=== PATIENT | male | born 1930 | race Caucasian/White ===

== ENCOUNTER 2016-12-25 22:30 | Inpatient (IN) | payer MEDICARE, OTHER ==
[~2016-12-25] VITALS: Ht 182.9 cm; Wt 90.9 kg
[2016-12-25] MEDS ORDERED: SODIUM CHLORIDE 0.9% 1L BAG IV* STA (23:06)
--- NOTE | 2016-12-25 23:09 | ERA ---
ER Documentation Chief Complaint Date/Time DATE: 12/25/16 TIME: 23:07 Chief Complaint increased fatigue/ lethargy x3-4h per HPI Patient is an 86-year-old male who presents with gradual onset, constant, progressive cough and dyspnea for 2 days. His states that he became more lethargic today and complained of generalized weakness. She called 911, and on EMS arrival, the patient was found to be satting 65% on room air. The patient was alert and oriented. He has not had any vomiting. History is limited due to patient's inability to provide past medical or surgical history. ROS All systems reviewed and are negative except as per history of present illness. Medications Home Meds Reported Medications Quetiapine Fumarate* (Quetiapine Fumarate*) 50 Mg Tablet, 50 MG PO BID, TAB 12/26/16 Insulin Aspart* (Novolog Insulin Pen*) 100 Unit/Ml Soln, 0 SC .SLIDING SCALE AC , EA 12/26/16 Insulin Detemir (Levemir) 100 Unit/1 Ml Vial, SC, VIAL 12/26/16 Trazodone Hcl* (Desyrel*) 100 Mg Tab, 100 MG PO BID, #60 TAB 12/26/16 Omeprazole* (Omeprazole*) 40 Mg Capsule.dr, 40 MG PO DAILY, #30 CAP 12/26/16 Atorvastatin Calcium (Atorvastatin Calcium) 10 Mg Tablet, 10 MG PO QHS, #30 TAB 12/26/16 Tamsulosin Hcl* (Tamsulosin Hcl*) 0.4 Mg Cap.er.24h, 0.4 MG PO DAILY, CAP 12/26/16 Amlodipine Besylate* (Amlodipine Besylate*) 10 Mg Tablet, 10 MG PO DAILY, #30 TAB 12/26/16 Metoprolol Succinate* (Toprol XL*) 50 Mg Tab.er.24h, 50 MG PO DAILY, #30 TAB 12/26/16 Buspirone Hcl* (Buspirone Hcl*) 15 Mg Tablet, 15 MG PO BID, TAB 12/26/16 Allergies Allergies: Coded Allergies: Penicillins (Unverified Allergy, Unknown, 12/25/16) PMhx/Soc Past medical history: Patient cannot state Past surgical history: Patient cannot state. Midline abdominal scar. Right arm scar Social history: Patient cannot state. History of Surgery: No (unknown) Anesthesia Reaction: No Hx Neurological Disorder: No (unknown) Hx Respiratory Disorders: No Hx Cardiac Disorders: No Hx Psychiatric Problems: No Hx Miscellaneous Medical Probl: Yes (dm2) Hx Alcohol Use: No (utd) Hx Substance Use: No (utd) Hx Tobacco Use: No Smoking Status: Unknown if ever smoked FmHx Unobtainable Physical Exam Vitals Vital Signs Date Time Temp Pulse Resp B/P Pulse Ox O2 Delivery O2 Flow Rate FiO2 12/26/16 01:45 83 100 60 12/26/16 01:40 87 18 120/64 95 Non Rebreather 12/26/16 00:05 93 19 121/91 94 Room Air Non Rebreather 12/25/16 23:01 Non Rebreather 15 12/25/16 22:56 99.9 104 22 139/108 95 Physical Exam Const: Alert, no acute distress, lethargic Head: Atraumatic Eyes: Normal Conjunctiva, no pallor, no icterus ENT: Normal External Ears, Nose and Mouth. Tacky mucous membranes Neck: Full range of motion. No meningismus. Resp: Left basilar rales, mild tachypnea, no wheezes Cardio: Regular rate and rhythm, no murmurs Abd: Soft, non tender, non distended. Skin: No petechiae or rashes Back: No midline or flank tenderness Ext: No cyanosis, or edema Neur: Awake and alert, cranial nerves II through XII intact bilaterally, moves and feels 4 extremities appropriately Psych: Normal Mood and Affect Result Diagram: 12/25/16 2330 12/25/16 2330 Results 24 hrs Laboratory Tests Test 12/25/16 23:30 White Blood Count 12.410^3/ul Red Blood Count 3.0810^6/ul Hemoglobin 9.3g/dl Hematocrit 29.6% Mean Corpuscular Volume 96.1fl Mean Corpuscular Hemoglobin 30.2pg Mean Corpuscular Hemoglobin Concent 31.4g/dl Red Cell Distribution Width 17.8% Platelet Count 28302^3/UL Mean Platelet Volume 10.4fl Neutrophils % 88.9% Lymphocytes % 3.1% Monocytes % 4.7% Eosinophils % 0.2% Basophils % 0.2% Neutrophils # 11.010^3/ul Lymphocytes # 0.410^3/ul Monocytes # 0.610^3/ul Eosinophils # 0.010^3/ul Basophils # 0.010^3/ul Nucleated Red Blood Cells # 0.010^3/ul Prothrombin Time 14.4Sec Prothrombin Time Ratio 1.1 INR International Normalized Ratio 1.12 Activated Partial Thromboplast Time 42.1Sec Sodium Level 138mmol/L Potassium Level 4.7mmol/L Chloride Level 100mmol/L Carbon Dioxide Level 24mmol/L Anion Gap 19 Blood Urea Nitrogen 31mg/dl Creatinine 1.47mg/dl Glucose Level 224mg/dl Lactic Acid Level 1.8mmol/L Calcium Level 8.4mg/dl Total Bilirubin 0.5mg/dl Direct Bilirubin 0.00mg/dl Indirect Bilirubin 0.5mg/dl Aspartate Amino Transf (AST/SGOT) 25IU/L Alanine Aminotransferase (ALT/SGPT) 30IU/L Alkaline Phosphatase 94IU/L Troponin I 0.047ng/ml B-Type Natriuretic Peptide 14634ES/ML Total Protein 5.9g/dl Albumin 2.8g/dl Globulin 3.10g/dl Albumin/Globulin Ratio 0.90 Current Medications Medications (Trade) Dose Ordered Sig/Saadia Route PRN Reason Start Time Stop Time Status Last Admin Dose Admin Ceftriaxone Sodium (Rocephin) 50 ml @ 100 mls/hr ONCE ONCE IVPB 12/25/16 23:30 12/25/16 23:59 DC 12/25/16 23:30 Sodium Chloride (NS) 2,820 ml BOLUS OVER 3 HOURS STAT IV* 12/25/16 23:06 12/25/16 23:08 DC 12/25/16 23:59 Furosemide (Lasix) 40 mg ONCE ONCE IV 12/26/16 01:30 12/26/16 01:31 DC Haloperidol (Haldol) 5 mg STK-MED ONCE .ROUTE 12/26/16 01:21 12/26/16 01:22 DC Ondansetron HCl (Zofran Inj) 4 mg ER BRIDGE PRN IV NAUSEA AND/OR VOMITING 12/26/16 02:00 12/27/16 01:59 Acetaminophen (Tylenol Tab) 650 mg ER BRIDGE PRN PO MILD PAIN/FEVER 12/26/16 02:00 12/27/16 01:59 Azithromycin (Zithromax) 500 mg ONCE ONCE PO 12/26/16 02:00 12/26/16 02:01 DC Haloperidol (Haldol) 5 mg ONCE ONCE IM 12/26/16 02:00 12/26/16 02:01 DC Procedures/MDM EKG read by me: Time 2310, rate 97 Rhythm: Sinus rhythm with first-degree AV block Cashion: Normal Intervals: Normal ST-T waves: Nonspecific ST change in lateral leads Ectopy: No Q-waves: No Impression: First-degree AV block and nonspecific ST changes, no obvious ischemia. MDM: Patient is an 86-year-old male who presents to the ER with shortness of breath, cough, and hypoxemia. He also was more lethargic today. History is limited due to lack of presence of family members, limited history from paramedics, and patient appearing to have underlying dementia and being unable to provide significant history. Initially, a noted asymmetric rales on exam, and suspected pneumonia. A septic workup was initiated. IV fluids and antibiotics were administered, and blood and urine cultures were sent. Subsequently, a chest x-ray was suggestive of CHF with pulmonary edema more likely than pneumonia. I reviewed the chest x-ray, and felt that it was consistent with pulmonary edema. I therefore stopped administering fluids. The patient was afebrile on rectal temperature at 99.9 Fahrenheit, and had no hypotension, no tachycardia, and no elevated lactic acid. The patient's BNP was greater than 13,000, suggestive of CHF. The patient was administered Lasix and aspirin. EKG did not appear ischemic, and first troponin was not significantly elevated. The patient was started on BiPAP, and did not exhibit significant respiratory distress. Fluid administration by sepsis protocol was not pursued due to the risk of worsening the patient's pulmonary edema, and greater likelihood of CHF as opposed to pneumonia as the underlying diagnosis. Antibiotics were administered in case of concomitant pneumonia. The patient will need to have close observation of his fluid balance and respiratory status. A Fink catheter was placed to assist with this assessment. The patient will be admitted to a monitored bed for further workup and treatment. The patient was agitated in the ER, and required Haldol and restraints to avoid him pulling his lines. Departure Diagnosis: Primary Impression: CHF (congestive heart failure) Qualified Code: I50.9 - Congestive heart failure, unspecified congestive heart failure chronicity, unspecified congestive heart failure type Additional Impressions: Hypoxemia Pneumonia Qualified Code: J18.9 - Pneumonia due to infectious organism, unspecified laterality, unspecified part of lung Condition: NADIRA Bliss MD Dec 25, 2016 23:09
[2016-12-25] MEDS ORDERED: CEFTRIAXONE 2 GM/50 ML (PMX) 50 ML IVPB ONE (23:30)
--- NOTE | 2016-12-25 23:55 | RADRPT ---
PROCEDURE: XR Chest. CLINICAL INDICATION: Possible sepsis TECHNIQUE: AP Portable chest. COMPARISON: No pertinent prior examinations were submitted for comparison. FINDINGS: There is moderate cardiomegaly. Patchy airspace opacity is noted throughout the left greater than r ight chest. The osseous structures are unremarkable. A cardiac device is noted in the left chest wi th 2 leads. IMPRESSION: Patchy airspace opacities of the left and right chest likely due to pulmonary edema. Pneumonia kamlesh ot be excluded. RPTAT: HIKT .Gurmeet Rodrigez MD, MD Date Time Electronically viewed and signed by .Gurmeet Rodrigez MD, MD on 12/25/2016 23:55 .T/
[2016-12-25 23:59] LABS: ADD SCAN DIFF NO
[2016-12-26] VITALS (10 sets, daily range): BP systolic 136–164; BP diastolic 62–70; PULSE 67–109; RESP 18–21; Ht 182.9 cm; Wt 90.9 kg
[2016-12-26 00:03] LABS: ABNORMAL IP MESSAGE 1; BASOPHILS % 0.2 % (0.0-2.0); EOSINOPHILS % 0.2 % (0.0-7.0); HEMATOCRIT 29.6 % (42.0-52.0); HEMOGLOBIN 9.3 g/dl (14.0-18.0); LYMPHOCYTES # 0.4 10^3/ul (0.8-2.9); LYMPHOCYTES % 3.1 % (15.0-51.0); MEAN CORPUSCULAR HEMOGLOBIN 30.2 pg (29.0-33.0); MEAN CORPUSCULAR HGB CONC 31.4 g/dl (32.0-37.0); MEAN CORPUSCULAR VOLUME 96.1 fl (82.0-101.0); MEAN PLATELET VOLUME 10.4 fl (7.4-10.4); MONOCYTE # 0.6 10^3/ul (0.3-0.9); MONOCYTES % 4.7 % (0.0-11.0); NEUTROPHILS % 88.9 % (39.0-77.0); PLATELET COUNT 282 10^3/UL (140-415); RED BLOOD COUNT 3.08 10^6/ul (4.70-6.10); RED CELL DISTRIBUTION WIDTH 17.8 % (11.5-14.5); WHITE BLOOD COUNT 12.4 10^3/ul (4.8-10.8)
[2016-12-26 00:20] LABS: INR 1.12; PROTIME 14.4 Sec (12.2-14.2); PT RATIO 1.1
[2016-12-26 00:21] LABS: PARTIAL THROMBOPLASTIN TIME 42.1 Sec (25.0-35.0)
[2016-12-26 00:29] LABS: ALBUMIN 2.8 g/dl (3.3-4.9); ALBUMIN/GLOBULIN RATIO 0.9; BILIRUBIN,INDIRECT 0.5 mg/dl (0-1.1); BILIRUBIN,TOTAL 0.5 mg/dl (0.2-1.3); CALCIUM 8.4 mg/dl (8.4-10.2); CREATININE 1.47 mg/dl (0.61-1.24); POTASSIUM 4.7 mmol/L (3.5-5.1); TOTAL PROTEIN 5.9 g/dl (6.1-8.1)
[2016-12-26 00:42] LABS: TROPONIN-I 0.047 ng/ml (0.00-0.12)
[2016-12-26] MEDS ORDERED: HALOPERIDOL 5 MG INJ ONE (01:21)
[2016-12-26] MEDS ORDERED: FUROSEMIDE 40 MG INJ IV ONE (01:30)
[2016-12-26] MEDS ORDERED: QUET50TA22 PO (01:44)
[2016-12-26] MEDS ORDERED: OMEP40CA6 PO (01:44)
[2016-12-26] MEDS ORDERED: ATOR10TA65 PO (01:44)
[2016-12-26] MEDS ORDERED: BUSP15TA3 PO (01:44)
[2016-12-26] MEDS ORDERED: LEVEM SC (01:44)
[2016-12-26] MEDS ORDERED: NOVO3I SC (01:44)
[2016-12-26] MEDS ORDERED: TAMS0.4C2 PO (01:44)
[2016-12-26] MEDS ORDERED: METO50TA16 PO (01:44)
[2016-12-26] MEDS ORDERED: AMLO-147 PO (01:44)
[2016-12-26] MEDS ORDERED: TRAZ100T15 PO (01:44)
[2016-12-26] MEDS ORDERED: AZITHROMYCIN 250 MG TAB PO ONE (02:00)
[2016-12-26] MEDS ORDERED: HALOPERIDOL 5 MG INJ IM ONE (02:00)
[2016-12-26] MEDS ORDERED: ONDANSETRON 4 MG INJ IV PRN ×2 (02:00→06:00)
[2016-12-26] MEDS ORDERED: ACETAMINOPHEN 325 MG TAB PO PRN ×2 (02:00→06:00)
[2016-12-26] MEDS ORDERED: ASPIRIN 81 MG TAB PO ONE (02:30)
[2016-12-26 03:40] LABS: Allen Test ACCEPTAB; Arterial Base Excess -1.6 mmol/L (-3.0-3); Arterial COHb 0.3 % (0.0-3.0); Arterial Fraction of Oxyhgb 94.7 % (93.0-99.0); Arterial HCO3 23.2 mmol/L (22.0-26.0); Arterial MetHb 0.3 % (0.0-1.5); Arterial Total Hemglobin 10.1 g/dl (12.0-18.0); Blood Gas IEPAP 15/5; MODE MASK - BIPAP
[2016-12-26 04:29] LABS: ADD UMIC YES; UR ASCORBIC ACID NEGATIVE (NEGATIVE); UR BACTERIA FEW /HPF (NONE SEEN); UR BILIRUBIN (Dip) NEGATIVE (NEGATIVE); UR BLOOD (Dip) 1+ mg/dL (NEGATIVE); UR CLARITY CLOUDY (CLEAR); UR COLOR YELLOW (YELLOW); UR GLUCOSE (Dip) NEGATIVE (NEGATIVE); UR KETONES (Dip) NEGATIVE (NEGATIVE); UR LEUKOCYTE ESTERASE (Dip) 3+ Leu/ul (NEGATIVE); UR NITRITE (Dip) NEGATIVE (NEGATIVE); UR RBC 7 /HPF (0-5); UR SPECIFIC GRAVITY (Dip) 1.014 (1.003-1.030); UR TOTAL PROTEIN (Dip) 2+ mg/dl (NEGATIVE); UR UROBILINOGEN (Dip) NEGATIVE (NEGATIVE)
[2016-12-26] MEDS ORDERED: DEXTROSE 50% 50 ML SYRINGE IV PRN ×2 (06:00)
[2016-12-26] MEDS ORDERED: FUROSEMIDE 20 MG INJ IV SCH (06:00)
[2016-12-26] MEDS ORDERED: GLUCOSE GEL 15 GRAM TUBE PO PRN ×2 (06:00)
[2016-12-26] MEDS ORDERED: GLUCAGON 1 MG INJ IM PRN (06:00)
[2016-12-26] MEDS ORDERED: FUROSEMIDE 40 MG INJ IV SCH (06:00)
[2016-12-26] MEDS ORDERED: GLUCOSE GEL 15 GRAM TUBE BUCCAL PRN (06:00)
[2016-12-26] MEDS ORDERED: NACL 0.9% 3 ML SYG IV SCH (06:00)
[2016-12-26] MEDS ORDERED: PENDING SANTYL ORDER FOR WOUND CARE XX PRN (06:30)
[2016-12-26 06:46] LABS: ADD SCAN DIFF NO
[2016-12-26 07:07] LABS: ALBUMIN 3.1 g/dl (3.3-4.9); ALBUMIN/GLOBULIN RATIO 0.86; BILIRUBIN,INDIRECT 0.2 mg/dl (0-1.1); BILIRUBIN,TOTAL 0.2 mg/dl (0.2-1.3); CALCIUM 8.3 mg/dl (8.4-10.2); CHOL/HDL RATIO 3.9 RATIO; CREATININE 1.62 mg/dl (0.61-1.24); MAGNESIUM 1.9 mg/dl (1.7-2.5); POTASSIUM 4.2 mmol/L (3.5-5.1); TOTAL PROTEIN 6.7 g/dl (6.1-8.1)
--- NOTE | 2016-12-26 07:10 | HP ---
Date/Time of Note Date/Time of Note DATE: 12/26/16 TIME: 06:54 Assessment/Plan VTE Prophylaxis VTE Prophylaxis Intervention: heparin Lines/Catheters IV [facility]from [facility] Saline Lock Urinary Cath still in place: Yes Assessment/Plan Assessment/Plan 1. Shortness of breath secondary to CHF exacerbation, likely acute on chronic -He will be continued on IV Lasix. We will order a 2D echo and place a cardiology consult 2. Presumed chronic kidney disease, likely with acute component -We will order renal ultrasound and place nephrology consult. 3. Sepsis, as evidenced by leukocytosis and tachycardia, secondary to urinary tract infection and possibly pneumonia as well. -Will be placed on antibiotic and I will follow up on culture results 4. Altered mentation: - This seems to be chronic and secondary to underlying dementia. During the day will investigate this further by talking to his and other family members. 5. History of hypertension: - Adjust home medications as needed 6. Right heel pressure ulcer -Wound care for management 7. Anemia, likely secondary to chronic disease -Monitor closely for now. HPI/ROS Admit Date/Time Admit Date/Time Dec 26, 2016 at 01:49 Hx of Present Illness This is on 86-year-old male with a history of type I diabetes, pacemaker, hypertension, BPH, unknown underlying psych issue based on the home medication and the likely dementia who presented to the emergency department for shortness of breath. Patient is not able to give any history in the such information is gathered from chart review and from the ER physician. Patient only at times states a few words in Greek and that is about it. According to notes from the ER, his stated that he looked very lethargic and fatigued for about 3 hours prior to presentation to the ER. She also reported that he has been "sick " for a while. When EMS arrived, reportedly oxygen saturation was as low as 68% . He was placed on nonrebreather mask which increased his oxygen saturation to about 95%. In the ER, chest x-ray shows patchy airspace opacities of the left and right chest likely due to pulmonary edema. Pneumonia cannot be excluded. Labs show a creatinine of 1.47, glucose 224, WBC 12.4 and hemoglobin of about 9.3. Initially his heart rate was 104 and temperature was 99.9. Patient was given Lasix, ceftriaxone while he was in the ER. PMH/Family/Social Past Medical History Medical History: hypertension Social History Alcohol Use: other Smoking Status: Unknown if ever smoked Drug Use: other Exam/Review of Systems Vital Signs Vitals Vital Signs Date Time Temp Pulse Resp B/P Pulse Ox O2 Delivery O2 Flow Rate FiO2 12/26/16 05:01 10.0 12/26/16 05:00 Simple Mask 12/26/16 04:50 79 12/26/16 04:18 17 146/68 100 12/26/16 03:40 60 12/25/16 22:56 99.9 Exam Constitutional: other (Sleepy but arousable, not oriented, no acute distress) Head: atraumatic, normocephalic Respiratory: clear to auscultation, normal air movement Cardiovascular: other (tachycardic) Gastrointestinal: soft Extremities: other (right hill pressure ulcer) Skin: ecchymosis Labs Result Diagram: 12/25/16 23312/25/16 2330 Medications Medications Current Medications Lorazepam (Ativan) 0.5 mg Q6H PRN IV ANXIETY; Start 12/26/16 at 06:00 Ondansetron HCl (Zofran Inj) 4 mg Q6H PRN IV NAUSEA AND/OR VOMITING; Start at 06:00 Aspirin (Aspirin) 81 mg DAILY PO ; Start 12/26/16 at 09:00 Acetaminophen (Tylenol Tab) 650 mg Q6H PRN PO PAIN LEVEL 1-3 OR FEVER; Start at 06:00 Morphine Sulfate (morphine) 2 mg Q4H PRN IV PAIN LEVEL 7-10; Start 12/26/16 at 06:00 Heparin Sodium (Porcine) (Heparin (5000 Units/0.5 ml)) 5,000 unit Q12 SC ; Start 12/26/16 at 09:00 Diagnostic Test (Pha) (Accu-Chek) 1 ea 02 XX ; Start 12/27/16 at 02:00 Insulin Glargine 14 unit 14 unit DAILY@08 SC ; Start 12/26/16 at 08:00 Ciprofloxacin/ Dextrose (Cipro Ivpb) 200 ml @ 200 mls/hr Q12 IVPB ; Start 12/26 at 09:00 Furosemide (Lasix) 20 mg DAILY@06 IV Last administered on 12/26/16t 06:43; Admin Dose 20 MG; Start 12/26/16 at 06:00 Miscellaneous Information 1 ea NOTE XX ; Start 12/26/16 at 06:00 Glucose (Glutose) 15 gm Q15M PRN PO DECREASED GLUCOSE; Start 12/26/16 at 06:00 Glucose (Glutose) 22.5 gm Q15M PRN PO DECREASED GLUCOSE; Start 12/26/16 at 06: 00 Dextrose (D50w Syringe) 25 ml Q15M PRN IV DECREASED GLUCOSE; Start 12/26/16 at 06:00 Dextrose (D50w Syringe) 50 ml Q15M PRN IV DECREASED GLUCOSE; Start 12/26/16 at 06:00 Glucagon (Glucagen) 1 mg Q15M PRN IM DECREASED GLUCOSE; Start 12/26/16 at 06:00 Glucose (Glutose) 15 gm Q15M PRN BUCCAL DECREASED GLUCOSE; Start 12/26/16 at 06 :00 Miscellaneous Information (Pending Santyl Order For Wound Care) This patient betancourt... PRN PRN XX WOUND CARE; Start 12/26/16 at 06:30 CHRISTIANNE CRUZ MD Dec 26, 2016 07:07
[2016-12-26 07:14] LABS: ABNORMAL IP MESSAGE 1; BASOPHILS % 0.2 % (0.0-2.0); EOSINOPHILS % 0.1 % (0.0-7.0); HEMATOCRIT 28.2 % (42.0-52.0); HEMOGLOBIN 8.9 g/dl (14.0-18.0); LYMPHOCYTES # 0.5 10^3/ul (0.8-2.9); MEAN CORPUSCULAR HEMOGLOBIN 30.4 pg (29.0-33.0); MEAN CORPUSCULAR HGB CONC 31.6 g/dl (32.0-37.0); MEAN CORPUSCULAR VOLUME 96.2 fl (82.0-101.0); MEAN PLATELET VOLUME 10.7 fl (7.4-10.4); MONOCYTE # 0.6 10^3/ul (0.3-0.9); MONOCYTES % 5.4 % (0.0-11.0); NEUTROPHIL # 9.3 10^3/ul (1.6-7.5); NEUTROPHILS % 86.1 % (39.0-77.0); PLATELET COUNT 269 10^3/UL (140-415); RED BLOOD COUNT 2.93 10^6/ul (4.70-6.10); RED CELL DISTRIBUTION WIDTH 17.4 % (11.5-14.5); WHITE BLOOD COUNT 10.8 10^3/ul (4.8-10.8)
[2016-12-26 07:59] LABS: THYROID STIMULATING HORMONE 3.22 MIU/L (0.465-4.680)
[2016-12-26] MEDS: ALBUTEROL/IPRATROPIUM (NEB) 3 ML AMP HHN PRN ×2 (09:08→20:07)
[2016-12-26] MEDS: CIPROFLOXACIN 400MG/D5W 200 ML IVPB SCH ×2 (09:30→20:36)
[2016-12-26] MEDS: ASPIRIN 81 MG TAB PO SCH (09:33)
[2016-12-26] MEDS: HEPARIN 5,000 UNIT/0.5 ML VIAL SC SCH ×2 (09:39→20:38)
[2016-12-26] MEDS: INSULIN ASPART [NOVOLOG] 3 ML PEN SC SCH ×4 (09:41→20:37)
[2016-12-26] MEDS: INSULIN GLARGINE [LANtus] 3 ML PEN SC SCH (09:43)
--- NOTE | 2016-12-26 11:06 | RADRPT ---
PROCEDURE: Renal US. CLINICAL INDICATION: Renal insufficiency TECHNIQUE: Multiple sonographic images of the kidneys were obtained. The images were reviewed on a PACS workstation. COMPARISON: No prior studies are available for comparison. FINDINGS: The right kidney measures 8.6 cm. The left kidney measures 11.0 cm. Increased cortical echogenicity is identified in both kidneys. No masses, stones or hydronephrosis are identified. The bladder is collapsed. IMPRESSION: Echogenic kidneys, possibly indicating medical renal disease. Slightly small right kidney. RPTAT: AA .Niels Florez MD, MD Date Time Electronically viewed and signed by .Niels Florez MD, on 12/26/2016 11:06 .P/
[2016-12-26] MEDS: FUROSEMIDE 20 MG INJ IV SCH (18:36)
--- NOTE | 2016-12-26 18:54 | RADRPT ---
Echocardiogram Report Patient Name: CARLEE OROZCO Gender: Male Date: 1930 Study Date: 26-Dec-2016 Hris Manager: Fadumo Disla [facility] Location: [id number] Ref. Physician: CHRISTIANNE CRUZ Quality: Good Procedures: Transthoracic echocardiogram with complete 2D, M-Mode, and doppler examination. Indications: Congestive Heart Failure. 2D/M Mode Doppler Measurement Value Normal Ranges Measurement Value Normal Ranges LVIDd 2D 4.2 3.5 - 5.6 cm AV Mean Daryl 1.7 m/sec LVIDs 2D 3.0 2.1 - 4.1 cm AV Mean PG 13.6 mmHg LVPWd 2D 1.2 0.6 - 1.1 cm AV Peak Daryl 2.5 m/sec IVSd 2D 1.5 0.6 - 1.1 cm AV Peak PG 25.3 mmHg AoR Diam 2D 3.0 2.0 - 3.7 cm AV VTI 55.1 cm EDV 2D 80.5 cm3 AI Peak PG 63.9 mmHg ESV 2D 26.3 cm3 AI Peak Daryl 4.0 m/sec LA Dimen 2D 4.9 2.3 - 4.0 cm AI PHT 451.1 msec LVOT Diam 2.2 cm LVOT Mean Daryl 0.6 m/sec LVOT Mean PG 1.5 mmHg LVOT Peak Daryl 0.8 m/sec LVOT Peak PG 2.7 mmHg LVOT VTI 21.7 cm MV E Peak Daryl 2.2 m/sec MV A Peak Daryl 2.0 m/sec MV E/A 1.1 MV PHT 86.1 msec MV Peak Daryl 3.1 m/sec MV Peak PG 37.7 mmHg MV Mean Daryl 1.8 m/sec MV Mean PG 15.7 mmHg MV Decel Time 317 msec MV Decel Scott 7 MV E/A 1.1 MV PHT 86.1 msec MV VTI 84.8 cm MVA PHT 2.6 cm2 TR Peak Daryl 3.5 m/sec TR Peak PG 49.0 mmHg RVSP 52.0 mmHg Findings Left Ventricle: Normal left ventricular systolic function. Normal left ventricular cavity size. Normal left ventricular wall thickness. Ejection fraction is visually estimated at 55 %. Right Ventricle: Normal right ventricular size. Normal right ventricular systolic function. Pacemaker right heart. Left Atrium: The left atrium is normal in size. Right Atrium: The right atrium is normal in size. Mitral Valve: Moderate mitral leaflet calcification. Severe mitral annular calcification. Trace mitral regurgitation. Severe mitral stenosis. Mitral valve Max Velocity 3.07 m/sec. MaxPG 37.70 mmHg. MeanPG 15.70 mmHg. Mitral Valve Area by Continuity0.97 cm2. Aortic Valve: Mild aortic stenosis. Aortic valve Max velocity 2.51 m/sec. Max PG 25.30 mmHg. Mean PG 13.60 mmHg. Aortic valve area 1.50 cm2. Mild aortic valve regurgitation. Tricuspid Valve: Normal appearance of the tricuspid valve. Estimated peak PA systolic pressure 52 mmHg. There is mild tricuspid regurgitation. Pulmonic Valve: Normal pulmonic valve appearance. Pericardium: Normal pericardium with no significant pericardial effusion. Aorta: Normal aortic root. IVC: Normal size and normal respiratory collapse consistent with normal right atrial pressure. Conclusions 1.Normal left ventricular systolic function. Normal left ventricular cavity size. Normal left ventricular wall thickness. Ejection fraction is visually estimated at 55 %. Normal right ventricular size. Normal right ventricular systolic function. Pacemaker right heart. 2.Trace mitral regurgitation. Severe mitral stenosis. MeanPG 15.70 mmHg. Mitral Valve Area by Continuity0.97 cm2. 3.Mild aortic stenosis. Mean PG 13.60 mmHg. Aortic valve area 1.50 cm2. Mild aortic valve regurgitation. 4.Normal appearance of the tricuspid valve. Estimated peak PA systolic pressure 52 mmHg. There is mild tricuspid regurgitation. Electronically Signed By: Nilton Dueñas 26-Dec-2016 18:53:06 -0700 Patient Name: CARLEE OROZCO Study Date: 26-Dec-2016 [id number]
[2016-12-26] MEDS: METOPROLOL 25 MG TAB PO SCH (20:35)
[2016-12-26] MEDS: QUETIAPINE 25 MG TAB PO SCH (22:20)
[2016-12-26] MEDS: traZODone 100 MG TAB PO SCH (22:20)
[2016-12-27] VITALS (8 sets, daily range): BP systolic 112–133; BP diastolic 45–60; PULSE 58–102; RESP 16–21
[2016-12-27] MEDS: ACCU-CHEK XX SCH (02:00)
[2016-12-27] MEDS ORDERED: ACCU-CHEK XX SCH (02:00)
[2016-12-27 02:56] LABS: TROPONIN-I 0.082 ng/ml (0.00-0.12)
[2016-12-27 02:59] LABS: CK-MB 1.07 ng/ml (0.0-2.4)
[2016-12-27] MEDS: LORAZEPAM 2 MG INJ IV PRN (03:55)
[2016-12-27] MEDS: FUROSEMIDE 20 MG INJ IV SCH ×2 (06:07→18:05)
[2016-12-27 08:37] LABS: ABNORMAL IP MESSAGE 1; BASOPHILS % 0.1 % (0.0-2.0); EOSINOPHILS % 0.2 % (0.0-7.0); HEMOGLOBIN 8.4 g/dl (14.0-18.0); LYMPHOCYTES # 0.5 10^3/ul (0.8-2.9); LYMPHOCYTES % 2.5 % (15.0-51.0); MEAN CORPUSCULAR HGB CONC 32.3 g/dl (32.0-37.0); MEAN CORPUSCULAR VOLUME 95.9 fl (82.0-101.0); MEAN PLATELET VOLUME 10.8 fl (7.4-10.4); MONOCYTE # 0.4 10^3/ul (0.3-0.9); MONOCYTES % 1.9 % (0.0-11.0); NEUTROPHIL # 17.7 10^3/ul (1.6-7.5); PLATELET COUNT 259 10^3/UL (140-415); POSITIVE DIFF @See below; RED BLOOD COUNT 2.71 10^6/ul (4.70-6.10); RED CELL DISTRIBUTION WIDTH 17.7 % (11.5-14.5); WHITE BLOOD COUNT 18.9 10^3/ul (4.8-10.8)
[2016-12-27 08:52] LABS: CALCIUM 8.3 mg/dl (8.4-10.2); CREATININE 1.69 mg/dl (0.61-1.24); MAGNESIUM 1.8 mg/dl (1.7-2.5); PHOSPHORUS 5.9 mg/dl (2.5-4.9); POTASSIUM 4.3 mmol/L (3.5-5.1)
[2016-12-27 08:57] LABS: CHOL/HDL RATIO 2.4 RATIO
[2016-12-27 09:16] LABS: NEUTROPHILS % 93.7 % (39.0-77.0)
[2016-12-27] MEDS: INSULIN GLARGINE [LANtus] 3 ML PEN SC SCH (09:30)
[2016-12-27] MEDS: INSULIN ASPART [NOVOLOG] 3 ML PEN SC SCH ×4 (09:32→21:04)
[2016-12-27 09:52] LABS: TROPONIN-I 0.092 ng/ml (0.00-0.12)
[2016-12-27 09:56] LABS: CK-MB 1.71 ng/ml (0.0-2.4)
[2016-12-27] MEDS: traZODone 100 MG TAB PO SCH ×2 (10:13→21:01)
[2016-12-27] MEDS: ASPIRIN 81 MG TAB PO SCH (10:14)
[2016-12-27] MEDS: METOPROLOL 25 MG TAB PO SCH ×2 (10:14→21:03)
[2016-12-27] MEDS: QUETIAPINE 25 MG TAB PO SCH ×2 (10:14→21:01)
[2016-12-27] MEDS: HEPARIN 5,000 UNIT/0.5 ML VIAL SC SCH ×2 (10:19→21:05)
[2016-12-27] MEDS: CIPROFLOXACIN 400MG/D5W 200 ML IVPB SCH ×2 (10:28→21:00)
[2016-12-27 11:22] LABS: ADD UMIC YES; UR ASCORBIC ACID NEGATIVE (NEGATIVE); UR BILIRUBIN (Dip) NEGATIVE (NEGATIVE); UR BLOOD (Dip) 1+ mg/dL (NEGATIVE); UR CLARITY SLIGHTLY CLOUDY (CLEAR); UR COLOR YELLOW (YELLOW); UR GLUCOSE (Dip) NEGATIVE (NEGATIVE); UR KETONES (Dip) NEGATIVE (NEGATIVE); UR LEUKOCYTE ESTERASE (Dip) 1+ Leu/ul (NEGATIVE); UR NITRITE (Dip) NEGATIVE (NEGATIVE); UR RBC 3 /HPF (0-5); UR SPECIFIC GRAVITY (Dip) 1.012 (1.003-1.030); UR TOTAL PROTEIN (Dip) 2+ mg/dl (NEGATIVE); UR UROBILINOGEN (Dip) NEGATIVE (NEGATIVE)
--- NOTE | 2016-12-27 11:35 | QN ---
Documentation Comment pt seen and examined. h/p dictated ZANA SHEETS DO Dec 27, 2016 11:35
--- NOTE | 2016-12-27 11:43 | PN ---
Date/Time of Note Date/Time of Note DATE: 12/27/16 TIME: 11:39 Assessment/Plan VTE Prophylaxis VTE Prophylaxis Intervention: other Lines/Catheters IV Catheter Type (from Nrs): Saline Lock Urinary Cath still in place: Yes Reason Cath still needed: other (indicate) Assessment/Plan Chief Complaint/Hosp Course 1. Nonoliguric acute kidney injury with unknown baseline creatinine likely CKD Etiology secondary to hemodynamics, possible tubular injury Renal function been fluctuating likely from recent diuretic therapy Renal ultrasound was reviewed showed evidence of increased echogenicity consistent with CKD Would continue current diuretic therapy at this time Monitor I's and O's closely Chronic kidney disease underlying etiology likely multifactorial Renal ultrasound shows increased echogenicity consistent with CKD The patient is currently an acute kidney injury stated above We will continue current treatment plan continue disease factor modification Anemia monitor H&H levels CHF. Patient is volume overloaded Continue diuretic therapy Monitor renal functions monitor electrolytes Sepsis Continue current antibiotic regimen Cultures been reviewed Acute encephalopathy and dementia Etiologies toxic metabolic Continue to monitor Problems: Subjective 24 Hr Interval Summary Free Text/Dictation Patient seen and examined No acute events overnight Exam/Review of Systems Vital Signs Vitals Vital Signs Date Time Temp Pulse Resp B/P Pulse Ox O2 Delivery O2 Flow Rate FiO2 12/27/16 08:23 61 12/27/16 06:00 97.2 16 118/56 100 Non Rebreather 15.0 12/26/16 09:09 21 Intake and Output 12/26/16 12/26/16 12/27/16 15:00 23:00 07:00 Intake Total 200 ml 800 ml 300 ml Output Total 1200 ml 500 ml Balance 200 ml -400 ml -200 ml Exam Constitutional: other (Sleepy but arousable, not oriented, no acute distress) Head: atraumatic, normocephalic Respiratory: clear to auscultation, normal air movement Cardiovascular: other (tachycardic) Gastrointestinal: soft Extremities: other (right hill pressure ulcer) Skin: ecchymosis Results Result Diagram: 12/27/16 0739 12/27/16 0739 Results 24 hrs Laboratory Tests Test 12/26/16 12:21 12/26/16 17:29 12/26/16 20:14 12/27/16 01:02 Bedside Glucose 243 H 151 215 Creatine Kinase 50 Creatine Kinase Index 2.1 Creatinine Kinase MB (Mass) 1.07 Troponin I 0.082 Test 12/27/16 07:39 12/27/16 09:21 White Blood Count 18.9 #H Red Blood Count 2.71 L Hemoglobin 8.4 L Hematocrit 26.0 L Mean Corpuscular Volume 95.9 Mean Corpuscular Hemoglobin 31.0 Mean Corpuscular Hemoglobin Concent 32.3 Red Cell Distribution Width 17.7 H Platelet Count 259 Mean Platelet Volume 10.8 H Neutrophils % 93.7 H Lymphocytes % 2.5 L Monocytes % 1.9 Eosinophils % 0.2 Basophils % 0.1 Nucleated Red Blood Cells % 0.0 Neutrophils # 17.7 H Lymphocytes # 0.5 L Monocytes # 0.4 Eosinophils # 0.0 Basophils # 0.0 Nucleated Red Blood Cells # 0.0 Sodium Level 138 Potassium Level 4.3 Chloride Level 98 Carbon Dioxide Level 26 Anion Gap 18 H Blood Urea Nitrogen 39 H Creatinine 1.69 H Glucose Level 241 H Calcium Level 8.3 L Phosphorus Level 5.9 H Magnesium Level 1.8 Creatine Kinase 84 Creatine Kinase Index 2.0 Creatinine Kinase MB (Mass) 1.71 Troponin I 0.092 Triglycerides Level 69 Cholesterol Level 96 L LDL Cholesterol, Calculated 42 HDL Cholesterol 40 # Cholesterol/HDL Ratio 2.4 Bedside Glucose 245 H Medications Medications Current Medications Lorazepam (Ativan) 0.5 mg Q6H PRN IV ANXIETY Last administered on 12/27/16 03: 55; Admin Dose 0.5 MG; Start 12/26/16 at 06:00 Ondansetron HCl (Zofran Inj) 4 mg Q6H PRN IV NAUSEA AND/OR VOMITING; Start at 06:00 Aspirin (Aspirin) 81 mg DAILY PO Last administered on 12/27/16 10:14; Admin Dose 81 MG; Start 12/26/16 at 09:00 Acetaminophen (Tylenol Tab) 650 mg Q6H PRN PO PAIN LEVEL 1-3 OR FEVER Last administered on 12/27/16 03:55; Admin Dose 650 MG; Start 12/26/16 at 06:00 Morphine Sulfate (morphine) 2 mg Q4H PRN IV PAIN LEVEL 7-10; Start 12/26/16 at 06:00 Heparin Sodium (Porcine) (Heparin (5000 Units/0.5 ml)) 5,000 unit Q12 SC Last administered on 12/27/16 10:19; Admin Dose 5,000 UNIT; Start 12/26/16 at 09:00 Diagnostic Test (Pha) (Accu-Chek) 1 ea 02 XX ; Start 12/27/16 at 02:00 Insulin Glargine 14 unit 14 unit DAILY@08 SC Last administered on 12/27/16 09: 30; Admin Dose 14 UNIT; Start 12/26/16 at 08:00 Ciprofloxacin/ Dextrose (Cipro Ivpb) 200 ml @ 200 mls/hr Q12 IVPB Last administered on 12/27/16 10:28; Admin Dose 200 MLS/HR; Start 12/26/16 at 09:00 Miscellaneous Information 1 ea NOTE XX ; Start 12/26/16 at 06:00 Glucose (Glutose) 15 gm Q15M PRN PO DECREASED GLUCOSE; Start 12/26/16 at 06:00 Glucose (Glutose) 22.5 gm Q15M PRN PO DECREASED GLUCOSE; Start 12/26/16 at 06: 00 Dextrose (D50w Syringe) 25 ml Q15M PRN IV DECREASED GLUCOSE; Start 12/26/16 at 06:00 Dextrose (D50w Syringe) 50 ml Q15M PRN IV DECREASED GLUCOSE; Start 12/26/16 at 06:00 Glucagon (Glucagen) 1 mg Q15M PRN IM DECREASED GLUCOSE; Start 12/26/16 at 06:00 Glucose (Glutose) 15 gm Q15M PRN BUCCAL DECREASED GLUCOSE; Start 12/26/16 at 06 :00 Miscellaneous Information (Pending Santyl Order For Wound Care) This patient betancourt... PRN PRN XX WOUND CARE; Start 12/26/16 at 06:30 Hydralazine HCl (Apresoline) 25 mg Q8 PO Last administered on 12/27/16 06:07; Admin Dose 25 MG; Start 12/26/16 at 22:00 Metoprolol Tartrate (Lopressor) 25 mg BID PO Last administered on 12/27/16 10: 14; Admin Dose 25 MG; Start 12/26/16 at 21:00 Guaifenesin/ Codeine Phosphate (Robitussin Ac Liquid Cup) 10 ml Q4H PRN PO COUGH; Start 12/26/16 at 20:30 Quetiapine Fumarate (Seroquel) 50 mg BID PO Last administered on 12/27/16 10: 14; Admin Dose 50 MG; Start 12/26/16 at 22:00 Trazodone HCl (Desyrel) 100 mg BID PO Last administered on 12/27/16t 10:13; Admin Dose 100 MG; Start 12/26/16 at 22:30 ZANA SHEETS DO Dec 27, 2016 11:43
[2016-12-27 13:07] LABS: TROPONIN-I 0.066 ng/ml (0.00-0.12)
[2016-12-27 13:08] LABS: CK-MB 1.77 ng/ml (0.0-2.4)
--- NOTE | 2016-12-27 15:20 | PN ---
Date/Time of Note Date/Time of Note DATE: 12/27/16 TIME: 15:18 Assessment/Plan VTE Prophylaxis VTE Prophylaxis Intervention: heparin Lines/Catheters IV Catheter Type (from Nrs): Saline Lock Urinary Cath still in place: Yes Reason Cath still needed: other (indicate) (montior I&O) Assessment/Plan Chief Complaint/Hosp Course Assessment and plan 1. Dyspnea secondary to CHF exacerbation. Continue on diuretics. Check follow -up chest radiograph. Await cardiology input. 2. CKD. Process Trainer following. Medications to be renally dosed. Continue the recommendations. 3. Sepsis secondary to UTI and possibly pneumonia. Continue antibiotics. Stable at present. Will monitor. 4. Altered mentation. Suspect patient currently at baseline. Does have underlying dementia. Monitor for now. Aspiration precautions. 5. Essential hypertension. Continue antihypertensives and adjust needed 6. Brachial pressures. Continue with wound care. 7. Anemia of chronic disease. H&H remained stable. Monitor at this time. Disposition plan: Continue diuretics per week for clinical improvement of respiratory status. Check follow-up chest radiograph. Follow-up with cardiology recommendations. Discussed plan of care with Dr. de santiago Problems: Subjective 24 Hr Interval Summary Free Text/Dictation Noted to be confused. Is alert. No signs or symptoms of respiratory distress Exam/Review of Systems Vital Signs Vitals Vital Signs Date Time Temp Pulse Resp B/P Pulse Ox O2 Delivery O2 Flow Rate FiO2 12/27/16 08:23 61 12/27/16 06:00 97.2 16 118/56 100 Non Rebreather 15.0 12/26/16 09:09 21 Intake and Output 12/26/16 12/26/16 12/27/16 15:00 23:00 07:00 Intake Total 200 ml 800 ml 300 ml Output Total 1200 ml 500 ml Balance 200 ml -400 ml -200 ml Exam Constitutional: alert, No oriented Psych: no complaints Neck: supple Respiratory: congested cough, crackles/rales Cardiovascular: other (Regular rate) Gastrointestinal: non-tender, soft (Regular rate) Extremities: edema ( bilateral lower extremities) Neurological: other (Noted with dementia) Results Result Diagram: 12/27/16 0739 12/27/16 0739 Results 24 hrs Laboratory Tests Test 12/26/16 17:29 12/26/16 20:14 12/27/16 01:02 12/27/16 07:39 Bedside Glucose 151 215 Creatine Kinase 50 84 Creatine Kinase Index 2.1 2.0 Creatinine Kinase MB (Mass) 1.07 1.71 Troponin I 0.082 0.092 White Blood Count 18.9 #H Red Blood Count 2.71 L Hemoglobin 8.4 L Hematocrit 26.0 L Mean Corpuscular Volume 95.9 Mean Corpuscular Hemoglobin 31.0 Mean Corpuscular Hemoglobin Concent 32.3 Red Cell Distribution Width 17.7 H Platelet Count 259 Mean Platelet Volume 10.8 H Neutrophils % 93.7 H Lymphocytes % 2.5 L Monocytes % 1.9 Eosinophils % 0.2 Basophils % 0.1 Nucleated Red Blood Cells % 0.0 Neutrophils # 17.7 H Lymphocytes # 0.5 L Monocytes # 0.4 Eosinophils # 0.0 Basophils # 0.0 Nucleated Red Blood Cells # 0.0 Sodium Level 138 Potassium Level 4.3 Chloride Level 98 Carbon Dioxide Level 26 Anion Gap 18 H Blood Urea Nitrogen 39 H Creatinine 1.69 H Glucose Level 241 H Calcium Level 8.3 L Phosphorus Level 5.9 H Magnesium Level 1.8 Triglycerides Level 69 Cholesterol Level 96 L LDL Cholesterol, Calculated 42 HDL Cholesterol 40 # Cholesterol/HDL Ratio 2.4 Test 12/27/16 09:21 12/27/16 12:02 12/27/16 12:19 Bedside Glucose 245 H 177 Creatine Kinase 80 Creatine Kinase Index 2.2 Creatinine Kinase MB (Mass) 1.77 Troponin I 0.066 Medications Medications Current Medications Lorazepam (Ativan) 0.5 mg Q6H PRN IV ANXIETY Last administered on 12/27/16 03: 55; Admin Dose 0.5 MG; Start 12/26/16 at 06:00 Ondansetron HCl (Zofran Inj) 4 mg Q6H PRN IV NAUSEA AND/OR VOMITING; Start at 06:00 Aspirin (Aspirin) 81 mg DAILY PO Last administered on 12/27/16 10:14; Admin Dose 81 MG; Start 12/26/16 at 09:00 Acetaminophen (Tylenol Tab) 650 mg Q6H PRN PO PAIN LEVEL 1-3 OR FEVER Last administered on 12/27/16 03:55; Admin Dose 650 MG; Start 12/26/16 at 06:00 Morphine Sulfate (morphine) 2 mg Q4H PRN IV PAIN LEVEL 7-10; Start 12/26/16 at 06:00 Heparin Sodium (Porcine) (Heparin (5000 Units/0.5 ml)) 5,000 unit Q12 SC Last administered on 12/27/16 10:19; Admin Dose 5,000 UNIT; Start 12/26/16 at 09:00 Diagnostic Test (Pha) (Accu-Chek) 1 ea 02 XX ; Start 12/27/16 at 02:00 Insulin Glargine 14 unit 14 unit DAILY@08 SC Last administered on 12/27/16 09: 30; Admin Dose 14 UNIT; Start 12/26/16 at 08:00 Ciprofloxacin/ Dextrose (Cipro Ivpb) 200 ml @ 200 mls/hr Q12 IVPB Last administered on 12/27/16 10:28; Admin Dose 200 MLS/HR; Start 12/26/16 at 09:00 Miscellaneous Information 1 ea NOTE XX ; Start 12/26/16 at 06:00 Glucose (Glutose) 15 gm Q15M PRN PO DECREASED GLUCOSE; Start 12/26/16 at 06:00 Glucose (Glutose) 22.5 gm Q15M PRN PO DECREASED GLUCOSE; Start 12/26/16 at 06: 00 Dextrose (D50w Syringe) 25 ml Q15M PRN IV DECREASED GLUCOSE; Start 12/26/16 at 06:00 Dextrose (D50w Syringe) 50 ml Q15M PRN IV DECREASED GLUCOSE; Start 12/26/16 at 06:00 Glucagon (Glucagen) 1 mg Q15M PRN IM DECREASED GLUCOSE; Start 12/26/16 at 06:00 Glucose (Glutose) 15 gm Q15M PRN BUCCAL DECREASED GLUCOSE; Start 12/26/16 at 06 :00 Miscellaneous [facility] This patient betancourt... PRN PRN XX WOUND CARE; Start 12/26/16 at 06:30 Hydralazine HCl (Apresoline) 25 mg Q8 PO Last administered on 12/27/16 13:09; Admin Dose 25 MG; Start 12/26/16 at 22:00 Metoprolol Tartrate (Lopressor) 25 mg BID PO Last administered on 12/27/16 10: 14; Admin Dose 25 MG; Start 12/26/16 at 21:00 Guaifenesin/ Codeine Phosphate (Robitussin Ac Liquid Cup) 10 ml Q4H PRN PO COUGH; Start 12/26/16 at 20:30 Quetiapine Fumarate (Seroquel) 50 mg BID PO Last administered on 12/27/16 10: 14; Admin Dose 50 MG; Start 12/26/16 at 22:00 Trazodone HCl (Desyrel) 100 mg BID PO Last administered on 12/27/16 10:13; Admin Dose 100 MG; Start 12/26/16 at 22:30 WISAM KAY Dec 27, 2016 15:20
--- NOTE | 2016-12-27 16:41 | RADRPT ---
PROCEDURE: XR Chest. CLINICAL INDICATION: Shortness of breath. TECHNIQUE: Single frontal view. COMPARISON: 12/25/2016. FINDINGS: There is extensive bilateral pulmonary air space disease consistent with pulmonary edema or bilatera l pneumonia, unchanged. The heart is enlarged. There is calcification in the aorta consistent with atherosclerosis. 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 There is no pleural effusion. There is no pneumothorax. IMPRESSION: 1. No change from 12/25/2016. RPTAT: QQ .Doyle Medeiros MD, MD Date Time Electronically viewed and signed by .Doyle Medeiros MD, MD on 12/27/2016 16:41 .R/
[2016-12-27] MEDS: GUAIFENESIN/CODEINE 5ML CUP PO PRN (21:03)
[2016-12-28] VITALS (13 sets, daily range): BP systolic 107–145; BP diastolic 53–65; PULSE 75–99; RESP 18–20
[2016-12-28] MEDS: LORAZEPAM 2 MG INJ IV PRN (00:18)
[2016-12-28] MEDS: ACCU-CHEK XX SCH (01:51)
[2016-12-28] MEDS: FUROSEMIDE 20 MG INJ IV SCH ×2 (06:12→17:41)
[2016-12-28 08:05] LABS: ABNORMAL IP MESSAGE 1; BASOPHILS % 0.2 % (0.0-2.0); EOSINOPHILS # 0.5 10^3/ul (0.0-0.5); EOSINOPHILS % 4.4 % (0.0-7.0); HEMATOCRIT 26.9 % (42.0-52.0); HEMOGLOBIN 8.4 g/dl (14.0-18.0); LYMPHOCYTES # 0.3 10^3/ul (0.8-2.9); LYMPHOCYTES % 2.7 % (15.0-51.0); MEAN CORPUSCULAR HEMOGLOBIN 30.2 pg (29.0-33.0); MEAN CORPUSCULAR HGB CONC 31.2 g/dl (32.0-37.0); MEAN CORPUSCULAR VOLUME 96.8 fl (82.0-101.0); MEAN PLATELET VOLUME 10.7 fl (7.4-10.4); MONOCYTE # 0.3 10^3/ul (0.3-0.9); MONOCYTES % 2.8 % (0.0-11.0); NEUTROPHIL # 10.8 10^3/ul (1.6-7.5); NEUTROPHILS % 88.3 % (39.0-77.0); PLATELET COUNT 275 10^3/UL (140-415); POSITIVE DIFF @See below; RED BLOOD COUNT 2.78 10^6/ul (4.70-6.10); RED CELL DISTRIBUTION WIDTH 17.6 % (11.5-14.5); WHITE BLOOD COUNT 12.2 10^3/ul (4.8-10.8)
[2016-12-28 08:38] LABS: CALCIUM 8.5 mg/dl (8.4-10.2); CREATININE 1.49 mg/dl (0.61-1.24); MAGNESIUM 1.8 mg/dl (1.7-2.5); PHOSPHORUS 4.7 mg/dl (2.5-4.9); POTASSIUM 3.7 mmol/L (3.5-5.1)
[2016-12-28] MEDS: QUETIAPINE 25 MG TAB PO SCH ×2 (08:42→21:26)
[2016-12-28] MEDS: ASPIRIN 81 MG TAB PO SCH (08:45)
[2016-12-28] MEDS: METOPROLOL 25 MG TAB PO SCH ×2 (08:52→21:27)
[2016-12-28] MEDS: traZODone 100 MG TAB PO SCH ×2 (08:52→21:26)
[2016-12-28] MEDS: INSULIN ASPART [NOVOLOG] 3 ML PEN SC SCH ×4 (08:54→21:29)
[2016-12-28] MEDS: INSULIN GLARGINE [LANtus] 3 ML PEN SC SCH (08:57)
[2016-12-28] MEDS: HEPARIN 5,000 UNIT/0.5 ML VIAL SC SCH ×2 (08:59→21:28)
[2016-12-28] MEDS: CIPROFLOXACIN 400MG/D5W 200 ML IVPB SCH ×2 (09:12→21:30)
--- NOTE | 2016-12-28 12:44 | CONS ---
Date/Time of Note Date/Time of Note DATE: 12/28/16 TIME: 12:40 Assessment/Plan Assessment/Plan Additional Assessment/Plan Acute exacerbation of CHF Mitral stenosis Pulmonary hypertension Pneumonia Hypertension Right heel ulcer Diuresing well Hemodynamically stable Continue Metoprolol Continue Hydralazine restrict fluids 1500cc/ 24 hours Continue Insulin Continue antibiotics Continue GI and DVT Prophylaxis Consultation Date/Type/Reason Admit Date/Time Dec 26, 2016 at 01:49 Initial Consult Date Exam/Review of Systems Vital Signs Vitals Vital Signs Date Time Temp Pulse Resp B/P Pulse Ox O2 Delivery O2 Flow Rate FiO2 12/28/16 12:33 79 12/28/16 08:27 94 15.0 12/28/16 06:00 98.1 18 128/65 Non Rebreather 12/26/16 09:09 21 Intake and Output 12/27/16 12/27/16 12/28/16 15:00 23:00 07:00 Intake Total 650 ml 600 ml Output Total 1150 ml 1200 ml Balance -500 ml -600 ml Exam Constitutional: alert, oriented Head: atraumatic, normocephalic Neck: non-tender, supple Respiratory: clear to auscultation Cardiovascular: diastolic murmur, regular rate and rhythm Gastrointestinal: nl liver, spleen, non-tender, soft Extremities: normal pulses Results Result Diagram: 12/28/16 0733 12/28/16 0733 Results 24 hrs Laboratory Tests Test 12/27/16 17:59 12/27/16 20:27 12/28/16 07:33 12/28/16 08:32 Bedside Glucose 198 234 H 159 White Blood Count 12.2 #H Red Blood Count 2.78 L Hemoglobin 8.4 L Hematocrit 26.9 L Mean Corpuscular Volume 96.8 Mean Corpuscular Hemoglobin 30.2 Mean Corpuscular Hemoglobin Concent 31.2 L Red Cell Distribution Width 17.6 H Platelet Count 275 Mean Platelet Volume 10.7 H Neutrophils % 88.3 H Lymphocytes % 2.7 L Monocytes % 2.8 Eosinophils % 4.4 Basophils % 0.2 Nucleated Red Blood Cells % 0.0 Neutrophils # 10.8 H Lymphocytes # 0.3 L Monocytes # 0.3 Eosinophils # 0.5 Basophils # 0.0 Nucleated Red Blood Cells # 0.0 Sodium Level 143 Potassium Level 3.7 Chloride Level 100 Carbon Dioxide Level 28 Anion Gap 19 H Blood Urea Nitrogen 37 H Creatinine 1.49 H Glucose Level 157 Calcium Level 8.5 Phosphorus Level 4.7 Magnesium Level 1.8 Test 12/28/16 12:14 Bedside Glucose 162 Medications Medications Current Medications Lorazepam (Ativan) 0.5 mg Q6H PRN IV ANXIETY Last administered on 12/28/16 00: 18; Admin Dose 0.5 MG; Start 12/26/16 at 06:00 Ondansetron HCl (Zofran Inj) 4 mg Q6H PRN IV NAUSEA AND/OR VOMITING; Start at 06:00 Aspirin (Aspirin) 81 mg DAILY PO Last administered on 12/28/16 08:45; Admin Dose 81 MG; Start 12/26/16 at 09:00 Acetaminophen (Tylenol Tab) 650 mg Q6H PRN PO PAIN LEVEL 1-3 OR FEVER Last administered on 12/27/16 03:55; Admin Dose 650 MG; Start 12/26/16 at 06:00 Morphine Sulfate (morphine) 2 mg Q4H PRN IV PAIN LEVEL 7-10; Start 12/26/16 at 06:00 Heparin Sodium (Porcine) (Heparin (5000 Units/0.5 ml)) 5,000 unit Q12 SC Last administered on 12/28/16 08:59; Admin Dose 5,000 UNIT; Start 12/26/16 at 09:00 Diagnostic Test (Pha) (Accu-Chek) 1 ea 02 XX ; Start 12/27/16 at 02:00 Insulin Glargine 14 unit 14 unit DAILY@08 SC Last administered on 12/28/16 08: 57; Admin Dose 14 UNIT; Start 12/26/16 at 08:00 Ciprofloxacin/ Dextrose (Cipro Ivpb) 200 ml @ 200 mls/hr Q12 IVPB Last administered on 12/28/16 09:12; Admin Dose 200 MLS/HR; Start 12/26/16 at 09:00 Miscellaneous Information 1 ea NOTE XX ; Start 12/26/16 at 06:00 Glucose (Glutose) 15 gm Q15M PRN PO DECREASED GLUCOSE; Start 12/26/16 at 06:00 Glucose (Glutose) 22.5 gm Q15M PRN PO DECREASED GLUCOSE; Start 12/26/16 at 06: 00 Dextrose (D50w Syringe) 25 ml Q15M PRN IV DECREASED GLUCOSE; Start 12/26/16 at 06:00 Dextrose (D50w Syringe) 50 ml Q15M PRN IV DECREASED GLUCOSE; Start 12/26/16 at 06:00 Glucagon (Glucagen) 1 mg Q15M PRN IM DECREASED GLUCOSE; Start 12/26/16 at 06:00 Glucose (Glutose) 15 gm Q15M PRN BUCCAL DECREASED GLUCOSE; Start 12/26/16 at 06 :00 Miscellaneous Information (Pending [facility] Order For Wound Care) This patient betancourt... PRN PRN XX WOUND CARE; Start 12/26/16 at 06:30 Hydralazine HCl (Apresoline) 25 mg Q8 PO Last administered on 12/28/16 06:11; Admin Dose 25 MG; Start 12/26/16 at 22:00 Metoprolol Tartrate (Lopressor) 25 mg BID PO Last administered on 12/28/16 08: 52; Admin Dose 25 MG; Start 12/26/16 at 21:00 Guaifenesin/ Codeine Phosphate (Robitussin Ac Liquid Cup) 10 ml Q4H PRN PO COUGH Last administered on 12/27/16 21:03; Admin Dose 10 ML; Start 12/26/16 at 20:30 Quetiapine Fumarate (Seroquel) 50 mg BID PO Last administered on 12/28/16 08: 42; Admin Dose 50 MG; Start 12/26/16 at 22:00 Trazodone HCl (Desyrel) 100 mg BID PO Last administered on 12/28/16 08:52; Admin Dose 100 MG; Start 12/26/16 at 22:30 KACEY KIM M.D. Dec 28, 2016 12:44
[2016-12-29] VITALS (13 sets, daily range): BP systolic 94–152; BP diastolic 54–67; PULSE 80–108; RESP 18–81
[2016-12-29] MEDS: LORAZEPAM 2 MG INJ IV PRN ×2 (00:30→08:18)
[2016-12-29] MEDS: ACCU-CHEK XX SCH (02:00)
[2016-12-29] MEDS: FUROSEMIDE 20 MG INJ IV SCH (06:06)
[2016-12-29] MEDS: METOPROLOL 25 MG TAB PO SCH ×3 (08:18→21:30)
[2016-12-29] MEDS: QUETIAPINE 25 MG TAB PO SCH ×3 (08:18→21:30)
[2016-12-29] MEDS: traZODone 100 MG TAB PO SCH ×3 (08:18→21:30)
[2016-12-29] MEDS: ASPIRIN 81 MG TAB PO SCH ×2 (08:18→09:00)
[2016-12-29] MEDS: CIPROFLOXACIN 400MG/D5W 200 ML IVPB SCH ×2 (08:19→21:30)
[2016-12-29] MEDS: INSULIN ASPART [NOVOLOG] 3 ML PEN SC SCH ×4 (08:22→21:30)
[2016-12-29] MEDS: HEPARIN 5,000 UNIT/0.5 ML VIAL SC SCH ×2 (08:23→21:30)
[2016-12-29] MEDS: INSULIN GLARGINE [LANtus] 3 ML PEN SC SCH (09:53)
--- NOTE | 2016-12-29 12:50 | CONS ---
Date/Time of Note Date/Time of Note DATE: 12/29/16 TIME: 12:46 Assessment/Plan Assessment/Plan Chief Complaint/Hosp Course IMP: 1.CHF-diastolic acute on chronic. Trop negative x 3 2.MS-severe by echo 3.abnl ecg 4.Psych d/o 5.REnal failure 6. UTI 7.AMS Recc: -tele -continue asa -Contineu hydralazine with slight increase to improve BP -Continue BB -Continue abx's and f/u cx data -Follow volume status closely Problems: Consultation Date/Type/Reason Admit Date/Time Dec 26, 2016 at 01:49 Initial Consult Date 12/26/2016 Type of Consultation: cardiology Reason for Consultation CHF Referring Provider: ANGELA AL Exam/Review of Systems Vital Signs Vitals Vital Signs Date Time Temp Pulse Resp B/P Pulse Ox O2 Delivery O2 Flow Rate FiO2 12/29/16 12:14 83 12/29/16 12:00 97.5 19 152/64 99 12/29/16 08:00 Non Rebreather 10.0 12/26/16 09:09 21 Intake and Output 12/28/16 12/28/16 12/29/16 15:00 23:00 07:00 Intake Total 360 ml 700 ml Output Total 950 ml 700 ml Balance -590 ml 0 ml Exam Review of Systems: CONSTITUTIONAL: No fevers, chills. PULMONARY: mild sob CARDIOVASCULAR: No chest pain/palpitations GASTROINTESTINAL: No nausea/vomiting. GENITOURINARY: No hematuria/dysuria. MUSCULOSKELETAL: No myagias/arthalgias. PSYCHIATRIC: The patient denies depression. NEUROLOGIC: No weakness Constitutional: alert Psych: no complaints Head: normocephalic ENMT: mucosa pink and moist Neck: jvd (8-9 cm water), supple Respiratory: diminished breath sounds (at bases/B) Cardiovascular: regular rate and rhythm Gastrointestinal: non-tender, soft Musculoskeletal: muscle tone (normal) Extremities: edema (none) Neurological: other (NO focal deficits) Results Result Diagram: 12/28/16 0733 12/28/16 0733 Results 24 hrs Laboratory Tests Test 12/28/16 17:38 12/28/16 21:25 12/29/16 07:32 12/29/16 12:04 Bedside Glucose 89 230 H 172 158 Medications Medications Current Medications Lorazepam (Ativan) 0.5 mg Q6H PRN IV ANXIETY Last administered on 12/29/16 08: 18; Admin Dose 0.5 MG; Start 12/26/16 at 06:00 Ondansetron HCl (Zofran Inj) 4 mg Q6H PRN IV NAUSEA AND/OR VOMITING; Start at 06:00 Aspirin (Aspirin) 81 mg DAILY PO Last administered on 12/28/16 08:45; Admin Dose 81 MG; Start 12/26/16 at 09:00 Acetaminophen (Tylenol Tab) 650 mg Q6H PRN PO PAIN LEVEL 1-3 OR FEVER Last administered on 12/27/16 03:55; Admin Dose 650 MG; Start 12/26/16 at 06:00 Morphine Sulfate (morphine) 2 mg Q4H PRN IV PAIN LEVEL 7-10; Start 12/26/16 at 06:00 Heparin Sodium (Porcine) (Heparin (5000 Units/0.5 ml)) 5,000 unit Q12 SC Last administered on 12/29/16 08:23; Admin Dose 5,000 UNIT; Start 12/26/16 at 09:00 Diagnostic Test (Pha) (Accu-Chek) 1 ea 02 XX ; Start 12/27/16 at 02:00 Insulin Glargine 14 unit 14 unit DAILY@08 SC Last administered on 12/29/16 09: 53; Admin Dose 14 UNIT; Start 12/26/16 at 08:00 Ciprofloxacin/ Dextrose (Cipro Ivpb) 200 ml @ 200 mls/hr Q12 IVPB Last administered on 12/29/16 08:19; Admin Dose 200 MLS/HR; Start 12/26/16 at 09:00 Miscellaneous Information 1 ea NOTE XX ; Start 12/26/16 at 06:00 Glucose (Glutose) 15 gm Q15M PRN PO DECREASED GLUCOSE; Start 12/26/16 at 06:00 Glucose (Glutose) 22.5 gm Q15M PRN PO DECREASED GLUCOSE; Start 12/26/16 at 06: 00 Dextrose (D50w Syringe) 25 ml Q15M PRN IV DECREASED GLUCOSE; Start 12/26/16 at 06:00 Dextrose (D50w Syringe) 50 ml Q15M PRN IV DECREASED GLUCOSE; Start 12/26/16 at 06:00 Glucagon (Glucagen) 1 mg Q15M PRN IM DECREASED GLUCOSE; Start 12/26/16 at 06:00 Glucose (Glutose) 15 gm Q15M PRN BUCCAL DECREASED GLUCOSE; Start 12/26/16 at 06 :00 Miscellaneous Information (Pending [facility] Order For Wound Care) This patient betancourt... PRN PRN XX WOUND CARE; Start 12/26/16 at 06:30 Hydralazine HCl (Apresoline) 25 mg Q8 PO Last administered on 12/29/16 06:06; Admin Dose 25 MG; Start 12/26/16 at 22:00 Metoprolol Tartrate (Lopressor) 25 mg BID PO Last administered on 12/28/16 21: 27; Admin Dose 25 MG; Start 12/26/16 at 21:00 Guaifenesin/ Codeine Phosphate (Robitussin Ac Liquid Cup) 10 ml Q4H PRN PO COUGH Last administered on 12/27/16 21:03; Admin Dose 10 ML; Start 12/26/16 at 20:30 Quetiapine Fumarate (Seroquel) 50 mg BID PO Last administered on 12/28/16 21: 26; Admin Dose 50 MG; Start 12/26/16 at 22:00 Trazodone HCl (Desyrel) 100 mg BID PO Last administered on 12/28/16 21:26; Admin Dose 100 MG; Start 12/26/16 at 22:30 DENG WALLIS Dec 29, 2016 12:50
--- NOTE | 2016-12-29 15:21 | PN ---
Date/Time of Note Date/Time of Note LATE ENTRY DATE: 12/28/16 Assessment/Plan VTE Prophylaxis VTE Prophylaxis Intervention: heparin Lines/Catheters IV Catheter Type (from Nrs): Saline Lock Urinary Cath still in place: Yes Reason Cath still needed: other (indicate) (montior I&O) Assessment/Plan Chief Complaint/Hosp Course Assessment and plan 1. Dyspnea secondary to CHF exacerbation. Continue on diuretics. Await for clinical improvement 2. CKD. 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 Medications to be renally dosed. Continue the recommendations. 3. Sepsis secondary to UTI and possibly pneumonia. Continue antibiotics. Stable at present. Will monitor. 4. Altered mentation. Suspect patient currently at baseline. Does have underlying dementia. Monitor for now. Aspiration precautions. 5. Essential hypertension. Continue antihypertensives and adjust needed 6. pressurepressures. Continue with wound care. 7. Anemia of chronic disease. H&H remained stable. Monitor at this time. Disposition plan: Continue diuresis. Titrate off O2 as tolerated. Continue to monitor Discussed plan of care with Dr. Moon Problems: Subjective 24 Hr Interval Summary Free Text/Dictation Seen on nonrebreather . No obvious distress seen Exam/Review of Systems Vital Signs Vitals Vital Signs Date Time Temp Pulse Resp B/P Pulse Ox O2 Delivery O2 Flow Rate FiO2 12/29/16 12:14 83 12/29/16 12:00 97.5 19 152/64 99 12/29/16 08:25 Non Rebreather 10.0 12/26/16 09:09 21 Intake and Output 12/28/16 12/28/16 12/29/16 14:59 22:59 06:59 Intake Total 360 ml 700 ml Output Total 950 ml 700 ml Balance -590 ml 0 ml Exam Constitutional: alert, No oriented Psych: no complaints Neck: supple Respiratory: congested cough, crackles/rales. On nonrebreather Cardiovascular: other (Regular rate) Gastrointestinal: non-tender, soft (Regular rate) Extremities: edema ( bilateral lower extremities) Neurological: other (Noted with dementia) Results Result Diagram: 12/28/16 0733 12/28/16 0733 Results 24 hrs Laboratory Tests Test 12/28/16 17:38 12/28/16 21:25 12/29/16 07:32 12/29/16 12:04 Bedside Glucose 89 230 H 172 158 Medications Medications Current Medications Lorazepam (Ativan) 0.5 mg Q6H PRN IV ANXIETY Last administered on 12/29/16 08: 18; Admin Dose 0.5 MG; Start 12/26/16 at 06:00 Ondansetron HCl (Zofran Inj) 4 mg Q6H PRN IV NAUSEA AND/OR VOMITING; Start at 06:00 Aspirin (Aspirin) 81 mg DAILY PO Last administered on 12/28/16 08:45; Admin Dose 81 MG; Start 12/26/16 at 09:00 Acetaminophen (Tylenol Tab) 650 mg Q6H PRN PO PAIN LEVEL 1-3 OR FEVER Last administered on 12/27/16 03:55; Admin Dose 650 MG; Start 12/26/16 at 06:00 Morphine Sulfate (morphine) 2 mg Q4H PRN IV PAIN LEVEL 7-10; Start 12/26/16 at 06:00 Heparin Sodium (Porcine) (Heparin (5000 Units/0.5 ml)) 5,000 unit Q12 SC Last administered on 12/29/16 08:23; Admin Dose 5,000 UNIT; Start 12/26/16 at 09:00 Diagnostic Test (Pha) (Accu-Chek) 1 ea 02 XX ; Start 12/27/16 at 02:00 Insulin Glargine 14 unit 14 unit DAILY@08 SC Last administered on 12/29/16 09: 53; Admin Dose 14 UNIT; Start 12/26/16 at 08:00 Ciprofloxacin/ Dextrose (Cipro Ivpb) 200 ml @ 200 mls/hr Q12 IVPB Last administered on 12/29/16 08:19; Admin Dose 200 MLS/HR; Start 12/26/16 at 09:00 Miscellaneous Information 1 ea NOTE XX ; Start 12/26/16 at 06:00 Glucose (Glutose) 15 gm Q15M PRN PO DECREASED GLUCOSE; Start 12/26/16 at 06:00 Glucose (Glutose) 22.5 gm Q15M PRN PO DECREASED GLUCOSE; Start 12/26/16 at 06: 00 Dextrose (D50w Syringe) 25 ml Q15M PRN IV DECREASED GLUCOSE; Start 12/26/16 at 06:00 Dextrose (D50w Syringe) 50 ml Q15M PRN IV DECREASED GLUCOSE; Start 12/26/16 at 06:00 Glucagon (Glucagen) 1 mg Q15M PRN IM DECREASED GLUCOSE; Start 12/26/16 at 06:00 Glucose (Glutose) 15 gm Q15M PRN BUCCAL DECREASED GLUCOSE; Start 12/26/16 at 06 :00 [facility] This patient betancourt... PRN PRN XX WOUND CARE; Start 12/26/16 at 06:30 Hydralazine HCl (Apresoline) 25 mg Q8 PO Last administered on 12/29/16 06:06; Admin Dose 25 MG; Start 12/26/16 at 22:00 Metoprolol Tartrate (Lopressor) 25 mg BID PO Last administered on 12/28/16 21: 27; Admin Dose 25 MG; Start 12/26/16 at 21:00 Guaifenesin/ Codeine Phosphate (Robitussin Ac Liquid Cup) 10 ml Q4H PRN PO COUGH Last administered on 12/27/16 21:03; Admin Dose 10 ML; Start 12/26/16 at 20:30 Quetiapine Fumarate (Seroquel) 50 mg BID PO Last administered on 12/28/16 21: 26; Admin Dose 50 MG; Start 12/26/16 at 22:00 Trazodone HCl (Desyrel) 100 mg BID PO Last administered on 12/28/16 21:26; Admin Dose 100 MG; Start 12/26/16 at 22:30 WISAM KAY Dec 29, 2016 15:21
--- NOTE | 2016-12-29 15:24 | PN ---
Date/Time of Note Date/Time of Note DATE: 12/29/16 TIME: 15:21 Assessment/Plan VTE Prophylaxis VTE Prophylaxis Intervention: heparin Lines/Catheters IV Catheter Type (from Nrs): Saline Lock Urinary Cath still in place: Yes Reason Cath still needed: other (indicate) (montior I&O) Assessment/Plan Chief Complaint/Hosp Course Assessment and plan 1. Dyspnea secondary to CHF exacerbation. Continue on diuretics. Await for clinical improvement. Will get dealmaker follow-up 2. CKD. 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 Medications to be renally dosed. Continue the recommendations. 3. Sepsis secondary to UTI and possibly pneumonia. Continue antibiotics. 4. Altered mentation. Suspect patient currently at baseline. Does have underlying dementia. Monitor for now. Aspiration precautions. 5. Essential hypertension. Continue antihypertensives and adjust needed 6. pressurepressures. Continue with wound care. 7. Anemia of chronic disease. H&H remained stable. Monitor at this time. Disposition plan: Continue diuresis. Still with worse breathing. Will get dealmaker to follow. Await for recommendations Discussed plan of care with Dr. Root Problems: Subjective 24 Hr Interval Summary Free Text/Dictation Still remains on nonrebreather mask. Exam/Review of Systems Vital Signs Vitals Vital Signs Date Time Temp Pulse Resp B/P Pulse Ox O2 Delivery O2 Flow Rate FiO2 12/29/16 12:14 83 12/29/16 12:00 97.5 19 152/64 99 12/29/16 08:25 Non Rebreather 10.0 12/26/16 09:09 21 Intake and Output 12/28/16 12/28/16 12/29/16 14:59 22:59 06:59 Intake Total 360 ml 700 ml Output Total 950 ml 700 ml Balance -590 ml 0 ml Exam Constitutional: alert, other (Confused) Respiratory: crackles/rales Cardiovascular: other Gastrointestinal: non-tender, soft (Regular) Extremities: edema (Bilateral lower extremity) Skin: other (Pressure ulcer) Results Result Diagram: 12/28/16 0733 12/28/16 0733 Results 24 hrs Laboratory Tests Test 12/28/16 17:38 12/28/16 21:25 12/29/16 07:32 12/29/16 12:04 Bedside Glucose 89 230 H 172 158 Medications Medications Current Medications Lorazepam (Ativan) 0.5 mg Q6H PRN IV ANXIETY Last administered on 12/29/16 08: 18; Admin Dose 0.5 MG; Start 12/26/16 at 06:00 Ondansetron HCl (Zofran Inj) 4 mg Q6H PRN IV NAUSEA AND/OR VOMITING; Start at 06:00 Aspirin (Aspirin) 81 mg DAILY PO Last administered on 12/28/16 08:45; Admin Dose 81 MG; Start 12/26/16 at 09:00 Acetaminophen (Tylenol Tab) 650 mg Q6H PRN PO PAIN LEVEL 1-3 OR FEVER Last administered on 12/27/16 03:55; Admin Dose 650 MG; Start 12/26/16 at 06:00 Morphine Sulfate (morphine) 2 mg Q4H PRN IV PAIN LEVEL 7-10; Start 12/26/16 at 06:00 Heparin Sodium (Porcine) (Heparin (5000 Units/0.5 ml)) 5,000 unit Q12 SC Last administered on 12/29/16 08:23; Admin Dose 5,000 UNIT; Start 12/26/16 at 09:00 Diagnostic Test (Pha) (Accu-Chek) 1 ea 02 XX ; Start 12/27/16 at 02:00 Insulin Glargine 14 unit 14 unit DAILY@08 SC Last administered on 12/29/16 09: 53; Admin Dose 14 UNIT; Start 12/26/16 at 08:00 Ciprofloxacin/ Dextrose (Cipro Ivpb) 200 ml @ 200 mls/hr Q12 IVPB Last administered on 12/29/16 08:19; Admin Dose 200 MLS/HR; Start 12/26/16 at 09:00 Miscellaneous Information 1 ea NOTE XX ; Start 12/26/16 at 06:00 Glucose (Glutose) 15 gm Q15M PRN PO DECREASED GLUCOSE; Start 12/26/16 at 06:00 Glucose (Glutose) 22.5 gm Q15M PRN PO DECREASED GLUCOSE; Start 12/26/16 at 06: 00 Dextrose (D50w Syringe) 25 ml Q15M PRN IV DECREASED GLUCOSE; Start 12/26/16 at 06:00 Dextrose (D50w Syringe) 50 ml Q15M PRN IV DECREASED GLUCOSE; Start 12/26/16 at 06:00 Glucagon (Glucagen) 1 mg Q15M PRN IM DECREASED GLUCOSE; Start 12/26/16 at 06:00 Glucose (Glutose) 15 gm Q15M PRN BUCCAL DECREASED GLUCOSE; Start 12/26/16 at 06 :00 Miscellaneous Information (Pending [facility] Order For Wound Care) This patient betancourt... PRN PRN XX WOUND CARE; Start 12/26/16 at 06:30 Hydralazine HCl (Apresoline) 25 mg Q8 PO Last administered on 12/29/16 06:06; Admin Dose 25 MG; Start 12/26/16 at 22:00 Metoprolol Tartrate (Lopressor) 25 mg BID PO Last administered on 12/28/16 21: 27; Admin Dose 25 MG; Start 12/26/16 at 21:00 Guaifenesin/ Codeine Phosphate (Robitussin Ac Liquid Cup) 10 ml Q4H PRN PO COUGH Last administered on 12/27/16 21:03; Admin Dose 10 ML; Start 12/26/16 at 20:30 Quetiapine Fumarate (Seroquel) 50 mg BID PO Last administered on 12/28/16 21: 26; Admin Dose 50 MG; Start 12/26/16 at 22:00 Trazodone HCl (Desyrel) 100 mg BID PO Last administered on 12/28/16 21:26; Admin Dose 100 MG; Start 12/26/16 at 22:30 WISAM KAY Dec 29, 2016 15:24
[2016-12-29 16:29] LABS: MICROALBUMIN 36.9 mg/dL
--- NOTE | 2016-12-29 16:38 | CONS ---
Date/Time of Note Date/Time of Note DATE: 12/29/16 TIME: 16:38 Assessment/Plan Assessment/Plan Chief Complaint/Hosp Course Referral for hypoxemic respiratory failure 86-year-old gentleman with multiple medical problems post [facility] for evaluation of increasing shortness of breath orthopnea PND. During this admission he was found to have moderate hypoxemia requiring now initiation of supplemental O2 noninvasive positive pressure ventilation. Chest x-ray demonstrates congestive cardiac failure with volume overload. Possible component of underlying pneumonia given leukocytosis. I was asked to evaluate the patient today and upon evaluation he is still somewhat lethargic on current oxygen settings. Data is incomplete. Past medical history Diabetes mellitus Essential hypertension GENERAL: Elderly-appearing gentleman somewhat lethargic but grimaces to painful stimuli. VITAL SIGNS: per chart NECK: Supple. No JVD or lymphadenopathy. CARDIAC EXAM: S1, S2. No added sounds or murmurs. CHEST: clear bilaterally, No added sounds, rales or wheezes ABDOMEN: Soft, nontender. No guarding or rebound. EXTREMITIES: No cyanosis, clubbing or edema. NEUROLOGIC: Generalized weakness. Echocardiogram Preserved ejection fraction Severe mitral stenosis Trace mitral regurgitation moderate aortic stenosis Moderate pulmonary hypertension Assessment 1. Hypoxemic respiratory failure likely secondary to volume overload 2. Significant valvular heart disease 3. Questionable underlying history of dementia 4. Severe pulmonary hypertension likely secondary to valvular heart disease Plan 1. Continue diuretics increased dosing 2. Continue current oxygen settings stat arterial blood gas 3. Transfer to intensive care unit if numbers or condition deteriorate 4. Aspiration precautions 5. Cardiac recommendations Problems: Consultation Date/Type/Reason Admit Date/Time Dec 26, 2016 at 01:49 Psychological: no complaints Past Medical History Medical History: hypertension Social History Alcohol Use: other Smoking Status: Unknown if ever smoked Drug Use: other Exam/Review of Systems Vital Signs Vitals Vital Signs Date Time Temp Pulse Resp B/P Pulse Ox O2 Delivery O2 Flow Rate FiO2 12/29/16 16:27 85 12/29/16 12:00 97.5 19 152/64 99 12/29/16 08:25 Non Rebreather 10.0 12/26/16 09:09 21 Intake and Output 12/28/16 12/28/16 12/29/16 15:00 23:00 07:00 Intake Total 360 ml 700 ml Output Total 950 ml 700 ml Balance -590 ml 0 ml Results Result Diagram: 12/28/1633 12/28/1633 Results 24 hrs Laboratory Tests Test 12/28/16 17:38 12/28/16 21:25 12/29/16 07:32 12/29/16 12:04 Bedside Glucose 89 230 H 172 158 Medications Medications Current Medications Lorazepam (Ativan) 0.5 mg Q6H PRN IV ANXIETY Last administered on 12/29/16 08: 18; Admin Dose 0.5 MG; Start 12/26/16 at 06:00 Ondansetron HCl (Zofran Inj) 4 mg Q6H PRN IV NAUSEA AND/OR VOMITING; Start at 06:00 Aspirin (Aspirin) 81 mg DAILY PO Last administered on 12/28/16 08:45; Admin Dose 81 MG; Start 12/26/16 at 09:00 Acetaminophen (Tylenol Tab) 650 mg Q6H PRN PO PAIN LEVEL 1-3 OR FEVER Last administered on 12/27/16 03:55; Admin Dose 650 MG; Start 12/26/16 at 06:00 Morphine Sulfate (morphine) 2 mg Q4H PRN IV PAIN LEVEL 7-10; Start 12/26/16 at 06:00 Heparin Sodium (Porcine) (Heparin (5000 Units/0.5 ml)) 5,000 unit Q12 SC Last administered on 12/29/16 08:23; Admin Dose 5,000 UNIT; Start 12/26/16 at 09:00 Diagnostic Test (Pha) (Accu-Chek) 1 ea 02 XX ; Start 12/27/16 at 02:00 Insulin Glargine 14 unit 14 unit DAILY@08 SC Last administered on 12/29/16 09: 53; Admin Dose 14 UNIT; Start 12/26/16 at 08:00 Ciprofloxacin/ Dextrose (Cipro Ivpb) 200 ml @ 200 mls/hr Q12 IVPB Last administered on 12/29/16 08:19; Admin Dose 200 MLS/HR; Start 12/26/16 at 09:00 Miscellaneous Information 1 ea NOTE XX ; Start 12/26/16 at 06:00 Glucose (Glutose) 15 gm Q15M PRN PO DECREASED GLUCOSE; Start 12/26/16 at 06:00 Glucose (Glutose) 22.5 gm Q15M PRN PO DECREASED GLUCOSE; Start 12/26/16 at 06: 00 Dextrose (D50w Syringe) 25 ml Q15M PRN IV DECREASED GLUCOSE; Start 12/26/16 at 06:00 Dextrose (D50w Syringe) 50 ml Q15M PRN IV DECREASED GLUCOSE; Start 12/26/16 at 06:00 Glucagon (Glucagen) 1 mg Q15M PRN IM DECREASED GLUCOSE; Start 12/26/16 at 06:00 Glucose (Glutose) 15 gm Q15M PRN BUCCAL DECREASED GLUCOSE; Start 12/26/16 at 06 :00 Miscellaneous Information (Pending [facility] Order For Wound Care) This patient betancourt... PRN PRN XX WOUND CARE; Start 12/26/16 at 06:30 Hydralazine HCl (Apresoline) 25 mg Q8 PO Last administered on 12/29/16 06:06; Admin Dose 25 MG; Start 12/26/16 at 22:00 Metoprolol Tartrate (Lopressor) 25 mg BID PO Last administered on 12/28/16 21: 27; Admin Dose 25 MG; Start 12/26/16 at 21:00 Guaifenesin/ Codeine Phosphate (Robitussin Ac Liquid Cup) 10 ml Q4H PRN PO COUGH Last administered on 12/27/16 21:03; Admin Dose 10 ML; Start 12/26/16 at 20:30 Quetiapine Fumarate (Seroquel) 50 mg BID PO Last administered on 12/28/16 21: 26; Admin Dose 50 MG; Start 12/26/16 at 22:00 Trazodone HCl (Desyrel) 100 mg BID PO Last administered on 12/28/16 21:26; Admin Dose 100 MG; Start 12/26/16 at 22:30 [facility] Dec 29, 2016 16:38
[2016-12-29] MEDS: FUROSEMIDE 40 MG INJ IV SCH (17:09)
[2016-12-29 18:04] LABS: AADO2 Arterial 497.5 mmHg (7.0-24.0); Allen Test ACCEPTAB; Arterial Base Excess 2.9 mmol/L (-3.0-3); Arterial COHb 0.3 % (0.0-3.0); Arterial Fraction of Oxyhgb 97.9 % (93.0-99.0); Arterial HCO3 28.8 mmol/L (22.0-26.0); Arterial MetHb 0.4 % (0.0-1.5); Arterial Total Hemglobin 12.1 g/dl (12.0-18.0); MODE MASK - NRB
[2016-12-30] VITALS (11 sets, daily range): BP systolic 117–157; BP diastolic 56–73; PULSE 67–90; RESP 18–20
[2016-12-30] MEDS: ACCU-CHEK XX SCH (02:00)
[2016-12-30] MEDS: FUROSEMIDE 40 MG INJ IV SCH ×2 (06:13→17:24)
[2016-12-30 07:55] LABS: ABNORMAL IP MESSAGE 1; BASOPHILS % 0.2 % (0.0-2.0); EOSINOPHILS # 0.6 10^3/ul (0.0-0.5); EOSINOPHILS % 5.9 % (0.0-7.0); HEMOGLOBIN 8.1 g/dl (14.0-18.0); LYMPHOCYTES # 0.4 10^3/ul (0.8-2.9); MEAN CORPUSCULAR HEMOGLOBIN 30.2 pg (29.0-33.0); MEAN CORPUSCULAR HGB CONC 31.2 g/dl (32.0-37.0); MEAN PLATELET VOLUME 10.4 fl (7.4-10.4); MONOCYTE # 0.4 10^3/ul (0.3-0.9); MONOCYTES % 3.4 % (0.0-11.0); NEUTROPHIL # 8.8 10^3/ul (1.6-7.5); NEUTROPHILS % 85.4 % (39.0-77.0); PLATELET COUNT 297 10^3/UL (140-415); POSITIVE DIFF @See below; RED BLOOD COUNT 2.68 10^6/ul (4.70-6.10); RED CELL DISTRIBUTION WIDTH 17.6 % (11.5-14.5); WHITE BLOOD COUNT 10.3 10^3/ul (4.8-10.8)
[2016-12-30] MEDS: INSULIN ASPART [NOVOLOG] 3 ML PEN SC SCH ×4 (07:55→21:00)
[2016-12-30 08:21] LABS: AADO2 Arterial 590.5 mmHg (7.0-24.0); Allen Test ACCEPTAB; Arterial Base Excess 3.2 mmol/L (-3.0-3); Arterial COHb 0.3 % (0.0-3.0); Arterial Fraction of Oxyhgb 94.3 % (93.0-99.0); Arterial HCO3 28.3 mmol/L (22.0-26.0); Arterial MetHb 0.2 % (0.0-1.5); Arterial Total Hemglobin 9.4 g/dl (12.0-18.0); MODE MASK - NRB
[2016-12-30 08:42] LABS: CALCIUM 8.6 mg/dl (8.4-10.2); CREATININE 1.59 mg/dl (0.61-1.24); POTASSIUM 3.7 mmol/L (3.5-5.1)
[2016-12-30] MEDS: CIPROFLOXACIN 400MG/D5W 200 ML IVPB SCH ×2 (08:46→21:15)
[2016-12-30] MEDS: traZODone 100 MG TAB PO SCH ×2 (08:46→21:15)
[2016-12-30] MEDS: ASPIRIN 81 MG TAB PO SCH (08:46)
[2016-12-30] MEDS: QUETIAPINE 25 MG TAB PO SCH ×2 (08:48→21:13)
[2016-12-30] MEDS: METOPROLOL 25 MG TAB PO SCH ×2 (08:48→21:15)
[2016-12-30] MEDS: INSULIN GLARGINE [LANtus] 3 ML PEN SC SCH (08:51)
[2016-12-30] MEDS: HEPARIN 5,000 UNIT/0.5 ML VIAL SC SCH ×2 (09:00→21:17)
--- NOTE | 2016-12-30 11:32 | CONS ---
Date/Time of Note Date/Time of Note DATE: 12/30/16 TIME: 11:30 Consult Date/Type/Reason Admit Date/Time Dec 26, 2016 at 01:49 Initial Consult Date Type of Consultation: Pulmonary Ordering Provider: ANGELA AL Subjective Patient more alert today. Off BiPAP. Still confused and agitated. Objective Vital Signs Date Time Temp Pulse Resp B/P Pulse Ox O2 Delivery O2 Flow Rate FiO2 12/30/16 10:26 Non Rebreather 10.0 12/30/16 08:32 90 12/30/16 08:00 98.3 20 157/73 96 12/30/16 05:34 100 Intake and Output 12/29/16 12/29/16 12/30/16 14:59 22:59 06:59 Intake Total 320 ml 50 ml Output Total 950 ml 900 ml Balance -630 ml -850 ml Exam GENERAL: Elderly-appearing gentleman somewhat lethargic but grimaces to painful stimuli. VITAL SIGNS: per chart NECK: Supple. No JVD or lymphadenopathy. CARDIAC EXAM: S1, S2. No added sounds or murmurs. CHEST: clear bilaterally, No added sounds, rales or wheezes ABDOMEN: Soft, nontender. No guarding or rebound. EXTREMITIES: No cyanosis, clubbing or edema. NEUROLOGIC: Generalized weakness. Echocardiogram Preserved ejection fraction Severe mitral stenosis Trace mitral regurgitation moderate aortic stenosis Moderate pulmonary hypertension Results/Medications Result Diagram: 12/30/16 0702 12/30/16 0702 Results 24 hrs Laboratory Tests Test 12/29/16 12:04 12/29/16 17:00 12/29/16 17:07 12/29/16 21:38 Bedside Glucose 158 129 117 Blood Gas Specimen Source Blood arterial Arterial Blood Date Drawn 12/29/2016 5:55:31 PM Arterial Blood pH (Temp corrected) 7.382 Arterial Blood pCO2 (Temp correct) 49.5 H Arterial Blood pO2 (Temp corrected) 166.0 H Arterial Blood HCO3 28.8 H Arterial Blood Base Excess 2.9 Arterial Blood Oxygen Saturation 98.6 Brian Test ACCEPTAB Arterial Blood Gas Puncture Site Right Radial Arterial Blood Carboxyhemoglobin 0.3 Arterial Blood Methemoglobin 0.4 Blood Gas A-a O2 Differential 497.5 H Oxyhemoglobin Percent 97.9 Total Hemoglobin 12.1 Blood Gas Temperature 37.0 Blood Gas Modality MASK - NRB FiO2 100.0 Blood Gas Notified Whom DraganANA Blood Gas Notified Time 12/29/2016 6:03:35 PM Test 12/30/16 07:00 12/30/16 07:02 12/30/16 08:13 Blood Gas Specimen Source Blood arterial Arterial Blood Date Drawn 12/30/2016 8:10:23 AM Arterial Blood pH (Temp corrected) 7.411 Arterial Blood pCO2 (Temp correct) 45.5 H Arterial Blood pO2 (Temp corrected) 77.0 L Arterial Blood HCO3 28.3 H Arterial Blood Base Excess 3.2 H Arterial Blood Oxygen Saturation 94.8 L Brian Test ACCEPTAB Arterial Blood Gas Puncture Site Right Radial Arterial Blood Carboxyhemoglobin 0.3 Arterial Blood Methemoglobin 0.2 Blood Gas A-a O2 Differential 590.5 H Oxyhemoglobin Percent 94.3 Total Hemoglobin 9.4 L Blood Gas Temperature 37.0 Blood Gas Modality MASK - NRB FiO2 100.0 Blood Gas Notified Whom JLD Blood Gas Notified Time 12/30/2016 8:21:49 AM White Blood Count 10.3 Red Blood Count 2.68 L Hemoglobin 8.1 L Hematocrit 26.0 L Mean Corpuscular Volume 97.0 Mean Corpuscular Hemoglobin 30.2 Mean Corpuscular Hemoglobin Concent 31.2 L Red Cell Distribution Width 17.6 H Platelet Count 297 Mean Platelet Volume 10.4 Neutrophils % 85.4 H Lymphocytes % 4.0 L Monocytes % 3.4 Eosinophils % 5.9 Basophils % 0.2 Nucleated Red Blood Cells % 0.0 Neutrophils # 8.8 H Lymphocytes # 0.4 L Monocytes # 0.4 Eosinophils # 0.6 H Basophils # 0.0 Nucleated Red Blood Cells # 0.0 Sodium Level 147 H Potassium Level 3.7 Chloride Level 103 Carbon Dioxide Level 32 H Anion Gap 16 Blood Urea Nitrogen 39 H Creatinine 1.59 H Glucose Level 109 # Calcium Level 8.6 Bedside Glucose 110 Medications Current Medications Lorazepam (Ativan) 0.5 mg Q6H PRN IV ANXIETY Last administered on 12/29/16t 08: 18; Admin Dose 0.5 MG; Start 12/26/16 at 06:00 Ondansetron HCl (Zofran Inj) 4 mg Q6H PRN IV NAUSEA AND/OR VOMITING; Start at 06:00 Aspirin (Aspirin) 81 mg DAILY PO Last administered on 12/30/16 08:46; Admin Dose 81 MG; Start 12/26/16 at 09:00 Acetaminophen (Tylenol Tab) 650 mg Q6H PRN PO PAIN LEVEL 1-3 OR FEVER Last administered on 12/27/16 03:55; Admin Dose 650 MG; Start 12/26/16 at 06:00 Morphine Sulfate (morphine) 2 mg Q4H PRN IV PAIN LEVEL 7-10; Start 12/26/16 at 06:00 Heparin Sodium (Porcine) (Heparin (5000 Units/0.5 ml)) 5,000 unit Q12 SC Last administered on 12/30/16 09:00; Admin Dose 5,000 UNIT; Start 12/26/16 at 09:00 Diagnostic Test (Pha) (Accu-Chek) 1 ea 02 XX ; Start 12/27/16 at 02:00 Insulin Glargine 14 unit 14 unit DAILY@08 SC Last administered on 12/30/16 08: 51; Admin Dose 14 UNIT; Start 12/26/16 at 08:00 Ciprofloxacin/ Dextrose (Cipro Ivpb) 200 ml @ 200 mls/hr Q12 IVPB Last administered on 12/30/16 08:46; Admin Dose 200 MLS/HR; Start 12/26/16 at 09:00 Miscellaneous Information 1 ea NOTE XX ; Start 12/26/16 at 06:00 Glucose (Glutose) 15 gm Q15M PRN PO DECREASED GLUCOSE; Start 12/26/16 at 06:00 Glucose (Glutose) 22.5 gm Q15M PRN PO DECREASED GLUCOSE; Start 12/26/16 at 06: 00 Dextrose (D50w Syringe) 25 ml Q15M PRN IV DECREASED GLUCOSE; Start 12/26/16 at 06:00 Dextrose (D50w Syringe) 50 ml Q15M PRN IV DECREASED GLUCOSE; Start 12/26/16 at 06:00 Glucagon (Glucagen) 1 mg Q15M PRN IM DECREASED GLUCOSE; Start 12/26/16 at 06:00 Glucose (Glutose) 15 gm Q15M PRN BUCCAL DECREASED GLUCOSE; Start 12/26/16 at 06 :00 Miscellaneous Information (Pending [facility] Order For Wound Care) This patient betancourt... PRN PRN XX WOUND CARE; Start 12/26/16 at 06:30 Hydralazine HCl (Apresoline) 25 mg Q8 PO Last administered on 12/29/16 06:06; Admin Dose 25 MG; Start 12/26/16 at 22:00 Metoprolol Tartrate (Lopressor) 25 mg BID PO Last administered on 12/30/16 08: 48; Admin Dose 25 MG; Start 12/26/16 at 21:00 Guaifenesin/ Codeine Phosphate (Robitussin Ac Liquid Cup) 10 ml Q4H PRN PO COUGH Last administered on 12/27/16 21:03; Admin Dose 10 ML; Start 12/26/16 at 20:30 Quetiapine Fumarate (Seroquel) 50 mg BID PO Last administered on 12/30/16 08: 48; Admin Dose 50 MG; Start 12/26/16 at 22:00 Trazodone HCl (Desyrel) 100 mg BID PO Last administered on 12/30/16 08:46; Admin Dose 100 MG; Start 12/26/16 at 22:30 Assessment/Plan Chief Complaint/Hosp Course Assessment 1. Hypoxemic respiratory failure likely secondary to volume overload, improved oxygenation. 2. Significant valvular heart disease 3. Questionable underlying history of dementia more alert today. 4. Severe pulmonary hypertension likely secondary to valvular heart disease Plan 1. Continue diuretics increased dosing 2. Continue current oxygen settings stat arterial blood gas 3. Transfer to intensive care unit if numbers or condition deteriorate 4. Aspiration precautions 5. Cardiac recommendations Problems: ELVIS BUTTERFIELD MD, [facility] Dec 30, 2016 11:32
--- NOTE | 2016-12-30 14:05 | PN ---
Date/Time of Note Date/Time of Note DATE: 12/30/16 TIME: 14:03 Assessment/Plan VTE Prophylaxis VTE Prophylaxis Intervention: heparin Lines/Catheters IV [facility]from [facility] Saline Lock Assessment/Plan Chief Complaint/Hosp Course 1. Dyspnea secondary to CHF exacerbation. Continue on diuretics. Await for clinical improvement, pulmonology consultation appreciated 2. CKD. 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 Medications to be renally dosed. Continue the recommendations. 3. Sepsis secondary to UTI and possibly pneumonia. Continue antibiotics. 4. Altered mentation. Suspect patient currently at baseline. Does have underlying dementia. Monitor for now. Aspiration precautions. 5. Essential hypertension. Continue antihypertensives and adjust needed 6. Decubitus ulcers-continue with wound care 7. Anemia of chronic disease. H&H remained stable. Monitor at this time. Prophylaxis: Heparin Disposition plan: Continue diuresis, anticipate DC in 1-2 days Problems: Subjective 24 Hr Interval Summary Constitutional: disoriented Exam/Review of Systems Vital Signs Vitals Vital Signs Date Time Temp Pulse Resp B/P Pulse Ox O2 Delivery O2 Flow Rate FiO2 12/30/16 12:58 89 12/30/16 12:00 97.7 20 117/56 94 12/30/16 10:26 Non Rebreather 10.0 12/30/16 05:34 100 Intake and Output 12/29/16 12/29/16 12/30/16 14:59 22:59 06:59 Intake Total 320 ml 50 ml Output Total 950 ml 900 ml Balance -630 ml -850 ml Exam Psych: confusion Respiratory: clear to auscultation Cardiovascular: regular rate and rhythm Gastrointestinal: soft, No distended Musculoskeletal: nl extremities to inspection Results Result Diagram: 12/30/16 0702 12/30/16 0702 Results 24 hrs Laboratory Tests Test 12/29/16 17:00 12/29/16 17:07 12/29/16 21:38 12/30/16 07:00 Blood Gas Specimen Source Blood arterial Blood arterial Arterial Blood Date Drawn 12/29/2016 5:55:31 PM 12/30/2016 8:10:23 AM Arterial Blood pH (Temp corrected) 7.382 7.411 Arterial Blood pCO2 (Temp correct) 49.5 H 45.5 H Arterial Blood pO2 (Temp corrected) 166.0 H 77.0 L Arterial Blood HCO3 28.8 H 28.3 H Arterial Blood Base Excess 2.9 3.2 H Arterial Blood Oxygen Saturation 98.6 94.8 L Brian Test ACCEPTAB ACCEPTAB Arterial Blood Gas Puncture Site Right Radial Right Radial Arterial Blood Carboxyhemoglobin 0.3 0.3 Arterial Blood Methemoglobin 0.4 0.2 Blood Gas A-a O2 Differential 497.5 H 590.5 H Oxyhemoglobin Percent 97.9 94.3 Total Hemoglobin 12.1 9.4 L Blood Gas Temperature 37.0 37.0 Blood Gas Modality MASK - NRB MASK - NRB FiO2 100.0 100.0 Blood Gas Notified Whom VALENCIA F[place]ON Blood Gas Notified Time 12/29/2016 6:03:35 PM 12/30/2016 8:21:49 AM Bedside Glucose 129 117 Test 12/30/16 07:02 12/30/16 08:13 12/30/16 11:32 White Blood Count 10.3 Red Blood Count 2.68 L Hemoglobin 8.1 L Hematocrit 26.0 L Mean Corpuscular Volume 97.0 Mean Corpuscular Hemoglobin 30.2 Mean Corpuscular Hemoglobin Concent 31.2 L Red Cell Distribution Width 17.6 H Platelet Count 297 Mean Platelet Volume 10.4 Neutrophils % 85.4 H Lymphocytes % 4.0 L Monocytes % 3.4 Eosinophils % 5.9 Basophils % 0.2 Nucleated Red Blood Cells % 0.0 Neutrophils # 8.8 H Lymphocytes # 0.4 L Monocytes # 0.4 Eosinophils # 0.6 H Basophils # 0.0 Nucleated Red Blood Cells # 0.0 Sodium Level 147 H Potassium Level 3.7 Chloride Level 103 Carbon Dioxide Level 32 H Anion Gap 16 Blood Urea Nitrogen 39 H Creatinine 1.59 H Glucose Level 109 # Calcium Level 8.6 Bedside Glucose 110 186 Medications Medications Current Medications Lorazepam (Ativan) 0.5 mg Q6H PRN IV ANXIETY Last administered on 12/29/16 08: 18; Admin Dose 0.5 MG; Start 12/26/16 at 06:00 Ondansetron HCl (Zofran Inj) 4 mg Q6H PRN IV NAUSEA AND/OR VOMITING; Start at 06:00 Aspirin (Aspirin) 81 mg DAILY PO Last administered on 12/30/16 08:46; Admin Dose 81 MG; Start 12/26/16 at 09:00 Acetaminophen (Tylenol Tab) 650 mg Q6H PRN PO PAIN LEVEL 1-3 OR FEVER Last administered on 12/27/16 03:55; Admin Dose 650 MG; Start 12/26/16 at 06:00 Morphine Sulfate (morphine) 2 mg Q4H PRN IV PAIN LEVEL 7-10; Start 12/26/16 at 06:00 Heparin Sodium (Porcine) (Heparin (5000 Units/0.5 ml)) 5,000 unit Q12 SC Last administered on 12/30/16 09:00; Admin Dose 5,000 UNIT; Start 12/26/16 at 09:00 Diagnostic Test (Pha) (Accu-Chek) 1 ea 02 XX ; Start 12/27/16 at 02:00 Insulin Glargine 14 unit 14 unit DAILY@08 SC Last administered on 12/30/16 08: 51; Admin Dose 14 UNIT; Start 12/26/16 at 08:00 Ciprofloxacin/ Dextrose (Cipro Ivpb) 200 ml @ 200 mls/hr Q12 IVPB Last administered on 12/30/16 08:46; Admin Dose 200 MLS/HR; Start 12/26/16 at 09:00 Miscellaneous Information 1 ea NOTE XX ; Start 12/26/16 at 06:00 Glucose (Glutose) 15 gm Q15M PRN PO DECREASED GLUCOSE; Start 12/26/16 at 06:00 Glucose (Glutose) 22.5 gm Q15M PRN PO DECREASED GLUCOSE; Start 12/26/16 at 06: 00 Dextrose (D50w Syringe) 25 ml Q15M PRN IV DECREASED GLUCOSE; Start 12/26/16 at 06:00 Dextrose (D50w Syringe) 50 ml Q15M PRN IV DECREASED GLUCOSE; Start 12/26/16 at 06:00 Glucagon (Glucagen) 1 mg Q15M PRN IM DECREASED GLUCOSE; Start 12/26/16 at 06:00 Glucose (Glutose) 15 gm Q15M PRN BUCCAL DECREASED GLUCOSE; Start 12/26/16 at 06 :00 [facility] This patient betancourt... PRN PRN XX WOUND CARE; Start 12/26/16 at 06:30 Hydralazine HCl (Apresoline) 25 mg Q8 PO Last administered on 12/29/16 06:06; Admin Dose 25 MG; Start 12/26/16 at 22:00 Metoprolol Tartrate (Lopressor) 25 mg BID PO Last administered on 12/30/16 08: 48; Admin Dose 25 MG; Start 12/26/16 at 21:00 Guaifenesin/ Codeine Phosphate (Robitussin Ac Liquid Cup) 10 ml Q4H PRN PO COUGH Last administered on 12/27/16 21:03; Admin Dose 10 ML; Start 12/26/16 at 20:30 Quetiapine Fumarate (Seroquel) 50 mg BID PO Last administered on 12/30/16 08: 48; Admin Dose 50 MG; Start 12/26/16 at 22:00 Trazodone HCl (Desyrel) 100 mg BID PO Last administered on 12/30/16 08:46; Admin Dose 100 MG; Start 12/26/16 at 22:30 PRICILLA VALLADARES Dec 30, 2016 14:05
--- NOTE | 2016-12-30 15:09 | RADRPT ---
PROCEDURE: XR Chest. CLINICAL INDICATION: Shortness of breath. TECHNIQUE: Single frontal view. COMPARISON: 12/27/2016. FINDINGS: The patient is rotated to the right. There is extensive bilateral pulmonary air space disease consi stent with pulmonary edema or bilateral pneumonia, unchanged. The heart is enlarged. There is calci fication in the aorta consistent with atherosclerosis. 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 There is no pleural effusion. There is no pneumothorax. IMPRESSION: Persistent extensive bilateral pulmonary air space opacities, not significantly changed. RPTAT: JJ .Donnie Coker MD, MD Date Time Electronically viewed and signed by .Donnie Coker MD, MD on 12/30/2016 15:08 .A/
--- NOTE | 2016-12-30 15:15 | CONS ---
Date/Time of Note Date/Time of Note DATE: 12/30/16 TIME: 15:12 Assessment/Plan Assessment/Plan Chief Complaint/Hosp Course IMP: 1.CHF-diastolic acute on chronic. Trop negative x 3 2.MS-severe by echo 3.abnl ecg 4.Psych d/o 5.REnal failure 6. UTI 7.AMS Recc: -tele -continue asa -Continue hydralazine with slight increase to improve BP -Continue BB -Continue abx's and f/u cx data -Follow volume status closely Problems: Consultation Date/Type/Reason Admit Date/Time Dec 26, 2016 at 01:49 Initial Consult Date 12/26/2016 Type of Consultation: cardiology Reason for Consultation CHF Referring Provider: ANGELA AL Exam/Review of Systems Vital Signs Vitals Vital Signs Date Time Temp Pulse Resp B/P Pulse Ox O2 Delivery O2 Flow Rate FiO2 12/30/16 12:58 89 12/30/16 12:00 97.7 20 117/56 94 12/30/16 10:26 Non Rebreather 10.0 12/30/16 05:34 100 Intake and Output 12/29/16 12/29/16 12/30/16 15:00 23:00 07:00 Intake Total 320 ml 50 ml Output Total 950 ml 900 ml Balance -630 ml -850 ml Exam Review of Systems: CONSTITUTIONAL: No fevers, chills. PULMONARY: No sob CARDIOVASCULAR: No chest pain/palpitations GASTROINTESTINAL: No nausea/vomiting. GENITOURINARY: No hematuria/dysuria. MUSCULOSKELETAL: No myagias/arthalgias. PSYCHIATRIC: The patient denies depression. NEUROLOGIC: lethargic Constitutional: other (sleeping) Psych: no complaints Head: normocephalic ENMT: mucosa pink and moist Neck: jvd (8-9 cm water), supple Respiratory: clear to auscultation Cardiovascular: regular rate and rhythm Gastrointestinal: non-tender, soft Musculoskeletal: muscle tone Extremities: normal pulses Neurological: [employer]QUIPMENT II-XII intact Results Result Diagram: 12/30/16 0702 12/30/16 0702 Results 24 hrs Laboratory Tests Test 12/29/16 17:00 12/29/16 17:07 12/29/16 21:38 12/30/16 07:00 Blood Gas Specimen Source Blood arterial Blood arterial Arterial Blood Date Drawn 12/29/2016 5:55:31 PM 12/30/2016 8:10:23 AM Arterial Blood pH (Temp corrected) 7.382 7.411 Arterial Blood pCO2 (Temp correct) 49.5 H 45.5 H Arterial Blood pO2 (Temp corrected) 166.0 H 77.0 L Arterial Blood HCO3 28.8 H 28.3 H Arterial Blood Base Excess 2.9 3.2 H Arterial Blood Oxygen Saturation 98.6 94.8 L Brian Test ACCEPTAB ACCEPTAB Arterial Blood Gas Puncture Site Right Radial Right Radial Arterial Blood Carboxyhemoglobin 0.3 0.3 Arterial Blood Methemoglobin 0.4 0.2 Blood Gas A-a O2 Differential 497.5 H 590.5 H Oxyhemoglobin Percent 97.9 94.3 Total Hemoglobin 12.1 9.4 L Blood Gas Temperature 37.0 37.0 Blood Gas Modality MASK - NRB MASK - NRB FiO2 100.0 100.0 Blood Gas Notified Whom VALENCIA FALLON Blood Gas Notified Time 12/29/2016 6:03:35 PM 12/30/2016 8:21:49 AM Bedside Glucose 129 117 Test 12/30/16 07:02 12/30/16 08:13 12/30/16 11:32 White Blood Count 10.3 Red Blood Count 2.68 L Hemoglobin 8.1 L Hematocrit 26.0 L Mean Corpuscular Volume 97.0 Mean Corpuscular Hemoglobin 30.2 Mean Corpuscular Hemoglobin Concent 31.2 L Red Cell Distribution Width 17.6 H Platelet Count 297 Mean Platelet Volume 10.4 Neutrophils % 85.4 H Lymphocytes % 4.0 L Monocytes % 3.4 Eosinophils % 5.9 Basophils % 0.2 Nucleated Red Blood Cells % 0.0 Neutrophils # 8.8 H Lymphocytes # 0.4 L Monocytes # 0.4 Eosinophils # 0.6 H Basophils # 0.0 Nucleated Red Blood Cells # 0.0 Sodium Level 147 H Potassium Level 3.7 Chloride Level 103 Carbon Dioxide Level 32 H Anion Gap 16 Blood Urea Nitrogen 39 H Creatinine 1.59 H Glucose Level 109 # Calcium Level 8.6 Bedside Glucose 110 186 Medications Medications Current Medications Lorazepam (Ativan) 0.5 mg Q6H PRN IV ANXIETY Last administered on 12/29/16t 08: 18; Admin Dose 0.5 MG; Start 12/26/16 at 06:00 Ondansetron HCl (Zofran Inj) 4 mg Q6H PRN IV NAUSEA AND/OR VOMITING; Start at 06:00 Aspirin (Aspirin) 81 mg DAILY PO Last administered on 12/30/16 08:46; Admin Dose 81 MG; Start 12/26/16 at 09:00 Acetaminophen (Tylenol Tab) 650 mg Q6H PRN PO PAIN LEVEL 1-3 OR FEVER Last administered on 12/27/16 03:55; Admin Dose 650 MG; Start 12/26/16 at 06:00 Morphine Sulfate (morphine) 2 mg Q4H PRN IV PAIN LEVEL 7-10; Start 12/26/16 at 06:00 Heparin Sodium (Porcine) (Heparin (5000 Units/0.5 ml)) 5,000 unit Q12 SC Last administered on 12/30/16 09:00; Admin Dose 5,000 UNIT; Start 12/26/16 at 09:00 Diagnostic Test (Pha) (Accu-Chek) 1 ea 02 XX ; Start 12/27/16 at 02:00 Insulin Glargine 14 unit 14 unit DAILY@08 SC Last administered on 12/30/16 08: 51; Admin Dose 14 UNIT; Start 12/26/16 at 08:00 Ciprofloxacin/ Dextrose (Cipro Ivpb) 200 ml @ 200 mls/hr Q12 IVPB Last administered on 12/30/16 08:46; Admin Dose 200 MLS/HR; Start 12/26/16 at 09:00 Miscellaneous Information 1 ea NOTE XX ; Start 12/26/16 at 06:00 Glucose (Glutose) 15 gm Q15M PRN PO DECREASED GLUCOSE; Start 12/26/16 at 06:00 Glucose (Glutose) 22.5 gm Q15M PRN PO DECREASED GLUCOSE; Start 12/26/16 at 06: 00 Dextrose (D50w Syringe) 25 ml Q15M PRN IV DECREASED GLUCOSE; Start 12/26/16 at 06:00 Dextrose (D50w Syringe) 50 ml Q15M PRN IV DECREASED GLUCOSE; Start 12/26/16 at 06:00 Glucagon (Glucagen) 1 mg Q15M PRN IM DECREASED GLUCOSE; Start 12/26/16 at 06:00 Glucose (Glutose) 15 gm Q15M PRN BUCCAL DECREASED GLUCOSE; Start 12/26/16 at 06 :00 Miscellaneous Information (Pending Santyl Order For Wound Care) This patient betancourt... PRN PRN XX WOUND CARE; Start 12/26/16 at 06:30 Hydralazine HCl (Apresoline) 25 mg Q8 PO Last administered on 12/29/16 06:06; Admin Dose 25 MG; Start 12/26/16 at 22:00 Metoprolol Tartrate (Lopressor) 25 mg BID PO Last administered on 12/30/16 08: 48; Admin Dose 25 MG; Start 12/26/16 at 21:00 Guaifenesin/ Codeine Phosphate (Robitussin Ac Liquid Cup) 10 ml Q4H PRN PO COUGH Last administered on 12/27/16 21:03; Admin Dose 10 ML; Start 12/26/16 at 20:30 Quetiapine Fumarate (Seroquel) 50 mg BID PO Last administered on 12/30/16 08: 48; Admin Dose 50 MG; Start 12/26/16 at 22:00 Trazodone HCl (Desyrel) 100 mg BID PO Last administered on 12/30/16 08:46; Admin Dose 100 MG; Start 12/26/16 at 22:30 DENG WALLIS Dec 30, 2016 15:15
[2016-12-30] MEDS: GUAIFENESIN/CODEINE 5ML CUP PO PRN (16:24)
[2016-12-31] VITALS (11 sets, daily range): BP systolic 101–149; BP diastolic 48–66; PULSE 75–101; RESP 17–19
[2016-12-31] MEDS: ALBUTEROL/IPRATROPIUM (NEB) 3 ML AMP HHN PRN ×2 (00:57→15:35)
[2016-12-31] MEDS: ACCU-CHEK XX SCH (02:00)
[2016-12-31] MEDS: FUROSEMIDE 40 MG INJ IV SCH ×2 (06:32→17:48)
[2016-12-31] MEDS: INSULIN ASPART [NOVOLOG] 3 ML PEN SC SCH ×4 (07:55→21:00)
[2016-12-31 08:12] LABS: ABNORMAL IP MESSAGE 1; BASOPHILS % 0.2 % (0.0-2.0); EOSINOPHILS # 0.4 10^3/ul (0.0-0.5); HEMATOCRIT 24.8 % (42.0-52.0); HEMOGLOBIN 7.9 g/dl (14.0-18.0); LYMPHOCYTES # 0.4 10^3/ul (0.8-2.9); LYMPHOCYTES % 3.9 % (15.0-51.0); MEAN CORPUSCULAR HEMOGLOBIN 30.5 pg (29.0-33.0); MEAN CORPUSCULAR HGB CONC 31.9 g/dl (32.0-37.0); MEAN CORPUSCULAR VOLUME 95.8 fl (82.0-101.0); MEAN PLATELET VOLUME 10.4 fl (7.4-10.4); MONOCYTE # 0.4 10^3/ul (0.3-0.9); MONOCYTES % 3.5 % (0.0-11.0); NEUTROPHILS % 87.4 % (39.0-77.0); PLATELET COUNT 285 10^3/UL (140-415); POSITIVE DIFF @See below; RED BLOOD COUNT 2.59 10^6/ul (4.70-6.10); RED CELL DISTRIBUTION WIDTH 17.4 % (11.5-14.5); WHITE BLOOD COUNT 10.3 10^3/ul (4.8-10.8)
[2016-12-31] MEDS: ASPIRIN 81 MG TAB PO SCH (08:21)
[2016-12-31] MEDS: QUETIAPINE 25 MG TAB PO SCH ×2 (08:21→21:00)
[2016-12-31] MEDS: traZODone 100 MG TAB PO SCH ×2 (08:21→21:00)
[2016-12-31] MEDS: METOPROLOL 25 MG TAB PO SCH ×2 (08:22→21:00)
[2016-12-31] MEDS: CIPROFLOXACIN 400MG/D5W 200 ML IVPB SCH (08:23)
[2016-12-31] MEDS: HEPARIN 5,000 UNIT/0.5 ML VIAL SC SCH ×2 (08:36→21:39)
[2016-12-31] MEDS: INSULIN GLARGINE [LANtus] 3 ML PEN SC SCH (08:37)
[2016-12-31 08:39] LABS: CALCIUM 8.3 mg/dl (8.4-10.2); CREATININE 1.72 mg/dl (0.61-1.24); POTASSIUM 3.7 mmol/L (3.5-5.1)
--- NOTE | 2016-12-31 12:44 | CONS ---
Date/Time of Note Date/Time of Note DATE: 12/31/16 TIME: 12:41 Assessment/Plan Assessment/Plan Chief Complaint/Hosp Course IMP: 1.CHF-diastolic acute on chronic. Trop negative x 3 2.MS-severe by echo 3.abnl ecg 4.Psych d/o 5.REnal failure 6. UTI 7.AMS Recc: -tele -continue asa -Continue hydralazine -Continue BB -Continue abx's and f/u cx data -Follow volume status closely on lasix diuresis Problems: Consultation Date/Type/Reason Admit Date/Time Dec 26, 2016 at 01:49 Initial Consult Date 12/26/2016 Type of Consultation: cardiology Reason for Consultation CHF Referring Provider: ANGELA AL Exam/Review of Systems Vital Signs Vitals Vital Signs Date Time Temp Pulse Resp B/P Pulse Ox O2 Delivery O2 Flow Rate FiO2 12/31/16 12:18 75 12/31/16 11:18 98.3 18 133/57 95 12/31/16 05:59 6.5 12/31/16 00:50 Nasal Cannula 12/30/16 05:34 100 Intake and Output 12/30/16 12/30/16 12/31/16 15:00 23:00 07:00 Intake Total 120 ml 100 ml Output Total 1125 ml 200 ml 1500 ml Balance -1005 ml -200 ml -1400 ml Exam CHF Constitutional: alert Psych: no complaints Head: normocephalic ENMT: mucosa pink and moist Neck: jvd (9 cm water), supple Respiratory: diminished breath sounds (at bases/B) Cardiovascular: regular rate and rhythm Gastrointestinal: non-tender, soft Musculoskeletal: muscle tone (normal) Extremities: edema (none) Neurological: other (No focal deficits) Results Result Diagram: 12/31/16 0710 12/31/16 0710 Results 24 hrs Laboratory Tests Test 12/30/16 17:22 12/30/16 20:44 12/31/16 03:00 12/31/16 07:10 Bedside Glucose 111 90 120 White Blood Count 10.3 Red Blood Count 2.59 L Hemoglobin 7.9 L Hematocrit 24.8 L Mean Corpuscular Volume 95.8 Mean Corpuscular Hemoglobin 30.5 Mean Corpuscular Hemoglobin Concent 31.9 L Red Cell Distribution Width 17.4 H Platelet Count 285 Mean Platelet Volume 10.4 Neutrophils % 87.4 H Lymphocytes % 3.9 L Monocytes % 3.5 Eosinophils % 4.0 Basophils % 0.2 Nucleated Red Blood Cells % 0.0 Neutrophils # 9.0 H Lymphocytes # 0.4 L Monocytes # 0.4 Eosinophils # 0.4 Basophils # 0.0 Nucleated Red Blood Cells # 0.0 Sodium Level 141 Potassium Level 3.7 Chloride Level 97 Carbon Dioxide Level 30 Anion Gap 18 H Blood Urea Nitrogen 46 H Creatinine 1.72 H Glucose Level 112 Calcium Level 8.3 L Test 12/31/16 08:15 12/31/16 12:26 Bedside Glucose 119 185 Medications Medications Current Medications Lorazepam (Ativan) 0.5 mg Q6H PRN IV ANXIETY Last administered on 12/29/16 08: 18; Admin Dose 0.5 MG; Start 12/26/16 at 06:00 Ondansetron HCl (Zofran Inj) 4 mg Q6H PRN IV NAUSEA AND/OR VOMITING; Start at 06:00 Aspirin (Aspirin) 81 mg DAILY PO Last administered on 12/31/16 08:21; Admin Dose 81 MG; Start 12/26/16 at 09:00 Acetaminophen (Tylenol Tab) 650 mg Q6H PRN PO PAIN LEVEL 1-3 OR FEVER Last administered on 12/27/16 03:55; Admin Dose 650 MG; Start 12/26/16 at 06:00 Morphine Sulfate (morphine) 2 mg Q4H PRN IV PAIN LEVEL 7-10; Start 12/26/16 at 06:00 Heparin Sodium (Porcine) (Heparin (5000 Units/0.5 ml)) 5,000 unit Q12 SC Last administered on 12/31/16 08:36; Admin Dose 5,000 UNIT; Start 12/26/16 at 09:00 Diagnostic Test (Pha) (Accu-Chek) 1 ea 02 XX ; Start 12/27/16 at 02:00 Insulin Glargine 14 unit 14 unit DAILY@08 SC Last administered on 12/31/16 08: 37; Admin Dose 14 UNIT; Start 12/26/16 at 08:00 Ciprofloxacin/ Dextrose (Cipro Ivpb) 200 ml @ 200 mls/hr Q12 IVPB Last administered on 12/31/16 08:23; Admin Dose 200 MLS/HR; Start 12/26/16 at 09:00 Miscellaneous Information 1 ea NOTE XX ; Start 12/26/16 at 06:00 Glucose (Glutose) 15 gm Q15M PRN PO DECREASED GLUCOSE; Start 12/26/16 at 06:00 Glucose (Glutose) 22.5 gm Q15M PRN PO DECREASED GLUCOSE; Start 12/26/16 at 06: 00 Dextrose (D50w Syringe) 25 ml Q15M PRN IV DECREASED GLUCOSE; Start 12/26/16 at 06:00 Dextrose (D50w Syringe) 50 ml Q15M PRN IV DECREASED GLUCOSE; Start 12/26/16 at 06:00 Glucagon (Glucagen) 1 mg Q15M PRN IM DECREASED GLUCOSE; Start 12/26/16 at 06:00 Glucose (Glutose) 15 gm Q15M PRN BUCCAL DECREASED GLUCOSE; Start 12/26/16 at 06 :00 Miscellaneous Information (Pending Santyl Order For Wound Care) This patient betancourt... PRN PRN XX WOUND CARE; Start 12/26/16 at 06:30 Hydralazine HCl (Apresoline) 25 mg Q8 PO Last administered on 12/31/16 06:32; Admin Dose 25 MG; Start 12/26/16 at 22:00 Metoprolol Tartrate (Lopressor) 25 mg BID PO Last administered on 12/31/16 08: 22; Admin Dose 25 MG; Start 12/26/16 at 21:00 Guaifenesin/ Codeine Phosphate (Robitussin Ac Liquid Cup) 10 ml Q4H PRN PO COUGH Last administered on 12/30/16 16:24; Admin Dose 10 ML; Start 12/26/16 at 20:30 Quetiapine Fumarate (Seroquel) 50 mg BID PO Last administered on 12/31/16 08: 21; Admin Dose 50 MG; Start 12/26/16 at 22:00 Trazodone HCl (Desyrel) 100 mg BID PO Last administered on 12/30/16 21:15; Admin Dose 100 MG; Start 12/26/16 at 22:30 DENG WALLIS Dec 31, 2016 12:44
--- NOTE | 2016-12-31 14:55 | PN ---
Date/Time of Note Date/Time of Note DATE: 12/31/16 TIME: 14:32 Assessment/Plan VTE Prophylaxis VTE Prophylaxis Intervention: heparin Lines/Catheters IV [facility] Saline Lock Assessment/Plan Chief Complaint/Hosp Course 1. Dyspnea secondary to CHF exacerbation. Continue on diuretics. Await for clinical improvement, pulmonology consultation appreciated Chest x-ray shows no change 2. CKD. 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 Medications to be renally dosed. Continue the recommendations. 3. Sepsis secondary to UTI-urine culture shows enterococcus DC Cipro and start Rocephin 4. Altered mentation. Suspect patient currently at baseline. Does have underlying dementia. Monitor for now. Aspiration precautions. 5. Essential hypertension. Continue antihypertensives and adjust needed 6. Decubitus ulcers-continue with wound care 7. Anemia of chronic disease. H&H remained stable. Monitor at this time. Prophylaxis: Heparin Disposition plan: Continue diuresis and antibiotics, anticipate DC in 1-2 days Problems: Subjective 24 Hr Interval Summary Subjective hx not possible: pt non-verbal Exam/Review of Systems Vital Signs Vitals Vital Signs Date Time Temp Pulse Resp B/P Pulse Ox O2 Delivery O2 Flow Rate FiO2 12/31/16 12:18 75 12/31/16 11:18 98.3 18 133/57 95 12/31/16 08:20 Nasal Cannula 6.0 12/30/16 05:34 100 Intake and Output 12/30/16 12/30/16 12/31/16 15:00 23:00 07:00 Intake Total 120 ml 100 ml Output Total 1125 ml 200 ml 1500 ml Balance -1005 ml -200 ml -1400 ml Exam Psych: confusion Respiratory: clear to auscultation Cardiovascular: regular rate and rhythm Gastrointestinal: soft, No distended Musculoskeletal: nl extremities to inspection Results Result Diagram: 12/31/16 0710 12/31/16 0710 Results 24 hrs Laboratory Tests Test 12/30/16 17:22 12/30/16 20:44 12/31/16 03:00 12/31/16 07:10 Bedside Glucose 111 90 120 White Blood Count 10.3 Red Blood Count 2.59 L Hemoglobin 7.9 L Hematocrit 24.8 L Mean Corpuscular Volume 95.8 Mean Corpuscular Hemoglobin 30.5 Mean Corpuscular Hemoglobin Concent 31.9 L Red Cell Distribution Width 17.4 H Platelet Count 285 Mean Platelet Volume 10.4 Neutrophils % 87.4 H Lymphocytes % 3.9 L Monocytes % 3.5 Eosinophils % 4.0 Basophils % 0.2 Nucleated Red Blood Cells % 0.0 Neutrophils # 9.0 H Lymphocytes # 0.4 L Monocytes # 0.4 Eosinophils # 0.4 Basophils # 0.0 Nucleated Red Blood Cells # 0.0 Sodium Level 141 Potassium Level 3.7 Chloride Level 97 Carbon Dioxide Level 30 Anion Gap 18 H Blood Urea Nitrogen 46 H Creatinine 1.72 H Glucose Level 112 Calcium Level 8.3 L Test 12/31/16 08:15 12/31/16 12:26 Bedside Glucose 119 185 Medications Medications Current Medications Lorazepam (Ativan) 0.5 mg Q6H PRN IV ANXIETY Last administered on 12/29/16 08: 18; Admin Dose 0.5 MG; Start 12/26/16 at 06:00 Ondansetron HCl (Zofran Inj) 4 mg Q6H PRN IV NAUSEA AND/OR VOMITING; Start at 06:00 Aspirin (Aspirin) 81 mg DAILY PO Last administered on 12/31/16 08:21; Admin Dose 81 MG; Start 12/26/16 at 09:00 Acetaminophen (Tylenol Tab) 650 mg Q6H PRN PO PAIN LEVEL 1-3 OR FEVER Last administered on 12/27/16 03:55; Admin Dose 650 MG; Start 12/26/16 at 06:00 Morphine Sulfate (morphine) 2 mg Q4H PRN IV PAIN LEVEL 7-10; Start 12/26/16 at 06:00 Heparin Sodium (Porcine) (Heparin (5000 Units/0.5 ml)) 5,000 unit Q12 SC Last administered on 12/31/16 08:36; Admin Dose 5,000 UNIT; Start 12/26/16 at 09:00 Diagnostic Test (Pha) (Accu-Chek) 1 ea 02 XX ; Start 12/27/16 at 02:00 Insulin Glargine 14 unit 14 unit DAILY@08 SC Last administered on 12/31/16 08: 37; Admin Dose 14 UNIT; Start 12/26/16 at 08:00 Ciprofloxacin/ Dextrose (Cipro Ivpb) 200 ml @ 200 mls/hr Q12 IVPB Last administered on 12/31/16 08:23; Admin Dose 200 MLS/HR; Start 12/26/16 at 09:00 Miscellaneous Information 1 ea NOTE XX ; Start 12/26/16 at 06:00 Glucose (Glutose) 15 gm Q15M PRN PO DECREASED GLUCOSE; Start 12/26/16 at 06:00 Glucose (Glutose) 22.5 gm Q15M PRN PO DECREASED GLUCOSE; Start 12/26/16 at 06: 00 Dextrose (D50w Syringe) 25 ml Q15M PRN IV DECREASED GLUCOSE; Start 12/26/16 at 06:00 Dextrose (D50w Syringe) 50 ml Q15M PRN IV DECREASED GLUCOSE; Start 12/26/16 at 06:00 Glucagon (Glucagen) 1 mg Q15M PRN IM DECREASED GLUCOSE; Start 12/26/16 at 06:00 Glucose (Glutose) 15 gm Q15M PRN BUCCAL DECREASED GLUCOSE; Start 12/26/16 at 06 :00 Miscellaneous Information (Pending Santyl Order For Wound Care) This patient betancourt... PRN PRN XX WOUND CARE; Start 12/26/16 at 06:30 Hydralazine HCl (Apresoline) 25 mg Q8 PO Last administered on 12/31/16 14:23; Admin Dose 25 MG; Start 12/26/16 at 22:00 Metoprolol Tartrate (Lopressor) 25 mg BID PO Last administered on 12/31/16 08: 22; Admin Dose 25 MG; Start 12/26/16 at 21:00 Guaifenesin/ Codeine Phosphate (Robitussin Ac Liquid Cup) 10 ml Q4H PRN PO COUGH Last administered on 12/30/16 16:24; Admin Dose 10 ML; Start 12/26/16 at 20:30 Quetiapine Fumarate (Seroquel) 50 mg BID PO Last administered on 12/31/16 08: 21; Admin Dose 50 MG; Start 12/26/16 at 22:00 Trazodone HCl (Desyrel) 100 mg BID PO Last administered on 12/30/16 21:15; Admin Dose 100 MG; Start 12/26/16 at 22:30 PRICILLA VALLADARES Dec 31, 2016 14:55
[2016-12-31] MEDS ORDERED: CEFTRIAXONE 1 GM/50 ML (PMX) 50 ML IVPB SCH (15:00)
--- NOTE | 2016-12-31 15:08 | CONS ---
Date/Time of Note Date/Time of Note DATE: 12/31/16 TIME: 15:07 Consult Date/Type/Reason Admit Date/Time Dec 26, 2016 at 01:49 Type of Consultation: cardiology Ordering Provider: ANGELA AL Subjective Comfortable this morning still intermittent agitation Objective Vital Signs Date Time Temp Pulse Resp B/P Pulse Ox O2 Delivery O2 Flow Rate FiO2 12/31/16 15:02 98.2 85 19 114/55 85 12/31/16 08:20 Nasal Cannula 6.0 12/30/16 05:34 100 Intake and Output 12/30/16 12/30/16 12/31/16 14:59 22:59 06:59 Intake Total 120 ml 100 ml Output Total 700 ml 625 ml 1500 ml Balance -580 ml -625 ml -1400 ml Exam GENERAL: Elderly-appearing gentleman somewhat lethargic but grimaces to painful stimuli. VITAL SIGNS: per chart NECK: Supple. No JVD or lymphadenopathy. CARDIAC EXAM: S1, S2. No added sounds or murmurs. CHEST: clear bilaterally, No added sounds, rales or wheezes ABDOMEN: Soft, nontender. No guarding or rebound. EXTREMITIES: No cyanosis, clubbing or edema. NEUROLOGIC: Generalized weakness. Results/Medications Result Diagram: 12/31/16 0710 12/31/16 0710 Results 24 hrs Laboratory Tests Test 12/30/16 17:22 12/30/16 20:44 12/31/16 03:00 12/31/16 07:10 Bedside Glucose 111 90 120 White Blood Count 10.3 Red Blood Count 2.59 L Hemoglobin 7.9 L Hematocrit 24.8 L Mean Corpuscular Volume 95.8 Mean Corpuscular Hemoglobin 30.5 Mean Corpuscular Hemoglobin Concent 31.9 L Red Cell Distribution Width 17.4 H Platelet Count 285 Mean Platelet Volume 10.4 Neutrophils % 87.4 H Lymphocytes % 3.9 L Monocytes % 3.5 Eosinophils % 4.0 Basophils % 0.2 Nucleated Red Blood Cells % 0.0 Neutrophils # 9.0 H Lymphocytes # 0.4 L Monocytes # 0.4 Eosinophils # 0.4 Basophils # 0.0 Nucleated Red Blood Cells # 0.0 Sodium Level 141 Potassium Level 3.7 Chloride Level 97 Carbon Dioxide Level 30 Anion Gap 18 H Blood Urea Nitrogen 46 H Creatinine 1.72 H Glucose Level 112 Calcium Level 8.3 L Test 12/31/16 08:15 12/31/16 12:26 Bedside Glucose 119 185 Medications Current Medications Lorazepam (Ativan) 0.5 mg Q6H PRN IV ANXIETY Last administered on 12/29/16 08: 18; Admin Dose 0.5 MG; Start 12/26/16 at 06:00 Ondansetron HCl (Zofran Inj) 4 mg Q6H PRN IV NAUSEA AND/OR VOMITING; Start at 06:00 Aspirin (Aspirin) 81 mg DAILY PO Last administered on 12/31/16 08:21; Admin Dose 81 MG; Start 12/26/16 at 09:00 Acetaminophen (Tylenol Tab) 650 mg Q6H PRN PO PAIN LEVEL 1-3 OR FEVER Last administered on 12/27/16 03:55; Admin Dose 650 MG; Start 12/26/16 at 06:00 Morphine Sulfate (morphine) 2 mg Q4H PRN IV PAIN LEVEL 7-10; Start 12/26/16 at 06:00 Heparin Sodium (Porcine) (Heparin (5000 Units/0.5 ml)) 5,000 unit Q12 SC Last administered on 12/31/16 08:36; Admin Dose 5,000 UNIT; Start 12/26/16 at 09:00 Diagnostic Test (Pha) (Accu-Chek) 1 ea 02 XX ; Start 12/27/16 at 02:00 Insulin Glargine (Lantus) 14 unit DAILY@08 SC Last administered on 12/31/16 08 :37; Admin Dose 14 UNIT; Start 12/26/16 at 08:00 Miscellaneous Information 1 ea NOTE XX ; Start 12/26/16 at 06:00 Glucose (Glutose) 15 gm Q15M PRN PO DECREASED GLUCOSE; Start 12/26/16 at 06:00 Glucose (Glutose) 22.5 gm Q15M PRN PO DECREASED GLUCOSE; Start 12/26/16 at 06: 00 Dextrose (D50w Syringe) 25 ml Q15M PRN IV DECREASED GLUCOSE; Start 12/26/16 at 06:00 Dextrose (D50w Syringe) 50 ml Q15M PRN IV DECREASED GLUCOSE; Start 12/26/16 at 06:00 Glucagon (Glucagen) 1 mg Q15M PRN IM DECREASED GLUCOSE; Start 12/26/16 at 06:00 Glucose (Glutose) 15 gm Q15M PRN BUCCAL DECREASED GLUCOSE; Start 12/26/16 at 06 :00 Miscellaneous Information (Pending [facility] Order For Wound Care) This patient betancourt... PRN PRN XX WOUND CARE; Start 12/26/16 at 06:30 Hydralazine HCl (Apresoline) 25 mg Q8 PO Last administered on 12/31/16 14:23; Admin Dose 25 MG; Start 12/26/16 at 22:00 Metoprolol Tartrate (Lopressor) 25 mg BID PO Last administered on 12/31/16 08: 22; Admin Dose 25 MG; Start 12/26/16 at 21:00 Guaifenesin/ Codeine Phosphate (Robitussin Ac Liquid Cup) 10 ml Q4H PRN PO COUGH Last administered on 12/30/16 16:24; Admin Dose 10 ML; Start 12/26/16 at 20:30 Quetiapine Fumarate (Seroquel) 50 mg BID PO Last administered on 12/31/16 08: 21; Admin Dose 50 MG; Start 12/26/16 at 22:00 Trazodone HCl 100 mg 100 mg BID PO Last administered on 12/30/16 21:15; Admin Dose 100 MG; Start 12/26/16 at 22:30 Ceftriaxone Sodium (Rocephin) 50 ml @ 100 mls/hr Q24H IVPB ; Start 12/31/16 at 15:00 Assessment/Plan Chief Complaint/Hosp Course Assessment 1. Hypoxemic respiratory failure likely secondary to volume overload, improved oxygenation. 2. Significant valvular heart disease 3. Questionable underlying history of dementia more alert today. 4. Severe pulmonary hypertension likely secondary to valvular heart disease 5. History of significant dementia. Plan 1. Continue diuretics will repeat chest x-ray. 2. Continue current oxygen settings stat arterial blood gas 3. Continue telemetry care 4. Aspiration precautions 5. Cardiac recommendations barrientos evaluation. Problems: ELVIS BUTTERFIELD MD, [facility] Dec 31, 2016 15:08
[2016-12-31] MEDS: LORAZEPAM 2 MG INJ IV PRN (16:34)
[2016-12-31] MEDS: METOPROLOL 5 MG INJ IV SCH (23:30)
[2016-12-31] MEDS ORDERED: LORAZEPAM 2 MG INJ IV PRN (23:30)
[2016-12-31] MEDS ORDERED: hydrALAzine 20 MG INJ IV PRN (23:30)
[2016-12-31] MEDS ORDERED: NA PHOSPHATE/BIPHOS 133 ML ENEMA PR ONE (23:30)
[2017-01-01] VITALS (12 sets, daily range): BP systolic 100–161; BP diastolic 55–68; PULSE 82–102; RESP 18–24
[2017-01-01] MEDS: ACCU-CHEK XX SCH (02:00)
[2017-01-01] MEDS: FUROSEMIDE 40 MG INJ IV SCH ×2 (06:32→17:54)
[2017-01-01] MEDS: INSULIN ASPART [NOVOLOG] 3 ML PEN SC SCH ×4 (07:55→21:00)
[2017-01-01 08:01] LABS: ABNORMAL IP MESSAGE 1; BASOPHILS % 0.2 % (0.0-2.0); EOSINOPHILS # 0.6 10^3/ul (0.0-0.5); EOSINOPHILS % 5.2 % (0.0-7.0); HEMOGLOBIN 8.6 g/dl (14.0-18.0); LYMPHOCYTES # 0.4 10^3/ul (0.8-2.9); LYMPHOCYTES % 3.6 % (15.0-51.0); MEAN CORPUSCULAR HEMOGLOBIN 30.2 pg (29.0-33.0); MEAN CORPUSCULAR HGB CONC 31.9 g/dl (32.0-37.0); MEAN CORPUSCULAR VOLUME 94.7 fl (82.0-101.0); MEAN PLATELET VOLUME 10.5 fl (7.4-10.4); MONOCYTE # 0.4 10^3/ul (0.3-0.9); MONOCYTES % 3.6 % (0.0-11.0); NEUTROPHIL # 9.7 10^3/ul (1.6-7.5); PLATELET COUNT 309 10^3/UL (140-415); POSITIVE DIFF @See below; RED BLOOD COUNT 2.85 10^6/ul (4.70-6.10); RED CELL DISTRIBUTION WIDTH 17.3 % (11.5-14.5); WHITE BLOOD COUNT 11.3 10^3/ul (4.8-10.8)
[2017-01-01] MEDS: INSULIN GLARGINE [LANtus] 3 ML PEN SC SCH (08:25)
[2017-01-01] MEDS: HEPARIN 5,000 UNIT/0.5 ML VIAL SC SCH ×2 (08:25→21:29)
[2017-01-01] MEDS: METOPROLOL 5 MG INJ IV SCH ×3 (08:31→21:16)
[2017-01-01] MEDS: QUETIAPINE 25 MG TAB PO SCH ×2 (08:32→21:24)
[2017-01-01] MEDS: traZODone 100 MG TAB PO SCH ×2 (08:32→21:24)
[2017-01-01] MEDS: METOPROLOL 25 MG TAB PO SCH ×2 (08:32→21:00)
[2017-01-01] MEDS: ASPIRIN 81 MG TAB PO SCH (08:32)
[2017-01-01 08:36] LABS: CALCIUM 8.4 mg/dl (8.4-10.2); CREATININE 1.7 mg/dl (0.61-1.24); POTASSIUM 3.5 mmol/L (3.5-5.1)
[2017-01-01 08:41] LABS: MAGNESIUM 1.6 mg/dl (1.7-2.5); PHOSPHORUS 4.5 mg/dl (2.5-4.9)
--- NOTE | 2017-01-01 09:17 | PN ---
Date/Time of Note Date/Time of Note DATE: 01/01/17 TIME: 09:16 Assessment/Plan VTE Prophylaxis VTE Prophylaxis Intervention: other Lines/Catheters IV [facility]from [facility] Saline Lock Assessment/Plan Chief Complaint/Hosp Course 1. Nonoliguric acute kidney injury with unknown baseline creatinine likely CKD Etiology secondary to hemodynamics, possible tubular injury Renal function been fluctuating likely from recent diuretic therapy Renal ultrasound was reviewed showed evidence of increased echogenicity consistent with CKD Would continue current diuretic therapy at this time Monitor I's and O's closely Chronic kidney disease underlying etiology likely multifactorial Renal ultrasound shows increased echogenicity consistent with CKD The patient is currently an acute kidney injury stated above We will continue current treatment plan continue disease factor modification Anemia monitor H&H levels CHF. Patient is volume overloaded Continue diuretic therapy Monitor renal functions monitor electrolytes Sepsis Continue current antibiotic regimen Cultures been reviewed Acute encephalopathy and dementia Etiologies toxic metabolic Continue to monitor Problems: Subjective 24 Hr Interval Summary Free Text/Dictation Patient seen and examined Remains on facemask No other events noted Exam/Review of Systems Vital Signs Vitals Vital Signs Date Time Temp Pulse Resp B/P Pulse Ox O2 Delivery O2 Flow Rate FiO2 01/01/17 08:12 97 01/01/17 07:23 97.6 24 110/55 100 01/01/17 01:51 15.0 100 12/31/16 15:35 Non Rebreather Mask Intake and Output 12/31/16 12/31/16 01/01/17 15:00 23:00 07:00 Intake Total 550 ml Output Total 600 ml 800 ml Balance -50 ml -800 ml Exam HEENT: Head is normocephalic. NECK: Supple. HEART: Regular rate LUNGS: Show diminished breath sounds at base. ABDOMEN: Soft, nontender to palpation without rebound or guarding. EXTREMITIES: Negative for clubbing, cyanosis. DERMATOLOGIC: No rashes. MUSCULOSKELETAL: No joint effusions, NEUROLOGIC: No change in exam. Results Result Diagram: 01/01/17 0731 01/01/17730 Results 24 hrs Laboratory Tests Test 12/31/16 12:26 12/31/16 17:50 12/31/16 21:21 01/01/17 07:31 Bedside Glucose 185 198 173 White Blood Count 11.3 H Red Blood Count 2.85 L Hemoglobin 8.6 L Hematocrit 27.0 L Mean Corpuscular Volume 94.7 Mean Corpuscular Hemoglobin 30.2 Mean Corpuscular Hemoglobin Concent 31.9 L Red Cell Distribution Width 17.3 H Platelet Count 309 Mean Platelet Volume 10.5 H Neutrophils % 86.0 H Lymphocytes % 3.6 L Monocytes % 3.6 Eosinophils % 5.2 Basophils % 0.2 Nucleated Red Blood Cells % 0.0 Neutrophils # 9.7 H Lymphocytes # 0.4 L Monocytes # 0.4 Eosinophils # 0.6 H Basophils # 0.0 Nucleated Red Blood Cells # 0.0 Sodium Level 141 Potassium Level 3.5 Chloride Level 95 L Carbon Dioxide Level 31 Anion Gap 19 H Blood Urea Nitrogen 50 H Creatinine 1.70 H Glucose Level 140 Calcium Level 8.4 Phosphorus Level 4.5 Magnesium Level 1.6 L Test 01/01/17 08:01 Bedside Glucose 136 Medications Medications Current Medications Lorazepam (Ativan) 0.5 mg Q6H PRN IV ANXIETY Last administered on 12/31/16 16: 34; Admin Dose 0.5 MG; Start 12/26/16 at 06:00 Ondansetron HCl (Zofran Inj) 4 mg Q6H PRN IV NAUSEA AND/OR VOMITING; Start at 06:00 Aspirin (Aspirin) 81 mg DAILY PO Last administered on 12/31/16 08:21; Admin Dose 81 MG; Start 12/26/16 at 09:00 Acetaminophen (Tylenol Tab) 650 mg Q6H PRN PO PAIN LEVEL 1-3 OR FEVER Last administered on 12/27/16 03:55; Admin Dose 650 MG; Start 12/26/16 at 06:00 Morphine Sulfate (morphine) 2 mg Q4H PRN IV PAIN LEVEL 7-10; Start 12/26/16 at 06:00 Heparin Sodium (Porcine) (Heparin (5000 Units/0.5 ml)) 5,000 unit Q12 SC Last administered on 01/01/17 08:25; Admin Dose 5,000 UNIT; Start 12/26/16 at 09:00 Diagnostic Test (Pha) (Accu-Chek) 1 ea 02 XX ; Start 12/27/16 at 02:00 Insulin Glargine (Lantus) 14 unit DAILY@08 SC Last administered on 01/01/17 08 :25; Admin Dose 14 UNIT; Start 12/26/16 at 08:00 Miscellaneous Information 1 ea NOTE XX ; Start 12/26/16 at 06:00 Glucose (Glutose) 15 gm Q15M PRN PO DECREASED GLUCOSE; Start 12/26/16 at 06:00 Glucose (Glutose) 22.5 gm Q15M PRN PO DECREASED GLUCOSE; Start 12/26/16 at 06: 00 Dextrose (D50w Syringe) 25 ml Q15M PRN IV DECREASED GLUCOSE; Start 12/26/16 at 06:00 Dextrose (D50w Syringe) 50 ml Q15M PRN IV DECREASED GLUCOSE; Start 12/26/16 at 06:00 Glucagon (Glucagen) 1 mg Q15M PRN IM DECREASED GLUCOSE; Start 12/26/16 at 06:00 Glucose (Glutose) 15 gm Q15M PRN BUCCAL DECREASED GLUCOSE; Start 12/26/16 at 06 :00 Miscellaneous [facility] This patient betancourt... PRN PRN XX WOUND CARE; Start 12/26/16 at 06:30 Hydralazine HCl (Apresoline) 25 mg Q8 PO Last administered on 12/31/16 14:23; Admin Dose 25 MG; Start 12/26/16 at 22:00 Metoprolol Tartrate (Lopressor) 25 mg BID PO Last administered on 12/31/16 08: 22; Admin Dose 25 MG; Start 12/26/16 at 21:00 Guaifenesin/ Codeine Phosphate (Robitussin Ac Liquid Cup) 10 ml Q4H PRN PO COUGH Last administered on 12/30/16 16:24; Admin Dose 10 ML; Start 12/26/16 at 20:30 Quetiapine Fumarate (Seroquel) 50 mg BID PO Last administered on 12/31/16 08: 21; Admin Dose 50 MG; Start 12/26/16 at 22:00 Trazodone HCl 100 mg 100 mg BID PO Last administered on 12/30/16 21:15; Admin Dose 100 MG; Start 12/26/16 at 22:30 Ceftriaxone Sodium (Rocephin) 50 ml @ 100 mls/hr Q24H IVPB Last administered on 12/31/16 16:32; Admin Dose 100 MLS/HR; Start 12/31/16 at 15:00 Hydralazine HCl (Apresoline) 10 mg Q6H PRN IV ELEVATED SYSTOLIC BP; Start 12/31 at 23:30 Metoprolol Tartrate (Lopressor) 2.5 mg BID IV Last administered on 12/31/16t 23 :30; Admin Dose 2.5 MG; Start 12/31/16 at 23:30 Lorazepam (Ativan) 0.5 mg Q6H PRN IV ANXIETY; Start 12/31/16 at 23:30 ZANA SHEETS DO Jan 01, 2017 09:17
--- NOTE | 2017-01-01 09:53 | PN ---
Date/Time of Note Date/Time of Note DATE: 01/01/17 TIME: 09:49 Assessment/Plan VTE Prophylaxis VTE Prophylaxis Intervention: heparin Lines/Catheters IV Catheter Type (from [facility]): Saline Lock Assessment/Plan Chief Complaint/Hosp Course Assessment and plan: 86-year-old male with: 1. Dyspnea secondary to CHF exacerbation-had been improving, but still on nonrebreather. Pulmonary on the case. Chest x-ray on December 30 showed no change. -For now, continue on diuretics. Await for clinical improvement, pulmonology consultation appreciated 2. CKD. Gas Operations Analyst following. Medications to be renally dosed. Continue their recommendations. 3. Sepsis secondary to UTI-urine culture shows enterococcus -Continue Rocephin 4. Altered mentation. Suspect patient currently at baseline. Does have underlying dementia, and now with occasional delirium - monitor for now. Aspiration precautions. One-to-one sitter as needed 5. Essential hypertension. Continue antihypertensives and adjust needed 6. Decubitus ulcers-continue with wound care 7. Anemia of chronic disease. H&H remained stable. Monitor at this time. 8. Dispo: We will also need to be evaluated by speech team given his inability to swallow medicine since last night. After that, if swallowing meds, consider discharged back to facility if other medical problems are stable as well Prophylaxis: Heparin Problems: Subjective 24 Hr Interval Summary Free Text/Dictation Patient made n.p.o. last night because he was coughing up medicines. Still on nonrebreather. Exam/Review of Systems Vital Signs Vitals Vital Signs Date Time Temp Pulse Resp B/P Pulse Ox O2 Delivery O2 Flow Rate FiO2 01/01/17 08:12 97 01/01/17 07:23 97.6 24 110/55 100 01/01/17 01:51 15.0 100 12/31/16 15:35 Non Rebreather Mask Intake and Output 12/31/16 12/31/16 01/01/17 15:00 23:00 07:00 Intake Total 550 ml Output Total 600 ml 800 ml Balance -50 ml -800 ml Exam Psych: confusion Respiratory: Slightly decreased breath sounds bilateral Cardiovascular: regular rate and rhythm Gastrointestinal: soft, No distended Musculoskeletal: nl extremities to inspection Results Result Diagram: 01/01/17 0731 01/01/17 0731 Results 24 hrs Laboratory Tests Test 12/31/16 12:26 12/31/16 17:50 12/31/16 21:21 01/01/17 07:31 Bedside Glucose 185 198 173 White Blood Count 11.3 H Red Blood Count 2.85 L Hemoglobin 8.6 L Hematocrit 27.0 L Mean Corpuscular Volume 94.7 Mean Corpuscular Hemoglobin 30.2 Mean Corpuscular Hemoglobin Concent 31.9 L Red Cell Distribution Width 17.3 H Platelet Count 309 Mean Platelet Volume 10.5 H Neutrophils % 86.0 H Lymphocytes % 3.6 L Monocytes % 3.6 Eosinophils % 5.2 Basophils % 0.2 Nucleated Red Blood Cells % 0.0 Neutrophils # 9.7 H Lymphocytes # 0.4 L Monocytes # 0.4 Eosinophils # 0.6 H Basophils # 0.0 Nucleated Red Blood Cells # 0.0 Sodium Level 141 Potassium Level 3.5 Chloride Level 95 L Carbon Dioxide Level 31 Anion Gap 19 H Blood Urea Nitrogen 50 H Creatinine 1.70 H Glucose Level 140 Calcium Level 8.4 Phosphorus Level 4.5 Magnesium Level 1.6 L Test 01/01/17 08:01 Bedside Glucose 136 Medications Medications Current Medications Lorazepam (Ativan) 0.5 mg Q6H PRN IV ANXIETY Last administered on 12/31/16 16: 34; Admin Dose 0.5 MG; Start 12/26/16 at 06:00 Ondansetron HCl (Zofran Inj) 4 mg Q6H PRN IV NAUSEA AND/OR VOMITING; Start at 06:00 Aspirin (Aspirin) 81 mg DAILY PO Last administered on 12/31/16 08:21; Admin Dose 81 MG; Start 12/26/16 at 09:00 Acetaminophen (Tylenol Tab) 650 mg Q6H PRN PO PAIN LEVEL 1-3 OR FEVER Last administered on 12/27/16 03:55; Admin Dose 650 MG; Start 12/26/16 at 06:00 Morphine Sulfate (morphine) 2 mg Q4H PRN IV PAIN LEVEL 7-10; Start 12/26/16 at 06:00 Heparin Sodium (Porcine) (Heparin (5000 Units/0.5 ml)) 5,000 unit Q12 SC Last administered on 01/01/17 08:25; Admin Dose 5,000 UNIT; Start 12/26/16 at 09:00 Diagnostic Test (Pha) (Accu-Chek) 1 ea 02 XX ; Start 12/27/16 at 02:00 Insulin Glargine (Lantus) 14 unit DAILY@08 SC Last administered on 01/01/17 08 :25; Admin Dose 14 UNIT; Start 12/26/16 at 08:00 Miscellaneous Information 1 ea NOTE XX ; Start 12/26/16 at 06:00 Glucose (Glutose) 15 gm Q15M PRN PO DECREASED GLUCOSE; Start 12/26/16 at 06:00 Glucose (Glutose) 22.5 gm Q15M PRN PO DECREASED GLUCOSE; Start 12/26/16 at 06: 00 Dextrose (D50w Syringe) 25 ml Q15M PRN IV DECREASED GLUCOSE; Start 12/26/16 at 06:00 Dextrose (D50w Syringe) 50 ml Q15M PRN IV DECREASED GLUCOSE; Start 12/26/16 at 06:00 Glucagon (Glucagen) 1 mg Q15M PRN IM DECREASED GLUCOSE; Start 12/26/16 at 06:00 Glucose (Glutose) 15 gm Q15M PRN BUCCAL DECREASED GLUCOSE; Start 12/26/16 at 06 :00 Miscellaneous Information (Pending [facility] Order For Wound Care) This patient betancourt... PRN PRN XX WOUND CARE; Start 12/26/16 at 06:30 Hydralazine HCl (Apresoline) 25 mg Q8 PO Last administered on 12/31/16 14:23; Admin Dose 25 MG; Start 12/26/16 at 22:00 Metoprolol Tartrate (Lopressor) 25 mg BID PO Last administered on 12/31/16 08: 22; Admin Dose 25 MG; Start 12/26/16 at 21:00 Guaifenesin/ Codeine Phosphate (Robitussin Ac Liquid Cup) 10 ml Q4H PRN PO COUGH Last administered on 12/30/16 16:24; Admin Dose 10 ML; Start 12/26/16 at 20:30 Quetiapine Fumarate (Seroquel) 50 mg BID PO Last administered on 12/31/16 08: 21; Admin Dose 50 MG; Start 12/26/16 at 22:00 Trazodone HCl 100 mg 100 mg BID PO Last administered on 12/30/16 21:15; Admin Dose 100 MG; Start 12/26/16 at 22:30 Ceftriaxone Sodium (Rocephin) 50 ml @ 100 mls/hr Q24H IVPB Last administered on 12/31/16 16:32; Admin Dose 100 MLS/HR; Start 12/31/16 at 15:00 Hydralazine HCl (Apresoline) 10 mg Q6H PRN IV ELEVATED SYSTOLIC BP; Start 12/31 at 23:30 Metoprolol Tartrate (Lopressor) 2.5 mg BID IV Last administered on 12/31/16 23 :30; Admin Dose 2.5 MG; Start 12/31/16 at 23:30 Lorazepam (Ativan) 0.5 mg Q6H PRN IV ANXIETY; Start 12/31/16 at 23:30 ANGELA AL Jan 01, 2017 09:53
[2017-01-01] MEDS ORDERED: VANCOMYCIN IV PER PHARMACY XX SCH (10:30)
[2017-01-01] MEDS: ALBUTEROL/IPRATROPIUM (NEB) 3 ML AMP HHN PRN (10:59)
--- NOTE | 2017-01-01 11:14 | CONS ---
Date/Time of Note Date/Time of Note DATE: 01/01/17 TIME: 11:10 Consult Date/Type/Reason Admit Date/Time Dec 26, 2016 at 01:49 Type of Consultation: Pulmonary Ordering Provider: ANGELA AL Subjective Patient remains comfortable nonrebreather. Still agitated. Productive cough. Objective Vital Signs Date Time Temp Pulse Resp B/P Pulse Ox O2 Delivery O2 Flow Rate FiO2 01/01/17 10:50 Non Rebreather 10.0 01/01/17 08:12 97 01/01/17 07:23 97.6 24 110/55 100 01/01/17 01:51 100 Intake and Output 12/31/16 12/31/16 01/01/17 15:00 23:00 07:00 Intake Total 550 ml Output Total 600 ml 800 ml Balance -50 ml -800 ml Exam GENERAL: Elderly gentleman comfortable at rest no acute distress VITAL SIGNS: per chart NECK: Supple. No JVD or lymphadenopathy. CARDIAC EXAM: S1, S2. No added sounds or murmurs. CHEST: Diminished air entry bilaterally with few rales. ABDOMEN: Soft, nontender. No guarding or rebound. EXTREMITIES: No cyanosis, clubbing or edema. NEUROLOGIC: Generalized weakness. No focal deficits. Results/Medications Result Diagram: 01/01/1731 01/01/17 0731 Results 24 hrs Laboratory Tests Test 12/31/16 12:26 12/31/16 17:50 12/31/16 21:21 01/01/17 07:31 Bedside Glucose 185 198 173 White Blood Count 11.3 H Red Blood Count 2.85 L Hemoglobin 8.6 L Hematocrit 27.0 L Mean Corpuscular Volume 94.7 Mean Corpuscular Hemoglobin 30.2 Mean Corpuscular Hemoglobin Concent 31.9 L Red Cell Distribution Width 17.3 H Platelet Count 309 Mean Platelet Volume 10.5 H Neutrophils % 86.0 H Lymphocytes % 3.6 L Monocytes % 3.6 Eosinophils % 5.2 Basophils % 0.2 Nucleated Red Blood Cells % 0.0 Neutrophils # 9.7 H Lymphocytes # 0.4 L Monocytes # 0.4 Eosinophils # 0.6 H Basophils # 0.0 Nucleated Red Blood Cells # 0.0 Sodium Level 141 Potassium Level 3.5 Chloride Level 95 L Carbon Dioxide Level 31 Anion Gap 19 H Blood Urea Nitrogen 50 H Creatinine 1.70 H Glucose Level 140 Calcium Level 8.4 Phosphorus Level 4.5 Magnesium Level 1.6 L Test 01/01/17 08:01 Bedside Glucose 136 Medications Current Medications Lorazepam (Ativan) 0.5 mg Q6H PRN IV ANXIETY Last administered on 12/31/16 16: 34; Admin Dose 0.5 MG; Start 12/26/16 at 06:00 Ondansetron HCl (Zofran Inj) 4 mg Q6H PRN IV NAUSEA AND/OR VOMITING; Start at 06:00 Aspirin (Aspirin) 81 mg DAILY PO Last administered on 12/31/16 08:21; Admin Dose 81 MG; Start 12/26/16 at 09:00 Acetaminophen (Tylenol Tab) 650 mg Q6H PRN PO PAIN LEVEL 1-3 OR FEVER Last administered on 12/27/16 03:55; Admin Dose 650 MG; Start 12/26/16 at 06:00 Morphine Sulfate (morphine) 2 mg Q4H PRN IV PAIN LEVEL 7-10; Start 12/26/16 at 06:00 Heparin Sodium (Porcine) (Heparin (5000 Units/0.5 ml)) 5,000 unit Q12 SC Last administered on 01/01/17 08:25; Admin Dose 5,000 UNIT; Start 12/26/16 at 09:00 Diagnostic Test (Pha) (Accu-Chek) 1 ea 02 XX ; Start 12/27/16 at 02:00 Insulin Glargine (Lantus) 14 unit DAILY@08 SC Last administered on 01/01/17 08 :25; Admin Dose 14 UNIT; Start 12/26/16 at 08:00 Miscellaneous Information 1 ea NOTE XX ; Start 12/26/16 at 06:00 Glucose (Glutose) 15 gm Q15M PRN PO DECREASED GLUCOSE; Start 12/26/16 at 06:00 Glucose (Glutose) 22.5 gm Q15M PRN PO DECREASED GLUCOSE; Start 12/26/16 at 06: 00 Dextrose (D50w Syringe) 25 ml Q15M PRN IV DECREASED GLUCOSE; Start 12/26/16 at 06:00 Dextrose (D50w Syringe) 50 ml Q15M PRN IV DECREASED GLUCOSE; Start 12/26/16 at 06:00 Glucagon (Glucagen) 1 mg Q15M PRN IM DECREASED GLUCOSE; Start 12/26/16 at 06:00 Glucose (Glutose) 15 gm Q15M PRN BUCCAL DECREASED GLUCOSE; Start 12/26/16 at 06 :00 Miscellaneous Information (Pending [facility] Order For Wound Care) This patient betancourt... PRN PRN XX WOUND CARE; Start 12/26/16 at 06:30 Hydralazine HCl (Apresoline) 25 mg Q8 PO Last administered on 12/31/16 14:23; Admin Dose 25 MG; Start 12/26/16 at 22:00 Metoprolol Tartrate (Lopressor) 25 mg BID PO Last administered on 12/31/16 08: 22; Admin Dose 25 MG; Start 12/26/16 at 21:00 Guaifenesin/ Codeine Phosphate (Robitussin Ac Liquid Cup) 10 ml Q4H PRN PO COUGH Last administered on 12/30/16 16:24; Admin Dose 10 ML; Start 12/26/16 at 20:30 Quetiapine Fumarate (Seroquel) 50 mg BID PO Last administered on 12/31/16 08: 21; Admin Dose 50 MG; Start 12/26/16 at 22:00 Trazodone HCl (Desyrel) 100 mg BID PO Last administered on 12/30/16 21:15; Admin Dose 100 MG; Start 12/26/16 at 22:30 Hydralazine HCl (Apresoline) 10 mg Q6H PRN IV ELEVATED SYSTOLIC BP; Start 12/31 at 23:30 Metoprolol Tartrate (Lopressor) 2.5 mg BID IV Last administered on 12/31/16 23 :30; Admin Dose 2.5 MG; Start 12/31/16 at 23:30 Lorazepam (Ativan) 0.5 mg Q6H PRN IV ANXIETY; Start 12/31/16 at 23:30 Vancomycin HCl PER PHARMACY DOSING NOTE XX ; Start 01/01/17 at 10:30 Vancomycin HCl 1.75 gm/Sodium Chloride 500 ml @ 125 mls/hr ONCE IVPB ; Start at 12:00; Stop 01/01/17 at 17:00 Vancomycin HCl/ Sodium Chloride (Vancocin/NS) 250 ml @ 83.333 mls/ hr Q36H IVPB ; Start 7/29/17 at 00:00 Assessment/Plan Chief Complaint/Hosp Course Assessment 1. Hypoxemic respiratory failure likely secondary to volume overload, improved oxygenation. Possible component of pneumonia also 2. Significant valvular heart disease 3. History of dementia. 4. Severe pulmonary hypertension likely secondary to valvular heart disease 5. History of significant dementia. Plan 1. Decrease diuretics. Repeat chest x-ray. 2. Continue current oxygen settings stat arterial blood gas 3. Continue telemetry care 4. Aspiration precautions add cefepime. 5. Cardiac recommendations Palliative care consult prognosis is guarded. Problems: ELVIS BUTTERFIELD MD, [facility] Jan 01, 2017 11:14
--- NOTE | 2017-01-01 11:57 | RADRPT ---
PROCEDURE: XR Chest. CLINICAL INDICATION: pna chf TECHNIQUE: Single frontal view of the chest was obtained COMPARISON: Chest x-ray 12/30/2016 FINDINGS: The patient is rotated rightward. Left chest wall pacer / AICD device appears stable, allowing for differences in projection. Read demonstrated is extensive bilateral airspace disease which may represent pulmonary edema or pne umonia, unchanged. The cardiac silhouette remains moderately enlarged. There are atherosclerotic calcifications of the thoracic aorta. No pneumothorax is identified. A trace right pleural effusion is suspected. IMPRESSION: 1. Persistent extensive bilateral airspace opacities, not significantly changed. This may represent diffuse pulmonary edema. Underlying infectious etiology cannot be excluded. 2. Moderate cardiomegaly. 3. Possible new trace right pleural effusion. RPTAT: PP Physician Yadiel Date Time Electronically viewed and signed by Val Hein Physician on 01/01/2017 11:57 MAKI/
[2017-01-01] MEDS ORDERED: VANCOMYCIN 1.75 GM in NS 500 ML IVPB SCH (12:00)
[2017-01-01] MEDS: CEFEPIME 2GM/50 ML (PMX) 50 ML IVPB SCH ×2 (12:01→21:16)
--- NOTE | 2017-01-01 14:39 | PN ---
DATE: 12/29/2016 SUBJECTIVE DATA: Today the patient remains critical but stable on a non-rebreather at 10 L. No other events noted. OBJECTIVE DATA: VITALS BLOOD: Blood pressure 144, 66, respiration 18, pulse 108, temperature 98.8. HEENT: Head is normocephalic. NECK: Supple. HEART: Regular rate. LUNGS: Diminished breath sounds at the bases. ABDOMEN: Soft, nontender to palpation. No rebound or guarding. EXTREMITIES: No clubbing, cyanosis, no edema. DERMATOLOGIC: No rashes. MUSCULOSKELETAL: No joint effusion. NEUROLOGIC: No change in exam. MEDICATION: Reviewed. LABORATORY DATA: Currently pending. ASSESSMENT AND PLAN: 1. Nonoliguric acute kidney injury with unknown baseline creatinine. Likely chronic kidney disease. Etiology secondary to hemodynamics, possible tubular injury. The patient's renal function has been fluctuating, likely from recent diuretic therapy. At this point continue current treatment. Supportive care. Renal dose all meds. 2. Chronic kidney disease. Etiology is likely multifactorial. The patient's renal ultrasound shows increased echogenicity consistent with chronic kidney disease. Patient is currently acute kidney injury as stated above. Continue current treatment plan. Continue disease factor modification. 3. Anemia. Monitor hemoglobin and hematocrit levels. 4. Congestive heart failure. Continue current diuretic regimen. 5. Hypoxemic respiratory failure secondary to congestive heart failure, questionable pneumonia. Continue current antibiotic regimen. Continue with non-rebreather. Follow Pulmonary. 6. Acute encephalopathy on top of chronic dementia. Continue to monitor. Etiology is likely toxic metabolic. Dictated By: Major Lazo DO /lalitha/harper /Document#: [id number]
[2017-01-01] MEDS: LORAZEPAM 2 MG INJ IV PRN (15:28)
--- NOTE | 2017-01-01 15:30 | CONS ---
DATE OF ADMISSION: 12/26/2016 DATE OF CONSULTATION: 12/26/2016 REASON FOR CONSULTATION: Acute kidney injury. HISTORY OF PRESENT ILLNESS: The patient is an 86-year-old male with past medical history of chronic kidney disease. History of diabetes. History of arrhythmias, history of hypertension, BPH, who presents to [facility] with shortness of breath. The patient is unable to provide much history as he is confused. Per review of medical records, patient has been noted to have been feeling well for a period of time. The patient was noted to be having worsening shortness of breath on the day of admission. Upon arrival to the emergency room patient was initially placed on non-rebreather face mask as he was desaturating. The patient in the emergency room had a chest x- ray, which showed airspace opacities and evidence of pulmonary edema. He was also noted to be febrile with a white count of 12.1. The patient was given IV diuretics and IV antibiotics and admitted to telemetry for further evaluation. Upon my evaluation the patient at this time currently confused, unable to provide any history. There has been no reports of hemoptysis, hematemesis or hematochezia. PAST MEDICAL HISTORY: As stated above. History of hypertension, BPH, arrhythmias, and diabetes. PAST SURGICAL HISTORY: Status post pacemaker placement. FAMILY HISTORY: Unknown. SOCIAL HISTORY: Unknown. MEDICATION: Reviewed. REVIEW OF SYSTEMS: Unable to do adequate obtain review of systems, this patient is altered. Pertinent positives was obtained by reviewing medical records, and speaking to hospital staff and seeing HPI, otherwise negative. PHYSICAL EXAMINATION: VITAL SIGNS: Blood pressure is 136/62, respirations 18, pulse 71, temperature 97.9. HEENT: Head is normocephalic. Pupils are reactive to light. NECK: Supple. HEART: Regular rate. LUNGS: Show diminished breath sounds at the bases. ABDOMEN: Soft, nontender to palpation. No rebound or guarding. EXTREMITIES: No clubbing, cyanosis, positive edema. SKIN: No rashes. MUSCULOSKELETAL: No joint effusion. NEUROLOGICAL: Limited exam due to lack of patient cooperation. IMAGING: Patient's renal ultrasound shows echogenic kidneys consistent with medical renal disease. LABORATORY: From this morning show sodium 140, potassium 4.2, BUN 32, creatinine 1.62. White count 10.8, hemoglobin 8.9, hematocrit 20.2, platelet count 269,000. ASSESSMENT AND PLAN: The patient is an 86-year-old male presents with: 1. Nonoliguric acute kidney injury on top of chronic kidney disease, with unknown baseline creatinine. The patient's etiology of acute kidney injury is likely secondary hemodynamics, possible tubular injury possible septic acute kidney injury. The patient's urinalysis shows pyuria, likely due to underlying urinary infection. Possibility of interstitial nephritis will also be evaluated. The patient's renal ultrasound shows evidence of increased echogenicity consistent with chronic kidney disease. Plan at this point would be to continue current treatment plan. Continue IV antibiotics. Continue diuretic therapy. Monitor renal function closely. 2. Acute congestive heart failure exacerbation. The patient is currently on diuretic therapy. We will continue to monitor electrolytes closely. 3. Anemia, monitor hemoglobin and hematocrit levels. 4. Metabolic disorder. Will monitor calcium and phosphorus levels. 5. Sepsis, secondary to presumed pneumonia. Continue current antibiotic regimen. Cultures been reviewed. 6. Acute encephalopathy, etiology is toxic metabolic. Continue to monitor. Thank you for this interesting consult. It will be a pleasure to follow the patient with you throughout the hospital course. Dictated By: Major Lazo DO /lalitha/shadia /Document#: [id number]
--- NOTE | 2017-01-01 15:42 | PN ---
DATE: 12/31/2016 SUBJECTIVE DATA: The patient is stable, clinically improving. No other acute events noted. No fever or chills, nausea or vomiting. OBJECTIVE DATA: VITAL SIGNS: Blood pressure 123/56, respirations 18, pulse 99, temperature 98.2. HEENT: Head is normocephalic. Pupils equal and reactive to light. NECK: Supple. HEART: Regular rate. LUNGS: Diminished breath sounds at the bases, no crackles. ABDOMEN: Soft, nontender to palpation. No rebound or guarding. EXTREMITIES: Negative for clubbing or cyanosis, trace edema. DERMATOLOGIC: No rashes. MUSCULOSKELETAL: No joint effusion. NEUROLOGIC: No change in exam. MEDICATIONS: reviewed. LABORATORY AND DIAGNOSTIC DATA: Sodium 141, potassium 3.7, chloride 97, BUN 46, creatinine 1.72. White count 10.3, hemoglobin 7.9, hematocrit 24.8, platelet count 285,000. The patient's chest x-ray shows persistent bilateral pulmonary opacities. ASSESSMENT AND PLAN: 1. Non-oliguric acute kidney injury with unknown baseline creatinine, likely underlying chronic kidney disease. Etiology secondary to hemodynamics, tubular injury. The patient's renal function has declined in the last 24 hours. Will decrease diuretic therapy. Otherwise continue current treatment plan, supportive care, renal dose medicines. 2. Chronic kidney disease of unclear etiology. Mostly multifactorial. Continue to treat as stated above. 3. Anemia. Monitor hemoglobin and hematocrit levels. Congestive heart failure. The patient is volume overloaded and improving. Chest x-ray was 4. reviewed. Continue diuretic regimen. Lasix was de- escalated due to worsening renal function. 5. Sepsis. Continue current antibiotic regimen. 6. Ischemic encephalopathy with dementia. Etiology toxic metabolic. Continue to monitor. Dictated By: Major Lazo DO /lalitha/harper /Document#: [id number]
[2017-01-01] MEDS: morphine 2 MG INJ IV PRN (18:01)
[2017-01-02] VITALS (17 sets, daily range): BP systolic 107–122; BP diastolic 48–60; PULSE 82–98; RESP 16–22
[2017-01-02] MEDS: ACCU-CHEK XX SCH (02:00)
[2017-01-02] MEDS: FUROSEMIDE 40 MG INJ IV SCH ×2 (06:21→17:24)
[2017-01-02 06:23] LABS: ABNORMAL IP MESSAGE 1; BASOPHILS % 0.3 % (0.0-2.0); EOSINOPHILS # 0.1 10^3/ul (0.0-0.5); EOSINOPHILS % 0.8 % (0.0-7.0); HEMATOCRIT 25.2 % (42.0-52.0); HEMOGLOBIN 7.9 g/dl (14.0-18.0); LYMPHOCYTES # 0.4 10^3/ul (0.8-2.9); LYMPHOCYTES % 3.7 % (15.0-51.0); MEAN CORPUSCULAR HEMOGLOBIN 30.3 pg (29.0-33.0); MEAN CORPUSCULAR HGB CONC 31.3 g/dl (32.0-37.0); MEAN CORPUSCULAR VOLUME 96.6 fl (82.0-101.0); MEAN PLATELET VOLUME 10.6 fl (7.4-10.4); MONOCYTE # 0.4 10^3/ul (0.3-0.9); MONOCYTES % 3.4 % (0.0-11.0); NEUTROPHIL # 10.8 10^3/ul (1.6-7.5); NEUTROPHILS % 90.2 % (39.0-77.0); PLATELET COUNT 302 10^3/UL (140-415); POSITIVE DIFF @See below; RED BLOOD COUNT 2.61 10^6/ul (4.70-6.10); RED CELL DISTRIBUTION WIDTH 17.5 % (11.5-14.5); WHITE BLOOD COUNT 11.9 10^3/ul (4.8-10.8)
--- NOTE | 2017-01-02 06:56 | PN ---
DATE: 12/26/2016 SUBJECTIVE DATA: The patient is clinically improving. No other acute events noted. OBJECTIVE DATA: VITAL SIGNS: Blood pressure 123/58, respirations 18, pulse 93, temperature 97. HEENT: Head is normocephalic. NECK: Supple. HEART: Regular rate. LUNGS: Diminished breath sounds at the base. ABDOMEN: Soft, nontender to palpation. No rebound or guarding. EXTREMITIES: Negative for clubbing or cyanosis. Trace edema. DERMATOLOGIC: No rashes. MUSCULOSKELETAL: No joint effusions. NEUROLOGIC: No change in exam. MEDICATIONS: Reviewed. LABORATORY AND DIAGNOSTIC DATA: Sodium 147, potassium 3.7, BUN 39, creatinine 1.59. White count 10.3, hemoglobin 8.1, hematocrit 26, platelet count 297,000. ASSESSMENT AND PLAN: 1. Nonoliguric acute kidney injury with unknown baseline creatinine. Etiology is likely chronic kidney disease. Etiology was secondary to hemodynamics. Renal function has been stable but fluctuating. Continue current treatment plan. Continue diuretic therapy. Monitor I and Os closely. 2. Chronic kidney disease. Underlying etiology is multifactorial. Renal ultrasound shows increased echogenicity consistent with chronic kidney disease. Continue current treatment plan. As stated above, continue to treat acute kidney injury. 3. Hypernatremia. Continue to encourage free water intake. 4. Congestive heart failure. The patient is clinically improving. Continue diuretic regimen. 5. Anemia. Monitor H and H level. 6. Sepsis. Continue antibiotic regimen. 7. Acute encephalopathy with dementia. Continue to monitor. The patient is clinically improving. Dictated By: Major Lazo DO /lalitha/ec /Document#: [id number]
[2017-01-02 07:16] LABS: MAGNESIUM 1.8 mg/dl (1.7-2.5); PHOSPHORUS 4.6 mg/dl (2.5-4.9)
--- NOTE | 2017-01-02 07:16 | CONS ---
Date/Time of Note Date/Time of Note DATE: 01/02/17 TIME: 07:15 Consultation Date/Type/Reason Admit Date/Time Dec 26, 2016 at 01:49 Date of Consultation: Jan 01, 2017 Reason for Consultation Palliative care Constitutional: disoriented Psychological: confusion Past Medical History Medical History: hypertension Social History Alcohol Use: other Smoking Status: Unknown if ever smoked Drug Use: other Exam/Review of Systems Vital Signs Vitals Vital Signs Date Time Temp Pulse Resp B/P Pulse Ox O2 Delivery O2 Flow Rate FiO2 01/02/17 07:12 98.1 97 20 122/59 100 01/02/17 04:00 Non Rebreather 01/02/17 01:23 10.0 01/01/17 10:59 100 Intake and Output 01/01/17 01/01/17 01/02/17 15:00 23:00 07:00 Intake Total 550 ml Output Total 700 ml 600 ml Balance -150 ml -600 ml Results Result Diagram: 01/02/17 0544 01/01/17 0731 Results 24 hrs Laboratory Tests Test 01/01/17 07:31 01/01/17 08:01 01/01/17 12:06 01/01/17 18:00 White Blood Count 11.3 H Red Blood Count 2.85 L Hemoglobin 8.6 L Hematocrit 27.0 L Mean Corpuscular Volume 94.7 Mean Corpuscular Hemoglobin 30.2 Mean Corpuscular Hemoglobin Concent 31.9 L Red Cell Distribution Width 17.3 H Platelet Count 309 Mean Platelet Volume 10.5 H Neutrophils % 86.0 H Lymphocytes % 3.6 L Monocytes % 3.6 Eosinophils % 5.2 Basophils % 0.2 Nucleated Red Blood Cells % 0.0 Neutrophils # 9.7 H Lymphocytes # 0.4 L Monocytes # 0.4 Eosinophils # 0.6 H Basophils # 0.0 Nucleated Red Blood Cells # 0.0 Sodium Level 141 Potassium Level 3.5 Chloride Level 95 L Carbon Dioxide Level 31 Anion Gap 19 H Blood Urea Nitrogen 50 H Creatinine 1.70 H Glucose Level 140 Calcium Level 8.4 Phosphorus Level 4.5 Magnesium Level 1.6 L Bedside Glucose 136 162 163 Test 01/01/17 18:42 01/01/17 20:46 01/02/17 05:44 Troponin I 0.025 Bedside Glucose 134 White Blood Count 11.9 H Red Blood Count 2.61 L Hemoglobin 7.9 L Hematocrit 25.2 L Mean Corpuscular Volume 96.6 Mean Corpuscular Hemoglobin 30.3 Mean Corpuscular Hemoglobin Concent 31.3 L Red Cell Distribution Width 17.5 H Platelet Count 302 Mean Platelet Volume 10.6 H Neutrophils % 90.2 H Lymphocytes % 3.7 L Monocytes % 3.4 Eosinophils % 0.8 Basophils % 0.3 Nucleated Red Blood Cells % 0.0 Neutrophils # 10.8 H Lymphocytes # 0.4 L Monocytes # 0.4 Eosinophils # 0.1 Basophils # 0.0 Nucleated Red Blood Cells # 0.0 Medications Medications Current Medications Lorazepam (Ativan) 0.5 mg Q6H PRN IV ANXIETY Last administered on 01/01/17 15: 28; Admin Dose 0.5 MG; Start 12/26/16 at 06:00 Ondansetron HCl (Zofran Inj) 4 mg Q6H PRN IV NAUSEA AND/OR VOMITING; Start at 06:00 Aspirin (Aspirin) 81 mg DAILY PO Last administered on 12/31/16 08:21; Admin Dose 81 MG; Start 12/26/16 at 09:00 Acetaminophen (Tylenol Tab) 650 mg Q6H PRN PO PAIN LEVEL 1-3 OR FEVER Last administered on 12/27/16 03:55; Admin Dose 650 MG; Start 12/26/16 at 06:00 Morphine Sulfate (morphine) 2 mg Q4H PRN IV PAIN LEVEL 7-10 Last administered on 01/01/17 18:01; Admin Dose 2 MG; Start 12/26/16 at 06:00 Heparin Sodium (Porcine) (Heparin (5000 Units/0.5 ml)) 5,000 unit Q12 SC Last administered on 01/01/17 21:29; Admin Dose 5,000 UNIT; Start 12/26/16 at 09:00 Diagnostic Test (Pha) (Accu-Chek) 1 ea 02 XX ; Start 12/27/16 at 02:00 Insulin Glargine (Lantus) 14 unit DAILY@08 SC Last administered on 01/01/17 08 :25; Admin Dose 14 UNIT; Start 12/26/16 at 08:00 Miscellaneous Information 1 ea NOTE XX ; Start 12/26/16 at 06:00 Glucose (Glutose) 15 gm Q15M PRN PO DECREASED GLUCOSE; Start 12/26/16 at 06:00 Glucose (Glutose) 22.5 gm Q15M PRN PO DECREASED GLUCOSE; Start 12/26/16 at 06: 00 Dextrose (D50w Syringe) 25 ml Q15M PRN IV DECREASED GLUCOSE; Start 12/26/16 at 06:00 Dextrose (D50w Syringe) 50 ml Q15M PRN IV DECREASED GLUCOSE; Start 12/26/16 at 06:00 Glucagon (Glucagen) 1 mg Q15M PRN IM DECREASED GLUCOSE; Start 12/26/16 at 06:00 Glucose (Glutose) 15 gm Q15M PRN BUCCAL DECREASED GLUCOSE; Start 12/26/16 at 06 :00 Miscellaneous [facility] This patient betancourt... PRN PRN XX WOUND CARE; Start 12/26/16 at 06:30 Hydralazine HCl (Apresoline) 25 mg Q8 PO Last administered on 01/01/17 22:00; Admin Dose 25 MG; Start 12/26/16 at 22:00 Metoprolol Tartrate (Lopressor) 25 mg BID PO Last administered on 12/31/16 08: 22; Admin Dose 25 MG; Start 12/26/16 at 21:00 Guaifenesin/ Codeine Phosphate (Robitussin Ac Liquid Cup) 10 ml Q4H PRN PO COUGH Last administered on 12/30/16 16:24; Admin Dose 10 ML; Start 12/26/16 at 20:30 Quetiapine Fumarate (Seroquel) 50 mg BID PO Last administered on 01/01/17 21: 24; Admin Dose 50 MG; Start 12/26/16 at 22:00 Trazodone HCl (Desyrel) 100 mg BID PO Last administered on 01/01/17 21:24; Admin Dose 100 MG; Start 12/26/16 at 22:30 Hydralazine HCl (Apresoline) 10 mg Q6H PRN IV ELEVATED SYSTOLIC BP; Start 12/31 at 23:30 Metoprolol Tartrate (Lopressor) 2.5 mg BID IV Last administered on 01/01/17 21 :16; Admin Dose 2.5 MG; Start 12/31/16 at 23:30 Lorazepam (Ativan) 0.5 mg Q6H PRN IV ANXIETY; Start 12/31/16 at 23:30 Vancomycin HCl PER PHARMACY DOSING NOTE XX ; Start 01/01/17 at 10:30 Vancomycin HCl 1.5 gm/Sodium Chloride 250 ml @ 83.333 mls/ hr Q36H IVPB ; Start 01/03/17 at 00:00 Cefepime HCl (Maxipime 2gm/50 ml (Pmx)) 50 ml @ 100 mls/hr Q12 IVPB Last administered on 01/01/17t 21:16; Admin Dose 100 MLS/HR; Start 01/01/17 at 12:00 JEAN PIERRE WEEMS Jan 02, 2017 07:16
--- NOTE | 2017-01-02 07:28 | CONS ---
Date/Time of Note Date/Time of Note DATE: 01/02/17 TIME: 07:19 Assessment/Plan Assessment/Plan Additional Assessment/Plan 86-year-old non-Tajik speaking gentleman was admitted to [facility] with exacerbation of congestive heart failure. This gentleman is a non -historian was admitted to medical surgical floor I was called to see gentleman as he appears to be very debilitated there is no one here to speak on his behalf and to speak to family members on ongoing level of care patient was admitted also with sepsis syndrome.. Other comorbid medical problems include a history of chronic kidney disease, some element of baseline dementia and delirium. Patient was admitted to [facility] December 26. From a palliative care standpoint those issues as related to ongoing level of care and goals of care will be discussed with family members when a family conference is set up by case management. I would defer recommendations until that time. Consultation Date/Type/Reason Admit Date/Time Dec 26, 2016 at 01:49 Date of Consultation: Jan 02, 2017 Unable to obtain Constitutional: disoriented Eyes: no complaints ENT: no complaints Respiratory: no complaints Cardiovascular: no complaints Gastrointestinal: no complaints Genitourinary: no complaints Musculoskeletal: no complaints Skin: no complaints Neurologic: no complaints Endocrine: no complaints Lymphatic: no complaints Psychological: confusion Immunologic: no complaints Past Medical History Medical History: congestive heart failure, diabetes, hypertension Past Surgical History Past Surgical Hx: other (Incomplete database) Family History Significant Family History: other (Incomplete database) Social History Alcohol Use: other Smoking Status: Unknown if ever smoked Drug Use: other (Incomplete database) Exam/Review of Systems Vital Signs Vitals Vital Signs Date Time Temp Pulse Resp B/P Pulse Ox O2 Delivery O2 Flow Rate FiO2 01/02/17 07:12 98.1 97 20 122/59 100 01/02/17 04:00 Non Rebreather 01/02/17 01:23 10.0 01/01/17 10:59 100 Intake and Output 01/01/17 01/01/17 01/02/17 15:00 23:00 07:00 Intake Total 550 ml Output Total 700 ml 600 ml Balance -150 ml -600 ml Exam Constitutional: other (Confused mumbling does not follow simple command) Head: atraumatic, normocephalic Eyes: EOMI, PERRL, nl conjunctiva, nl lids, nl sclera Respiratory: congested cough, crackles/rales, diminished breath sounds Cardiovascular: nl pulses, regular rate and rhythm Results Result Diagram: 01/02/17 0544 01/01/17 0731 Results 24 hrs Laboratory Tests Test 01/01/17 07:31 01/01/17 08:01 01/01/17 12:06 01/01/17 18:00 White Blood Count 11.3 H Red Blood Count 2.85 L Hemoglobin 8.6 L Hematocrit 27.0 L Mean Corpuscular Volume 94.7 Mean Corpuscular Hemoglobin 30.2 Mean Corpuscular Hemoglobin Concent 31.9 L Red Cell Distribution Width 17.3 H Platelet Count 309 Mean Platelet Volume 10.5 H Neutrophils % 86.0 H Lymphocytes % 3.6 L Monocytes % 3.6 Eosinophils % 5.2 Basophils % 0.2 Nucleated Red Blood Cells % 0.0 Neutrophils # 9.7 H Lymphocytes # 0.4 L Monocytes # 0.4 Eosinophils # 0.6 H Basophils # 0.0 Nucleated Red Blood Cells # 0.0 Sodium Level 141 Potassium Level 3.5 Chloride Level 95 L Carbon Dioxide Level 31 Anion Gap 19 H Blood Urea Nitrogen 50 H Creatinine 1.70 H Glucose Level 140 Calcium Level 8.4 Phosphorus Level 4.5 Magnesium Level 1.6 L Bedside Glucose 136 162 163 Test 01/01/17 18:42 01/01/17 20:46 01/02/17 05:44 Troponin I 0.025 0.042 Bedside Glucose 134 White Blood Count 11.9 H Red Blood Count 2.61 L Hemoglobin 7.9 L Hematocrit 25.2 L Mean Corpuscular Volume 96.6 Mean Corpuscular Hemoglobin 30.3 Mean Corpuscular Hemoglobin Concent 31.3 L Red Cell Distribution Width 17.5 H Platelet Count 302 Mean Platelet Volume 10.6 H Neutrophils % 90.2 H Lymphocytes % 3.7 L Monocytes % 3.4 Eosinophils % 0.8 Basophils % 0.3 Nucleated Red Blood Cells % 0.0 Neutrophils # 10.8 H Lymphocytes # 0.4 L Monocytes # 0.4 Eosinophils # 0.1 Basophils # 0.0 Nucleated Red Blood Cells # 0.0 Phosphorus Level 4.6 Magnesium Level 1.8 Medications Medications Current Medications Lorazepam (Ativan) 0.5 mg Q6H PRN IV ANXIETY Last administered on 01/01/17 15: 28; Admin Dose 0.5 MG; Start 12/26/16 at 06:00 Ondansetron HCl (Zofran Inj) 4 mg Q6H PRN IV NAUSEA AND/OR VOMITING; Start at 06:00 Aspirin (Aspirin) 81 mg DAILY PO Last administered on 12/31/16 08:21; Admin Dose 81 MG; Start 12/26/16 at 09:00 Acetaminophen (Tylenol Tab) 650 mg Q6H PRN PO PAIN LEVEL 1-3 OR FEVER Last administered on 12/27/16 03:55; Admin Dose 650 MG; Start 12/26/16 at 06:00 Morphine Sulfate (morphine) 2 mg Q4H PRN IV PAIN LEVEL 7-10 Last administered on 01/01/17 18:01; Admin Dose 2 MG; Start 12/26/16 at 06:00 Heparin Sodium (Porcine) (Heparin (5000 Units/0.5 ml)) 5,000 unit Q12 SC Last administered on 01/01/17 21:29; Admin Dose 5,000 UNIT; Start 12/26/16 at 09:00 Diagnostic Test (Pha) (Accu-Chek) 1 ea 02 XX ; Start 12/27/16 at 02:00 Insulin Glargine (Lantus) 14 unit DAILY@08 SC Last administered on 01/01/17 08 :25; Admin Dose 14 UNIT; Start 12/26/16 at 08:00 Miscellaneous Information 1 ea NOTE XX ; Start 12/26/16 at 06:00 Glucose (Glutose) 15 gm Q15M PRN PO DECREASED GLUCOSE; Start 12/26/16 at 06:00 Glucose (Glutose) 22.5 gm Q15M PRN PO DECREASED GLUCOSE; Start 12/26/16 at 06: 00 Dextrose (D50w Syringe) 25 ml Q15M PRN IV DECREASED GLUCOSE; Start 12/26/16 at 06:00 Dextrose (D50w Syringe) 50 ml Q15M PRN IV DECREASED GLUCOSE; Start 12/26/16 at 06:00 Glucagon (Glucagen) 1 mg Q15M PRN IM DECREASED GLUCOSE; Start 12/26/16 at 06:00 Glucose (Glutose) 15 gm Q15M PRN BUCCAL DECREASED GLUCOSE; Start 12/26/16 at 06 :00 Miscellaneous Information (Pending [facility] Order For Wound Care) This patient betancourt... PRN PRN XX WOUND CARE; Start 12/26/16 at 06:30 Hydralazine HCl (Apresoline) 25 mg Q8 PO Last administered on 01/01/17 22:00; Admin Dose 25 MG; Start 12/26/16 at 22:00 Metoprolol Tartrate (Lopressor) 25 mg BID PO Last administered on 12/31/16 08: 22; Admin Dose 25 MG; Start 12/26/16 at 21:00 Guaifenesin/ Codeine Phosphate (Robitussin Ac Liquid Cup) 10 ml Q4H PRN PO COUGH Last administered on 12/30/16 16:24; Admin Dose 10 ML; Start 12/26/16 at 20:30 Quetiapine Fumarate (Seroquel) 50 mg BID PO Last administered on 01/01/17 21: 24; Admin Dose 50 MG; Start 12/26/16 at 22:00 Trazodone HCl (Desyrel) 100 mg BID PO Last administered on 01/01/17 21:24; Admin Dose 100 MG; Start 12/26/16 at 22:30 Hydralazine HCl (Apresoline) 10 mg Q6H PRN IV ELEVATED SYSTOLIC BP; Start 12/31 at 23:30 Metoprolol Tartrate (Lopressor) 2.5 mg BID IV Last administered on 01/01/17 21 :16; Admin Dose 2.5 MG; Start 12/31/16 at 23:30 Lorazepam (Ativan) 0.5 mg Q6H PRN IV ANXIETY; Start 12/31/16 at 23:30 Vancomycin HCl PER PHARMACY DOSING NOTE XX ; Start 01/01/17 at 10:30 Vancomycin HCl 1.5 gm/Sodium Chloride 250 ml @ 83.333 mls/ hr Q36H IVPB ; Start 01/03/17 at 00:00 Cefepime HCl (Maxipime 2gm/50 ml (Pmx)) 50 ml @ 100 mls/hr Q12 IVPB Last administered on 01/01/17 21:16; Admin Dose 100 MLS/HR; Start 01/01/17 at 12:00 JEAN PIERRE WEEMS Jan 02, 2017 07:28 Admin Dose 100 MG; Start 12/26/16 at 22:30 Hydralazine HCl (Apresoline) 10 mg Q6H PRN IV ELEVATED SYSTOLIC BP; Start 12/31 at 23:30 Metoprolol Tartrate (Lopressor) 2.5 mg BID IV Last administered on 01/01/17 21 :16; Admin Dose 2.5 MG; Start 12/31/16 at 23:30 Lorazepam (Ativan) 0.5 mg Q6H PRN IV ANXIETY; Start 12/31/16 at 23:30 Vancomycin HCl PER PHARMACY DOSING NOTE XX ; Start 01/01/17 at 10:30 Vancomycin HCl 1.5 gm/Sodium Chloride 250 ml @ 83.333 mls/ hr Q36H IVPB ; Start 01/03/17 at 00:00 Cefepime HCl (Maxipime 2gm/50 ml (Pmx)) 50 ml @ 100 mls/hr Q12 IVPB Last administered on 01/01/17 21:16; Admin Dose 100 MLS/HR; Start 01/01/17 at 12:00 JEAN PIERRE WEEMS Jan 02, 2017 07:28
[2017-01-02 07:32] LABS: CALCIUM 8.2 mg/dl (8.4-10.2); CREATININE 1.7 mg/dl (0.61-1.24)
[2017-01-02] MEDS: CEFEPIME 2GM/50 ML (PMX) 50 ML IVPB SCH (08:07)
[2017-01-02] MEDS: INSULIN ASPART [NOVOLOG] 3 ML PEN SC SCH ×4 (08:09→21:00)
[2017-01-02] MEDS: INSULIN GLARGINE [LANtus] 3 ML PEN SC SCH (08:10)
[2017-01-02] MEDS: METOPROLOL 5 MG INJ IV SCH (08:12)
[2017-01-02] MEDS: HEPARIN 5,000 UNIT/0.5 ML VIAL SC SCH ×2 (08:12→22:47)
[2017-01-02 08:13] LABS: AADO2 Arterial 434.9 mmHg (7.0-24.0); Allen Test ACCEPTAB; Arterial COHb 0.3 % (0.0-3.0); Arterial HCO3 25.8 mmol/L (22.0-26.0); Arterial MetHb 0.6 % (0.0-1.5); Arterial Total Hemglobin 8.7 g/dl (12.0-18.0); MODE MASK - NRB
--- NOTE | 2017-01-02 08:59 | RADRPT ---
PROCEDURE: Chest Radiograph. CLINICAL INDICATION: Pneumonia. CHF. TECHNIQUE: Single frontal chest radiograph. COMPARISON: Chest radiograph 01/01/2017 FINDINGS: A left chest wall dual lead implantable pacer remains in place. The patient is rotated and heart si ze is poorly evaluated. The heart is likely enlarged. Atherosclerotic calcifications are present . Extensive bilateral interstitial and airspace disease is stable in distribution and extent.. No new opacities are identified. The bones are demineralized. IMPRESSION: 1. Stable radiographic appearance of the chest compared 01/01/2017. RPTAT: KK .Tej Figueroa MD, MD Date Time Electronically viewed and signed by .Tej Figueroa MD, MD on 01/02/2017 08:59 .B/
[2017-01-02] MEDS: METOPROLOL 25 MG TAB PO SCH ×2 (09:00→22:34)
[2017-01-02] MEDS: ASPIRIN 81 MG TAB PO SCH (09:24)
[2017-01-02] MEDS: traZODone 100 MG TAB PO SCH ×2 (09:24→22:33)
[2017-01-02] MEDS: QUETIAPINE 25 MG TAB PO SCH ×2 (09:24→22:33)
--- NOTE | 2017-01-02 12:03 | PN ---
Date/Time of Note Date/Time of Note DATE: 01/02/17 TIME: 12:00 Assessment/Plan VTE Prophylaxis VTE Prophylaxis Intervention: SCD's Lines/Catheters IV C[facility]ter Type (from [email or web address] Saline Lock Urinary Cath still in place: Yes Assessment/Plan Assessment/Plan 1. Dyspnea secondary to CHF exacerbation-had been improving, but still on nonrebreather. Pulmonary on the case. Chest x-ray on December 30 showed no change. -For now, continue on diuretics. Await for clinical improvement, pulmonology consultation appreciated 2. CKD. Parachute Supervisor following. Medications to be renally dosed. Continue their recommendations. 3. Sepsis secondary to UTI-urine culture shows enterococcus -Continue Rocephin 4. Altered mentation. Suspect patient currently at baseline. Does have underlying dementia, and now with occasional delirium - monitor for now. Aspiration precautions. One-to-one sitter as needed 5. Essential hypertension. Continue antihypertensives and adjust needed 6. Decubitus ulcers-continue with wound care 7. Anemia of chronic disease. H&H remained stable. Monitor at this time. Subjective 24 Hr Interval Summary Free Text/Dictation pt remained on NRM. He desaturates when removing mask for that reason he has a sitter. he has been made DNR/DNI Exam/Review of Systems Vital Signs Vitals Vital Signs Date Time Temp Pulse Resp B/P Pulse Ox O2 Delivery O2 Flow Rate FiO2 01/02/17 11:25 100 15.0 50 01/02/17 09:53 Non Rebreather 01/02/17 08:05 95 01/02/17 07:12 98.1 20 122/59 Intake and Output 01/01/17 01/01/17 01/02/17 15:00 23:00 07:00 Intake Total 550 ml Output Total 700 ml 600 ml Balance -150 ml -600 ml Exam Constitutional: other (pt is on NRM. No acute distress) Head: atraumatic, normocephalic Eyes: PERRL Respiratory: diminished breath sounds Cardiovascular: other (tachycardic with regular rhythm) Gastrointestinal: non-tender, soft Extremities: normal pulses Results Result Diagram: 01/02/17 0544 01/02/17 0544 Results 24 hrs Laboratory Tests Test 01/01/17 12:06 01/01/17 18:00 01/01/17 18:42 01/01/17 20:46 Bedside Glucose 162 163 134 Troponin I 0.025 Test 01/02/17 05:44 01/02/17 07:00 01/02/17 08:04 01/02/17 11:35 White Blood Count 11.9 H Red Blood Count 2.61 L Hemoglobin 7.9 L Hematocrit 25.2 L Mean Corpuscular Volume 96.6 Mean Corpuscular Hemoglobin 30.3 Mean Corpuscular Hemoglobin Concent 31.3 L Red Cell Distribution Width 17.5 H Platelet Count 302 Mean Platelet Volume 10.6 H Neutrophils % 90.2 H Lymphocytes % 3.7 L Monocytes % 3.4 Eosinophils % 0.8 Basophils % 0.3 Nucleated Red Blood Cells % 0.0 Neutrophils # 10.8 H Lymphocytes # 0.4 L Monocytes # 0.4 Eosinophils # 0.1 Basophils # 0.0 Nucleated Red Blood Cells # 0.0 Sodium Level 144 Potassium Level 4.0 Chloride Level 98 Carbon Dioxide Level 31 Anion Gap 19 H Blood Urea Nitrogen 68 H Creatinine 1.70 H Glucose Level 184 Calcium Level 8.2 L Phosphorus Level 4.6 Magnesium Level 1.8 Troponin I 0.042 Blood Gas Specimen Source Blood arterial Arterial Blood Date Drawn 01/02/2017 7:50:19 AM Arterial Blood pH (Temp corrected) 7.462 H Arterial Blood pCO2 (Temp correct) 36.9 Arterial Blood pO2 (Temp corrected) 241.2 H Arterial Blood HCO3 25.8 Arterial Blood Base Excess 2.0 Arterial Blood Oxygen Saturation 98.9 Brian Test ACCEPTAB Arterial Blood Gas Puncture Site Left Radial Arterial Blood Carboxyhemoglobin 0.3 Arterial Blood Methemoglobin 0.6 Blood Gas A-a O2 Differential 434.9 H Oxyhemoglobin Percent 98.0 Total Hemoglobin 8.7 L Blood Gas Temperature 37.0 Blood Gas Modality MASK - NRB FiO2 100.0 Blood Gas Notified Whom JLD Blood Gas Notified Time 01/02/2017 8:13:00 AM Bedside Glucose 183 177 Medications Medications Current Medications Lorazepam (Ativan) 0.5 mg Q6H PRN IV ANXIETY Last administered on 01/01/17t 15: 28; Admin Dose 0.5 MG; Start 12/26/16 at 06:00 Ondansetron HCl (Zofran Inj) 4 mg Q6H PRN IV NAUSEA AND/OR VOMITING; Start at 06:00 Aspirin (Aspirin) 81 mg DAILY PO Last administered on 01/02/17 09:24; Admin Dose 81 MG; Start 12/26/16 at 09:00 Acetaminophen (Tylenol Tab) 650 mg Q6H PRN PO PAIN LEVEL 1-3 OR FEVER Last administered on 12/27/16 03:55; Admin Dose 650 MG; Start 12/26/16 at 06:00 Morphine Sulfate (morphine) 2 mg Q4H PRN IV PAIN LEVEL 7-10 Last administered on 01/01/17 18:01; Admin Dose 2 MG; Start 12/26/16 at 06:00 Heparin Sodium (Porcine) (Heparin (5000 Units/0.5 ml)) 5,000 unit Q12 SC Last administered on 01/02/17 08:12; Admin Dose 5,000 UNIT; Start 12/26/16 at 09:00 Diagnostic Test (Pha) (Accu-Chek) 1 ea 02 XX ; Start 12/27/16 at 02:00 Insulin Glargine (Lantus) 14 unit DAILY@08 SC Last administered on 01/02/17 08 :10; Admin Dose 14 UNIT; Start 12/26/16 at 08:00 Miscellaneous Information 1 ea NOTE XX ; Start 12/26/16 at 06:00 Glucose (Glutose) 15 gm Q15M PRN PO DECREASED GLUCOSE; Start 12/26/16 at 06:00 Glucose (Glutose) 22.5 gm Q15M PRN PO DECREASED GLUCOSE; Start 12/26/16 at 06: 00 Dextrose (D50w Syringe) 25 ml Q15M PRN IV DECREASED GLUCOSE; Start 12/26/16 at 06:00 Dextrose (D50w Syringe) 50 ml Q15M PRN IV DECREASED GLUCOSE; Start 12/26/16 at 06:00 Glucagon (Glucagen) 1 mg Q15M PRN IM DECREASED GLUCOSE; Start 12/26/16 at 06:00 Glucose (Glutose) 15 gm Q15M PRN BUCCAL DECREASED GLUCOSE; Start 12/26/16 at 06 :00 Miscellaneous Information (Pending [facility] Order For Wound Care) This patient betancourt... PRN PRN XX WOUND CARE; Start 12/26/16 at 06:30 Hydralazine HCl (Apresoline) 25 mg Q8 PO Last administered on 01/01/17 22:00; Admin Dose 25 MG; Start 12/26/16 at 22:00 Metoprolol Tartrate (Lopressor) 25 mg BID PO Last administered on 12/31/16 08: 22; Admin Dose 25 MG; Start 12/26/16 at 21:00 Guaifenesin/ Codeine Phosphate (Robitussin Ac Liquid Cup) 10 ml Q4H PRN PO COUGH Last administered on 12/30/16 16:24; Admin Dose 10 ML; Start 12/26/16 at 20:30 Quetiapine Fumarate (Seroquel) 50 mg BID PO Last administered on 01/02/17 09: 24; Admin Dose 50 MG; Start 12/26/16 at 22:00 Trazodone HCl (Desyrel) 100 mg BID PO Last administered on 01/02/17 09:24; Admin Dose 100 MG; Start 12/26/16 at 22:30 Hydralazine HCl (Apresoline) 10 mg Q6H PRN IV ELEVATED SYSTOLIC BP; Start 12/31 at 23:30 Metoprolol Tartrate (Lopressor) 2.5 mg BID IV Last administered on 01/02/17 08 :12; Admin Dose 2.5 MG; Start 12/31/16 at 23:30 Lorazepam (Ativan) 0.5 mg Q6H PRN IV ANXIETY; Start 12/31/16 at 23:30 Vancomycin HCl PER PHARMACY DOSING NOTE XX ; Start 01/01/17 at 10:30 Vancomycin HCl 1.5 gm/Sodium Chloride 250 ml @ 83.333 mls/ hr Q36H IVPB ; Start 01/03/17 at 00:00 Cefepime HCl (Maxipime 2gm/50 ml (Pmx)) 50 ml @ 100 mls/hr Q24H IVPB ; Start at 09:00 CHRISTIANNE CRUZ MD Jan 02, 2017 12:03
--- NOTE | 2017-01-02 13:04 | CONS ---
Date/Time of Note Date/Time of Note DATE: 01/02/17 TIME: 13:00 Assessment/Plan Assessment/Plan Chief Complaint/Hosp Course IMP: 1.CHF-diastolic acute on chronic. Trop negative x 3 2.MS-severe by echo 3.abnl ecg 4.Psych d/o 5.REnal failure 6. UTI 7.AMS Recc: -tele -resume po antihypertensives -IVP PRN BB -Continue bronchodilators -Continue abx's and f/u cx data -Follow volume status closely on lasix diuresis Problems: Consultation Date/Type/Reason Admit Date/Time Dec 26, 2016 at 01:49 Initial Consult Date 12/26/2016 Type of Consultation: cardaiology Reason for Consultation CHF Referring Provider: ANGELA AL Exam/Review of Systems Vital Signs Vitals Vital Signs Date Time Temp Pulse Resp B/P Pulse Ox O2 Delivery O2 Flow Rate FiO2 01/02/17 12:14 97.7 83 20 116/50 100 01/02/17 11:25 15.0 50 01/02/17 09:53 Non Rebreather Intake and Output 01/01/17 01/01/17 01/02/17 15:00 23:00 07:00 Intake Total 550 ml Output Total 700 ml 600 ml Balance -150 ml -600 ml Exam Review of Systems: CONSTITUTIONAL: No fevers, chills. PULMONARY: facemask in place CARDIOVASCULAR: No chest pain/palpitations GASTROINTESTINAL: No nausea/vomiting. GENITOURINARY: No hematuria/dysuria. MUSCULOSKELETAL: No myagias/arthalgias. PSYCHIATRIC: The patient denies depression. NEUROLOGIC: No weakness Constitutional: alert Psych: no complaints Head: normocephalic ENMT: mucosa pink and moist Neck: jvd (9 cm water), supple Respiratory: diminished breath sounds (at bases/B) Cardiovascular: regular rate and rhythm Gastrointestinal: non-tender, soft Musculoskeletal: muscle tone (normal) Extremities: edema (none) Neurological: other (No focal deficits) Results Result Diagram: 01/02/17 0544 01/02/17 0544 Results 24 hrs Laboratory Tests Test 01/01/17 18:00 01/01/17 18:42 01/01/17 20:46 01/02/17 05:44 Bedside Glucose 163 134 Troponin I 0.025 0.042 White Blood Count 11.9 H Red Blood Count 2.61 L Hemoglobin 7.9 L Hematocrit 25.2 L Mean Corpuscular Volume 96.6 Mean Corpuscular Hemoglobin 30.3 Mean Corpuscular Hemoglobin Concent 31.3 L Red Cell Distribution Width 17.5 H Platelet Count 302 Mean Platelet Volume 10.6 H Neutrophils % 90.2 H Lymphocytes % 3.7 L Monocytes % 3.4 Eosinophils % 0.8 Basophils % 0.3 Nucleated Red Blood Cells % 0.0 Neutrophils # 10.8 H Lymphocytes # 0.4 L Monocytes # 0.4 Eosinophils # 0.1 Basophils # 0.0 Nucleated Red Blood Cells # 0.0 Sodium Level 144 Potassium Level 4.0 Chloride Level 98 Carbon Dioxide Level 31 Anion Gap 19 H Blood Urea Nitrogen 68 H Creatinine 1.70 H Glucose Level 184 Calcium Level 8.2 L Phosphorus Level 4.6 Magnesium Level 1.8 Test 01/02/17 07:00 01/02/17 08:04 01/02/17 11:35 Blood Gas Specimen Source Blood arterial Arterial Blood Date Drawn 01/02/2017 7:50:19 AM Arterial Blood pH (Temp corrected) 7.462 H Arterial Blood pCO2 (Temp correct) 36.9 Arterial Blood pO2 (Temp corrected) 241.2 H Arterial Blood HCO3 25.8 Arterial Blood Base Excess 2.0 Arterial Blood Oxygen Saturation 98.9 Brian Test ACCEPTAB Arterial Blood Gas Puncture Site Left Radial Arterial Blood Carboxyhemoglobin 0.3 Arterial Blood Methemoglobin 0.6 Blood Gas A-a O2 Differential 434.9 H Oxyhemoglobin Percent 98.0 Total Hemoglobin 8.7 L Blood Gas Temperature 37.0 Blood Gas Modality MASK - NRB FiO2 100.0 Blood Gas Notified Whom JLD Blood Gas Notified Time 01/02/2017 8:13:00 AM Bedside Glucose 183 177 Medications Medications Current Medications Lorazepam (Ativan) 0.5 mg Q6H PRN IV ANXIETY Last administered on 01/01/17 15: 28; Admin Dose 0.5 MG; Start 12/26/16 at 06:00 Ondansetron HCl (Zofran Inj) 4 mg Q6H PRN IV NAUSEA AND/OR VOMITING; Start at 06:00 Aspirin (Aspirin) 81 mg DAILY PO Last administered on 01/02/17 09:24; Admin Dose 81 MG; Start 12/26/16 at 09:00 Acetaminophen (Tylenol Tab) 650 mg Q6H PRN PO PAIN LEVEL 1-3 OR FEVER Last administered on 12/27/16 03:55; Admin Dose 650 MG; Start 12/26/16 at 06:00 Morphine Sulfate (morphine) 2 mg Q4H PRN IV PAIN LEVEL 7-10 Last administered on 01/01/17 18:01; Admin Dose 2 MG; Start 12/26/16 at 06:00 Heparin Sodium (Porcine) (Heparin (5000 Units/0.5 ml)) 5,000 unit Q12 SC Last administered on 01/02/17 08:12; Admin Dose 5,000 UNIT; Start 12/26/16 at 09:00 Diagnostic Test (Pha) (Accu-Chek) 1 ea 02 XX ; Start 12/27/16 at 02:00 Insulin Glargine (Lantus) 14 unit DAILY@08 SC Last administered on 01/02/17 08 :10; Admin Dose 14 UNIT; Start 12/26/16 at 08:00 Miscellaneous Information 1 ea NOTE XX ; Start 12/26/16 at 06:00 Glucose (Glutose) 15 gm Q15M PRN PO DECREASED GLUCOSE; Start 12/26/16 at 06:00 Glucose (Glutose) 22.5 gm Q15M PRN PO DECREASED GLUCOSE; Start 12/26/16 at 06: 00 Dextrose (D50w Syringe) 25 ml Q15M PRN IV DECREASED GLUCOSE; Start 12/26/16 at 06:00 Dextrose (D50w Syringe) 50 ml Q15M PRN IV DECREASED GLUCOSE; Start 12/26/16 at 06:00 Glucagon (Glucagen) 1 mg Q15M PRN IM DECREASED GLUCOSE; Start 12/26/16 at 06:00 Glucose (Glutose) 15 gm Q15M PRN BUCCAL DECREASED GLUCOSE; Start 12/26/16 at 06 :00 Miscellaneous Information ([facility]) This patient betancourt... PRN PRN XX WOUND CARE; Start 12/26/16 at 06:30 Hydralazine HCl (Apresoline) 25 mg Q8 PO Last administered on 01/01/17 22:00; Admin Dose 25 MG; Start 12/26/16 at 22:00 Metoprolol Tartrate (Lopressor) 25 mg BID PO Last administered on 12/31/16 08: 22; Admin Dose 25 MG; Start 12/26/16 at 21:00 Guaifenesin/ Codeine Phosphate (Robitussin Ac Liquid Cup) 10 ml Q4H PRN PO COUGH Last administered on 12/30/16 16:24; Admin Dose 10 ML; Start 12/26/16 at 20:30 Quetiapine Fumarate (Seroquel) 50 mg BID PO Last administered on 01/02/17 09: 24; Admin Dose 50 MG; Start 12/26/16 at 22:00 Trazodone HCl (Desyrel) 100 mg BID PO Last administered on 01/02/17 09:24; Admin Dose 100 MG; Start 12/26/16 at 22:30 Hydralazine HCl (Apresoline) 10 mg Q6H PRN IV ELEVATED SYSTOLIC BP; Start 12/31 at 23:30 Metoprolol Tartrate (Lopressor) 2.5 mg BID IV Last administered on 01/02/17 08 :12; Admin Dose 2.5 MG; Start 12/31/16 at 23:30 Lorazepam (Ativan) 0.5 mg Q6H PRN IV ANXIETY; Start 12/31/16 at 23:30 Vancomycin HCl PER PHARMACY DOSING NOTE XX ; Start 01/01/17 at 10:30 Vancomycin HCl 1.5 gm/Sodium Chloride 250 ml @ 83.333 mls/ hr Q36H IVPB ; Start 01/03/17 at 00:00 Cefepime HCl (Maxipime 2gm/50 ml (Pmx)) 50 ml @ 100 mls/hr Q24H IVPB ; Start at 09:00 DENG WALLIS Jan 02, 2017 13:04
--- NOTE | 2017-01-02 15:22 | CONS ---
Date/Time of Note Date/Time of Note DATE: 01/02/17 TIME: 15:20 Consult Date/Type/Reason Admit Date/Time Dec 26, 2016 at 01:49 Type of Consultation: Pulm Ordering Provider: ANGLEA AL Subjective Patient remains confused and mildly hypoxemic. Continues nonrebreather although PaO2 was elevated. Objective Vital Signs Date Time Temp Pulse Resp B/P Pulse Ox O2 Delivery O2 Flow Rate FiO2 01/02/17 14:03 98.5 91 20 109/48 100 Venturi Mask 15.0 01/02/17 11:25 50 Intake and Output 01/01/17 01/01/17 01/02/17 15:00 23:00 07:00 Intake Total 550 ml Output Total 700 ml 600 ml Balance -150 ml -600 ml Exam GENERAL: Elderly gentleman comfortable at rest no acute distress VITAL SIGNS: per chart NECK: Supple. No JVD or lymphadenopathy. CARDIAC EXAM: S1, S2. No added sounds or murmurs. CHEST: Diminished air entry bilaterally with few rales. ABDOMEN: Soft, nontender. No guarding or rebound. EXTREMITIES: No cyanosis, clubbing or edema. NEUROLOGIC: Generalized weakness. No focal deficits. Results/Medications Result Diagram: 01/02/17 0544 01/02/17 0544 Results 24 hrs Laboratory Tests Test 01/01/17 18:00 01/01/17 18:42 01/01/17 20:46 01/02/17 05:44 Bedside Glucose 163 134 Troponin I 0.025 0.042 White Blood Count 11.9 H Red Blood Count 2.61 L Hemoglobin 7.9 L Hematocrit 25.2 L Mean Corpuscular Volume 96.6 Mean Corpuscular Hemoglobin 30.3 Mean Corpuscular Hemoglobin Concent 31.3 L Red Cell Distribution Width 17.5 H Platelet Count 302 Mean Platelet Volume 10.6 H Neutrophils % 90.2 H Lymphocytes % 3.7 L Monocytes % 3.4 Eosinophils % 0.8 Basophils % 0.3 Nucleated Red Blood Cells % 0.0 Neutrophils # 10.8 H Lymphocytes # 0.4 L Monocytes # 0.4 Eosinophils # 0.1 Basophils # 0.0 Nucleated Red Blood Cells # 0.0 Sodium Level 144 Potassium Level 4.0 Chloride Level 98 Carbon Dioxide Level 31 Anion Gap 19 H Blood Urea Nitrogen 68 H Creatinine 1.70 H Glucose Level 184 Calcium Level 8.2 L Phosphorus Level 4.6 Magnesium Level 1.8 Test 01/02/17 07:00 01/02/17 08:04 01/02/17 11:35 Blood Gas Specimen Source Blood arterial Arterial Blood Date Drawn 01/02/2017 7:50:19 AM Arterial Blood pH (Temp corrected) 7.462 H Arterial Blood pCO2 (Temp correct) 36.9 Arterial Blood pO2 (Temp corrected) 241.2 H Arterial Blood HCO3 25.8 Arterial Blood Base Excess 2.0 Arterial Blood Oxygen Saturation 98.9 Brian Test ACCEPTAB Arterial Blood Gas Puncture Site Left Radial Arterial Blood Carboxyhemoglobin 0.3 Arterial Blood Methemoglobin 0.6 Blood Gas A-a O2 Differential 434.9 H Oxyhemoglobin Percent 98.0 Total Hemoglobin 8.7 L Blood Gas Temperature 37.0 Blood Gas Modality MASK - NRB FiO2 100.0 Blood Gas Notified Whom JLD Blood Gas Notified Time 01/02/2017 8:13:00 AM Bedside Glucose 183 177 Medications Current Medications Lorazepam (Ativan) 0.5 mg Q6H PRN IV ANXIETY Last administered on 01/01/17 15: 28; Admin Dose 0.5 MG; Start 12/26/16 at 06:00 Ondansetron HCl (Zofran Inj) 4 mg Q6H PRN IV NAUSEA AND/OR VOMITING; Start at 06:00 Aspirin (Aspirin) 81 mg DAILY PO Last administered on 01/02/17 09:24; Admin Dose 81 MG; Start 12/26/16 at 09:00 Acetaminophen (Tylenol Tab) 650 mg Q6H PRN PO PAIN LEVEL 1-3 OR FEVER Last administered on 12/27/16 03:55; Admin Dose 650 MG; Start 12/26/16 at 06:00 Morphine Sulfate (morphine) 2 mg Q4H PRN IV PAIN LEVEL 7-10 Last administered on 01/01/17 18:01; Admin Dose 2 MG; Start 12/26/16 at 06:00 Heparin Sodium (Porcine) (Heparin (5000 Units/0.5 ml)) 5,000 unit Q12 SC Last administered on 01/02/17 08:12; Admin Dose 5,000 UNIT; Start 12/26/16 at 09:00 Diagnostic Test (Pha) (Accu-Chek) 1 ea 02 XX ; Start 12/27/16 at 02:00 Insulin Glargine (Lantus) 14 unit DAILY@08 SC Last administered on 01/02/17 08 :10; Admin Dose 14 UNIT; Start 12/26/16 at 08:00 Miscellaneous Information 1 ea NOTE XX ; Start 12/26/16 at 06:00 Glucose (Glutose) 15 gm Q15M PRN PO DECREASED GLUCOSE; Start 12/26/16 at 06:00 Glucose (Glutose) 22.5 gm Q15M PRN PO DECREASED GLUCOSE; Start 12/26/16 at 06: 00 Dextrose (D50w Syringe) 25 ml Q15M PRN IV DECREASED GLUCOSE; Start 12/26/16 at 06:00 Dextrose (D50w Syringe) 50 ml Q15M PRN IV DECREASED GLUCOSE; Start 12/26/16 at 06:00 Glucagon (Glucagen) 1 mg Q15M PRN IM DECREASED GLUCOSE; Start 12/26/16 at 06:00 Glucose (Glutose) 15 gm Q15M PRN BUCCAL DECREASED GLUCOSE; Start 12/26/16 at 06 :00 Miscellaneous Information (Pending [facility] Order For Wound Care) This patient betancourt... PRN PRN XX WOUND CARE; Start 12/26/16 at 06:30 Hydralazine HCl (Apresoline) 25 mg Q8 PO Last administered on 01/02/17 13:21; Admin Dose 25 MG; Start 12/26/16 at 22:00 Metoprolol Tartrate (Lopressor) 25 mg BID PO Last administered on 12/31/16 08: 22; Admin Dose 25 MG; Start 12/26/16 at 21:00 Guaifenesin/ Codeine Phosphate (Robitussin Ac Liquid Cup) 10 ml Q4H PRN PO COUGH Last administered on 12/30/16 16:24; Admin Dose 10 ML; Start 12/26/16 at 20:30 Quetiapine Fumarate (Seroquel) 50 mg BID PO Last administered on 01/02/17 09: 24; Admin Dose 50 MG; Start 12/26/16 at 22:00 Trazodone HCl (Desyrel) 100 mg BID PO Last administered on 01/02/17 09:24; Admin Dose 100 MG; Start 12/26/16 at 22:30 Hydralazine HCl (Apresoline) 10 mg Q6H PRN IV ELEVATED SYSTOLIC BP; Start 12/31 at 23:30 Lorazepam (Ativan) 0.5 mg Q6H PRN IV ANXIETY; Start 12/31/16 at 23:30 Vancomycin HCl PER PHARMACY DOSING NOTE XX ; Start 01/01/17 at 10:30 Vancomycin HCl 1.5 gm/Sodium Chloride 250 ml @ 83.333 mls/ hr Q36H IVPB ; Start 01/03/17 at 00:00 Cefepime HCl (Maxipime 2gm/50 ml (Pmx)) 50 ml @ 100 mls/hr Q24H IVPB ; Start at 09:00 Metoprolol Tartrate (Lopressor) 5 mg Q4H PRN IV HR>110 Hold SBP<100; Start at 17:00 Assessment/Plan Chief Complaint/Hosp Course Assessment 1. Hypoxemic respiratory failure likely secondary to volume overload, improved oxygenation. Possible component of pneumonia also 2. Significant valvular heart disease 3. History of dementia. 4. Severe pulmonary hypertension likely secondary to valvular heart disease 5. History of significant dementia. Plan 1. Decrease diuretics. Repeat chest x-ray. 2. Continue current oxygen settings stat arterial blood gas 3. Continue telemetry care 4. Aspiration precautions add cefepime. 5. Cardiac recommendations I had a long discussion with the patient's and caregiver at bedside. Given his condition and extensive history of dementia she has requested he be a DO NOT RESUSCITATE if he deteriorates. In the meantime continue all current measures. Watson evaluation. Problems: ELVIS BUTTERFIELD MD, [facility] Jan 02, 2017 15:22
[2017-01-02] MEDS ORDERED: METOPROLOL 5 MG INJ IV PRN (17:00)
--- NOTE | 2017-01-02 19:04 | RADRPT ---
Vent Rate: 93 bpm RR Interval: 0 msec TN Interval: 236 msec QRS Duration: 90 msec QT Interval: 366 msec QTC Interval: 455 msec P-R-T [place]: 50 - 9 - 72 degrees Sinus rhythm with 1st degree AV block with occasional premature ventricular complexes Otherwise normal ECG Electronically Signed By: Guy Tobar [id number]
[2017-01-02] MEDS: VANCOMYCIN 1.5 GM in SOD CHLORIDE 0.9% 250 ML IVPB SCH (23:50)
[2017-01-03] VITALS (14 sets, daily range): BP systolic 94–127; BP diastolic 44–62; PULSE 71–95; RESP 16–20
[2017-01-03] MEDS: morphine 2 MG INJ IV PRN (01:35)
[2017-01-03] MEDS: ACCU-CHEK XX SCH (02:00)
[2017-01-03 06:08] LABS: ABNORMAL IP MESSAGE 1; BASOPHILS % 0.1 % (0.0-2.0); EOSINOPHILS # 0.2 10^3/ul (0.0-0.5); EOSINOPHILS % 1.2 % (0.0-7.0); HEMATOCRIT 24.7 % (42.0-52.0); HEMOGLOBIN 7.6 g/dl (14.0-18.0); LYMPHOCYTES # 0.5 10^3/ul (0.8-2.9); LYMPHOCYTES % 2.6 % (15.0-51.0); MEAN CORPUSCULAR HEMOGLOBIN 29.7 pg (29.0-33.0); MEAN CORPUSCULAR HGB CONC 30.8 g/dl (32.0-37.0); MEAN CORPUSCULAR VOLUME 96.5 fl (82.0-101.0); MEAN PLATELET VOLUME 10.6 fl (7.4-10.4); MONOCYTE # 0.6 10^3/ul (0.3-0.9); MONOCYTES % 3.6 % (0.0-11.0); NEUTROPHIL # 15.6 10^3/ul (1.6-7.5); NEUTROPHILS % 90.1 % (39.0-77.0); PLATELET COUNT 288 10^3/UL (140-415); POSITIVE DIFF @See below; RED BLOOD COUNT 2.56 10^6/ul (4.70-6.10); RED CELL DISTRIBUTION WIDTH 17.7 % (11.5-14.5); WHITE BLOOD COUNT 17.4 10^3/ul (4.8-10.8)
[2017-01-03] MEDS: FUROSEMIDE 40 MG INJ IV SCH ×2 (06:23→17:25)
[2017-01-03 06:46] LABS: CALCIUM 8.3 mg/dl (8.4-10.2); CREATININE 1.78 mg/dl (0.61-1.24); POTASSIUM 3.2 mmol/L (3.5-5.1)
[2017-01-03] MEDS ORDERED: POTASSIUM CHLORIDE (SR) 20 MEQ TAB PO STA (08:52)
[2017-01-03] MEDS: QUETIAPINE 25 MG TAB PO SCH ×2 (09:01→20:49)
[2017-01-03] MEDS: ASPIRIN 81 MG TAB PO SCH (09:01)
[2017-01-03] MEDS: traZODone 100 MG TAB PO SCH (09:01)
[2017-01-03] MEDS: METOPROLOL 25 MG TAB PO SCH ×2 (09:01→20:50)
[2017-01-03] MEDS: INSULIN ASPART [NOVOLOG] 3 ML PEN SC SCH ×4 (09:07→20:50)
[2017-01-03] MEDS: INSULIN GLARGINE [LANtus] 3 ML PEN SC SCH (09:07)
[2017-01-03] MEDS: HEPARIN 5,000 UNIT/0.5 ML VIAL SC SCH ×2 (09:08→21:14)
[2017-01-03] MEDS: CEFEPIME 2GM/50 ML (PMX) 50 ML IVPB SCH (09:35)
--- NOTE | 2017-01-03 09:55 | CONS ---
Date/Time of Note Date/Time of Note DATE: 01/03/17 TIME: 09:53 Assessment/Plan Assessment/Plan Additional Assessment/Plan Assessment and recommendations; 1. Patient admitted for CHF exacerbation with interval improvement. 2. Advanced dementia. 3. Valvular heart disease. Continue current treatment. Consultation Date/Type/Reason Admit Date/Time Dec 26, 2016 at 01:49 Initial Consult Date 01/02/17 Type of Consultation: Pulm Referring Provider: ANGELA AL 24 HR Interval Summary Free Text/Dictation Patient condition stable. Remains awake. Patient has advanced dementia and is unable to give any history by himself whatsoever. General exam; elderly male, awake, currently in no distress. Exam/Review of Systems Vital Signs Vitals Vital Signs Date Time Temp Pulse Resp B/P Pulse Ox O2 Delivery O2 Flow Rate FiO2 01/03/17 08:09 89 01/03/17 07:58 15.0 50 01/03/17 07:46 97.9 18 119/56 95 01/03/17 06:00 Mask Intake and Output 01/02/17 01/02/17 01/03/17 15:00 23:00 07:00 Intake Total 520 ml 220 ml Output Total 300 ml Balance 220 ml 220 ml Exam HEENT exam supple neck no lymphadenopathy positive JVD no neck masses, Chest exam; diminished but clear breath sound. S1-S2 audible, soft systolic murmur best heard in the mitral area. Regular rhythm. Abdomen exam; soft, scaphoid. Nontender. No organomegaly. Bowel sounds audible. Extremity exam; trace peripheral edema. COMPLIANCE AIDE exam; patient is awake but does not follow any commands. Results Result Diagram: 01/03/17 0526 01/03/17 0526 Results 24 hrs Laboratory Tests Test 01/02/17 11:35 01/02/17 17:20 01/02/17 20:46 01/03/17 05:26 Bedside Glucose 177 300 H 164 White Blood Count 17.4 #H Red Blood Count 2.56 L Hemoglobin 7.6 L Hematocrit 24.7 L Mean Corpuscular Volume 96.5 Mean Corpuscular Hemoglobin 29.7 Mean Corpuscular Hemoglobin Concent 30.8 L Red Cell Distribution Width 17.7 H Platelet Count 288 Mean Platelet Volume 10.6 H Neutrophils % 90.1 H Lymphocytes % 2.6 L Monocytes % 3.6 Eosinophils % 1.2 Basophils % 0.1 Nucleated Red Blood Cells % 0.0 Neutrophils # 15.6 H Lymphocytes # 0.5 L Monocytes # 0.6 Eosinophils # 0.2 Basophils # 0.0 Nucleated Red Blood Cells # 0.0 Sodium Level 143 Potassium Level 3.2 L Chloride Level 98 Carbon Dioxide Level 33 H Anion Gap 15 Blood Urea Nitrogen 68 H Creatinine 1.78 H Glucose Level 179 Calcium Level 8.3 L Test 01/03/17 07:43 01/03/17 08:59 Bedside Glucose 184 194 Medications Medications Current Medications Lorazepam (Ativan) 0.5 mg Q6H PRN IV ANXIETY Last administered on 01/01/17 15: 28; Admin Dose 0.5 MG; Start 12/26/16 at 06:00 Ondansetron HCl (Zofran Inj) 4 mg Q6H PRN IV NAUSEA AND/OR VOMITING; Start at 06:00 Aspirin (Aspirin) 81 mg DAILY PO Last administered on 01/03/17 09:01; Admin Dose 81 MG; Start 12/26/16 at 09:00 Acetaminophen (Tylenol Tab) 650 mg Q6H PRN PO PAIN LEVEL 1-3 OR FEVER Last administered on 12/27/16 03:55; Admin Dose 650 MG; Start 12/26/16 at 06:00 Morphine Sulfate (morphine) 2 mg Q4H PRN IV PAIN LEVEL 7-10 Last administered on 01/03/17 01:35; Admin Dose 2 MG; Start 12/26/16 at 06:00 Heparin Sodium (Porcine) (Heparin (5000 Units/0.5 ml)) 5,000 unit Q12 SC Last administered on 01/03/17 09:08; Admin Dose 5,000 UNIT; Start 12/26/16 at 09:00 Diagnostic Test (Pha) (Accu-Chek) 1 ea 02 XX ; Start 12/27/16 at 02:00 Insulin Glargine (Lantus) 14 unit DAILY@08 SC Last administered on 01/03/17 09 :07; Admin Dose 14 UNIT; Start 12/26/16 at 08:00 Miscellaneous Information 1 ea NOTE XX ; Start 12/26/16 at 06:00 Glucose (Glutose) 15 gm Q15M PRN PO DECREASED GLUCOSE; Start 12/26/16 at 06:00 Glucose (Glutose) 22.5 gm Q15M PRN PO DECREASED GLUCOSE; Start 12/26/16 at 06: 00 Dextrose (D50w Syringe) 25 ml Q15M PRN IV DECREASED GLUCOSE; Start 12/26/16 at 06:00 Dextrose (D50w Syringe) 50 ml Q15M PRN IV DECREASED GLUCOSE; Start 12/26/16 at 06:00 Glucagon (Glucagen) 1 mg Q15M PRN IM DECREASED GLUCOSE; Start 12/26/16 at 06:00 Glucose (Glutose) 15 gm Q15M PRN BUCCAL DECREASED GLUCOSE; Start 12/26/16 at 06 :00 Miscellaneous Information (Pending [facility] Order For Wound Care) This patient betancourt... PRN PRN XX WOUND CARE; Start 12/26/16 at 06:30 Hydralazine HCl (Apresoline) 25 mg Q8 PO Last administered on 01/02/17 22:35; Admin Dose 25 MG; Start 12/26/16 at 22:00 Metoprolol Tartrate (Lopressor) 25 mg BID PO Last administered on 01/03/17 09: 01; Admin Dose 25 MG; Start 12/26/16 at 21:00 Guaifenesin/ Codeine Phosphate (Robitussin Ac Liquid Cup) 10 ml Q4H PRN PO COUGH Last administered on 12/30/16 16:24; Admin Dose 10 ML; Start 12/26/16 at 20:30 Quetiapine Fumarate (Seroquel) 50 mg BID PO Last administered on 01/03/17 09: 01; Admin Dose 50 MG; Start 12/26/16 at 22:00 Trazodone HCl (Desyrel) 100 mg BID PO Last administered on 01/03/17 09:01; Admin Dose 100 MG; Start 12/26/16 at 22:30 Hydralazine HCl (Apresoline) 10 mg Q6H PRN IV ELEVATED SYSTOLIC BP; Start 12/31 at 23:30 Lorazepam (Ativan) 0.5 mg Q6H PRN IV ANXIETY; Start 12/31/16 at 23:30 Vancomycin HCl PER PHARMACY DOSING NOTE XX ; Start 01/01/17 at 10:30 Vancomycin HCl 1.5 gm/Sodium Chloride 250 ml @ 83.333 mls/ hr Q36H IVPB Last administered on 01/02/17 23:50; Admin Dose 83.333 MLS/HR; Start 01/03/17 at 00: 00 Cefepime HCl (Maxipime 2gm/50 ml (Pmx)) 50 ml @ 100 mls/hr Q24H IVPB Last administered on 01/03/17 09:35; Admin Dose 100 MLS/HR; Start 01/03/17 at 09:00 Metoprolol Tartrate (Lopressor) 5 mg Q4H PRN IV HR>110 Hold SBP<100; Start at 17:00 RASHIDA POLO Jan 03, 2017 09:55
--- NOTE | 2017-01-03 10:06 | PN ---
DATE: 01/02/2017 SUBJECTIVE DATA: The patient remains critically ill and on 100 percent non-breather. The patient is being seen by palliative care. Imaging studies have been reviewed. The patient's urine output has been adequate. OBJECTIVE DATA: VITAL SIGNS: Blood pressure 122/59, respirations 20, pulse 97, temperature 98.1. HEENT: Head is normocephalic. NECK: Neck is supple. CARDIAC: Heart is regular rate. RESPIRATORY: Lungs showed diminished breath sounds at the base. ABDOMEN: Soft and nontender to palpation. No rebound or guarding. EXTREMITIES: No clubbing or cyanosis. Trace edema. DERMATOLOGIC: No rashes. MUSCULOSKELETAL: No joint effusion. NEUROLOGIC: No change. MEDICATIONS: The patient's medications were reviewed. LABORATORY AND DIAGNOSTIC DATA: Sodium 144, potassium 4.0, creatinine 98. 1.70. White count 11.9, hemoglobin 7.9, hematocrit , platelet count 302. IMAGING STUDIES: Imaging studies were reviewed. ASSESSMENT AND PLAN: 1. Nonoliguric acute kidney injury with of creatinine, likely chronic kidney disease. Etiology hemodynamics ATN. The patient's renal function has been stable the last 24 hours. We will continue diuretic regimen. 2. Chronic kidney disease, unclear cause. The etiology is likely multifactorial. Continue to treat acute kidney injury as stated above. 3. anemic. Monitor any change levels. 4. Congestive heart failure. The patient appears to be decompensated. Chest x-ray continues to show infiltrates, possible edema. Continue diuretic regimen. 5. Sepsis, likely secondary to underlying pneumonia. Continue current antibiotic regimen. Follow up with pulmonary. 6. Acute encephalopathy with dementia. Etiology is likely toxic metabolic. Continue to monitor. Dictated By: Major Lazo DO /lalitha/katharine /Document#: [id number]
--- NOTE | 2017-01-03 10:36 | CONS ---
Date/Time of Note Date/Time of Note DATE: 01/03/17 TIME: 10:33 Assessment/Plan Assessment/Plan Additional Assessment/Plan 1.CHF-diastolic acute on chronic. Trop negative x 3 - some urine output - palliative care considered. 2.MS-severe by echo - no intervention planned now 3.abnl ecg - no CP , con't CHF Rx 4.Psych d/o - primary follows 5.REnal failure - acute on chronic - avoid nephrotoxic meds 6. UTI - on anti-bx 7.AMS Consultation Date/Type/Reason Admit Date/Time Dec 26, 2016 at 01:49 Initial Consult Date 01/02/17 Type of Consultation: Pulm Referring Provider: ANGELA AL 24 HR Interval Summary Free Text/Dictation some urine output - palliative care considered. - no CP noted - still on high 02 demand ROS: No fever, no chills, no nausea, no vomiting, no diarrhea/constipation No recent weight changes + SOB No dizziness, blurred vision No thirst, no heat or cold intolerance Exam/Review of Systems Vital Signs Vitals Vital Signs Date Time Temp Pulse Resp B/P Pulse Ox O2 Delivery O2 Flow Rate FiO2 01/03/17 08:09 89 01/03/17 07:58 15.0 50 01/03/17 07:46 97.9 18 119/56 95 01/03/17 06:00 Mask Intake and Output 01/02/17 01/02/17 01/03/17 15:00 23:00 07:00 Intake Total 520 ml 220 ml Output Total 300 ml Balance 220 ml 220 ml Exam General: WN/WD/NAD, AOx 0 HEENT: Unicetric/atraumatic/EOMI (does not follow commands) NECK: JVD elevated, no thyromegaly, non-rebreather mask Lymph: no lymphadenopathy HEART: regular with no S3, II/ systolic murmur at apex LUNGS: Coarse sounds + ABD: soft, NT, ND, +BS : Intact Neuro: non focal SKIN: chronic changes EXT: edema Results Result Diagram: 01/03/1752501/03/17525 Results 24 hrs Laboratory Tests Test 01/02/17 11:35 01/02/17 17:20 01/02/17 20:46 01/03/17 05:26 Bedside Glucose 177 300 H 164 White Blood Count 17.4 #H Red Blood Count 2.56 L Hemoglobin 7.6 L Hematocrit 24.7 L Mean Corpuscular Volume 96.5 Mean Corpuscular Hemoglobin 29.7 Mean Corpuscular Hemoglobin Concent 30.8 L Red Cell Distribution Width 17.7 H Platelet Count 288 Mean Platelet Volume 10.6 H Neutrophils % 90.1 H Lymphocytes % 2.6 L Monocytes % 3.6 Eosinophils % 1.2 Basophils % 0.1 Nucleated Red Blood Cells % 0.0 Neutrophils # 15.6 H Lymphocytes # 0.5 L Monocytes # 0.6 Eosinophils # 0.2 Basophils # 0.0 Nucleated Red Blood Cells # 0.0 Sodium Level 143 Potassium Level 3.2 L Chloride Level 98 Carbon Dioxide Level 33 H Anion Gap 15 Blood Urea Nitrogen 68 H Creatinine 1.78 H Glucose Level 179 Calcium Level 8.3 L Test 01/03/17 07:43 01/03/17 08:59 Bedside Glucose 184 194 Medications Medications Current Medications Lorazepam (Ativan) 0.5 mg Q6H PRN IV ANXIETY Last administered on 01/01/17 15: 28; Admin Dose 0.5 MG; Start 12/26/16 at 06:00 Ondansetron HCl (Zofran Inj) 4 mg Q6H PRN IV NAUSEA AND/OR VOMITING; Start at 06:00 Aspirin (Aspirin) 81 mg DAILY PO Last administered on 01/03/17 09:01; Admin Dose 81 MG; Start 12/26/16 at 09:00 Acetaminophen (Tylenol Tab) 650 mg Q6H PRN PO PAIN LEVEL 1-3 OR FEVER Last administered on 12/27/16 03:55; Admin Dose 650 MG; Start 12/26/16 at 06:00 Morphine Sulfate (morphine) 2 mg Q4H PRN IV PAIN LEVEL 7-10 Last administered on 01/03/17 01:35; Admin Dose 2 MG; Start 12/26/16 at 06:00 Heparin Sodium (Porcine) (Heparin (5000 Units/0.5 ml)) 5,000 unit Q12 SC Last administered on 01/03/17 09:08; Admin Dose 5,000 UNIT; Start 12/26/16 at 09:00 Diagnostic Test (Pha) (Accu-Chek) 1 ea 02 XX ; Start 12/27/16 at 02:00 Insulin Glargine (Lantus) 14 unit DAILY@08 SC Last administered on 01/03/17 09 :07; Admin Dose 14 UNIT; Start 12/26/16 at 08:00 Miscellaneous Information 1 ea NOTE XX ; Start 12/26/16 at 06:00 Glucose (Glutose) 15 gm Q15M PRN PO DECREASED GLUCOSE; Start 12/26/16 at 06:00 Glucose (Glutose) 22.5 gm Q15M PRN PO DECREASED GLUCOSE; Start 12/26/16 at 06: 00 Dextrose (D50w Syringe) 25 ml Q15M PRN IV DECREASED GLUCOSE; Start 12/26/16 at 06:00 Dextrose (D50w Syringe) 50 ml Q15M PRN IV DECREASED GLUCOSE; Start 12/26/16 at 06:00 Glucagon (Glucagen) 1 mg Q15M PRN IM DECREASED GLUCOSE; Start 12/26/16 at 06:00 Glucose (Glutose) 15 gm Q15M PRN BUCCAL DECREASED GLUCOSE; Start 12/26/16 at 06 :00 Miscellaneous Information (Pending [facility] Order For Wound Care) This patient betancourt... PRN PRN XX WOUND CARE; Start 12/26/16 at 06:30 Hydralazine HCl (Apresoline) 25 mg Q8 PO Last administered on 01/02/17 22:35; Admin Dose 25 MG; Start 12/26/16 at 22:00 Metoprolol Tartrate (Lopressor) 25 mg BID PO Last administered on 01/03/17 09: 01; Admin Dose 25 MG; Start 12/26/16 at 21:00 Guaifenesin/ Codeine Phosphate (Robitussin Ac Liquid Cup) 10 ml Q4H PRN PO COUGH Last administered on 12/30/16 16:24; Admin Dose 10 ML; Start 12/26/16 at 20:30 Quetiapine Fumarate (Seroquel) 50 mg BID PO Last administered on 01/03/17 09: 01; Admin Dose 50 MG; Start 12/26/16 at 22:00 Trazodone HCl (Desyrel) 100 mg BID PO Last administered on 01/03/17 09:01; Admin Dose 100 MG; Start 12/26/16 at 22:30 Hydralazine HCl (Apresoline) 10 mg Q6H PRN IV ELEVATED SYSTOLIC BP; Start 12/31 at 23:30 Lorazepam (Ativan) 0.5 mg Q6H PRN IV ANXIETY; Start 12/31/16 at 23:30 Vancomycin HCl PER PHARMACY DOSING NOTE XX ; Start 01/01/17 at 10:30 Vancomycin HCl 1.5 gm/Sodium Chloride 250 ml @ 83.333 mls/ hr Q36H IVPB Last administered on 01/02/17 23:50; Admin Dose 83.333 MLS/HR; Start 01/03/17 at 00: 00 Cefepime HCl (Maxipime 2gm/50 ml (Pmx)) 50 ml @ 100 mls/hr Q24H IVPB Last administered on 01/03/17 09:35; Admin Dose 100 MLS/HR; Start 01/03/17 at 09:00 Metoprolol Tartrate (Lopressor) 5 mg Q4H PRN IV HR>110 Hold SBP<100; Start at 17:00 MONAE UP MD Jan 03, 2017 10:36
--- NOTE | 2017-01-03 10:48 | PN ---
Date/Time of Note Date/Time of Note DATE: 01/03/17 TIME: 10:37 Assessment/Plan VTE Prophylaxis VTE Prophylaxis Intervention: heparin Lines/Catheters IV C[facility]ter Type [facility]from [facility] Urinary Cath still in place: Yes Assessment/Plan Assessment/Plan 1. Dyspnea secondary to CHF exacerbation -still on nonrebreather (desaturates when he removes it). Chest x-ray from yesterday showed Extensive bilateral interstitial and airspace disease is stable in distribution and extent with no new opacities are identified. - continue on diuretics. Pulmonary following - pt is now DNR/DNI as of yesterday. 2. CKD. - stable. Nephrology following 3. Sepsis secondary to UTI and decub ulcers with urine culture showing enterococcus: worsening WBC -Continue current abx 4. Altered mentation. Suspect patient currently at baseline. Does have underlying dementia, and now with occasional delirium - monitor for now. Aspiration precautions. One-to-one sitter as needed 5. Essential hypertension. Continue antihypertensives and adjust needed 6. Decubitus ulcers - continue with wound care 7. Anemia of chronic disease. H&H slightly down trending. Monitor at this time. will check iron/ferritin. if further drop or any sign of bleeding, will hold ppx heparin Subjective 24 Hr Interval Summary Free Text/Dictation pt remained on NRM. He desaturates when removing mask for that reason he has a sitter. Patient is now DNR/DNI as of yesterday Exam/Review of Systems Vital Signs Vitals Vital Signs Date Time Temp Pulse Resp B/P Pulse Ox O2 Delivery O2 Flow Rate FiO2 01/03/17 08:09 89 01/03/17 07:58 15.0 50 01/03/17 07:46 97.9 18 119/56 95 01/03/17 06:00 Mask Intake and Output 01/02/17 01/02/17 01/03/17 15:00 23:00 07:00 Intake Total 520 ml 220 ml Output Total 300 ml Balance 220 ml 220 ml Exam Constitutional: other (pt is on NRM. No acute distress) Head: atraumatic, normocephalic Eyes: PERRL Respiratory: diminished breath sounds Cardiovascular: other (tachycardic with regular rhythm) Gastrointestinal: non-tender, soft Extremities: normal pulses Constitutional: other (not fully oriented) Psych: confusion Eyes: PERRL Respiratory: diminished breath sounds Cardiovascular: nl pulses, regular rate and rhythm Gastrointestinal: soft Extremities: normal pulses Results Result Diagram: 01/03/1752501/03/17 05 Results 24 hrs Laboratory Tests Test 01/02/17 11:35 01/02/17 17:20 01/02/17 20:46 01/03/17 05:26 Bedside Glucose 177 300 H 164 White Blood Count 17.4 #H Red Blood Count 2.56 L Hemoglobin 7.6 L Hematocrit 24.7 L Mean Corpuscular Volume 96.5 Mean Corpuscular Hemoglobin 29.7 Mean Corpuscular Hemoglobin Concent 30.8 L Red Cell Distribution Width 17.7 H Platelet Count 288 Mean Platelet Volume 10.6 H Neutrophils % 90.1 H Lymphocytes % 2.6 L Monocytes % 3.6 Eosinophils % 1.2 Basophils % 0.1 Nucleated Red Blood Cells % 0.0 Neutrophils # 15.6 H Lymphocytes # 0.5 L Monocytes # 0.6 Eosinophils # 0.2 Basophils # 0.0 Nucleated Red Blood Cells # 0.0 Sodium Level 143 Potassium Level 3.2 L Chloride Level 98 Carbon Dioxide Level 33 H Anion Gap 15 Blood Urea Nitrogen 68 H Creatinine 1.78 H Glucose Level 179 Calcium Level 8.3 L Test 01/03/17 07:43 01/03/17 08:59 Bedside Glucose 184 194 Medications Medications Current Medications Lorazepam (Ativan) 0.5 mg Q6H PRN IV ANXIETY Last administered on 01/01/17 15: 28; Admin Dose 0.5 MG; Start 12/26/16 at 06:00 Ondansetron HCl (Zofran Inj) 4 mg Q6H PRN IV NAUSEA AND/OR VOMITING; Start at 06:00 Aspirin (Aspirin) 81 mg DAILY PO Last administered on 01/03/17 09:01; Admin Dose 81 MG; Start 12/26/16 at 09:00 Acetaminophen (Tylenol Tab) 650 mg Q6H PRN PO PAIN LEVEL 1-3 OR FEVER Last administered on 12/27/16 03:55; Admin Dose 650 MG; Start 12/26/16 at 06:00 Morphine Sulfate (morphine) 2 mg Q4H PRN IV PAIN LEVEL 7-10 Last administered on 01/03/17 01:35; Admin Dose 2 MG; Start 12/26/16 at 06:00 Heparin Sodium (Porcine) (Heparin (5000 Units/0.5 ml)) 5,000 unit Q12 SC Last administered on 01/03/17 09:08; Admin Dose 5,000 UNIT; Start 12/26/16 at 09:00 Diagnostic Test (Pha) (Accu-Chek) 1 ea 02 XX ; Start 12/27/16 at 02:00 Insulin Glargine (Lantus) 14 unit DAILY@08 SC Last administered on 01/03/17 09 :07; Admin Dose 14 UNIT; Start 12/26/16 at 08:00 Miscellaneous Information 1 ea NOTE XX ; Start 12/26/16 at 06:00 Glucose (Glutose) 15 gm Q15M PRN PO DECREASED GLUCOSE; Start 12/26/16 at 06:00 Glucose (Glutose) 22.5 gm Q15M PRN PO DECREASED GLUCOSE; Start 12/26/16 at 06: 00 Dextrose (D50w Syringe) 25 ml Q15M PRN IV DECREASED GLUCOSE; Start 12/26/16 at 06:00 Dextrose (D50w Syringe) 50 ml Q15M PRN IV DECREASED GLUCOSE; Start 12/26/16 at 06:00 Glucagon (Glucagen) 1 mg Q15M PRN IM DECREASED GLUCOSE; Start 12/26/16 at 06:00 Glucose (Glutose) 15 gm Q15M PRN BUCCAL DECREASED GLUCOSE; Start 12/26/16 at 06 :00 Miscellaneous Information (Pending [facility] Order For Wound Care) This patient betancourt... PRN PRN XX WOUND CARE; Start 12/26/16 at 06:30 Hydralazine HCl (Apresoline) 25 mg Q8 PO Last administered on 01/02/17 22:35; Admin Dose 25 MG; Start 12/26/16 at 22:00 Metoprolol Tartrate (Lopressor) 25 mg BID PO Last administered on 01/03/17 09: 01; Admin Dose 25 MG; Start 12/26/16 at 21:00 Guaifenesin/ Codeine Phosphate (Robitussin Ac Liquid Cup) 10 ml Q4H PRN PO COUGH Last administered on 12/30/16 16:24; Admin Dose 10 ML; Start 12/26/16 at 20:30 Quetiapine Fumarate (Seroquel) 50 mg BID PO Last administered on 01/03/17 09: 01; Admin Dose 50 MG; Start 12/26/16 at 22:00 Trazodone HCl (Desyrel) 100 mg BID PO Last administered on 01/03/17 09:01; Admin Dose 100 MG; Start 12/26/16 at 22:30 Hydralazine HCl (Apresoline) 10 mg Q6H PRN IV ELEVATED SYSTOLIC BP; Start 12/31 at 23:30 Lorazepam (Ativan) 0.5 mg Q6H PRN IV ANXIETY; Start 12/31/16 at 23:30 Vancomycin HCl PER PHARMACY DOSING NOTE XX ; Start 01/01/17 at 10:30 Vancomycin HCl 1.5 gm/Sodium Chloride 250 ml @ 83.333 mls/ hr Q36H IVPB Last administered on 01/02/17 23:50; Admin Dose 83.333 MLS/HR; Start 01/03/17 at 00: 00 Cefepime HCl (Maxipime 2gm/50 ml (Pmx)) 50 ml @ 100 mls/hr Q24H IVPB Last administered on 01/03/17 09:35; Admin Dose 100 MLS/HR; Start 01/03/17 at 09:00 Metoprolol Tartrate (Lopressor) 5 mg Q4H PRN IV HR>110 Hold SBP<100; Start at 17:00 CHRISTIANNE CRUZ MD Jan 03, 2017 10:48
[2017-01-03 12:31] LABS: AADO2 Arterial 189.5 mmHg (7.0-24.0); Arterial Base Excess 5.8 mmol/L (-3.0-3); Arterial COHb 0.3 % (0.0-3.0); Arterial Fraction of Oxyhgb 96.5 % (93.0-99.0); Arterial HCO3 31.2 mmol/L (22.0-26.0); Arterial MetHb 0.4 % (0.0-1.5); Arterial Total Hemglobin 8.9 g/dl (12.0-18.0); MODE MASK - VENTI
--- NOTE | 2017-01-03 16:30 | PN ---
DATE: 12/26/2016 SUBJECTIVE DATA: The patient remains critically ill and on 100 percent non-rebreather. Urinary output has been adequate. The patient is currently DNR. No other events noted. OBJECTIVE DATA: Blood pressure 119/56, respirations 18, pulse 79, temperature 97.9. Intake and output, patient had 500 in with 1300 out. HEENT: Head is normocephalic. NECK: Supple. HEART: Regular rate. LUNGS: Diminished breath sounds at the base. Positive rhonchi. ABDOMEN: Abdomen is soft, nontender to palpation, no rebound or guarding. EXTREMITIES: Negative for clubbing, cyanosis. Trace edema. DERMATOLOGIC: No rashes. MUSCULOSKELETAL: No joint effusion. NEUROLOGIC: No change in examination. MEDICATIONS: The patient's medications reviewed. LABORATORY DATA: Sodium 142, potassium 3.2, BUN 68, creatinine 1.78. White count 17.4, hemoglobin 7.6, hematocrit 24.7, platelet count is 288. ASSESSMENT AND PLAN: 1. Nonoliguric acute kidney injury on top of chronic kidney disease with unknown baseline creatinine. Etiology secondary to hemodynamics from acute tubular necrosis. The patient's renal function has been fluctuating due to diuretic therapy. The patient's diuretics have been held. At this point will continue current treatment plan, supportive care, renal dose all meds. 2. Chronic kidney disease. The patient is currently in acute kidney injury as stated above. Continue current medical management. 3. Hypokalemia. Replete potassium chloride. 4. Anemia. Monitor hemoglobin and hematocrit levels. 5. Mineral bone disorder. Monitor calcium and phosphorus levels. 6. Congestive heart failure. Patient appears more euvolemic. X- ray findings probably more consistent with infiltrate and pulmonary edema. The patient's diuretic therapy has been on hold. Will monitor closely. 7. Sepsis secondary to underlying pneumonia. Continue current antibiotic regimen. 8. Hypoxemic respiratory failure secondary to pneumonia. Continue current medical management. Continue non-rebreather. Follow up with pulmonary. 9. Acute encephalopathy and dementia. Dictated By: Major Lazo DO /lalitha/frank /Document#: [id number]
[2017-01-03] MEDS ORDERED: traZODone 100 MG TAB PO PRN (21:00)
[2017-01-03] MEDS: LORAZEPAM 2 MG INJ IV PRN (21:06)
[2017-01-04] VITALS (16 sets, daily range): BP systolic 103–149; BP diastolic 48–67; PULSE 71–99; RESP 16–21
[2017-01-04] MEDS: ACCU-CHEK XX SCH (02:00)
[2017-01-04] MEDS: FUROSEMIDE 40 MG INJ IV SCH ×2 (05:21→18:57)
[2017-01-04 06:02] LABS: CALCIUM 9.1 mg/dl (8.4-10.2); CREATININE 1.76 mg/dl (0.61-1.24); MAGNESIUM 2.2 mg/dl (1.7-2.5); PHOSPHORUS 3.7 mg/dl (2.5-4.9); POTASSIUM 3.8 mmol/L (3.5-5.1)
[2017-01-04 06:04] LABS: BASOPHILS % 0.2 % (0.0-2.0); EOSINOPHILS # 0.5 10^3/ul (0.0-0.5); EOSINOPHILS % 3.1 % (0.0-7.0); HEMATOCRIT 25.9 % (42.0-52.0); HEMOGLOBIN 7.8 g/dl (14.0-18.0); LYMPHOCYTES # 0.6 10^3/ul (0.8-2.9); LYMPHOCYTES % 3.8 % (15.0-51.0); MEAN CORPUSCULAR HEMOGLOBIN 29.2 pg (29.0-33.0); MEAN CORPUSCULAR HGB CONC 30.1 g/dl (32.0-37.0); MEAN PLATELET VOLUME 10.8 fl (7.4-10.4); MONOCYTE # 0.7 10^3/ul (0.3-0.9); MONOCYTES % 4.2 % (0.0-11.0); NEUTROPHIL # 13.9 10^3/ul (1.6-7.5); NUCLEATED RED BLOOD CELLS% 0.2 /100WBC (0.0-0.0); PLATELET COUNT 321 10^3/UL (140-415); RED BLOOD COUNT 2.67 10^6/ul (4.70-6.10); RED CELL DISTRIBUTION WIDTH 17.9 % (11.5-14.5); WHITE BLOOD COUNT 16.1 10^3/ul (4.8-10.8)
--- NOTE | 2017-01-04 07:52 | CONS ---
DATE OF ADMISSION: 12/26/2016 DATE OF CONSULTATION: 12/26/2016 REASON FOR CONSULTATION: Congestive heart failure exacerbation. REQUESTING PHYSICIAN: Dr. Castillo from the hospitalist service. HISTORY OF PRESENT ILLNESS: Mr. Cain is an 86-year-old male with a history of hypertension, permanent pacemaker, diabetes mellitus, BPH, psychiatric issue, dementia, who initially presented with worsening shortness of breath. Upon arrival in the emergency department, temperature of 99.9, blood pressure 139/108, pulse 104, respiratory rate 22, satting 95 percent. Patient's labs revealed a white blood cell count of 12.4, hemoglobin 9.3, platelet count of 282. Sodium of 138, potassium 4.7, creatinine 4.7, BUN of 31. Troponin negative. BNP of 13,500. LDL 72, HDL 30. TSH of 3.22. ABG revealing a pH of 7.387, a PO2 of 88, pCO2 of 39. UA which was positive. INR 1.1. Patient underwent a chest x-ray revealing patchy airspace opacity in the left and right chest likely due to pulmonary edema. Patient's electrocardiogram revealed sinus rhythm, borderline first-degree AV block, normal axis, isolated T-wave flattening in lead III. Patient subsequently admitted to the floor and treated with aspirin, antibiotics and initially initiated on Lasix, which has since been discontinued. Patient at this time is but denies chest pain. He has shortness of breath and ongoing cough. PAST MEDICAL HISTORY: As above in HPI. MEDICATION: Currently in the hospital, aspirin 81 mg daily, heparin 5000 subcu q.12, ciprofloxacin 200 mg q.12, Lantus insulin, Ativan p.r.n., Zofran p.r.n., Tylenol p.r.n., morphine p.r.n., DuoNeb p.r.n., Lasix 20 mg IV daily. ALLERGIES: PENICILLIN. SOCIAL HISTORY: No tobacco, EtOH or illicit drug use. FAMILY HISTORY: Negative for sudden cardiac or early CAD. REVIEW OF SYSTEMS: As above in HPI. CONSTITUTIONAL: No fevers, chills. RESPIRATORY: Shortness of breath, congestive heart failure. GASTROINTESTINAL: No vomiting. GENITOURINARY: No hematuria but renal failure. PSYCHIATRIC: Positive psychiatric history. NEUROLOGIC: Dementia. ENDOCRINE: History of diabetes mellitus. PHYSICAL EXAMINATION: VITAL SIGNS: Temperature of 99, blood pressure elevated at 164/69, pulse 79, respiratory rate 18, satting 92 percent on 4 L. GENERAL: The patient is alert, awake, complaining of shortness of breath and ongoing cough. NECK: JVP approximately 9 cm of water. LUNGS: Upper airway rhonchorous sounds with decreased breath sounds at the bases bilaterally. CARDIAC: Regular rate and rhythm. Normal S1. Increased S2. 1/6 systolic murmur. Nondisplaced PMI. ABDOMEN: Positive bowel sounds. Soft. EXTREMITIES: No pitting edema. 1+ pulses bilaterally to posterior tibial. LABORATORY: Most recent from today. Sodium 142, potassium 4.2, creatinine 0.62, BUN 32. Troponin negative x1. TSH is 3.22. LDL 72, HDL 30. White blood cell count 10.8, hemoglobin , platelet count 269. UA positive. IMAGING STUDIES: As above in HPI. No further imaging studies are reviewed at this time. ELECTROCARDIOGRAM: As above in HPI. No further electrocardiograms are reviewed at this time. IMPRESSION: 1. Congestive heart failure exacerbation, question systolic versus diastolic, likely acute on chronic. 2. Hypertension, uncontrolled. 3. Dyslipidemia with low HDL. 4. Abnormal electrocardiogram, assess for acute coronary syndrome. 5. A history of dementia. 6. Psychiatric disorder. 7. Diabetes mellitus. 8. Urinary tract infection. 9. Renal failure. 10. Anemia. RECOMMENDATIONS: 1. At this time, would maintain patient on telemetry monitoring to follow rhythm and rates more closely. 2. We will complete a rule out for myocardial infarction to ensure this patient's symptoms are not due to any recent acute coronary syndrome, such as acute myocardial infarction. 3. Continue patient's baseline aspirin for prophylaxis against cardiovascular events. 4. We will initiate patient on hydralazine afterload reduction in the setting of congestive heart failure and beta courtney to improve overall heart rate and blood pressure control. 5. Check a 2D echo to further assess patient's ejection fraction, wall motion and major valve abnormalities. 6. Continue patient on Lasix diuresis, following strict I's and O's and creatinine closely. 7. Continue patient's bronchodilator therapy, following respiratory status closely. 8. Continue to follow the patient's blood sugar closely with adjustment of hyperglycemics if necessary. Thank you for allowing me to take part in the care of this patient. I will continue to follow along very closely with you. Further recommendations will be made as the patient progresses though his inpatient hospital course. Dictated By: Derrick Martínez /fnt/ree[place] /Document#: [id number] ; Dr. Castillo, hospitalist service
--- NOTE | 2017-01-04 08:10 | CONS ---
DATE OF ADMISSION: 12/26/2016 DATE OF CONSULTATION: 12/27/2016 REASON FOR CONSULTATION: Shortness of breath. HISTORY OF PRESENT ILLNESS: Patient is an 86-year-old gentleman who comes in with 3-4 days' history of productive cough associated with shortness of breath and low-grade fever with T- max of 100 degrees Fahrenheit. Denies chest pain. Denies dizziness. Denies palpitations or syncope. Denies orthopnea or PND. He also complains of generalized weakness. PAST MEDICAL HISTORY: Significant for: 1. Mitral stenosis. 2. Pulmonary hypertension. 3. Systemic hypertension. 4. Diabetes mellitus. 5. BPH. 6. History of pacemaker implantation. SOCIAL HISTORY: No smoking, alcohol or recreational drugs. ALLERGIES: ALLERGIC TO PENICILLIN. CURRENT MEDICATIONS: Include metoprolol, Seroquel, trazodone, aspirin, insulin, Lasix, ciprofloxacin, hydralazine. REVIEW OF SYSTEMS: Unremarkable except as mentioned in HPI. PHYSICAL EXAMINATION: VITAL SIGNS: Temperature is 97.2, heart rate of 73, blood pressure 118/56, breathing at 16 per minute, 100 percent on nasal cannula. GENERAL: Patient awake, alert, oriented, no apparent distress. NECK: No JVD or carotid bruit. CARDIAC: Regular rate and rhythm with a diastolic murmur heard at the 5th left intercostal space. LUNGS: Clear to auscultation. ABDOMEN: Soft. Bowel sounds are present. There is no organomegaly. EXTREMITIES: No pedal edema. Pedal pulses felt bilaterally. IMAGING STUDIES: Chest x-ray shows patchy infiltrate and congestion. ELECTROCARDIOGRAM: Review of 12-lead EKG shows axillary junctional rhythm with a ventricular rate of 97 beats per minute with normal QRS and normal QT intervals with nonspecific ST-T wave changes. LABORATORY: WBC 8.9, hemoglobin 8.4, hematocrit 26 with platelets 259. Sodium 138, potassium 4.3, chloride 98, CO2 26, BUN 39, creatinine is 1.69. Magnesium 1.8. Troponin x3 is negative. BNP is 13,500. ASSESSMENT AND PLAN: An 86-year-old gentleman with: 1. Acute exacerbation of diastolic heart failure. 2. Mitral stenosis. 3. Pulmonary hypertension. 4. Systemic hypertension. 5. Benign prostatic hypertrophy. 6. Abnormal electrocardiogram. His clinical presentation is consistent with acute exacerbation of congestive heart failure with underlying pneumonia/bronchitis. RECOMMENDATION: 1. Started on Lasix. 2. Avoid volume overload. 3. Continue antibiotics. 4. Continue metoprolol. 5. Continue aspirin. 6. Continue hydralazine. 7. Continue insulin. Dictated By: Kamran Ann MD /lalitha/ree[place] /Document#: [id number] LELE
[2017-01-04] MEDS: CEFEPIME 2GM/50 ML (PMX) 50 ML IVPB SCH (08:22)
[2017-01-04] MEDS: QUETIAPINE 25 MG TAB PO SCH ×2 (08:22→21:13)
[2017-01-04] MEDS: ASPIRIN 81 MG TAB PO SCH (08:23)
[2017-01-04] MEDS: METOPROLOL 25 MG TAB PO SCH ×2 (08:23→21:13)
[2017-01-04] MEDS: INSULIN GLARGINE [LANtus] 3 ML PEN SC SCH (08:26)
[2017-01-04] MEDS: INSULIN ASPART [NOVOLOG] 3 ML PEN SC SCH ×4 (08:26→21:32)
[2017-01-04] MEDS: HEPARIN 5,000 UNIT/0.5 ML VIAL SC SCH ×2 (08:27→21:15)
[2017-01-04] MEDS ORDERED: EPOETIN 10000 UNITS/ML (NON ESRD/NON ONCOLOGY) SC ONE (08:30)
--- NOTE | 2017-01-04 11:15 | CONS ---
Date/Time of Note Date/Time of Note DATE: 01/04/17 TIME: 11:12 Assessment/Plan Assessment/Plan Additional Assessment/Plan Assessment and recommendations; 1. Patient admitted for CHF exacerbation with interval improvement. 2. Advanced dementia. 3. Dysphagia. 4. Valvular heart disease. Continue supportive care. Prognosis is poor. Consider placement of feeding tube. Consultation Date/Type/Reason Admit Date/Time Dec 26, 2016 at 01:49 Initial Consult Date 01/02/17 Type of Consultation: Pulm Referring Provider: ANGELA AL 24 HR Interval Summary Free Text/Dictation Patient condition remains stable. Has remained hemodynamically stable. Patient remains essentially unresponsive to any commands but awake. General exam; elderly male, currently in no distress. Exam/Review of Systems Vital Signs Vitals Vital Signs Date Time Temp Pulse Resp B/P Pulse Ox O2 Delivery O2 Flow Rate FiO2 01/04/17 11:09 97.8 77 16 103/51 100 01/04/17 10:42 12.0 40 01/04/17 09:08 Venti Mask Intake and Output 01/03/17 01/03/17 01/04/17 15:00 23:00 07:00 Intake Total 650 ml 300 ml Output Total 1050 ml 750 ml Balance -400 ml -450 ml Exam HEENT exam; supple neck, positive JVD. No lymphadenopathy. Midline trachea. No thyromegaly. Patient is edentulous. Has bilateral intraocular lens implants. Chest exam; diminished but clear breath sound. S1-S2 audible, no murmurs. Regular rhythm. Abdomen exam; soft, no organomegaly. Bowel sounds audible. Extremity exam; no peripheral edema. Multiple ecchymoses are present in all 4 extremities. TRAINS [employer]PER[employer]OR exam; patient awake but does not follow any commands. Results Result Diagram: 01/04/17 0525 01/04/17 0525 Results 24 hrs Laboratory Tests Test 01/03/17 11:54 01/03/17 12:02 01/03/17 17:22 01/03/17 20:46 Bedside Glucose 134 107 177 Blood Gas Specimen Source Blood arterial Arterial Blood Date Drawn 01/03/2017 12:21:11 PM Arterial Blood pH (Temp corrected) 7.411 Arterial Blood pCO2 (Temp correct) 50.2 H Arterial Blood pO2 (Temp corrected) 110.5 H Arterial Blood HCO3 31.2 H Arterial Blood Base Excess 5.8 H Arterial Blood Oxygen Saturation 97.2 Brian Test N/A Arterial Blood Gas Puncture Site LB Arterial Blood Carboxyhemoglobin 0.3 Arterial Blood Methemoglobin 0.4 Blood Gas A-a O2 Differential 189.5 H Oxyhemoglobin Percent 96.5 Total Hemoglobin 8.9 L Blood Gas Temperature 37.0 Blood Gas Modality MASK - VENTI FiO2 50.0 Blood Gas Notified Whom M.D. Blood Gas Notified Time 01/03/2017 12:31:37 PM Test 01/04/17 05:25 01/04/17 08:20 White Blood Count 16.1 H Red Blood Count 2.67 L Hemoglobin 7.8 L Hematocrit 25.9 L Mean Corpuscular Volume 97.0 Mean Corpuscular Hemoglobin 29.2 Mean Corpuscular Hemoglobin Concent 30.1 L Red Cell Distribution Width 17.9 H Platelet Count 321 Mean Platelet Volume 10.8 H Neutrophils % 86.0 H Lymphocytes % 3.8 L Monocytes % 4.2 Eosinophils % 3.1 Basophils % 0.2 Nucleated Red Blood Cells % 0.2 H Neutrophils # 13.9 H Lymphocytes # 0.6 L Monocytes # 0.7 Eosinophils # 0.5 Basophils # 0.0 Nucleated Red Blood Cells # 0.0 Sodium Level 146 H Potassium Level 3.8 Chloride Level 100 Carbon Dioxide Level 33 H Anion Gap 17 H Blood Urea Nitrogen 66 H Creatinine 1.76 H Glucose Level 155 Calcium Level 9.1 Phosphorus Level 3.7 Magnesium Level 2.2 Bedside Glucose 178 Medications Medications Current Medications Lorazepam (Ativan) 0.5 mg Q6H PRN IV ANXIETY Last administered on 01/03/17 21: 06; Admin Dose 0.5 MG; Start 12/26/16 at 06:00 Ondansetron HCl (Zofran Inj) 4 mg Q6H PRN IV NAUSEA AND/OR VOMITING; Start at 06:00 Aspirin (Aspirin) 81 mg DAILY PO Last administered on 01/04/17 08:23; Admin Dose 81 MG; Start 12/26/16 at 09:00 Acetaminophen (Tylenol Tab) 650 mg Q6H PRN PO PAIN LEVEL 1-3 OR FEVER Last administered on 12/27/16 03:55; Admin Dose 650 MG; Start 12/26/16 at 06:00 Morphine Sulfate (morphine) 2 mg Q4H PRN IV PAIN LEVEL 7-10 Last administered on 01/03/17 01:35; Admin Dose 2 MG; Start 12/26/16 at 06:00 Heparin Sodium (Porcine) (Heparin (5000 Units/0.5 ml)) 5,000 unit Q12 SC Last administered on 01/04/17 08:27; Admin Dose 5,000 UNIT; Start 12/26/16 at 09:00 Diagnostic Test (Pha) (Accu-Chek) 1 ea 02 XX ; Start 12/27/16 at 02:00 Insulin Glargine (Lantus) 14 unit DAILY@08 SC Last administered on 01/04/17 08 :26; Admin Dose 14 UNIT; Start 12/26/16 at 08:00 Miscellaneous Information 1 ea NOTE XX ; Start 12/26/16 at 06:00 Glucose (Glutose) 15 gm Q15M PRN PO DECREASED GLUCOSE; Start 12/26/16 at 06:00 Glucose (Glutose) 22.5 gm Q15M PRN PO DECREASED GLUCOSE; Start 12/26/16 at 06: 00 Dextrose (D50w Syringe) 25 ml Q15M PRN IV DECREASED GLUCOSE; Start 12/26/16 at 06:00 Dextrose (D50w Syringe) 50 ml Q15M PRN IV DECREASED GLUCOSE; Start 12/26/16 at 06:00 Glucagon (Glucagen) 1 mg Q15M PRN IM DECREASED GLUCOSE; Start 12/26/16 at 06:00 Glucose (Glutose) 15 gm Q15M PRN BUCCAL DECREASED GLUCOSE; Start 12/26/16 at 06 :00 Miscellaneous Information (Pending [facility] Order For Wound Care) This patient betancourt... PRN PRN XX WOUND CARE; Start 12/26/16 at 06:30 Hydralazine HCl (Apresoline) 25 mg Q8 PO Last administered on 01/03/17 21:15; Admin Dose 25 MG; Start 12/26/16 at 22:00 Metoprolol Tartrate (Lopressor) 25 mg BID PO Last administered on 01/04/17 08: 23; Admin Dose 25 MG; Start 12/26/16 at 21:00 Guaifenesin/ Codeine Phosphate (Robitussin Ac Liquid Cup) 10 ml Q4H PRN PO COUGH Last administered on 12/30/16 16:24; Admin Dose 10 ML; Start 12/26/16 at 20:30 Quetiapine Fumarate (Seroquel) 50 mg BID PO Last administered on 01/04/17 08: 22; Admin Dose 50 MG; Start 12/26/16 at 22:00 Hydralazine HCl (Apresoline) 10 mg Q6H PRN IV ELEVATED SYSTOLIC BP; Start 12/31 at 23:30 Lorazepam (Ativan) 0.5 mg Q6H PRN IV ANXIETY; Start 12/31/16 at 23:30 Vancomycin HCl PER PHARMACY DOSING NOTE XX ; Start 01/01/17 at 10:30 Vancomycin HCl 1.5 gm/Sodium Chloride 250 ml @ 83.333 mls/ hr Q36H IVPB Last administered on 01/02/17 23:50; Admin Dose 83.333 MLS/HR; Start 01/03/17 at 00: 00 Cefepime HCl (Maxipime 2gm/50 ml (Pmx)) 50 ml @ 100 mls/hr Q24H IVPB Last administered on 01/04/17 08:22; Admin Dose 100 MLS/HR; Start 01/03/17 at 09:00 Metoprolol Tartrate (Lopressor) 5 mg Q4H PRN IV HR>110 Hold SBP<100; Start at 17:00 Trazodone HCl (Desyrel) 100 mg QHS PRN PO SLEEP; Start 01/03/17 at 21:00 RASHIDA POLO Jan 04, 2017 11:15
[2017-01-04] MEDS: VANCOMYCIN 1.5 GM in SOD CHLORIDE 0.9% 250 ML IVPB SCH (12:00)
--- NOTE | 2017-01-04 16:08 | CONS ---
Date/Time of Note Date/Time of Note DATE: 01/04/17 TIME: 16:05 Assessment/Plan Assessment/Plan Additional Assessment/Plan 1.CHF-diastolic acute on chronic. Trop negative x 3 - some urine output - plan to go to [place] per family. 2.MS-severe by echo - no intervention planned now - stable now. 3.abnl ecg - no CP , con't CHF Rx 4.Psych d/o - primary follows 5.Renal failure - acute on chronic - avoid nephrotoxic meds 6. UTI - on anti-bx 7.AMS - stable encephalopathy. Consultation Date/Type/Reason Admit Date/Time Dec 26, 2016 at 01:49 Initial Consult Date 01/02/17 Type of Consultation: Pulm Referring Provider: ANGELA AL 24 HR Interval Summary Free Text/Dictation No acute events - VS stable - plan to transfer to [place]. ROS: No fever, no chills, no nausea, no vomiting, no diarrhea/constipation No recent weight changes No chest pain, no PND, no orthopnea No dizziness, blurred vision No thirst, no heat or cold intolerance (per nurse) Exam/Review of Systems Vital Signs Vitals Vital Signs Date Time Temp Pulse Resp B/P Pulse Ox O2 Delivery O2 Flow Rate FiO2 01/04/17 14:44 98.2 82 119/60 100 01/04/17 11:09 16 01/04/17 10:42 12.0 40 01/04/17 09:08 Venti Mask Intake and Output 01/03/17 01/03/17 01/04/17 15:00 23:00 07:00 Intake Total 650 ml 300 ml Output Total 1050 ml 750 ml Balance -400 ml -450 ml Exam General: WN/WD/NAD, AOx 0 HEENT: Unicetric/atraumatic/EOMI (does not follow commands) NECK: JVD elevated, no thyromegaly Lymph: no lymphadenopathy HEART: regular with no S3, II/ systolic murmur at apex LUNGS: Coarse sounds ABD: soft, NT, ND, +BS : Intact Neuro: non focal SKIN: chronic changes EXT: trace edema Results Result Diagram: 01/04/17 0525 01/04/17 0525 Results 24 hrs Laboratory Tests Test 01/03/17 17:22 01/03/17 20:46 01/04/17 05:25 01/04/17 08:20 Bedside Glucose 107 177 178 White Blood Count 16.1 H Red Blood Count 2.67 L Hemoglobin 7.8 L Hematocrit 25.9 L Mean Corpuscular Volume 97.0 Mean Corpuscular Hemoglobin 29.2 Mean Corpuscular Hemoglobin Concent 30.1 L Red Cell Distribution Width 17.9 H Platelet Count 321 Mean Platelet Volume 10.8 H Neutrophils % 86.0 H Lymphocytes % 3.8 L Monocytes % 4.2 Eosinophils % 3.1 Basophils % 0.2 Nucleated Red Blood Cells % 0.2 H Neutrophils # 13.9 H Lymphocytes # 0.6 L Monocytes # 0.7 Eosinophils # 0.5 Basophils # 0.0 Nucleated Red Blood Cells # 0.0 Sodium Level 146 H Potassium Level 3.8 Chloride Level 100 Carbon Dioxide Level 33 H Anion Gap 17 H Blood Urea Nitrogen 66 H Creatinine 1.76 H Glucose Level 155 Calcium Level 9.1 Phosphorus Level 3.7 Magnesium Level 2.2 Test 01/04/17 11:12 01/04/17 12:19 Vancomycin Level Trough 15.1 Bedside Glucose 122 Medications Medications Current Medications Lorazepam (Ativan) 0.5 mg Q6H PRN IV ANXIETY Last administered on 01/03/17 21: 06; Admin Dose 0.5 MG; Start 12/26/16 at 06:00 Ondansetron HCl (Zofran Inj) 4 mg Q6H PRN IV NAUSEA AND/OR VOMITING; Start at 06:00 Aspirin (Aspirin) 81 mg DAILY PO Last administered on 01/04/17 08:23; Admin Dose 81 MG; Start 12/26/16 at 09:00 Acetaminophen (Tylenol Tab) 650 mg Q6H PRN PO PAIN LEVEL 1-3 OR FEVER Last administered on 12/27/16 03:55; Admin Dose 650 MG; Start 12/26/16 at 06:00 Morphine Sulfate (morphine) 2 mg Q4H PRN IV PAIN LEVEL 7-10 Last administered on 01/03/17 01:35; Admin Dose 2 MG; Start 12/26/16 at 06:00 Heparin Sodium (Porcine) (Heparin (5000 Units/0.5 ml)) 5,000 unit Q12 SC Last administered on 01/04/17 08:27; Admin Dose 5,000 UNIT; Start 12/26/16 at 09:00 Diagnostic Test (Pha) (Accu-Chek) 1 ea 02 XX ; Start 12/27/16 at 02:00 Insulin Glargine (Lantus) 14 unit DAILY@08 SC Last administered on 01/04/17 08 :26; Admin Dose 14 UNIT; Start 12/26/16 at 08:00 Miscellaneous Information 1 ea NOTE XX ; Start 12/26/16 at 06:00 Glucose (Glutose) 15 gm Q15M PRN PO DECREASED GLUCOSE; Start 12/26/16 at 06:00 Glucose (Glutose) 22.5 gm Q15M PRN PO DECREASED GLUCOSE; Start 12/26/16 at 06: 00 Dextrose (D50w Syringe) 25 ml Q15M PRN IV DECREASED GLUCOSE; Start 12/26/16 at 06:00 Dextrose (D50w Syringe) 50 ml Q15M PRN IV DECREASED GLUCOSE; Start 12/26/16 at 06:00 Glucagon (Glucagen) 1 mg Q15M PRN IM DECREASED GLUCOSE; Start 12/26/16 at 06:00 Glucose (Glutose) 15 gm Q15M PRN BUCCAL DECREASED GLUCOSE; Start 12/26/16 at 06 :00 Miscellaneous Information (Pending [facility] Order For Wound Care) This patient betancourt... PRN PRN XX WOUND CARE; Start 12/26/16 at 06:30 Hydralazine HCl (Apresoline) 25 mg Q8 PO Last administered on 01/03/17 21:15; Admin Dose 25 MG; Start 12/26/16 at 22:00 Metoprolol Tartrate (Lopressor) 25 mg BID PO Last administered on 01/04/17 08: 23; Admin Dose 25 MG; Start 12/26/16 at 21:00 Guaifenesin/ Codeine Phosphate (Robitussin Ac Liquid Cup) 10 ml Q4H PRN PO COUGH Last administered on 12/30/16 16:24; Admin Dose 10 ML; Start 12/26/16 at 20:30 Quetiapine Fumarate (Seroquel) 50 mg BID PO Last administered on 01/04/17 08: 22; Admin Dose 50 MG; Start 12/26/16 at 22:00 Hydralazine HCl (Apresoline) 10 mg Q6H PRN IV ELEVATED SYSTOLIC BP; Start 12/31 at 23:30 Lorazepam (Ativan) 0.5 mg Q6H PRN IV ANXIETY; Start 12/31/16 at 23:30 Vancomycin HCl PER PHARMACY DOSING NOTE XX ; Start 01/01/17 at 10:30 Vancomycin HCl 1.5 gm/Sodium Chloride 250 ml @ 83.333 mls/ hr Q36H IVPB Last administered on 01/02/17 23:50; Admin Dose 83.333 MLS/HR; Start 01/03/17 at 00: 00; Stop 01/04/17 at 19:00 Cefepime HCl (Maxipime 2gm/50 ml (Pmx)) 50 ml @ 100 mls/hr Q24H IVPB Last administered on 01/04/17 08:22; Admin Dose 100 MLS/HR; Start 01/03/17 at 09:00 Metoprolol Tartrate (Lopressor) 5 mg Q4H PRN IV HR>110 Hold SBP<100; Start at 17:00 Trazodone HCl 100 mg 100 mg QHS PRN PO SLEEP; Start 01/03/17 at 21:00 Vancomycin HCl/ Sodium Chloride (Vancocin/NS) 250 ml @ 83.333 mls/ hr Q36H IVPB ; Start 01/06/17 at 00:00 MONAE UP MD Jan 04, 2017 16:08
--- NOTE | 2017-01-04 19:51 | PN ---
Date/Time of Note Date/Time of Note DATE: 01/04/17 TIME: 19:51 Assessment/Plan VTE Prophylaxis VTE Prophylaxis Intervention: heparin Lines/Catheters IV C[facility]ter Type [facility]from [facility]): Saline Lock Urinary Cath still in place: Yes Reason Cath still needed: other (indicate) Assessment/Plan Assessment/Plan 1. Dyspnea secondary to CHF exacerbation -still on nonrebreather (desaturates when he removes it). Chest x-ray from yesterday showed Extensive bilateral interstitial and airspace disease is stable in distribution and extent with no new opacities are identified. - continue on diuretics. Pulmonary following - pt is now DNR/DNI . 2. Acute on CKD: worsening - Nephrology following 3. Sepsis secondary to UTI and decub ulcers with urine culture showing enterococcus: WBC has been worsening, but today slightly improved -Continue current abx 4. Altered mentation. Suspect patient currently at baseline. Does have underlying dementia, and now with occasional delirium - monitor for now. Aspiration precautions. One-to-one sitter as needed 5. Essential hypertension. Continue antihypertensives and adjust needed 6. Decubitus ulcers - continue with wound care 7. Anemia of chronic disease. H&H slightly down trending. Monitor at this time. will check iron/ferritin. if further drop or any sign of bleeding, will hold ppx heparin Subjective 24 Hr Interval Summary Free Text/Dictation on NRM. sleepy Exam/Review of Systems Vital Signs Vitals Vital Signs Date Time Temp Pulse Resp B/P Pulse Ox O2 Delivery O2 Flow Rate FiO2 01/04/17 19:27 Venti Mask 01/04/17 18:00 97.7 86 18 124/67 99 01/04/17 10:42 12.0 40 Intake and Output 01/03/17 01/03/17 01/04/17 15:00 23:00 07:00 Intake Total 650 ml 300 ml Output Total 1050 ml 750 ml Balance -400 ml -450 ml Results Result Diagram: 01/04/17 0525 01/04/17 0525 Results 24 hrs Laboratory Tests Test 01/03/17 20:46 01/04/17 05:25 01/04/17 08:20 01/04/17 11:12 Bedside Glucose 177 178 White Blood Count 16.1 H Red Blood Count 2.67 L Hemoglobin 7.8 L Hematocrit 25.9 L Mean Corpuscular Volume 97.0 Mean Corpuscular Hemoglobin 29.2 Mean Corpuscular Hemoglobin Concent 30.1 L Red Cell Distribution Width 17.9 H Platelet Count 321 Mean Platelet Volume 10.8 H Neutrophils % 86.0 H Lymphocytes % 3.8 L Monocytes % 4.2 Eosinophils % 3.1 Basophils % 0.2 Nucleated Red Blood Cells % 0.2 H Neutrophils # 13.9 H Lymphocytes # 0.6 L Monocytes # 0.7 Eosinophils # 0.5 Basophils # 0.0 Nucleated Red Blood Cells # 0.0 Sodium Level 146 H Potassium Level 3.8 Chloride Level 100 Carbon Dioxide Level 33 H Anion Gap 17 H Blood Urea Nitrogen 66 H Creatinine 1.76 H Glucose Level 155 Calcium Level 9.1 Phosphorus Level 3.7 Magnesium Level 2.2 Vancomycin Level Trough 15.1 Test 01/04/17 12:19 01/04/17 17:45 Bedside Glucose 122 108 Medications Medications Current Medications Lorazepam (Ativan) 0.5 mg Q6H PRN IV ANXIETY Last administered on 01/03/17 21: 06; Admin Dose 0.5 MG; Start 12/26/16 at 06:00 Ondansetron HCl (Zofran Inj) 4 mg Q6H PRN IV NAUSEA AND/OR VOMITING; Start at 06:00 Aspirin (Aspirin) 81 mg DAILY PO Last administered on 01/04/17 08:23; Admin Dose 81 MG; Start 12/26/16 at 09:00 Acetaminophen (Tylenol Tab) 650 mg Q6H PRN PO PAIN LEVEL 1-3 OR FEVER Last administered on 12/27/16 03:55; Admin Dose 650 MG; Start 12/26/16 at 06:00 Morphine Sulfate (morphine) 2 mg Q4H PRN IV PAIN LEVEL 7-10 Last administered on 01/03/17 01:35; Admin Dose 2 MG; Start 12/26/16 at 06:00 Heparin Sodium (Porcine) (Heparin (5000 Units/0.5 ml)) 5,000 unit Q12 SC Last administered on 01/04/17 08:27; Admin Dose 5,000 UNIT; Start 12/26/16 at 09:00 Diagnostic Test (Pha) (Accu-Chek) 1 ea 02 XX ; Start 12/27/16 at 02:00 Insulin Glargine (Lantus) 14 unit DAILY@08 SC Last administered on 01/04/17 08 :26; Admin Dose 14 UNIT; Start 12/26/16 at 08:00 Miscellaneous Information 1 ea NOTE XX ; Start 12/26/16 at 06:00 Glucose (Glutose) 15 gm Q15M PRN PO DECREASED GLUCOSE; Start 12/26/16 at 06:00 Glucose (Glutose) 22.5 gm Q15M PRN PO DECREASED GLUCOSE; Start 12/26/16 at 06: 00 Dextrose (D50w Syringe) 25 ml Q15M PRN IV DECREASED GLUCOSE; Start 12/26/16 at 06:00 Dextrose (D50w Syringe) 50 ml Q15M PRN IV DECREASED GLUCOSE; Start 12/26/16 at 06:00 Glucagon (Glucagen) 1 mg Q15M PRN IM DECREASED GLUCOSE; Start 12/26/16 at 06:00 Glucose (Glutose) 15 gm Q15M PRN BUCCAL DECREASED GLUCOSE; Start 12/26/16 at 06 :00 [facility] This patient betancourt... PRN PRN XX WOUND CARE; Start 12/26/16 at 06:30 Hydralazine HCl (Apresoline) 25 mg Q8 PO Last administered on 01/04/17 14:00; Admin Dose 25 MG; Start 12/26/16 at 22:00 Metoprolol Tartrate (Lopressor) 25 mg BID PO Last administered on 01/04/17 08: 23; Admin Dose 25 MG; Start 12/26/16 at 21:00 Guaifenesin/ Codeine Phosphate (Robitussin Ac Liquid Cup) 10 ml Q4H PRN PO COUGH Last administered on 12/30/16 16:24; Admin Dose 10 ML; Start 12/26/16 at 20:30 Quetiapine Fumarate (Seroquel) 50 mg BID PO Last administered on 01/04/17 08: 22; Admin Dose 50 MG; Start 12/26/16 at 22:00 Hydralazine HCl (Apresoline) 10 mg Q6H PRN IV ELEVATED SYSTOLIC BP; Start 12/31 at 23:30 Lorazepam (Ativan) 0.5 mg Q6H PRN IV ANXIETY; Start 12/31/16 at 23:30 Vancomycin HCl PER PHARMACY DOSING NOTE XX ; Start 01/01/17 at 10:30 Cefepime HCl (Maxipime 2gm/50 ml (Pmx)) 50 ml @ 100 mls/hr Q24H IVPB Last administered on 01/04/17 08:22; Admin Dose 100 MLS/HR; Start 01/03/17 at 09:00 Metoprolol Tartrate (Lopressor) 5 mg Q4H PRN IV HR>110 Hold SBP<100; Start at 17:00 Trazodone HCl 100 mg 100 mg QHS PRN PO SLEEP; Start 01/03/17 at 21:00 Vancomycin HCl/ Sodium Chloride (Vancocin/NS) 250 ml @ 83.333 mls/ hr Q36H IVPB ; Start 01/06/17 at 00:00 CHRISTIANNE CRUZ MD Jan 04, 2017 19:51
[2017-01-04] MEDS: LORAZEPAM 2 MG INJ IV PRN (21:23)
[2017-01-05] VITALS (17 sets, daily range): BP systolic 105–160; BP diastolic 52–88; PULSE 73–110; RESP 16–22
[2017-01-05] MEDS: ACCU-CHEK XX SCH (02:00)
--- NOTE | 2017-01-05 05:26 | PN ---
DATE: 01/04/2017 SUBJECTIVE DATA: The patient remains critically ill on 100 percent non-rebreather. Patient is pending transfer to [place]. No other events noted. OBJECTIVE DATA: Blood pressure 121/59, respirations 18, pulse 78, temperature 97.5. HEENT: Head is normocephalic. NECK: Supple. HEART: Regular rate. LUNGS: Diminished breath sounds at the base. ABDOMEN: Soft, nontender to palpation. No rebound or guarding. EXTREMITIES: Negative for clubbing, cyanosis, no edema. DERMATOLOGIC: No rashes. MUSCULOSKELETAL: No joint effusion. NEUROLOGIC: No change in exam. MEDICATIONS:: Reviewed. LABORATORY: Shows sodium 146, potassium , chloride 100, BUN 66, creatinine 1.76. White count is 16.1, hemoglobin 7.8, platelet count is 321. ASSESSMENT AND PLAN: 1. Nonoliguric acute kidney injury on top of chronic kidney disease with unknown baseline creatinine. Etiology secondary to hemodynamics. The patient's renal function has been fluctuating. The patient's diuretics were reintroduced yesterday by cardiology. At this point, continue to monitor closely. Supportive care. Renal dose the meds. 2. Chronic kidney disease. The patient is currently in acute kidney injury as stated above. Continue current medical management. 3. Hypernatremia. The patient has a free water deficit of approximately 1 L. Will consider starting patient D5W. 4. Hypokalemia. Continue monitor and replete. 5. Anemia. Monitor H and H levels. 6. Mineral bone disorder. Monitor calcium and phosphorus levels. 7. Congestive heart failure. Continue current medical management. Follow up with Cardiology. 8. Sepsis secondary to underlying pneumonia. Continue current antibiotic regimen. 9. Hypoxemic respiratory failure. The patient is on 100 percent non-rebreather. Continue follow up with Pulmonary. 10. Acute encephalopathy with dementia. Dictated By: Major Lazo DO /lalitha/jade /Document#: [id number]
[2017-01-05] MEDS: FUROSEMIDE 40 MG INJ IV SCH (06:13)
[2017-01-05 06:19] LABS: CREATININE 2.14 mg/dl (0.61-1.24); MAGNESIUM 2.2 mg/dl (1.7-2.5); PHOSPHORUS 4.1 mg/dl (2.5-4.9); POTASSIUM 4.1 mmol/L (3.5-5.1)
[2017-01-05] MEDS: QUETIAPINE 25 MG TAB PO SCH (08:40)
[2017-01-05] MEDS: METOPROLOL 25 MG TAB PO SCH ×2 (08:41→20:32)
[2017-01-05] MEDS: CEFEPIME 2GM/50 ML (PMX) 50 ML IVPB SCH (08:41)
[2017-01-05] MEDS: ASPIRIN 81 MG TAB PO SCH (08:41)
[2017-01-05] MEDS: HEPARIN 5,000 UNIT/0.5 ML VIAL SC SCH ×2 (08:44→20:36)
[2017-01-05] MEDS: INSULIN GLARGINE [LANtus] 3 ML PEN SC SCH (08:49)
[2017-01-05] MEDS: INSULIN ASPART [NOVOLOG] 3 ML PEN SC SCH ×4 (08:55→20:28)
[2017-01-05] MEDS: DEXTROSE 5% 1,000 ML IV SCH ×2 (09:05→22:01)
--- NOTE | 2017-01-05 11:02 | PN ---
DATE: 01/05/2017 SUBJECTIVE DATA: The patient remains critically ill on a nonrebreather. No other acute events overnight. No hemoptysis, hematemesis, hematochezia. OBJECTIVE DATA: Blood pressure 142/78, respirations 16, pulse , temperature 98.4. HEENT: Head is normocephalic. NECK: Supple. HEART: Regular rate. LUNGS: Diminished breath sounds base. ABDOMEN: Soft, nontender to palpation. No rebound or guarding. EXTREMITIES: Negative for clubbing, cyanosis, no edema. DERMATOLOGIC: No rashes. MUSCULOSKELETAL: No joint effusions. NEUROLOGIC: No change in exam. Patient's medications have been reviewed. LABORATORY AND DIAGNOSTIC DATA: Sodium 151, potassium 4.1, chloride 103. BUN 69, creatinine 2.14. White count is 16.1, hemoglobin 7.8, hematocrit 25.9, platelet count 321. ASSESSMENT AND PLAN: 1. Nonoliguric acute kidney injury on top of chronic kidney disease with unknown baseline creatinine. Etiology secondary to hemodynamics with possible tubular injury. The patient's renal function has declined over the last 24 hours, likely due to recent diuretic therapy. The plan at this point would be to hold Lasix for the next 24 hours to enable fluids to mobilize. Would otherwise continue supportive care. Renally dose all medications. Avoid nephrotoxins. 2. Hypernatremia. The patient has a free water deficit of 2. Etiology secondary to insensible losses. We will start the patient on D5 water at 75 mL/hour. 3. Chronic kidney disease. The patient is currently in acute kidney injury as stated above. Continue medical management. 4. Hypokalemia, improved. 5. Alkalosis. Etiology is likely compensatory due to hypercapnia. Will continue to monitor. 6. Anemia. Monitor hemoglobin and hematocrit levels. 7. Mineral bone disorder. Monitor calcium and phosphorous levels. 8. Congestive heart failure. The patient is being seen by Cardiology. Will hold diuretic therapy due to worsening renal function. Monitor closely. 9. Acute hypoxemic respiratory failure secondary to pneumonia, congestive heart failure. The patient remains on nonrebreather. Continue medical management. Follow up with Pulmonary. 10. Sepsis secondary to underlying pneumonia. Continue current antibiotic regimen. 11. Acute encephalopathy and dementia. Dictated By: Major Lazo DO /lalitha/pineda /Document#: [id number]
--- NOTE | 2017-01-05 11:30 | CONS ---
Date/Time of Note Date/Time of Note DATE: 01/05/17 TIME: 11:27 Assessment/Plan Assessment/Plan Chief Complaint/Hosp Course IMP: 1.CHF-diastolic acute on chronic. Trop negative x 3 2.MS-severe by echo 3.abnl ecg 4.Psych d/o 5.REnal failure 6. UTI 7.AMS 8. Resp distress-on NRB 9. DNR status Recc: -tele -Continue po antihypertensives -IVP PRN BB -Continue bronchodilators/follow resp status closely -Continue abx's and f/u cx data -Follow volume status closely with lasix held per renal Problems: Consultation Date/Type/Reason Admit Date/Time Dec 26, 2016 at 01:49 Initial Consult Date 12/26/2016 Type of Consultation: cardiology Reason for Consultation CHF Referring Provider: ANGELA AL Exam/Review of Systems Vital Signs Vitals Vital Signs Date Time Temp Pulse Resp B/P Pulse Ox O2 Delivery O2 Flow Rate FiO2 01/05/17 09:37 98.2 88 22 132/68 95 01/05/17 08:00 Venti Mask 01/05/17 01:17 12.0 40 Intake and Output 01/04/17 01/04/17 01/05/17 15:00 23:00 07:00 Intake Total 400 ml 300 ml Output Total 650 ml 550 ml Balance -250 ml -250 ml Exam Review of Systems: CONSTITUTIONAL: No fevers, chills. PULMONARY: NR breather in place CARDIOVASCULAR: No chest pain/palpitations GASTROINTESTINAL: No nausea/vomiting. GENITOURINARY: No hematuria/dysuria. MUSCULOSKELETAL: No myagias/arthalgias. PSYCHIATRIC: The patient denies depression. NEUROLOGIC: lethargic Constitutional: other (lethargic) Psych: no complaints Head: atraumatic ENMT: mucosa pink and moist Neck: jvd (9 cm water), supple Respiratory: other (upper airway rhoncherous sounds) Cardiovascular: regular rate and rhythm Gastrointestinal: non-tender, soft Musculoskeletal: muscle weakness (generalized) Extremities: edema (trace/B) Neurological: lethargic Results Result Diagram: 01/04/17 0525 01/05/17 0519 Results 24 hrs Laboratory Tests Test 01/04/17 12:19 01/04/17 17:45 01/04/17 21:26 01/05/17 03:36 Bedside Glucose 122 108 207 209 Test 01/05/17 05:19 01/05/17 08:22 Sodium Level 151 H Potassium Level 4.1 Chloride Level 103 Carbon Dioxide Level 33 H Anion Gap 19 H Blood Urea Nitrogen 69 H Creatinine 2.14 H Glucose Level 230 H Calcium Level 9.0 Phosphorus Level 4.1 Magnesium Level 2.2 Bedside Glucose 259 H Medications Medications Current Medications Lorazepam (Ativan) 0.5 mg Q6H PRN IV ANXIETY Last administered on 01/04/17 21: 23; Admin Dose 0.5 MG; Start 12/26/16 at 06:00 Ondansetron HCl (Zofran Inj) 4 mg Q6H PRN IV NAUSEA AND/OR VOMITING; Start at 06:00 Aspirin (Aspirin) 81 mg DAILY PO Last administered on 01/05/17 08:41; Admin Dose 81 MG; Start 12/26/16 at 09:00 Acetaminophen (Tylenol Tab) 650 mg Q6H PRN PO PAIN LEVEL 1-3 OR FEVER Last administered on 12/27/16 03:55; Admin Dose 650 MG; Start 12/26/16 at 06:00 Morphine Sulfate (morphine) 2 mg Q4H PRN IV PAIN LEVEL 7-10 Last administered on 01/03/17 01:35; Admin Dose 2 MG; Start 12/26/16 at 06:00 Heparin Sodium (Porcine) (Heparin (5000 Units/0.5 ml)) 5,000 unit Q12 SC Last administered on 01/05/17 08:44; Admin Dose 5,000 UNIT; Start 12/26/16 at 09:00 Diagnostic Test (Pha) (Accu-Chek) 1 ea 02 XX Last administered on 01/05/17 02: 00; Admin Dose 1 EA; Start 12/27/16 at 02:00 Insulin Glargine (Lantus) 14 unit DAILY@08 SC Last administered on 01/05/17 08 :49; Admin Dose 14 UNIT; Start 12/26/16 at 08:00 Miscellaneous Information 1 ea NOTE XX ; Start 12/26/16 at 06:00 Glucose (Glutose) 15 gm Q15M PRN PO DECREASED GLUCOSE; Start 12/26/16 at 06:00 Glucose (Glutose) 22.5 gm Q15M PRN PO DECREASED GLUCOSE; Start 12/26/16 at 06: 00 Dextrose (D50w Syringe) 25 ml Q15M PRN IV DECREASED GLUCOSE; Start 12/26/16 at 06:00 Dextrose (D50w Syringe) 50 ml Q15M PRN IV DECREASED GLUCOSE; Start 12/26/16 at 06:00 Glucagon (Glucagen) 1 mg Q15M PRN IM DECREASED GLUCOSE; Start 12/26/16 at 06:00 Glucose (Glutose) 15 gm Q15M PRN BUCCAL DECREASED GLUCOSE; Start 12/26/16 at 06 :00 Miscellaneous Information (Pending [facility] Order For Wound Care) This patient betancourt... PRN PRN XX WOUND CARE; Start 12/26/16 at 06:30 Hydralazine HCl (Apresoline) 25 mg Q8 PO Last administered on 01/05/17 06:13; Admin Dose 25 MG; Start 12/26/16 at 22:00 Metoprolol Tartrate (Lopressor) 25 mg BID PO Last administered on 01/05/17 08: 41; Admin Dose 25 MG; Start 12/26/16 at 21:00 Guaifenesin/ Codeine Phosphate (Robitussin Ac Liquid Cup) 10 ml Q4H PRN PO COUGH Last administered on 12/30/16 16:24; Admin Dose 10 ML; Start 12/26/16 at 20:30 Quetiapine Fumarate (Seroquel) 50 mg BID PO Last administered on 01/05/17 08: 40; Admin Dose 50 MG; Start 12/26/16 at 22:00 Hydralazine HCl (Apresoline) 10 mg Q6H PRN IV ELEVATED SYSTOLIC BP; Start 12/31 at 23:30 Lorazepam (Ativan) 0.5 mg Q6H PRN IV ANXIETY; Start 12/31/16 at 23:30 Vancomycin HCl PER PHARMACY DOSING NOTE XX ; Start 01/01/17 at 10:30 Cefepime HCl (Maxipime 2gm/50 ml (Pmx)) 50 ml @ 100 mls/hr Q24H IVPB Last administered on 01/05/17 08:41; Admin Dose 100 MLS/HR; Start 01/03/17 at 09:00 Metoprolol Tartrate (Lopressor) 5 mg Q4H PRN IV HR>110 Hold SBP<100; Start at 17:00 Trazodone HCl 100 mg 100 mg QHS PRN PO SLEEP; Start 01/03/17 at 21:00 Vancomycin HCl 1.25 gm/Sodium Chloride 250 ml @ 83.333 mls/ hr Q36H IVPB ; Start 01/06/17 at 00:00 Dextrose (D5W) 1,000 ml @ 75 mls/hr [id number] IV Last administered on 01/05/17t 09:05; Admin Dose 75 MLS/HR; Start 01/05/17 at 09:00 DENG WALLIS Jan 05, 2017 11:30
--- NOTE | 2017-01-05 11:38 | PN ---
DATE: 12/28/2016 SUBJECTIVE DATA: The patient is critical, on a non-rebreather. No other acute events noted. The patient remains confused. OBJECTIVE DATA: VITAL SIGNS: Blood pressure 120/64, respiration 18, pulse 68, temperature 98.1 degrees. I's and O's: 1,200 in, 2,300 out. HEENT: Head is normocephalic. NECK: Supple. CARDIAC: Heart is regular rate. RESPIRATORY: Lungs show diminished breath sounds at the bases. ABDOMEN: Soft, nontender to palpation. No rebound or guarding. EXTREMITIES: Negative for clubbing, cyanosis. No edema. DERMATOLOGIC: No rashes. MUSCULOSKELETAL: No joint effusion. NEUROLOGICAL: No change in exam. The patient's medications reviewed. LABORATORY AND DIAGNOSTIC DATA: Sodium 143, potassium 3.7, BUN 37, creatinine 1.49. White count 12.2, hemoglobin 8.4, hematocrit 26.9, platelet count 275,000. ASSESSMENT AND PLAN: 1. Nonoliguric acute kidney injury with unknown baseline creatinine, likely chronic kidney disease. Etiology is secondary to hemodynamics, possible tubular injury. Renal function has been fluctuating likely from diuretic therapy. At this point continue current treatment plan. Continue diuretic therapy. Monitor closely. 2. Chronic kidney disease with unknown etiology, likely multifactorial. The patient's renal ultrasound shows increased echogenicity consistent with chronic kidney disease. At this point, continue treating acute kidney injury as stated above. 3. Congestive heart failure. The patient is volume overloaded. Continue diuretic therapy. 4. Acute hypoxemic respiratory failure secondary to congestive heart failure, with questionable aspiration. Continue non- rebreather. The patient may require intubation. Monitor closely. Follow up with Pulmonary. 5. Sepsis. The patient's antibiotic regimen is reviewed. Continue to monitor. 6. Ischemic encephalopathy with underlying dementia. Etiology is toxic metabolic. Continue current treatment plan. Dictated By: Major Lazo DO /lalitha/raffi /Document#: [id number]
--- NOTE | 2017-01-05 12:33 | CONS ---
Date/Time of Note Date/Time of Note DATE: 01/05/17 TIME: 12:31 Assessment/Plan Assessment/Plan Additional Assessment/Plan Assessment and recommendations; 1. Patient admitted for CHF clinically improved. 2. Underlying valvular heart disease. 3. Advanced dementia. Continue current treatment. Consider transfer to longterm. Consultation Date/Type/Reason Admit Date/Time Dec 26, 2016 at 01:49 Initial Consult Date 01/02/17 Type of Consultation: Pulmonary Referring Provider: ANGELA AL 24 HR Interval Summary Free Text/Dictation Patient condition remains stable. Remains essentially unresponsive to any commands owing to advanced dementia. Has remained hemodynamically stable. General exam; elderly male, somewhat responsive, currently in no distress. Exam/Review of Systems Vital Signs Vitals Vital Signs Date Time Temp Pulse Resp B/P Pulse Ox O2 Delivery O2 Flow Rate FiO2 01/05/17 12:07 77 01/05/17 11:32 98.2 16 137/88 96 01/05/17 08:00 Venti Mask 01/05/17 01:17 12.0 40 Intake and Output 01/04/17 01/04/17 01/05/17 15:00 23:00 07:00 Intake Total 400 ml 300 ml Output Total 650 ml 550 ml Balance -250 ml -250 ml Exam HEENT exam; supple neck, no JVD. No lymphadenopathy. Midline trachea. No thyromegaly. Chest exam; diminished but clear breath sound. S1-S2 audible, no murmurs. Regular rhythm. Abdomen exam; soft, no organomegaly. Bowel sounds audible. Extremity exam; no peripheral edema. [employer] HE[employer]IST exam; patient remains unresponsive. Results Result Diagram: 01/04/17 0525 01/05/17 0519 Results 24 hrs Laboratory Tests Test 01/04/17 17:45 01/04/17 21:26 01/05/17 03:36 01/05/17 05:19 Bedside Glucose 108 207 209 Sodium Level 151 H Potassium Level 4.1 Chloride Level 103 Carbon Dioxide Level 33 H Anion Gap 19 H Blood Urea Nitrogen 69 H Creatinine 2.14 H Glucose Level 230 H Calcium Level 9.0 Phosphorus Level 4.1 Magnesium Level 2.2 Test 01/05/17 08:22 01/05/17 11:37 Bedside Glucose 259 H 184 Medications Medications Current Medications Lorazepam (Ativan) 0.5 mg Q6H PRN IV ANXIETY Last administered on 01/04/17 21: 23; Admin Dose 0.5 MG; Start 12/26/16 at 06:00 Ondansetron HCl (Zofran Inj) 4 mg Q6H PRN IV NAUSEA AND/OR VOMITING; Start at 06:00 Aspirin (Aspirin) 81 mg DAILY PO Last administered on 01/05/17 08:41; Admin Dose 81 MG; Start 12/26/16 at 09:00 Acetaminophen (Tylenol Tab) 650 mg Q6H PRN PO PAIN LEVEL 1-3 OR FEVER Last administered on 12/27/16 03:55; Admin Dose 650 MG; Start 12/26/16 at 06:00 Morphine Sulfate (morphine) 2 mg Q4H PRN IV PAIN LEVEL 7-10 Last administered on 01/03/17 01:35; Admin Dose 2 MG; Start 12/26/16 at 06:00 Heparin Sodium (Porcine) (Heparin (5000 Units/0.5 ml)) 5,000 unit Q12 SC Last administered on 01/05/17 08:44; Admin Dose 5,000 UNIT; Start 12/26/16 at 09:00 Diagnostic Test (Pha) (Accu-Chek) 1 ea 02 XX Last administered on 01/05/17 02: 00; Admin Dose 1 EA; Start 12/27/16 at 02:00 Insulin Glargine (Lantus) 14 unit DAILY@08 SC Last administered on 01/05/17 08 :49; Admin Dose 14 UNIT; Start 12/26/16 at 08:00 Miscellaneous Information 1 ea NOTE XX ; Start 12/26/16 at 06:00 Glucose (Glutose) 15 gm Q15M PRN PO DECREASED GLUCOSE; Start 12/26/16 at 06:00 Glucose (Glutose) 22.5 gm Q15M PRN PO DECREASED GLUCOSE; Start 12/26/16 at 06: 00 Dextrose (D50w Syringe) 25 ml Q15M PRN IV DECREASED GLUCOSE; Start 12/26/16 at 06:00 Dextrose (D50w Syringe) 50 ml Q15M PRN IV DECREASED GLUCOSE; Start 12/26/16 at 06:00 Glucagon (Glucagen) 1 mg Q15M PRN IM DECREASED GLUCOSE; Start 12/26/16 at 06:00 Glucose (Glutose) 15 gm Q15M PRN BUCCAL DECREASED GLUCOSE; Start 12/26/16 at 06 :00 [facility] This patient betancourt... PRN PRN XX WOUND CARE; Start 12/26/16 at 06:30 Hydralazine HCl (Apresoline) 25 mg Q8 PO Last administered on 01/05/17 06:13; Admin Dose 25 MG; Start 12/26/16 at 22:00 Metoprolol Tartrate (Lopressor) 25 mg BID PO Last administered on 01/05/17 08: 41; Admin Dose 25 MG; Start 12/26/16 at 21:00 Guaifenesin/ Codeine Phosphate (Robitussin Ac Liquid Cup) 10 ml Q4H PRN PO COUGH Last administered on 12/30/16 16:24; Admin Dose 10 ML; Start 12/26/16 at 20:30 Quetiapine Fumarate (Seroquel) 50 mg BID PO Last administered on 01/05/17 08: 40; Admin Dose 50 MG; Start 12/26/16 at 22:00 Hydralazine HCl (Apresoline) 10 mg Q6H PRN IV ELEVATED SYSTOLIC BP; Start 12/31 at 23:30 Lorazepam (Ativan) 0.5 mg Q6H PRN IV ANXIETY; Start 12/31/16 at 23:30 Vancomycin HCl PER PHARMACY DOSING NOTE XX ; Start 01/01/17 at 10:30 Cefepime HCl (Maxipime 2gm/50 ml (Pmx)) 50 ml @ 100 mls/hr Q24H IVPB Last administered on 01/05/17 08:41; Admin Dose 100 MLS/HR; Start 01/03/17 at 09:00 Metoprolol Tartrate (Lopressor) 5 mg Q4H PRN IV HR>110 Hold SBP<100; Start at 17:00 Trazodone HCl 100 mg 100 mg QHS PRN PO SLEEP; Start 01/03/17 at 21:00 Vancomycin HCl 1.25 gm/Sodium Chloride 250 ml @ 83.333 mls/ hr Q36H IVPB ; Start 01/06/17 at 00:00 Dextrose (D5W) 1,000 ml @ 75 mls/hr [id number] IV Last administered on 01/05/17 09:05; Admin Dose 75 MLS/HR; Start 01/05/17 at 09:00 RASHIDA POLO Jan 05, 2017 12:33
[2017-01-05] MEDS: morphine 2 MG INJ IV PRN (13:49)
--- NOTE | 2017-01-05 17:34 | PN ---
Date/Time of Note Date/Time of Note DATE: 01/05/17 TIME: 17:25 Assessment/Plan VTE Prophylaxis VTE Prophylaxis Intervention: heparin Lines/Catheters IV Catheter Type (from Nrs): Peripheral IV Urinary Cath still in place: Yes Reason Cath still needed: terminal illness/intractable pain Assessment/Plan Chief Complaint/Hosp Course Assessment/Plan 1. Dyspnea secondary to CHF exacerbation -still on nonrebreather (desaturates when he removes it). Chest x-ray before showed Extensive bilateral interstitial and airspace disease is stable in distribution and extent with no new opacities are identified. - holding diuretics for now per nephro. - pt is now DNR/DNI . 2. Acute on CKD: - Nephrology following, starting D5w and holding lasix for now, nephro does not feel it is a volume overload situation. 3. Sepsis secondary to UTI and decub ulcers with urine culture showing enterococcus: WBC downtrending. -Continue current abx 4. Altered mentation. Suspect patient currently at baseline. Does have underlying dementia, and now with occasional delirium - monitor for now. Aspiration precautions. One-to-one sitter as needed 5. Essential hypertension. Continue antihypertensives and adjust needed 6. Decubitus ulcers - continue with wound care 7. Anemia of chronic disease. H&H slightly down trending. Monitor at this time. will check iron/ferritin. if further drop or any sign of bleeding, will hold ppx heparin Problems: Subjective 24 Hr Interval Summary Free Text/Dictation not oriented, likely baseline Exam/Review of Systems Vital Signs Vitals Vital Signs Date Time Temp Pulse Resp B/P Pulse Ox O2 Delivery O2 Flow Rate FiO2 01/05/17 16:00 73 01/05/17 15:19 97.8 22 105/58 96 01/05/17 14:59 12.0 40 01/05/17 08:00 Venti Mask Intake and Output 01/04/17 01/04/17 01/05/17 15:00 23:00 07:00 Intake Total 400 ml 300 ml Output Total 650 ml 550 ml Balance -250 ml -250 ml Exam Physical exam General: Patient is laying in bed, not oriented. On venti mask. Mentation: Patient is alert but not oriented Head: Normocephalic atraumatic Eyes: EOMI, pupils reactive to light Neck: Supple, nontender, midline Respiratory: course to auscultation bilaterally Cardiovascular: regular rate, no obvious murmurs Gastrointestinal: non-tender to palpation, bowel sounds heard. Neurological: Moves all extremities spontaneously Skin: No new skin lesions Results Result Diagram: 01/04/17 0525 01/05/17 0519 Results 24 hrs Laboratory Tests Test 01/04/17 17:45 01/04/17 21:26 01/05/17 03:36 01/05/17 05:19 Bedside Glucose 108 207 209 Sodium Level 151 H Potassium Level 4.1 Chloride Level 103 Carbon Dioxide Level 33 H Anion Gap 19 H Blood Urea Nitrogen 69 H Creatinine 2.14 H Glucose Level 230 H Calcium Level 9.0 Phosphorus Level 4.1 Magnesium Level 2.2 Test 01/05/17 08:22 01/05/17 11:37 Bedside Glucose 259 H 184 Medications Medications Current Medications Lorazepam (Ativan) 0.5 mg Q6H PRN IV ANXIETY Last administered on 01/04/17 21: 23; Admin Dose 0.5 MG; Start 12/26/16 at 06:00 Ondansetron HCl (Zofran Inj) 4 mg Q6H PRN IV NAUSEA AND/OR VOMITING; Start at 06:00 Aspirin (Aspirin) 81 mg DAILY PO Last administered on 01/05/17 08:41; Admin Dose 81 MG; Start 12/26/16 at 09:00 Acetaminophen (Tylenol Tab) 650 mg Q6H PRN PO PAIN LEVEL 1-3 OR FEVER Last administered on 12/27/16 03:55; Admin Dose 650 MG; Start 12/26/16 at 06:00 Heparin Sodium (Porcine) (Heparin (5000 Units/0.5 ml)) 5,000 unit Q12 SC Last administered on 01/05/17 08:44; Admin Dose 5,000 UNIT; Start 12/26/16 at 09:00 Diagnostic Test (Pha) (Accu-Chek) 1 ea 02 XX Last administered on 01/05/17 02: 00; Admin Dose 1 EA; Start 12/27/16 at 02:00 Insulin Glargine (Lantus) 14 unit DAILY@08 SC Last administered on 01/05/17 08 :49; Admin Dose 14 UNIT; Start 12/26/16 at 08:00 Miscellaneous Information 1 ea NOTE XX ; Start 12/26/16 at 06:00 Glucose (Glutose) 15 gm Q15M PRN PO DECREASED GLUCOSE; Start 12/26/16 at 06:00 Glucose (Glutose) 22.5 gm Q15M PRN PO DECREASED GLUCOSE; Start 12/26/16 at 06: 00 Dextrose (D50w Syringe) 25 ml Q15M PRN IV DECREASED GLUCOSE; Start 12/26/16 at 06:00 Dextrose (D50w Syringe) 50 ml Q15M PRN IV DECREASED GLUCOSE; Start 12/26/16 at 06:00 Glucagon (Glucagen) 1 mg Q15M PRN IM DECREASED GLUCOSE; Start 12/26/16 at 06:00 Glucose (Glutose) 15 gm Q15M PRN BUCCAL DECREASED GLUCOSE; Start 12/26/16 at 06 :00 Miscellaneous Information (Pending Santyl Order For Wound Care) This patient betancourt... PRN PRN XX WOUND CARE; Start 12/26/16 at 06:30 Hydralazine HCl (Apresoline) 25 mg Q8 PO Last administered on 01/05/17 13:49; Admin Dose 25 MG; Start 12/26/16 at 22:00 Metoprolol Tartrate (Lopressor) 25 mg BID PO Last administered on 01/05/17 08: 41; Admin Dose 25 MG; Start 12/26/16 at 21:00 Guaifenesin/ Codeine Phosphate (Robitussin Ac Liquid Cup) 10 ml Q4H PRN PO COUGH Last administered on 12/30/16 16:24; Admin Dose 10 ML; Start 12/26/16 at 20:30 Quetiapine Fumarate (Seroquel) 50 mg BID PO Last administered on 01/05/17 08: 40; Admin Dose 50 MG; Start 12/26/16 at 22:00 Hydralazine HCl (Apresoline) 10 mg Q6H PRN IV ELEVATED SYSTOLIC BP; Start 12/31 at 23:30 Lorazepam (Ativan) 0.5 mg Q6H PRN IV ANXIETY; Start 12/31/16 at 23:30 Vancomycin HCl (Vanco Iv Per Pharmacy) PER PHARMACY DOSING NOTE XX ; Start 01/01 at 10:30 Metoprolol Tartrate (Lopressor) 5 mg Q4H PRN IV HR>110 Hold SBP<100; Start at 17:00 Trazodone HCl 100 mg 100 mg QHS PRN PO SLEEP; Start 01/03/17 at 21:00 Dextrose 1,000 ml @ 75 mls/hr [id number] IV Last administered on 01/05/17t 09:05 ; Admin Dose 75 MLS/HR; Start 01/05/17 at 09:00 Vancomycin HCl 1.25 gm/Sodium Chloride 250 ml @ 83.333 mls/ hr Q48H IVPB ; Start 01/06/17 at 12:00 Cefepime HCl (Maxipime 1gm/50 ml (Pmx)) 50 ml @ 100 mls/hr Q24H IVPB ; Start at 09:00 Morphine Sulfate (morphine) 2 mg Q4H PRN IV PAIN LEVEL 7-10; Start 01/05/17 at 14:30 MIKY GOODMAN Jan 05, 2017 17:34
[2017-01-06] VITALS (18 sets, daily range): BP systolic 98–118; BP diastolic 44–70; PULSE 69–110; RESP 15–21
[2017-01-06] MEDS ORDERED: VANCOMYCIN 1.25 GM in SOD CHLORIDE 0.9% 250 ML IVPB SCH ×2
[2017-01-06] MEDS: QUETIAPINE 25 MG TAB PO SCH ×3 (01:17→21:47)
[2017-01-06] MEDS: ACCU-CHEK XX SCH (01:17)
[2017-01-06 06:26] LABS: ABNORMAL IP MESSAGE 1; BASOPHIL # 0.1 10^3/ul (0.0-0.1); BASOPHILS % 0.5 % (0.0-2.0); EOSINOPHILS # 0.4 10^3/ul (0.0-0.5); EOSINOPHILS % 1.9 % (0.0-7.0); HEMATOCRIT 25.7 % (42.0-52.0); LYMPHOCYTES # 0.8 10^3/ul (0.8-2.9); LYMPHOCYTES % 4.1 % (15.0-51.0); MEAN CORPUSCULAR HEMOGLOBIN 30.4 pg (29.0-33.0); MEAN CORPUSCULAR HGB CONC 31.1 g/dl (32.0-37.0); MEAN CORPUSCULAR VOLUME 97.7 fl (82.0-101.0); MEAN PLATELET VOLUME 10.6 fl (7.4-10.4); MONOCYTE # 0.9 10^3/ul (0.3-0.9); MONOCYTES % 4.4 % (0.0-11.0); NEUTROPHIL # 16.3 10^3/ul (1.6-7.5); NUCLEATED RED BLOOD CELLS # 0.1 10^3/ul (0.0-0.0); NUCLEATED RED BLOOD CELLS% 0.4 /100WBC (0.0-0.0); PLATELET COUNT 376 10^3/UL (140-415); POSITIVE DIFF @See below; RED BLOOD COUNT 2.63 10^6/ul (4.70-6.10); RED CELL DISTRIBUTION WIDTH 18.9 % (11.5-14.5); WHITE BLOOD COUNT 19.6 10^3/ul (4.8-10.8)
[2017-01-06 07:06] LABS: CALCIUM 8.6 mg/dl (8.4-10.2); CREATININE 2.33 mg/dl (0.61-1.24); MAGNESIUM 2.1 mg/dl (1.7-2.5); PHOSPHORUS 4.1 mg/dl (2.5-4.9); POTASSIUM 3.7 mmol/L (3.5-5.1)
[2017-01-06] MEDS: INSULIN ASPART [NOVOLOG] 3 ML PEN SC SCH ×4 (08:11→21:00)
[2017-01-06] MEDS: INSULIN GLARGINE [LANtus] 3 ML PEN SC SCH (08:12)
[2017-01-06] MEDS: METOPROLOL 25 MG TAB PO SCH ×2 (08:34→21:51)
[2017-01-06] MEDS: ASPIRIN 81 MG TAB PO SCH (08:34)
[2017-01-06] MEDS: CEFEPIME 1GM/50 ML IVPB SCH (08:35)
--- NOTE | 2017-01-06 08:39 | CONS ---
Date/Time of Note Date/Time of Note DATE: 01/06/17 TIME: 08:37 Assessment/Plan Assessment/Plan Additional Assessment/Plan Assessment and recommendations; next 1. Patient admitted for CHF exacerbation with interval improvement. 2. Dementia with interval improvement as well in mental status. 3. Valvular heart disease. 4. History of diabetes and hypertension. 5. Renal insufficiency. Continue current treatment. Consultation Date/Type/Reason Admit Date/Time Dec 26, 2016 at 01:49 Initial Consult Date 01/02/17 Type of Consultation: Pulmonary Referring Provider: ANGELA AL 24 HR Interval Summary Free Text/Dictation Patient condition is improved. Remains awake and alert. Denies any shortness of breath. General exam; elderly male, awake and alert. Currently in no distress. Exam/Review of Systems Vital Signs Vitals Vital Signs Date Time Temp Pulse Resp B/P Pulse Ox O2 Delivery O2 Flow Rate FiO2 01/06/17 07:26 98.1 66 16 118/68 97 01/06/17 00:22 12.0 40 01/05/17 20:00 Venti Mask Intake and Output 01/05/17 01/05/17 01/06/17 15:00 23:00 07:00 Intake Total 1950 ml 720 ml Output Total 300 ml 250 ml Balance 1650 ml 470 ml Exam HEENT exam; supple neck, patient currently on Ventimask 40% FiO2. Patient has bilateral intraocular lens implants. He is edentulous. Chest exam; diminished but clear breath sound. S1-S2 audible, no murmurs. Regular rhythm. Abdomen exam; soft, nondistended. Bowel sounds audible. Extremity exam; no peripheral edema. CORN GRINDER exam; he is awake and moves all 4 extremities. Results Result Diagram: 01/06/17 0601 01/06/17 06 Results 24 hrs Laboratory Tests Test 01/05/17 11:37 01/05/17 17:35 01/05/17 20:26 01/06/17 01:24 Bedside Glucose 184 166 172 204 Test 01/06/17 06:01 01/06/17 08:04 White Blood Count 19.6 #H Red Blood Count 2.63 L Hemoglobin 8.0 L Hematocrit 25.7 L Mean Corpuscular Volume 97.7 Mean Corpuscular Hemoglobin 30.4 Mean Corpuscular Hemoglobin Concent 31.1 L Red Cell Distribution Width 18.9 H Platelet Count 376 Mean Platelet Volume 10.6 H Neutrophils % 83.0 H Lymphocytes % 4.1 L Monocytes % 4.4 Eosinophils % 1.9 Basophils % 0.5 Nucleated Red Blood Cells % 0.4 H Neutrophils # 16.3 H Lymphocytes # 0.8 Monocytes # 0.9 Eosinophils # 0.4 Basophils # 0.1 Nucleated Red Blood Cells # 0.1 H Sodium Level 143 Potassium Level 3.7 Chloride Level 98 Carbon Dioxide Level 31 Anion Gap 18 H Blood Urea Nitrogen 80 H Creatinine 2.33 H Glucose Level 274 H Calcium Level 8.6 Phosphorus Level 4.1 Magnesium Level 2.1 Bedside Glucose 303 H Medications Medications Current Medications Lorazepam (Ativan) 0.5 mg Q6H PRN IV ANXIETY Last administered on 01/04/17 21: 23; Admin Dose 0.5 MG; Start 12/26/16 at 06:00 Ondansetron HCl (Zofran Inj) 4 mg Q6H PRN IV NAUSEA AND/OR VOMITING; Start at 06:00 Aspirin (Aspirin) 81 mg DAILY PO Last administered on 01/05/17 08:41; Admin Dose 81 MG; Start 12/26/16 at 09:00 Acetaminophen (Tylenol Tab) 650 mg Q6H PRN PO PAIN LEVEL 1-3 OR FEVER Last administered on 12/27/16 03:55; Admin Dose 650 MG; Start 12/26/16 at 06:00 Heparin Sodium (Porcine) (Heparin (5000 Units/0.5 ml)) 5,000 unit Q12 SC Last administered on 01/05/17 20:36; Admin Dose 5,000 UNIT; Start 12/26/16 at 09:00 Diagnostic Test (Pha) (Accu-Chek) 1 ea 02 XX Last administered on 01/05/17 02: 00; Admin Dose 1 EA; Start 12/27/16 at 02:00 Insulin Glargine (Lantus) 14 unit DAILY@08 SC Last administered on 01/06/17 08: 12; Admin Dose 14 UNIT; Start 12/26/16 at 08:00 Miscellaneous Information 1 ea NOTE XX ; Start 12/26/16 at 06:00 Glucose (Glutose) 15 gm Q15M PRN PO DECREASED GLUCOSE; Start 12/26/16 at 06:00 Glucose (Glutose) 22.5 gm Q15M PRN PO DECREASED GLUCOSE; Start 12/26/16 at 06: 00 Dextrose (D50w Syringe) 25 ml Q15M PRN IV DECREASED GLUCOSE; Start 12/26/16 at 06:00 Dextrose (D50w Syringe) 50 ml Q15M PRN IV DECREASED GLUCOSE; Start 12/26/16 at 06:00 Glucagon (Glucagen) 1 mg Q15M PRN IM DECREASED GLUCOSE; Start 12/26/16 at 06:00 Glucose (Glutose) 15 gm Q15M PRN BUCCAL DECREASED GLUCOSE; Start 12/26/16 at 06 :00 Miscellaneous Information (Pending Santyl Order For Wound Care) This patient betancourt... PRN PRN XX WOUND CARE; Start 12/26/16 at 06:30 Hydralazine HCl (Apresoline) 25 mg Q8 PO Last administered on 01/06/17 05:43; Admin Dose 25 MG; Start 12/26/16 at 22:00 Metoprolol Tartrate (Lopressor) 25 mg BID PO Last administered on 01/05/17 20: 32; Admin Dose 25 MG; Start 12/26/16 at 21:00 Guaifenesin/ Codeine Phosphate (Robitussin Ac Liquid Cup) 10 ml Q4H PRN PO COUGH Last administered on 12/30/16 16:24; Admin Dose 10 ML; Start 12/26/16 at 20:30 Quetiapine Fumarate (Seroquel) 50 mg BID PO Last administered on 01/06/17 01:17 ; Admin Dose 50 MG; Start 12/26/16 at 22:00 Hydralazine HCl (Apresoline) 10 mg Q6H PRN IV ELEVATED SYSTOLIC BP; Start 12/31 at 23:30 Lorazepam (Ativan) 0.5 mg Q6H PRN IV ANXIETY; Start 12/31/16 at 23:30 Vancomycin HCl (Vanco Iv Per Pharmacy) PER PHARMACY DOSING NOTE XX ; Start 01/01 at 10:30 Metoprolol Tartrate (Lopressor) 5 mg Q4H PRN IV HR>110 Hold SBP<100; Start at 17:00 Trazodone HCl 100 mg 100 mg QHS PRN PO SLEEP; Start 01/03/17 at 21:00 Vancomycin HCl 1.25 gm/Sodium Chloride 250 ml @ 83.333 mls/ hr Q48H IVPB ; Start 01/06/17 at 12:00 Cefepime HCl (Maxipime 1gm/50 ml (Pmx)) 50 ml @ 100 mls/hr Q24H IVPB ; Start at 09:00 Morphine Sulfate 2 mg 2 mg Q4H PRN IV PAIN LEVEL 7-10; Start 01/05/17 at 14:30 Sodium Chloride (1/2 NS) 1,000 ml @ 75 mls/hr [id number] IV ; Start 01/06/17 at 08: 30; Status RASHIDA OLEA Jan 06, 2017 08:39
[2017-01-06] MEDS: HEPARIN 5,000 UNIT/0.5 ML VIAL SC SCH ×2 (08:46→22:01)
[2017-01-06] MEDS: SOD CHLORIDE 0.45% 1,000 ML IV SCH ×2 (08:47→21:50)
[2017-01-06] MEDS ORDERED: VANCOMYCIN 1 GM in NS 250 ML IVPB SCH (09:00)
--- NOTE | 2017-01-06 10:42 | PN ---
DATE: 01/06/2017 SUBJECTIVE DATA: The patient remains critically ill and remains on 100 percent face mask nonrebreather. No other acute events noted overnight. No hemoptysis, hematemesis, hematochezia. OBJECTIVE DATA: VITAL SIGNS: Blood pressure 119/68, respirations 16, pulse 66, temperature 98.1. HEENT: Head is normocephalic. NECK: Supple. HEART: Regular rate. LUNGS: Diminished breath sounds at the bases. ABDOMEN: Soft, nontender to palpation. No rebound or guarding. EXTREMITIES: Negative for clubbing, cyanosis. No edema. DERMATOLOGIC: No rashes. MUSCULOSKELETAL: No joint effusion. NEUROLOGIC: Unchanged exam. Patient's medications reviewed. LABORATORY AND DIAGNOSTIC DATA: Shows sodium 133, potassium 3.7. BUN 82, creatinine 2.33. White count 19.6, hemoglobin 8.0, hematocrit 25. Platelet count is 376. ASSESSMENT AND PLAN: 1. Nonoliguric acute kidney injury on top of chronic kidney disease with unknown baseline creatinine. Etiology of acute kidney injury secondary to hemodynamics and tubular injury. The patient's renal function has continued to decline over the last 2- 3 days; this is likely from recent diuretic use. Plan at this point is to give the patient gentle fluid challenge. Will change fluids from D5 water to half normal saline at 75 mL/hour. Monitor respiratory status, intake and output closely. 2. Hypernatremia, improved. Will continue hypotonic fluid and monitor. 3. Chronic kidney disease. The patient is currently in acute kidney injury as stated above. Continue medical management. 4. Hypokalemia, improved. 5. Alkalosis. Etiology is likely compensatory due to hypercapnia. Continue to monitor. 6. Anemia. Monitor hemoglobin and hematocrit levels. 7. Mineral bone disorder. Will monitor calcium and phosphorus levels. 8. Congestive heart failure. The patient is being followed by Cardiology. Diuretic therapy on hold due to worsening renal function. Continue to monitor. 9. Acute hypoxemic respiratory failure, likely from pneumonia. Continue current medical management. Continue nonrebreather. Continue nebulizers. Follow up with Pulmonary. 10. Sepsis secondary to underlying pneumonia. Continue current antibiotic regimen. 11. Acute encephalopathy on top of dementia. Continue to monitor. Dictated By: Major Lazo DO /lalitha/pineda /Document#: [id number]
--- NOTE | 2017-01-06 12:26 | RADRPT ---
PROCEDURE: XR Chest 1 View. CLINICAL INDICATION: Shortness of breath. TECHNIQUE: AP view of the chest was obtained. COMPARISON: January 02, 2017 FINDINGS: The heart size is within normal limits. Calcified atherosclerosis is noted in the aorta. Left-sided dual chamber pacemaker has its leads over the heart and appears stable. Patchy right upper lobe in filtrates have decreased. Patchy bilateral lower lobe infiltrates are stable, given differences in technique. Interstitial prominence in both lungs is unchanged. Osseous structures are intact. IMPRESSION: Calcified atherosclerosis in the aorta. Stable interstitial prominence in both lungs. Interval decrease in right upper lobe infiltrates. Stable patchy bilateral lower lobe infiltrates. RPTAT: AA .Niels Florez MD, Date Time Electronically viewed and signed by .Niels Florez MD, on 01/06/2017 12:25 .P/
[2017-01-06] MEDS: VANCOMYCIN 1.25 GM in SOD CHLORIDE 0.9% 250 ML IVPB SCH (12:40)
--- NOTE | 2017-01-06 12:44 | CONS ---
Date/Time of Note Date/Time of Note DATE: 01/06/17 TIME: 12:43 Assessment/Plan Assessment/Plan Additional Assessment/Plan 1.CHF-diastolic acute on chronic. Trop negative x 3 - some urine output - plan to go to [place] per family. STABLE NOW. 2.MS-severe by echo - no intervention planned now - stable now. 3.abnl ecg - no CP , con't CHF Rx - no arrhythmia noted 4.Psych d/o - primary follows 5.Renal failure - acute on chronic - avoid nephrotoxic meds 6. UTI - on anti-bx - con't med rx 7.AMS - stable encephalopathy. Consultation Date/Type/Reason Admit Date/Time Dec 26, 2016 at 01:49 Initial Consult Date 01/02/17 Type of Consultation: Pulmonary Referring Provider: ANGELA AL 24 HR Interval Summary Free Text/Dictation NO acute events - no significant ectopy on tele ROS: No fever, no chills, no nausea, no vomiting, no diarrhea/constipation No recent weight changes No chest pain, no PND, no orthopnea No dizziness, blurred vision No thirst, no heat or cold intolerance (per nurse) Exam/Review of Systems Vital Signs Vitals Vital Signs Date Time Temp Pulse Resp B/P Pulse Ox O2 Delivery O2 Flow Rate FiO2 01/06/17 12:21 72 01/06/17 11:09 98.2 18 114/56 100 01/06/17 10:00 Venturi Mask 12.0 01/06/17 00:22 40 Intake and Output 01/05/17 01/05/17 01/06/17 15:00 23:00 07:00 Intake Total 1950 ml 720 ml Output Total 300 ml 250 ml Balance 1650 ml 470 ml Exam General: WN/WD/NAD, AOx comfortable HEENT: Unicetric/atraumatic/EOMI (does not follow commands) NECK: JVD elevated, no thyromegaly Lymph: no lymphadenopathy HEART: regular with no S3, II/ systolic murmur at apex LUNGS: Coarse sounds ABD: soft, NT, ND, +BS : Intact Neuro: non focal SKIN: chronic changes EXT: trace edema Results Result Diagram: 01/06/17 0601 01/06/17 0601 Results 24 hrs Laboratory Tests Test 01/05/17 17:35 01/05/17 20:26 01/06/17 01:24 01/06/17 06:01 Bedside Glucose 166 172 204 White Blood Count 19.6 #H Red Blood Count 2.63 L Hemoglobin 8.0 L Hematocrit 25.7 L Mean Corpuscular Volume 97.7 Mean Corpuscular Hemoglobin 30.4 Mean Corpuscular Hemoglobin Concent 31.1 L Red Cell Distribution Width 18.9 H Platelet Count 376 Mean Platelet Volume 10.6 H Neutrophils % 83.0 H Lymphocytes % 4.1 L Monocytes % 4.4 Eosinophils % 1.9 Basophils % 0.5 Nucleated Red Blood Cells % 0.4 H Neutrophils # 16.3 H Lymphocytes # 0.8 Monocytes # 0.9 Eosinophils # 0.4 Basophils # 0.1 Nucleated Red Blood Cells # 0.1 H Sodium Level 143 Potassium Level 3.7 Chloride Level 98 Carbon Dioxide Level 31 Anion Gap 18 H Blood Urea Nitrogen 80 H Creatinine 2.33 H Glucose Level 274 H Calcium Level 8.6 Phosphorus Level 4.1 Magnesium Level 2.1 Ferritin 125.0 Test 01/06/17 08:04 Bedside Glucose 303 H Medications Medications Current Medications Lorazepam (Ativan) 0.5 mg Q6H PRN IV ANXIETY Last administered on 01/04/17 21: 23; Admin Dose 0.5 MG; Start 12/26/16 at 06:00 Ondansetron HCl (Zofran Inj) 4 mg Q6H PRN IV NAUSEA AND/OR VOMITING; Start at 06:00 Aspirin (Aspirin) 81 mg DAILY PO Last administered on 01/06/17 08:34; Admin Dose 81 MG; Start 12/26/16 at 09:00 Acetaminophen (Tylenol Tab) 650 mg Q6H PRN PO PAIN LEVEL 1-3 OR FEVER Last administered on 12/27/16 03:55; Admin Dose 650 MG; Start 12/26/16 at 06:00 Heparin Sodium (Porcine) (Heparin (5000 Units/0.5 ml)) 5,000 unit Q12 SC Last administered on 01/06/17 08:46; Admin Dose 5,000 UNIT; Start 12/26/16 at 09:00 Diagnostic Test (Pha) (Accu-Chek) 1 ea 02 XX Last administered on 01/05/17 02: 00; Admin Dose 1 EA; Start 12/27/16 at 02:00 Insulin Glargine (Lantus) 14 unit DAILY@08 SC Last administered on 01/06/17 08: 12; Admin Dose 14 UNIT; Start 12/26/16 at 08:00 Miscellaneous Information 1 ea NOTE XX ; Start 12/26/16 at 06:00 Glucose (Glutose) 15 gm Q15M PRN PO DECREASED GLUCOSE; Start 12/26/16 at 06:00 Glucose (Glutose) 22.5 gm Q15M PRN PO DECREASED GLUCOSE; Start 12/26/16 at 06: 00 Dextrose (D50w Syringe) 25 ml Q15M PRN IV DECREASED GLUCOSE; Start 12/26/16 at 06:00 Dextrose (D50w Syringe) 50 ml Q15M PRN IV DECREASED GLUCOSE; Start 12/26/16 at 06:00 Glucagon (Glucagen) 1 mg Q15M PRN IM DECREASED GLUCOSE; Start 12/26/16 at 06:00 Glucose (Glutose) 15 gm Q15M PRN BUCCAL DECREASED GLUCOSE; Start 12/26/16 at 06 :00 Miscellaneous Information (Pending [facility] Order For Wound Care) This patient betancourt... PRN PRN XX WOUND CARE; Start 12/26/16 at 06:30 Hydralazine HCl (Apresoline) 25 mg Q8 PO Last administered on 01/06/17 05:43; Admin Dose 25 MG; Start 12/26/16 at 22:00 Metoprolol Tartrate (Lopressor) 25 mg BID PO Last administered on 01/06/17 08: 34; Admin Dose 25 MG; Start 12/26/16 at 21:00 Guaifenesin/ Codeine Phosphate (Robitussin Ac Liquid Cup) 10 ml Q4H PRN PO COUGH Last administered on 12/30/16 16:24; Admin Dose 10 ML; Start 12/26/16 at 20:30 Quetiapine Fumarate (Seroquel) 50 mg BID PO Last administered on 01/06/17 08:34 ; Admin Dose 50 MG; Start 12/26/16 at 22:00 Hydralazine HCl (Apresoline) 10 mg Q6H PRN IV ELEVATED SYSTOLIC BP; Start 12/31 at 23:30 Lorazepam (Ativan) 0.5 mg Q6H PRN IV ANXIETY; Start 12/31/16 at 23:30 Vancomycin HCl (Vanco Iv Per Pharmacy) PER PHARMACY DOSING NOTE XX ; Start 01/01 at 10:30 Metoprolol Tartrate (Lopressor) 5 mg Q4H PRN IV HR>110 Hold SBP<100; Start at 17:00 Trazodone HCl 100 mg 100 mg QHS PRN PO SLEEP; Start 01/03/17 at 21:00 Vancomycin HCl 1.25 gm/Sodium Chloride 250 ml @ 83.333 mls/ hr Q48H IVPB ; Start 01/06/17 at 12:00 Cefepime HCl (Maxipime 1gm/50 ml (Pmx)) 50 ml @ 100 mls/hr Q24H IVPB Last administered on 01/06/17 08:35; Admin Dose 100 MLS/HR; Start 01/06/17 at 09:00 Morphine Sulfate 2 mg 2 mg Q4H PRN IV PAIN LEVEL 7-10; Start 01/05/17 at 14:30 Sodium Chloride (1/2 NS) 1,000 ml @ 75 mls/hr [id number] IV Last administered on 01/06/17 08:47; Admin Dose 75 MLS/HR; Start 01/06/17 at 09:00 MONAE UP MD Jan 06, 2017 12:44
--- NOTE | 2017-01-06 13:25 | CONS ---
Date/Time of Note Date/Time of Note DATE: 01/06/17 TIME: 13:24 Consultation Date/Type/Reason Admit Date/Time Dec 26, 2016 at 01:49 Date of Consultation: Jan 06, 2017 Type of Consultation: ID Reason for Consultation Antibiotic management Constitutional: disoriented Eyes: no complaints ENT: no complaints Respiratory: no complaints Cardiovascular: no complaints Gastrointestinal: no complaints Genitourinary: no complaints Musculoskeletal: no complaints Skin: no complaints Neurologic: no complaints Endocrine: no complaints Lymphatic: no complaints Psychological: no complaints Immunologic: no complaints Past Medical History Medical History: congestive heart failure, diabetes, hypertension Past Surgical History Past Surgical Hx: other (Incomplete database) Social History Alcohol Use: other Smoking Status: Unknown if ever smoked Drug Use: other (Incomplete database) Exam/Review of Systems Vital Signs Vitals Vital Signs Date Time Temp Pulse Resp B/P Pulse Ox O2 Delivery O2 Flow Rate FiO2 01/06/17 12:52 Nasal Cannula 4.0 01/06/17 12:21 72 01/06/17 12:00 98.2 16 115/60 100 01/06/17 00:22 40 Intake and Output 01/05/17 01/05/17 01/06/17 15:00 23:00 07:00 Intake Total 1950 ml 720 ml Output Total 300 ml 250 ml Balance 1650 ml 470 ml Results Result Diagram: 01/06/17 0601 01/06/17 0601 Results 24 hrs Laboratory Tests Test 01/05/17 17:35 01/05/17 20:26 01/06/17 01:24 01/06/17 06:01 Bedside Glucose 166 172 204 White Blood Count 19.6 #H Red Blood Count 2.63 L Hemoglobin 8.0 L Hematocrit 25.7 L Mean Corpuscular Volume 97.7 Mean Corpuscular Hemoglobin 30.4 Mean Corpuscular Hemoglobin Concent 31.1 L Red Cell Distribution Width 18.9 H Platelet Count 376 Mean Platelet Volume 10.6 H Neutrophils % 83.0 H Lymphocytes % 4.1 L Monocytes % 4.4 Eosinophils % 1.9 Basophils % 0.5 Nucleated Red Blood Cells % 0.4 H Neutrophils # 16.3 H Lymphocytes # 0.8 Monocytes # 0.9 Eosinophils # 0.4 Basophils # 0.1 Nucleated Red Blood Cells # 0.1 H Sodium Level 143 Potassium Level 3.7 Chloride Level 98 Carbon Dioxide Level 31 Anion Gap 18 H Blood Urea Nitrogen 80 H Creatinine 2.33 H Glucose Level 274 H Calcium Level 8.6 Phosphorus Level 4.1 Magnesium Level 2.1 Ferritin 125.0 Test 01/06/17 08:04 01/06/17 12:38 Bedside Glucose 303 H 175 Medications Medications Current Medications Lorazepam (Ativan) 0.5 mg Q6H PRN IV ANXIETY Last administered on 01/04/17 21: 23; Admin Dose 0.5 MG; Start 12/26/16 at 06:00 Ondansetron HCl (Zofran Inj) 4 mg Q6H PRN IV NAUSEA AND/OR VOMITING; Start at 06:00 Aspirin (Aspirin) 81 mg DAILY PO Last administered on 01/06/17 08:34; Admin Dose 81 MG; Start 12/26/16 at 09:00 Acetaminophen (Tylenol Tab) 650 mg Q6H PRN PO PAIN LEVEL 1-3 OR FEVER Last administered on 12/27/16 03:55; Admin Dose 650 MG; Start 12/26/16 at 06:00 Heparin Sodium (Porcine) (Heparin (5000 Units/0.5 ml)) 5,000 unit Q12 SC Last administered on 01/06/17 08:46; Admin Dose 5,000 UNIT; Start 12/26/16 at 09:00 Diagnostic Test (Pha) (Accu-Chek) 1 ea 02 XX Last administered on 01/05/17 02: 00; Admin Dose 1 EA; Start 12/27/16 at 02:00 Insulin Glargine (Lantus) 14 unit DAILY@08 SC Last administered on 01/06/17 08: 12; Admin Dose 14 UNIT; Start 12/26/16 at 08:00 Miscellaneous Information 1 ea NOTE XX ; Start 12/26/16 at 06:00 Glucose (Glutose) 15 gm Q15M PRN PO DECREASED GLUCOSE; Start 12/26/16 at 06:00 Glucose (Glutose) 22.5 gm Q15M PRN PO DECREASED GLUCOSE; Start 12/26/16 at 06: 00 Dextrose (D50w Syringe) 25 ml Q15M PRN IV DECREASED GLUCOSE; Start 12/26/16 at 06:00 Dextrose (D50w Syringe) 50 ml Q15M PRN IV DECREASED GLUCOSE; Start 12/26/16 at 06:00 Glucagon (Glucagen) 1 mg Q15M PRN IM DECREASED GLUCOSE; Start 12/26/16 at 06:00 Glucose (Glutose) 15 gm Q15M PRN BUCCAL DECREASED GLUCOSE; Start 12/26/16 at 06 :00 Miscellaneous Information ([facility]) This patient betancourt... PRN PRN XX WOUND CARE; Start 12/26/16 at 06:30 Hydralazine HCl (Apresoline) 25 mg Q8 PO Last administered on 01/06/17 05:43; Admin Dose 25 MG; Start 12/26/16 at 22:00 Metoprolol Tartrate (Lopressor) 25 mg BID PO Last administered on 01/06/17 08: 34; Admin Dose 25 MG; Start 12/26/16 at 21:00 Guaifenesin/ Codeine Phosphate (Robitussin Ac Liquid Cup) 10 ml Q4H PRN PO COUGH Last administered on 12/30/16 16:24; Admin Dose 10 ML; Start 12/26/16 at 20:30 Quetiapine Fumarate (Seroquel) 50 mg BID PO Last administered on 01/06/17 08:34 ; Admin Dose 50 MG; Start 12/26/16 at 22:00 Hydralazine HCl (Apresoline) 10 mg Q6H PRN IV ELEVATED SYSTOLIC BP; Start 12/31 at 23:30 Lorazepam (Ativan) 0.5 mg Q6H PRN IV ANXIETY; Start 12/31/16 at 23:30 Vancomycin HCl (Vanco Iv Per Pharmacy) PER PHARMACY DOSING NOTE XX ; Start 01/01 at 10:30 Metoprolol Tartrate (Lopressor) 5 mg Q4H PRN IV HR>110 Hold SBP<100; Start at 17:00 Trazodone HCl 100 mg 100 mg QHS PRN PO SLEEP; Start 01/03/17 at 21:00 Vancomycin HCl 1.25 gm/Sodium Chloride 250 ml @ 83.333 mls/ hr Q48H IVPB Last administered on 01/06/17 12:40; Admin Dose 83.333 MLS/HR; Start 01/06/17 at 12:00 Cefepime HCl (Maxipime 1gm/50 ml (Pmx)) 50 ml @ 100 mls/hr Q24H IVPB Last administered on 01/06/17 08:35; Admin Dose 100 MLS/HR; Start 01/06/17 at 09:00 Morphine Sulfate 2 mg 2 mg Q4H PRN IV PAIN LEVEL 7-10; Start 01/05/17 at 14:30 Sodium Chloride (1/2 NS) 1,000 ml @ 75 mls/hr [id number] IV Last administered on 01/06/17 08:47; Admin Dose 75 MLS/HR; Start 01/06/17 at 09:00 JIMBO GERBER MD Jan 06, 2017 13:25
--- NOTE | 2017-01-06 15:49 | PN ---
Date/Time of Note Date/Time of Note DATE: 01/06/17 TIME: 15:46 Assessment/Plan VTE Prophylaxis VTE Prophylaxis Intervention: SCD's Lines/Catheters IV Catheter Type (from Nrs): Peripheral IV Urinary Cath still in place: Yes Reason Cath still needed: terminal illness/intractable pain Assessment/Plan Chief Complaint/Hosp Course Assessment/Plan 1. Dyspnea secondary to CHF exacerbation -off ventimask, on NC. Chest x-ray before showed Extensive bilateral interstitial and airspace disease is stable in distribution and extent with no new opacities are identified. - holding diuretics for now per nephro. - pt is now DNR/DNI . 2. Acute on CKD: - Nephrology following, on 3. Sepsis secondary to UTI and decub ulcers with urine culture showing enterococcus: WBC increased today, ID consulted -Continue current abx 4. Altered mentation.. Does have underlying dementia, and now with occasional delirium - monitor for now. Aspiration precautions. One-to-one sitter as needed -patient's family states he was conversational before hospitalization 5. Essential hypertension. Continue antihypertensives and adjust needed 6. Decubitus ulcers - continue with wound care 7. Anemia of chronic disease. Monitor at this time. will check iron/ ferritin. if further drop or any sign of bleeding, will hold ppx heparin Problems: Subjective 24 Hr Interval Summary Free Text/Dictation does not follow command easily, can be slightly encouraged. Exam/Review of Systems Vital Signs Vitals Vital Signs Date Time Temp Pulse Resp B/P Pulse Ox O2 Delivery O2 Flow Rate FiO2 01/06/17 14:52 98.2 79 16 112/53 97 01/06/17 14:00 Nasal Cannula 4.0 01/06/17 00:22 40 Intake and Output 01/05/17 01/05/17 01/06/17 15:00 23:00 07:00 Intake Total 1950 ml 720 ml Output Total 300 ml 250 ml Balance 1650 ml 470 ml Exam Physical exam General: Patient is laying in bed, not oriented. On NC Mentation: Patient is alert but not oriented Head: Normocephalic atraumatic Eyes: EOMI, pupils reactive to light Neck: Supple, nontender, midline Respiratory: course to auscultation bilaterally Cardiovascular: regular rate, no obvious murmurs Gastrointestinal: non-tender to palpation, bowel sounds heard. Neurological: Moves all extremities spontaneously Skin: No new skin lesions Results Result Diagram: 01/06/17 0601 01/06/17 0601 Results 24 hrs Laboratory Tests Test 01/05/17 17:35 01/05/17 20:26 01/06/17 01:24 01/06/17 06:01 Bedside Glucose 166 172 204 White Blood Count 19.6 #H Red Blood Count 2.63 L Hemoglobin 8.0 L Hematocrit 25.7 L Mean Corpuscular Volume 97.7 Mean Corpuscular Hemoglobin 30.4 Mean Corpuscular Hemoglobin Concent 31.1 L Red Cell Distribution Width 18.9 H Platelet Count 376 Mean Platelet Volume 10.6 H Neutrophils % 83.0 H Lymphocytes % 4.1 L Monocytes % 4.4 Eosinophils % 1.9 Basophils % 0.5 Nucleated Red Blood Cells % 0.4 H Neutrophils # 16.3 H Lymphocytes # 0.8 Monocytes # 0.9 Eosinophils # 0.4 Basophils # 0.1 Nucleated Red Blood Cells # 0.1 H Sodium Level 143 Potassium Level 3.7 Chloride Level 98 Carbon Dioxide Level 31 Anion Gap 18 H Blood Urea Nitrogen 80 H Creatinine 2.33 H Glucose Level 274 H Calcium Level 8.6 Phosphorus Level 4.1 Magnesium Level 2.1 Ferritin 125.0 Test 01/06/17 08:04 01/06/17 12:38 Bedside Glucose 303 H 175 Medications Medications Current Medications Lorazepam (Ativan) 0.5 mg Q6H PRN IV ANXIETY Last administered on 01/04/17 21: 23; Admin Dose 0.5 MG; Start 12/26/16 at 06:00 Ondansetron HCl (Zofran Inj) 4 mg Q6H PRN IV NAUSEA AND/OR VOMITING; Start at 06:00 Aspirin (Aspirin) 81 mg DAILY PO Last administered on 01/06/17 08:34; Admin Dose 81 MG; Start 12/26/16 at 09:00 Acetaminophen (Tylenol Tab) 650 mg Q6H PRN PO PAIN LEVEL 1-3 OR FEVER Last administered on 12/27/16 03:55; Admin Dose 650 MG; Start 12/26/16 at 06:00 Heparin Sodium (Porcine) (Heparin (5000 Units/0.5 ml)) 5,000 unit Q12 SC Last administered on 01/06/17 08:46; Admin Dose 5,000 UNIT; Start 12/26/16 at 09:00 Diagnostic Test (Pha) (Accu-Chek) 1 ea 02 XX Last administered on 01/05/17 02: 00; Admin Dose 1 EA; Start 12/27/16 at 02:00 Insulin Glargine (Lantus) 14 unit DAILY@08 SC Last administered on 01/06/17 08: 12; Admin Dose 14 UNIT; Start 12/26/16 at 08:00 Miscellaneous Information 1 ea NOTE XX ; Start 12/26/16 at 06:00 Glucose (Glutose) 15 gm Q15M PRN PO DECREASED GLUCOSE; Start 12/26/16 at 06:00 Glucose (Glutose) 22.5 gm Q15M PRN PO DECREASED GLUCOSE; Start 12/26/16 at 06: 00 Dextrose (D50w Syringe) 25 ml Q15M PRN IV DECREASED GLUCOSE; Start 12/26/16 at 06:00 Dextrose (D50w Syringe) 50 ml Q15M PRN IV DECREASED GLUCOSE; Start 12/26/16 at 06:00 Glucagon (Glucagen) 1 mg Q15M PRN IM DECREASED GLUCOSE; Start 12/26/16 at 06:00 Glucose (Glutose) 15 gm Q15M PRN BUCCAL DECREASED GLUCOSE; Start 12/26/16 at 06 :00 Miscellaneous Information (Pending [facility] Order For Wound Care) This patient betancourt... PRN PRN XX WOUND CARE; Start 12/26/16 at 06:30 Hydralazine HCl (Apresoline) 25 mg Q8 PO Last administered on 01/06/17 05:43; Admin Dose 25 MG; Start 12/26/16 at 22:00 Metoprolol Tartrate (Lopressor) 25 mg BID PO Last administered on 01/06/17 08: 34; Admin Dose 25 MG; Start 12/26/16 at 21:00 Guaifenesin/ Codeine Phosphate (Robitussin Ac Liquid Cup) 10 ml Q4H PRN PO COUGH Last administered on 12/30/16 16:24; Admin Dose 10 ML; Start 12/26/16 at 20:30 Quetiapine Fumarate (Seroquel) 50 mg BID PO Last administered on 01/06/17 08:34 ; Admin Dose 50 MG; Start 12/26/16 at 22:00 Hydralazine HCl (Apresoline) 10 mg Q6H PRN IV ELEVATED SYSTOLIC BP; Start 12/31 at 23:30 Lorazepam (Ativan) 0.5 mg Q6H PRN IV ANXIETY; Start 12/31/16 at 23:30 Vancomycin HCl (Vanco Iv Per Pharmacy) PER PHARMACY DOSING NOTE XX ; Start 01/01 at 10:30 Metoprolol Tartrate (Lopressor) 5 mg Q4H PRN IV HR>110 Hold SBP<100; Start at 17:00 Trazodone HCl 100 mg 100 mg QHS PRN PO SLEEP; Start 01/03/17 at 21:00 Vancomycin HCl 1.25 gm/Sodium Chloride 250 ml @ 83.333 mls/ hr Q48H IVPB Last administered on 01/06/17 12:40; Admin Dose 83.333 MLS/HR; Start 01/06/17 at 12:00 Cefepime HCl (Maxipime 1gm/50 ml (Pmx)) 50 ml @ 100 mls/hr Q24H IVPB Last administered on 01/06/17 08:35; Admin Dose 100 MLS/HR; Start 01/06/17 at 09:00 Morphine Sulfate 2 mg 2 mg Q4H PRN IV PAIN LEVEL 7-10; Start 01/05/17 at 14:30 Sodium Chloride (1/2 NS) 1,000 ml @ 75 mls/hr [id number] IV Last administered on 01/06/17 08:47; Admin Dose 75 MLS/HR; Start 01/06/17 at 09:00 MIKY GOODMAN Jan 06, 2017 15:49
[2017-01-07] VITALS (23 sets, daily range): BP systolic 98–140; BP diastolic 46–60; PULSE 74–102; RESP 16–20
[2017-01-07] MEDS: morphine 4 MG/ML VIAL IV PRN (00:24)
[2017-01-07] MEDS: ACCU-CHEK XX SCH (01:20)
[2017-01-07] MEDS: SOD CHLORIDE 0.45% 1,000 ML IV SCH ×2 (05:47→20:00)
--- NOTE | 2017-01-07 06:15 | CONS ---
DATE OF ADMISSION: 12/26/2016 DATE OF CONSULTATION: 01/06/2017 Infectious Disease Consultation REASON FOR CONSULTATION: Antibiotic management. HISTORY OF PRESENT ILLNESS: Yasmani Cain is an 86-year-old male who has numerous problems and was admitted with shortness of breath secondary to CHF. The patient's problems include: 1. Adult-onset diabetes mellitus. 2. Hypertension. 3. Status post pacemaker placement. 4. Benign prostatic hypertrophy. 5. Likely dementia. 6. Right heel pressure ulcer. 7. Anemia of chronic disease. 8. Presumed chronic renal disease. The patient was admitted with shortness of breath. He speaks mostly Ethiopian. He was lethargic and fatigued on admission and needed supplemental oxygen. Chest x-ray showed patchy airspace opacities of the left and right chest, likely due to pulmonary edema, though pneumonia could not be ruled out. His white count was 12.4, H and H of 9.3 and 29.6, platelet count 282,000. BUN/creatinine 31/1.47. He was started initially on ceftriaxone. PAST MEDICAL HISTORY: Positive for hypertension. SOCIAL HISTORY: Does not smoke, drink, or abuse drugs. ALLERGIES: NONE TO PENICILLIN, SULFA, OR FOODS. MEDICATION: Per chart. REVIEW OF SYSTEMS: As per HPI. PHYSICAL EXAMINATION: GENERAL APPEARANCE: The patient is a well-developed, well- nourished, elderly male who is awake, responsive, in no acute distress. VITAL SIGNS: Stable. He is afebrile. SKIN: Without generalized rash. HEENT: Within normal limits. NECK: Supple. Lymph nodes nonpalpable. CHEST: Decreased breath sounds at the bases. HEART: Without murmur or gallop. ABDOMEN: Soft, nontender, without organosplenomegaly or masses. EXTREMITIES: Without cyanosis, clubbing, or edema. RECTOGENITAL: Deferred. NEUROLOGICAL: No focal neurological abnormalities. HOSPITAL COURSE: Patient's white count, however, has increased to 19.6 today. He has been seen in consultation by numerous physicians including Dr Lazo in renal consultation, Dr Christiansen for Pulmonary, and also Dr Valderrama for Pulmonary. He had enterococcus species in his urine which was sensitive to ampicillin and vancomycin on the , which was a while back. Currently he is on vancomycin and cefepime. His chest x-ray shows calcified atherosclerosis, dual-chamber pacemaker. Patchy right upper lobe infiltrates have decreased. Patchy bilateral lower lobe infiltrates are stable. Interstitial prominence in both lungs is unchanged. Stable patchy bilateral lower lobe infiltrates. IMPRESSION AND PLAN: At this point I would continue him on current therapy. Clinically he appears to be doing a little bit better. We might want to see if we can get some sputum for culture. I will dictate my findings to the hospitalist and to the various consultants. Dictated By: Tre Garcia MD JD/lalitha/pineda /Document#: [id number]
[2017-01-07 06:40] LABS: ABNORMAL IP MESSAGE 1; MEAN CORPUSCULAR HEMOGLOBIN 29.9 pg (29.0-33.0); MEAN CORPUSCULAR VOLUME 99.6 fl (82.0-101.0); MEAN PLATELET VOLUME 11.4 fl (7.4-10.4); NUCLEATED RED BLOOD CELLS% 0.4 /100WBC (0.0-0.0); PLATELET COUNT 324 10^3/UL (140-415); POSITIVE DIFF @See below; RED BLOOD COUNT 2.31 10^6/ul (4.70-6.10); RED CELL DISTRIBUTION WIDTH 19.4 % (11.5-14.5); WHITE BLOOD COUNT 16.4 10^3/ul (4.8-10.8)
[2017-01-07 06:43] LABS: HEMOGLOBIN 6.9 g/dl (14.0-18.0)
[2017-01-07 07:06] LABS: CALCIUM 8.3 mg/dl (8.4-10.2); CREATININE 1.94 mg/dl (0.61-1.24); MAGNESIUM 2.2 mg/dl (1.7-2.5); POTASSIUM 3.4 mmol/L (3.5-5.1)
[2017-01-07] MEDS: INSULIN ASPART [NOVOLOG] 3 ML PEN SC SCH ×4 (08:16→21:17)
[2017-01-07] MEDS: CEFEPIME 1GM/50 ML IVPB SCH (08:17)
[2017-01-07] MEDS: INSULIN GLARGINE [LANtus] 3 ML PEN SC SCH (08:17)
[2017-01-07] MEDS: HEPARIN 5,000 UNIT/0.5 ML VIAL SC SCH ×2 (08:18→21:18)
[2017-01-07] MEDS: ASPIRIN 81 MG TAB PO SCH (08:18)
[2017-01-07] MEDS: QUETIAPINE 25 MG TAB PO SCH ×2 (08:18→21:05)
[2017-01-07] MEDS: METOPROLOL 25 MG TAB PO SCH ×2 (08:19→21:05)
[2017-01-07] MEDS ORDERED: POTASSIUM CHLORIDE 250 ML IVPB ONE (09:00)
--- NOTE | 2017-01-07 09:54 | PN ---
DATE: 01/07/2017 SUBJECTIVE DATA: The patient is critically ill on face mask. No other events noted. No hemoptysis symptoms, no hematochezia. OBJECTIVE DATA: VITAL SIGNS: Blood pressure is 0123/56, respirations 20, pulse 79, temperature 98.0 HEENT: Head is normocephalic. NECK: Supple. HEART: Regular rate. LUNGS: Diminished breath sounds at the base. ABDOMEN: Soft, nontender to palpation. No rebound or guarding. EXTREMITIES: Negative for clubbing, cyanosis, no edema. DERMATOLOGIC: No rashes. MUSCULOSKELETAL: No joint effusion. NEUROLOGIC: Unchanged exam. MEDICATION: Reviewed. LABORATORY AND DIAGNOSTIC DATA: Shows sodium 145, potassium , BUN 75, creatinine 1.94. White count is 16.4, hemoglobin 6.9, hematocrit 28.0. Platelet count is 324. ASSESSMENT AND PLAN: 1. Nonoliguric acute kidney injury on top of chronic kidney disease with unknown baseline creatinine. Etiology is secondary to hemodynamics, volume depletion. The patient's renal function has been improving with resuming IV fluids and discontinuing diuretics. At this point, continue gentle IV hydration. 2. Hypokalemia. Replete potassium chloride. 3. Hypernatremia, improving. Continue hypotonic fluid. 4. Chronic kidney disease. The patient is currently acute kidney injury as stated above. Continue medical management. 5. Anemia monitor H and H levels. 6. Mineral bone disorder. Monitor calcium plus levels. 7. History of congestive heart failure. The patient is to follow up with cardiology. At this point the patient appears euvolemic to hypovolemic. Continue gentle hydration. 8. Acute hypoxemic respiratory failure secondary to pneumonia. Continue current medical management. Continue nebulizers, antibiotics. 9. Sepsis, secondary to pneumonia. Continue current treatment plan. 10. Acute encephalopathy and dementia. Continue to monitor. Dictated By: Major Lazo DO /lalitha/katharine /Document#: [id number]
[2017-01-07 10:05] LABS: ANISOCYTOSIS 2+ (0-0); EOSINOPHILS % (M) 4 % (0-7); GIANT THROMBO% (M) 2 % (0-0); METAMYELOCYTES %M 2 % (0-0); MONOCYTES % (M) 2 % (0-11); OVALOCYTES 2+ (0-0); PLATELET ESTIMATE NORMAL; POIKILOCYTOSIS 1+ (0-0); POLYCHROMASIA 3+ (0-0)
--- NOTE | 2017-01-07 11:46 | CONS ---
Date/Time of Note Date/Time of Note DATE: 01/07/17 TIME: 11:45 Assessment/Plan Assessment/Plan Additional Assessment/Plan Case management has scheduled a family conference to be done tomorrow January 08. At that time I will address patient's ongoing level of care, family's expectations, goals, fair, understanding of his overall clinical condition and prognosis will be discussed. Consultation Date/Type/Reason Admit Date/Time Dec 26, 2016 at 01:49 Initial Consult Date 01/06/17 Type of Consultation: Palliative care Referring Provider: ANGELA AL Exam/Review of Systems Vital Signs Vitals Vital Signs Date Time Temp Pulse Resp B/P Pulse Ox O2 Delivery O2 Flow Rate FiO2 01/07/17 11:19 97.6 79 20 109/46 95 01/07/17 08:00 Nasal Cannula 4.0 01/06/17 00:22 40 Intake and Output 01/06/17 01/06/17 01/07/17 15:00 23:00 07:00 Intake Total 1525 ml 650 ml Output Total 100 ml 450 ml 500 ml Balance -100 ml 1075 ml 150 ml Results Result Diagram: 01/07/17 1055 01/07/17 0543 Results 24 hrs Laboratory Tests Test 01/06/17 12:38 01/06/17 18:12 01/06/17 21:45 01/07/17 05:43 Bedside Glucose 175 134 115 White Blood Count 16.4 H Red Blood Count 2.31 L Hemoglobin 6.9 *L Hematocrit 23.0 L Mean Corpuscular Volume 99.6 Mean Corpuscular Hemoglobin 29.9 Mean Corpuscular Hemoglobin Concent 30.0 L Red Cell Distribution Width 19.4 H Platelet Count 324 Mean Platelet Volume 11.4 H Neutrophils % Segmented Neutrophils % (Manual) 79 H Lymphocytes % Lymphocytes % (Manual) 8 L Monocytes % Monocytes % (Manual) 2 Eosinophils % Eosinophils % (Manual) 4 Basophils % Metamyelocytes % (manual) 2 H Nucleated Red Blood Cells % 0.4 H Neutrophils # Absolute Lymphocytes (Manual) 1.3 Lymphocytes # Monocytes # Absolute Monocytes (Manual) 0.3 Eosinophils # Basophils # Metamyelocytes # 0.3 H Nucleated Red Blood Cells # Thrombocytosis 2 H Platelet Estimate NORMAL Polychromasia 3+ Poikilocytosis 1+ Anisocytosis 2+ Macrocytosis 2+ Ovalocytes 2+ Sodium Level 145 H Potassium Level 3.4 L Chloride Level 102 Carbon Dioxide Level 31 Anion Gap 15 Blood Urea Nitrogen 75 H Creatinine 1.94 H Glucose Level 128 # Calcium Level 8.3 L Phosphorus Level 4.0 Magnesium Level 2.2 Ferritin 109.0 Test 01/07/17 07:45 01/07/17 10:55 Bedside Glucose 147 Hemoglobin 7.0 L Hematocrit 23.0 L Medications Medications Current Medications Lorazepam (Ativan) 0.5 mg Q6H PRN IV ANXIETY Last administered on 01/04/17 21: 23; Admin Dose 0.5 MG; Start 12/26/16 at 06:00 Ondansetron HCl (Zofran Inj) 4 mg Q6H PRN IV NAUSEA AND/OR VOMITING; Start at 06:00 Aspirin (Aspirin) 81 mg DAILY PO Last administered on 01/07/17 08:18; Admin Dose 81 MG; Start 12/26/16 at 09:00 Acetaminophen (Tylenol Tab) 650 mg Q6H PRN PO PAIN LEVEL 1-3 OR FEVER Last administered on 12/27/16 03:55; Admin Dose 650 MG; Start 12/26/16 at 06:00 Heparin Sodium (Porcine) (Heparin (5000 Units/0.5 ml)) 5,000 unit Q12 SC Last administered on 01/07/17 08:18; Admin Dose 5,000 UNIT; Start 12/26/16 at 09:00 Diagnostic Test (Pha) (Accu-Chek) 1 ea 02 XX Last administered on 01/05/17 02: 00; Admin Dose 1 EA; Start 12/27/16 at 02:00 Insulin Glargine (Lantus) 14 unit DAILY@08 SC Last administered on 01/07/17 08: 17; Admin Dose 14 UNIT; Start 12/26/16 at 08:00 Miscellaneous Information 1 ea NOTE XX ; Start 12/26/16 at 06:00 Glucose (Glutose) 15 gm Q15M PRN PO DECREASED GLUCOSE; Start 12/26/16 at 06:00 Glucose (Glutose) 22.5 gm Q15M PRN PO DECREASED GLUCOSE; Start 12/26/16 at 06: 00 Dextrose (D50w Syringe) 25 ml Q15M PRN IV DECREASED GLUCOSE; Start 12/26/16 at 06:00 Dextrose (D50w Syringe) 50 ml Q15M PRN IV DECREASED GLUCOSE; Start 12/26/16 at 06:00 Glucagon (Glucagen) 1 mg Q15M PRN IM DECREASED GLUCOSE; Start 12/26/16 at 06:00 Glucose (Glutose) 15 gm Q15M PRN BUCCAL DECREASED GLUCOSE; Start 12/26/16 at 06 :00 Miscellaneous Information (Pending [facility] Order For Wound Care) This patient betancourt... PRN PRN XX WOUND CARE; Start 12/26/16 at 06:30 Hydralazine HCl (Apresoline) 25 mg Q8 PO Last administered on 01/06/17 05:43; Admin Dose 25 MG; Start 12/26/16 at 22:00 Metoprolol Tartrate (Lopressor) 25 mg BID PO Last administered on 01/07/17 08: 19; Admin Dose 25 MG; Start 12/26/16 at 21:00 Guaifenesin/ Codeine Phosphate (Robitussin Ac Liquid Cup) 10 ml Q4H PRN PO COUGH Last administered on 12/30/16 16:24; Admin Dose 10 ML; Start 12/26/16 at 20:30 Quetiapine Fumarate (Seroquel) 50 mg BID PO Last administered on 01/07/17 08:18 ; Admin Dose 50 MG; Start 12/26/16 at 22:00 Hydralazine HCl (Apresoline) 10 mg Q6H PRN IV ELEVATED SYSTOLIC BP; Start 12/31 at 23:30 Lorazepam (Ativan) 0.5 mg Q6H PRN IV ANXIETY; Start 12/31/16 at 23:30 Vancomycin HCl (Vanco Iv Per Pharmacy) PER PHARMACY DOSING NOTE XX ; Start 01/01 at 10:30 Metoprolol Tartrate (Lopressor) 5 mg Q4H PRN IV HR>110 Hold SBP<100; Start at 17:00 Trazodone HCl 100 mg 100 mg QHS PRN PO SLEEP; Start 01/03/17 at 21:00 Vancomycin HCl 1.25 gm/Sodium Chloride 250 ml @ 83.333 mls/ hr Q48H IVPB Last administered on 01/06/17 12:40; Admin Dose 83.333 MLS/HR; Start 01/06/17 at 12:00 Cefepime HCl (Maxipime 1gm/50 ml (Pmx)) 50 ml @ 100 mls/hr Q24H IVPB Last administered on 01/07/17 08:17; Admin Dose 100 MLS/HR; Start 01/06/17 at 09:00 Morphine Sulfate 2 mg 2 mg Q4H PRN IV PAIN LEVEL 7-10 Last administered on 00:24; Admin Dose 2 MG; Start 01/05/17 at 14:30 Sodium Chloride 1,000 ml @ 75 mls/hr [id number] IV Last administered on 01/07/17 05:47; Admin Dose 75 MLS/HR; Start 01/06/17 at 09:00 Potassium Chloride (KCl 40 MEQ/250 ML NS) 250 ml @ 62.5 mls/hr ONCE ONCE IVPB Last administered on 01/07/17 10:40; Admin Dose 62.5 MLS/HR; Start 01/07/17 at 09:00; Stop 01/07/17 at 12:59 JEAN PIERRE WEEMS Jan 07, 2017 11:46
[2017-01-07] MEDS ORDERED: SOD CHLORIDE 0.9% 250 ML IV* ONE (11:51)
[2017-01-07 12:18] LABS: IRON 34 ug/dl (35-150)
[2017-01-07 12:28] LABS: TOTAL IRON BINDING CAPACITY 219 ug/dl (241-421)
--- NOTE | 2017-01-07 13:29 | CONS ---
Date/Time of Note Date/Time of Note DATE: 01/07/17 TIME: 13:27 Assessment/Plan Assessment/Plan Chief Complaint/Hosp Course IMP: 1.CHF-diastolic acute on chronic. Trop negative x 3. reasonable volume status by exam 2.MS-severe by echo 3.abnl ecg 4.Psych d/o 5.REnal failure 6. UTI 7.AMS 8. Resp distress-improved currently 9. DNR status Recc: -tele -Continue po antihypertensives as tolerated and thus will decrease dose of hydralazine -IVP PRN BB -Continue bronchodilators/follow resp status closely -Continue abx's and f/u cx data -Follow volume status closely with lasix held per renal Problems: Consultation Date/Type/Reason Admit Date/Time Dec 26, 2016 at 01:49 Initial Consult Date 12/26/2016 Type of Consultation: cardiology Reason for Consultation CHF Referring Provider: ANGELA AL Exam/Review of Systems Vital Signs Vitals Vital Signs Date Time Temp Pulse Resp B/P Pulse Ox O2 Delivery O2 Flow Rate FiO2 01/07/17 12:01 79 01/07/17 12:00 97.6 17 99/55 98 Nasal Cannula 4.0 01/06/17 00:22 40 Intake and Output 01/06/17 01/06/17 01/07/17 15:00 23:00 07:00 Intake Total 1525 ml 650 ml Output Total 100 ml 450 ml 500 ml Balance -100 ml 1075 ml 150 ml Exam Review of Systems: CONSTITUTIONAL: No fevers, chills. PULMONARY: No sob CARDIOVASCULAR: No chest pain/palpitations GASTROINTESTINAL: No nausea/vomiting. GENITOURINARY: No hematuria/dysuria. MUSCULOSKELETAL: No myagias/arthalgias. PSYCHIATRIC: The patient denies depression. NEUROLOGIC: encephalopathic Constitutional: other (sleeping, arousable) Head: normocephalic ENMT: mucosa pink and moist Neck: jvd (9 cm water), supple Respiratory: diminished breath sounds (at bases/B) Cardiovascular: regular rate and rhythm Gastrointestinal: non-tender, soft Musculoskeletal: muscle weakness (generalized) Extremities: edema (none) Neurological: confused, lethargic Results Result Diagram: 01/07/17 1055 01/07/17 0543 Results 24 hrs Laboratory Tests Test 01/06/17 18:12 01/06/17 21:45 01/07/17 05:42 01/07/17 05:43 Bedside Glucose 134 115 Iron Level 34 L Total Iron Binding Capacity 219 L Percent Iron Saturation 16 L White Blood Count 16.4 H Red Blood Count 2.31 L Hemoglobin 6.9 *L Hematocrit 23.0 L Mean Corpuscular Volume 99.6 Mean Corpuscular Hemoglobin 29.9 Mean Corpuscular Hemoglobin Concent 30.0 L Red Cell Distribution Width 19.4 H Platelet Count 324 Mean Platelet Volume 11.4 H Neutrophils % Segmented Neutrophils % (Manual) 79 H Lymphocytes % Lymphocytes % (Manual) 8 L Monocytes % Monocytes % (Manual) 2 Eosinophils % Eosinophils % (Manual) 4 Basophils % Metamyelocytes % (manual) 2 H Nucleated Red Blood Cells % 0.4 H Neutrophils # Absolute Lymphocytes (Manual) 1.3 Lymphocytes # Monocytes # Absolute Monocytes (Manual) 0.3 Eosinophils # Basophils # Metamyelocytes # 0.3 H Nucleated Red Blood Cells # Thrombocytosis 2 H Platelet Estimate NORMAL Polychromasia 3+ Poikilocytosis 1+ Anisocytosis 2+ Macrocytosis 2+ Ovalocytes 2+ Sodium Level 145 H Potassium Level 3.4 L Chloride Level 102 Carbon Dioxide Level 31 Anion Gap 15 Blood Urea Nitrogen 75 H Creatinine 1.94 H Glucose Level 128 # Calcium Level 8.3 L Phosphorus Level 4.0 Magnesium Level 2.2 Ferritin 109.0 Test 01/07/17 07:45 01/07/17 10:55 01/07/17 11:44 Bedside Glucose 147 220 Hemoglobin 7.0 L Hematocrit 23.0 L Medications Medications Current Medications Lorazepam (Ativan) 0.5 mg Q6H PRN IV ANXIETY Last administered on 01/04/17 21: 23; Admin Dose 0.5 MG; Start 12/26/16 at 06:00 Ondansetron HCl (Zofran Inj) 4 mg Q6H PRN IV NAUSEA AND/OR VOMITING; Start at 06:00 Aspirin (Aspirin) 81 mg DAILY PO Last administered on 01/07/17 08:18; Admin Dose 81 MG; Start 12/26/16 at 09:00 Acetaminophen (Tylenol Tab) 650 mg Q6H PRN PO PAIN LEVEL 1-3 OR FEVER Last administered on 12/27/16 03:55; Admin Dose 650 MG; Start 12/26/16 at 06:00 Heparin Sodium (Porcine) (Heparin (5000 Units/0.5 ml)) 5,000 unit Q12 SC Last administered on 01/07/17 08:18; Admin Dose 5,000 UNIT; Start 12/26/16 at 09:00 Diagnostic Test (Pha) (Accu-Chek) 1 ea 02 XX Last administered on 01/05/17 02: 00; Admin Dose 1 EA; Start 12/27/16 at 02:00 Insulin Glargine (Lantus) 14 unit DAILY@08 SC Last administered on 01/07/17 08: 17; Admin Dose 14 UNIT; Start 12/26/16 at 08:00 Miscellaneous Information 1 ea NOTE XX ; Start 12/26/16 at 06:00 Glucose (Glutose) 15 gm Q15M PRN PO DECREASED GLUCOSE; Start 12/26/16 at 06:00 Glucose (Glutose) 22.5 gm Q15M PRN PO DECREASED GLUCOSE; Start 12/26/16 at 06: 00 Dextrose (D50w Syringe) 25 ml Q15M PRN IV DECREASED GLUCOSE; Start 12/26/16 at 06:00 Dextrose (D50w Syringe) 50 ml Q15M PRN IV DECREASED GLUCOSE; Start 12/26/16 at 06:00 Glucagon (Glucagen) 1 mg Q15M PRN IM DECREASED GLUCOSE; Start 12/26/16 at 06:00 Glucose (Glutose) 15 gm Q15M PRN BUCCAL DECREASED GLUCOSE; Start 12/26/16 at 06 :00 Miscellaneous Information (Pending [facility] Order For Wound Care) This patient betancourt... PRN PRN XX WOUND CARE; Start 12/26/16 at 06:30 Hydralazine HCl (Apresoline) 25 mg Q8 PO Last administered on 01/06/17 05:43; Admin Dose 25 MG; Start 12/26/16 at 22:00 Metoprolol Tartrate (Lopressor) 25 mg BID PO Last administered on 01/07/17 08: 19; Admin Dose 25 MG; Start 12/26/16 at 21:00 Guaifenesin/ Codeine Phosphate (Robitussin Ac Liquid Cup) 10 ml Q4H PRN PO COUGH Last administered on 12/30/16 16:24; Admin Dose 10 ML; Start 12/26/16 at 20:30 Quetiapine Fumarate (Seroquel) 50 mg BID PO Last administered on 01/07/17 08:18 ; Admin Dose 50 MG; Start 12/26/16 at 22:00 Hydralazine HCl (Apresoline) 10 mg Q6H PRN IV ELEVATED SYSTOLIC BP; Start 12/31 at 23:30 Lorazepam (Ativan) 0.5 mg Q6H PRN IV ANXIETY; Start 12/31/16 at 23:30 Vancomycin HCl (Vanco Iv Per Pharmacy) PER PHARMACY DOSING NOTE XX ; Start 01/01 at 10:30 Metoprolol Tartrate (Lopressor) 5 mg Q4H PRN IV HR>110 Hold SBP<100; Start at 17:00 Trazodone HCl 100 mg 100 mg QHS PRN PO SLEEP; Start 01/03/17 at 21:00 Vancomycin HCl 1.25 gm/Sodium Chloride 250 ml @ 83.333 mls/ hr Q48H IVPB Last administered on 01/06/17 12:40; Admin Dose 83.333 MLS/HR; Start 01/06/17 at 12:00 Cefepime HCl (Maxipime 1gm/50 ml (Pmx)) 50 ml @ 100 mls/hr Q24H IVPB Last administered on 01/07/17 08:17; Admin Dose 100 MLS/HR; Start 01/06/17 at 09:00 Morphine Sulfate 2 mg 2 mg Q4H PRN IV PAIN LEVEL 7-10 Last administered on 00:24; Admin Dose 2 MG; Start 01/05/17 at 14:30 Sodium Chloride (1/2 NS) 1,000 ml @ 75 mls/hr [id number] IV Last administered on 01/07/17 05:47; Admin Dose 75 MLS/HR; Start 01/06/17 at 09:00 DENG WALLIS Jan 07, 2017 13:29
--- NOTE | 2017-01-07 15:15 | PN ---
Date/Time of Note Date/Time of Note DATE: 01/07/17 TIME: 15:12 Assessment/Plan VTE Prophylaxis VTE Prophylaxis Intervention: SCD's Lines/Catheters IV Catheter Type (from Nrs): Peripheral IV Urinary Cath still in place: Yes Reason Cath still needed: terminal illness/intractable pain Assessment/Plan Chief Complaint/Hosp Course Assessment/Plan -Dyspnea secondary to CHF exacerbation -off ventimask, on NC. Chest x-ray before showed Extensive bilateral interstitial and airspace disease is stable in distribution and extent with no new opacities are identified. - holding diuretics for now per nephro. - pt is now DNR/DNI . -Acute on CKD: - Nephrology following, on S, improving - Sepsis secondary to UTI and decub ulcers with urine culture showing enterococcus: WBC increased today, ID consulted -Continue current abx - Altered mentation.. Does have underlying dementia, and now with occasional delirium - monitor for now. Aspiration precautions. One-to-one sitter as needed -patient's family states he was conversational before hospitalization - Essential hypertension. Continue antihypertensives and adjust needed - Decubitus ulcers - continue with wound care - Anemia of chronic disease. low today likely 2/2 dilution, patient received fluids for the past 3 days. no signs of bleed, ferritin WNL, likely chronic disease, transfuse 2 units as needed. Problems: Subjective 24 Hr Interval Summary Free Text/Dictation mentation more calm than yesterday, able to speak some words. Exam/Review of Systems Vital Signs Vitals Vital Signs Date Time Temp Pulse Resp B/P Pulse Ox O2 Delivery O2 Flow Rate FiO2 01/07/17 14:00 97.8 82 18 98/58 97 Nasal Cannula 4.0 01/06/17 00:22 40 Intake and Output 01/06/17 01/06/17 01/07/17 15:00 23:00 07:00 Intake Total 1525 ml 650 ml Output Total 100 ml 450 ml 500 ml Balance -100 ml 1075 ml 150 ml Exam Physical exam General: Patient is laying in bed, not oriented. On NC Mentation: Patient is alert but not oriented Head: Normocephalic atraumatic Eyes: EOMI, pupils reactive to light Neck: Supple, nontender, midline Respiratory: course to auscultation bilaterally Cardiovascular: regular rate, no obvious murmurs Gastrointestinal: non-tender to palpation, bowel sounds heard. Neurological: Moves all extremities spontaneously Skin: No new skin lesions Results Result Diagram: 01/07/17 1055 01/07/17 0543 Results 24 hrs Laboratory Tests Test 01/06/17 18:12 01/06/17 21:45 01/07/17 05:42 01/07/17 05:43 Bedside Glucose 134 115 Iron Level 34 L Total Iron Binding Capacity 219 L Percent Iron Saturation 16 L White Blood Count 16.4 H Red Blood Count 2.31 L Hemoglobin 6.9 *L Hematocrit 23.0 L Mean Corpuscular Volume 99.6 Mean Corpuscular Hemoglobin 29.9 Mean Corpuscular Hemoglobin Concent 30.0 L Red Cell Distribution Width 19.4 H Platelet Count 324 Mean Platelet Volume 11.4 H Neutrophils % Segmented Neutrophils % (Manual) 79 H Lymphocytes % Lymphocytes % (Manual) 8 L Monocytes % Monocytes % (Manual) 2 Eosinophils % Eosinophils % (Manual) 4 Basophils % Metamyelocytes % (manual) 2 H Nucleated Red Blood Cells % 0.4 H Neutrophils # Absolute Lymphocytes (Manual) 1.3 Lymphocytes # Monocytes # Absolute Monocytes (Manual) 0.3 Eosinophils # Basophils # Metamyelocytes # 0.3 H Nucleated Red Blood Cells # Thrombocytosis 2 H Platelet Estimate NORMAL Polychromasia 3+ Poikilocytosis 1+ Anisocytosis 2+ Macrocytosis 2+ Ovalocytes 2+ Sodium Level 145 H Potassium Level 3.4 L Chloride Level 102 Carbon Dioxide Level 31 Anion Gap 15 Blood Urea Nitrogen 75 H Creatinine 1.94 H Glucose Level 128 # Calcium Level 8.3 L Phosphorus Level 4.0 Magnesium Level 2.2 Ferritin 109.0 Test 01/07/17 07:45 01/07/17 10:55 01/07/17 11:44 Bedside Glucose 147 220 Hemoglobin 7.0 L Hematocrit 23.0 L Medications Medications Current Medications Lorazepam (Ativan) 0.5 mg Q6H PRN IV ANXIETY Last administered on 01/04/17 21: 23; Admin Dose 0.5 MG; Start 12/26/16 at 06:00 Ondansetron HCl (Zofran Inj) 4 mg Q6H PRN IV NAUSEA AND/OR VOMITING; Start at 06:00 Aspirin (Aspirin) 81 mg DAILY PO Last administered on 01/07/17 08:18; Admin Dose 81 MG; Start 12/26/16 at 09:00 Acetaminophen (Tylenol Tab) 650 mg Q6H PRN PO PAIN LEVEL 1-3 OR FEVER Last administered on 12/27/16 03:55; Admin Dose 650 MG; Start 12/26/16 at 06:00 Heparin Sodium (Porcine) (Heparin (5000 Units/0.5 ml)) 5,000 unit Q12 SC Last administered on 01/07/17 08:18; Admin Dose 5,000 UNIT; Start 12/26/16 at 09:00 Diagnostic Test (Pha) (Accu-Chek) 1 ea 02 XX Last administered on 01/05/17 02: 00; Admin Dose 1 EA; Start 12/27/16 at 02:00 Insulin Glargine (Lantus) 14 unit DAILY@08 SC Last administered on 01/07/17 08: 17; Admin Dose 14 UNIT; Start 12/26/16 at 08:00 Miscellaneous Information 1 ea NOTE XX ; Start 12/26/16 at 06:00 Glucose (Glutose) 15 gm Q15M PRN PO DECREASED GLUCOSE; Start 12/26/16 at 06:00 Glucose (Glutose) 22.5 gm Q15M PRN PO DECREASED GLUCOSE; Start 12/26/16 at 06: 00 Dextrose (D50w Syringe) 25 ml Q15M PRN IV DECREASED GLUCOSE; Start 12/26/16 at 06:00 Dextrose (D50w Syringe) 50 ml Q15M PRN IV DECREASED GLUCOSE; Start 12/26/16 at 06:00 Glucagon (Glucagen) 1 mg Q15M PRN IM DECREASED GLUCOSE; Start 12/26/16 at 06:00 Glucose (Glutose) 15 gm Q15M PRN BUCCAL DECREASED GLUCOSE; Start 12/26/16 at 06 :00 Miscellaneous Information (Pending Santyl Order For Wound Care) This patient betancourt... PRN PRN XX WOUND CARE; Start 12/26/16 at 06:30 Metoprolol Tartrate (Lopressor) 25 mg BID PO Last administered on 01/07/17 08: 19; Admin Dose 25 MG; Start 12/26/16 at 21:00 Guaifenesin/ Codeine Phosphate (Robitussin Ac Liquid Cup) 10 ml Q4H PRN PO COUGH Last administered on 12/30/16 16:24; Admin Dose 10 ML; Start 12/26/16 at 20:30 Quetiapine Fumarate (Seroquel) 50 mg BID PO Last administered on 01/07/17 08:18 ; Admin Dose 50 MG; Start 12/26/16 at 22:00 Hydralazine HCl (Apresoline) 10 mg Q6H PRN IV ELEVATED SYSTOLIC BP; Start 12/31 at 23:30 Lorazepam (Ativan) 0.5 mg Q6H PRN IV ANXIETY; Start 12/31/16 at 23:30 Vancomycin HCl (Vanco Iv Per Pharmacy) PER PHARMACY DOSING NOTE XX ; Start 01/01 at 10:30 Metoprolol Tartrate (Lopressor) 5 mg Q4H PRN IV HR>110 Hold SBP<100; Start at 17:00 Trazodone HCl 100 mg 100 mg QHS PRN PO SLEEP; Start 01/03/17 at 21:00 Vancomycin HCl 1.25 gm/Sodium Chloride 250 ml @ 83.333 mls/ hr Q48H IVPB Last administered on 01/06/17 12:40; Admin Dose 83.333 MLS/HR; Start 01/06/17 at 12:00 Cefepime HCl (Maxipime 1gm/50 ml (Pmx)) 50 ml @ 100 mls/hr Q24H IVPB Last administered on 01/07/17 08:17; Admin Dose 100 MLS/HR; Start 01/06/17 at 09:00 Morphine Sulfate 2 mg 2 mg Q4H PRN IV PAIN LEVEL 7-10 Last administered on 00:24; Admin Dose 2 MG; Start 01/05/17 at 14:30 Sodium Chloride (1/2 NS) 1,000 ml @ 75 mls/hr [id number] IV Last administered on 01/07/17 05:47; Admin Dose 75 MLS/HR; Start 01/06/17 at 09:00 Hydralazine HCl (Apresoline) 10 mg Q8 PO ; Start 01/07/17 at 14:00 MIKY GOODMAN Jan 07, 2017 15:15
--- NOTE | 2017-01-07 19:16 | CONS ---
Date/Time of Note Date/Time of Note DATE: 01/07/17 TIME: 19:02 Assessment/Plan Assessment/Plan Chief Complaint/Hosp Course ID PROGRESS NOTE CURRENT ABX: Vanco IV + Cefepime 24H INTERVAL SUMMARY * No fevers, WBC down to * CXR with pulmonary infiltrates / HCAP * IMPRESSION:Calcified atherosclerosis in the aorta. Stable interstitial prominence in both lungs. Interval decrease in right upper lobe infiltrates. Stable patchy bilateral lower lobe infiltrates. Exam General: WN/WD/NAD, AOx comfortable, does not follow commands, lethargic HEENT: AT, NC, anicteric, atraumatic NECK: JVD elevated, no thyromegaly Lymph: no lymphadenopathy HEART: RRR (+)II/ FAUZIA LUNGS: Coarse sounds -> O2 via NC ABD: soft, NT, ND, +BS : Intact Neuro: non focal SKIN: chronic changes EXT: trace edema ID ASSESSMENT 86 yo M w/dementia/psychotic features, HTN, DMT2, admit with: 1. SIRS with persistent leukocytosis due to #2 #3 2. Enterococcal UTI * Complicated UTI 2/2 (+)BPH-> ?retention 3. HCAP 4. Acute CHF exacerbation w/MS-severe by echo 5. Cardiac arrhythmia -> s/p Pacemaker implant 6. Presumptive CKD 7. Anemia of chronic disease. 8. Right heel pressure ulcer. ABX ALLERGY: PCN CURRENT ABX: Vanco IV + Cefepime ID RECOMMENDATIONS 1. Continue current ABX 2. Repeat UA, C&S, sputum if able to produce . Problems: Consultation Date/Type/Reason Admit Date/Time Dec 26, 2016 at 01:49 Initial Consult Date 01/06/17 Type of Consultation: ID Referring Provider: ANGELA AL Exam/Review of Systems Vital Signs Vitals Vital Signs Date Time Temp Pulse Resp B/P Pulse Ox O2 Delivery O2 Flow Rate FiO2 01/07/17 18:04 97.8 95 19 126/57 Nasal Cannula 4.0 01/07/17 16:12 98 01/06/17 00:22 40 Intake and Output 01/06/17 01/06/17 01/07/17 15:00 23:00 07:00 Intake Total 1525 ml 650 ml Output Total 100 ml 450 ml 500 ml Balance -100 ml 1075 ml 150 ml Results Result Diagram: 01/07/17 1055 01/07/17 0543 Results 24 hrs Laboratory Tests Test 01/06/17 21:45 01/07/17 05:42 01/07/17 05:43 01/07/17 07:45 Bedside Glucose 115 147 Iron Level 34 L Total Iron Binding Capacity 219 L Percent Iron Saturation 16 L Ferritin 106.0 109.0 White Blood Count 16.4 H Red Blood Count 2.31 L Hemoglobin 6.9 *L Hematocrit 23.0 L Mean Corpuscular Volume 99.6 Mean Corpuscular Hemoglobin 29.9 Mean Corpuscular Hemoglobin Concent 30.0 L Red Cell Distribution Width 19.4 H Platelet Count 324 Mean Platelet Volume 11.4 H Neutrophils % Segmented Neutrophils % (Manual) 79 H Lymphocytes % Lymphocytes % (Manual) 8 L Monocytes % Monocytes % (Manual) 2 Eosinophils % Eosinophils % (Manual) 4 Basophils % Metamyelocytes % (manual) 2 H Nucleated Red Blood Cells % 0.4 H Neutrophils # Absolute Lymphocytes (Manual) 1.3 Lymphocytes # Monocytes # Absolute Monocytes (Manual) 0.3 Eosinophils # Basophils # Metamyelocytes # 0.3 H Nucleated Red Blood Cells # Thrombocytosis 2 H Platelet Estimate NORMAL Polychromasia 3+ Poikilocytosis 1+ Anisocytosis 2+ Macrocytosis 2+ Ovalocytes 2+ Sodium Level 145 H Potassium Level 3.4 L Chloride Level 102 Carbon Dioxide Level 31 Anion Gap 15 Blood Urea Nitrogen 75 H Creatinine 1.94 H Glucose Level 128 # Calcium Level 8.3 L Phosphorus Level 4.0 Magnesium Level 2.2 Test 01/07/17 10:55 01/07/17 11:44 01/07/17 17:48 Hemoglobin 7.0 L Hematocrit 23.0 L Bedside Glucose 220 263 H Medications Medications Current Medications Lorazepam (Ativan) 0.5 mg Q6H PRN IV ANXIETY Last administered on 01/04/17 21: 23; Admin Dose 0.5 MG; Start 12/26/16 at 06:00 Ondansetron HCl (Zofran Inj) 4 mg Q6H PRN IV NAUSEA AND/OR VOMITING; Start at 06:00 Aspirin (Aspirin) 81 mg DAILY PO Last administered on 01/07/17 08:18; Admin Dose 81 MG; Start 12/26/16 at 09:00 Acetaminophen (Tylenol Tab) 650 mg Q6H PRN PO PAIN LEVEL 1-3 OR FEVER Last administered on 12/27/16 03:55; Admin Dose 650 MG; Start 12/26/16 at 06:00 Heparin Sodium (Porcine) (Heparin (5000 Units/0.5 ml)) 5,000 unit Q12 SC Last administered on 01/07/17 08:18; Admin Dose 5,000 UNIT; Start 12/26/16 at 09:00 Diagnostic Test (Pha) (Accu-Chek) 1 ea 02 XX Last administered on 01/05/17 02: 00; Admin Dose 1 EA; Start 12/27/16 at 02:00 Insulin Glargine (Lantus) 14 unit DAILY@08 SC Last administered on 01/07/17 08: 17; Admin Dose 14 UNIT; Start 12/26/16 at 08:00 Miscellaneous Information 1 ea NOTE XX ; Start 12/26/16 at 06:00 Glucose (Glutose) 15 gm Q15M PRN PO DECREASED GLUCOSE; Start 12/26/16 at 06:00 Glucose (Glutose) 22.5 gm Q15M PRN PO DECREASED GLUCOSE; Start 12/26/16 at 06: 00 Dextrose (D50w Syringe) 25 ml Q15M PRN IV DECREASED GLUCOSE; Start 12/26/16 at 06:00 Dextrose (D50w Syringe) 50 ml Q15M PRN IV DECREASED GLUCOSE; Start 12/26/16 at 06:00 Glucagon (Glucagen) 1 mg Q15M PRN IM DECREASED GLUCOSE; Start 12/26/16 at 06:00 Glucose (Glutose) 15 gm Q15M PRN BUCCAL DECREASED GLUCOSE; Start 12/26/16 at 06 :00 Miscellaneous Information (Pending Santyl Order For Wound Care) This patient betancourt... PRN PRN XX WOUND CARE; Start 12/26/16 at 06:30 Metoprolol Tartrate (Lopressor) 25 mg BID PO Last administered on 01/07/17 08: 19; Admin Dose 25 MG; Start 12/26/16 at 21:00 Guaifenesin/ Codeine Phosphate (Robitussin Ac Liquid Cup) 10 ml Q4H PRN PO COUGH Last administered on 12/30/16 16:24; Admin Dose 10 ML; Start 12/26/16 at 20:30 Quetiapine Fumarate (Seroquel) 50 mg BID PO Last administered on 01/07/17 08:18 ; Admin Dose 50 MG; Start 12/26/16 at 22:00 Hydralazine HCl (Apresoline) 10 mg Q6H PRN IV ELEVATED SYSTOLIC BP; Start 12/31 at 23:30 Lorazepam (Ativan) 0.5 mg Q6H PRN IV ANXIETY; Start 12/31/16 at 23:30 Vancomycin HCl (Vanco Iv Per Pharmacy) PER PHARMACY DOSING NOTE XX ; Start 01/01 at 10:30 Metoprolol Tartrate (Lopressor) 5 mg Q4H PRN IV HR>110 Hold SBP<100; Start at 17:00 Trazodone HCl 100 mg 100 mg QHS PRN PO SLEEP; Start 01/03/17 at 21:00 Vancomycin HCl 1.25 gm/Sodium Chloride 250 ml @ 83.333 mls/ hr Q48H IVPB Last administered on 01/06/17 12:40; Admin Dose 83.333 MLS/HR; Start 01/06/17 at 12:00 Cefepime HCl (Maxipime 1gm/50 ml (Pmx)) 50 ml @ 100 mls/hr Q24H IVPB Last administered on 01/07/17 08:17; Admin Dose 100 MLS/HR; Start 01/06/17 at 09:00 Morphine Sulfate 2 mg 2 mg Q4H PRN IV PAIN LEVEL 7-10 Last administered on 00:24; Admin Dose 2 MG; Start 01/05/17 at 14:30 Sodium Chloride (1/2 NS) 1,000 ml @ 75 mls/hr [id number] IV Last administered on 01/07/17 05:47; Admin Dose 75 MLS/HR; Start 01/06/17 at 09:00 Hydralazine HCl (Apresoline) 10 mg Q8 PO ; Start 01/07/17 at 14:00 MERLIN MARCIAL NP Jan 07, 2017 19:13
[2017-01-08] VITALS (20 sets, daily range): BP systolic 90–150; BP diastolic 44–66; PULSE 73–103; RESP 18–24
[2017-01-08] MEDS: ACCU-CHEK XX SCH (02:00)
[2017-01-08 06:41] LABS: ABNORMAL IP MESSAGE 1; BASOPHIL # 0.1 10^3/ul (0.0-0.1); BASOPHILS % 0.5 % (0.0-2.0); EOSINOPHILS # 0.6 10^3/ul (0.0-0.5); EOSINOPHILS % 3.3 % (0.0-7.0); HEMATOCRIT 26.3 % (42.0-52.0); HEMOGLOBIN 8.2 g/dl (14.0-18.0); LYMPHOCYTES # 0.9 10^3/ul (0.8-2.9); LYMPHOCYTES % 5.2 % (15.0-51.0); MEAN CORPUSCULAR HEMOGLOBIN 30.3 pg (29.0-33.0); MEAN CORPUSCULAR HGB CONC 31.2 g/dl (32.0-37.0); MEAN PLATELET VOLUME 10.9 fl (7.4-10.4); MONOCYTE # 0.9 10^3/ul (0.3-0.9); MONOCYTES % 5.1 % (0.0-11.0); NUCLEATED RED BLOOD CELLS # 0.1 10^3/ul (0.0-0.0); NUCLEATED RED BLOOD CELLS% 0.3 /100WBC (0.0-0.0); PLATELET COUNT 305 10^3/UL (140-415); POSITIVE DIFF @See below; RED BLOOD COUNT 2.71 10^6/ul (4.70-6.10); RED CELL DISTRIBUTION WIDTH 19.3 % (11.5-14.5); WHITE BLOOD COUNT 17.5 10^3/ul (4.8-10.8)
[2017-01-08 07:18] LABS: CALCIUM 8.2 mg/dl (8.4-10.2); CREATININE 1.69 mg/dl (0.61-1.24); MAGNESIUM 2.1 mg/dl (1.7-2.5); POTASSIUM 4.2 mmol/L (3.5-5.1)
[2017-01-08] MEDS: INSULIN ASPART [NOVOLOG] 3 ML PEN SC SCH ×4 (07:55→21:00)
[2017-01-08] MEDS: ASPIRIN 81 MG TAB PO SCH (08:23)
[2017-01-08] MEDS: CEFEPIME 1GM/50 ML IVPB SCH (08:23)
[2017-01-08] MEDS: QUETIAPINE 25 MG TAB PO SCH ×2 (08:24→21:35)
[2017-01-08] MEDS: HEPARIN 5,000 UNIT/0.5 ML VIAL SC SCH ×2 (08:25→21:47)
[2017-01-08] MEDS: METOPROLOL 25 MG TAB PO SCH ×2 (08:26→21:37)
[2017-01-08] MEDS: INSULIN GLARGINE [LANtus] 3 ML PEN SC SCH (08:30)
[2017-01-08] MEDS ORDERED: EPOETIN 10000 UNITS/1 ML INJ (ESRD) SC ONE (09:00)
--- NOTE | 2017-01-08 10:51 | CONS ---
Date/Time of Note Date/Time of Note DATE: 01/08/17 TIME: 10:49 Assessment/Plan Assessment/Plan Chief Complaint/Hosp Course IMP: 1.CHF-diastolic acute on chronic. Trop negative x 3. reasonable volume status by exam 2.MS-severe by echo 3.abnl ecg 4.Psych d/o 5.REnal failure 6. UTI 7.AMS 8. Resp distress-improved currently 9. DNR status Recc: -tele -Will hold hydralazine given Marginal BP -IVP PRN BB -Continue bronchodilators/follow resp status closely -Continue abx's and f/u cx data -Follow volume status closely with lasix held per renal Problems: Consultation Date/Type/Reason Admit Date/Time Dec 26, 2016 at 01:49 Initial Consult Date 12/26/2016 Type of Consultation: cardiology Reason for Consultation CHF Referring Provider: ANGELA AL Exam/Review of Systems Vital Signs Vitals Vital Signs Date Time Temp Pulse Resp B/P Pulse Ox O2 Delivery O2 Flow Rate FiO2 01/08/17 08:23 92 01/08/17 07:20 98.2 19 111/53 95 01/08/17 06:13 Nasal Cannula 4.0 01/06/17 00:22 40 Intake and Output 01/07/17 01/07/17 01/08/17 15:00 23:00 07:00 Intake Total 1605 ml 1150 ml Output Total 550 ml 600 ml Balance 1055 ml 550 ml Exam Review of Systems: CONSTITUTIONAL: No fevers, chills. PULMONARY: No sob CARDIOVASCULAR: No chest pain/palpitations GASTROINTESTINAL: No nausea/vomiting. GENITOURINARY: No hematuria/dysuria. MUSCULOSKELETAL: No myagias/arthalgias. PSYCHIATRIC: The patient denies depression. NEUROLOGIC: No weakness Constitutional: alert Psych: no complaints Head: normocephalic ENMT: mucosa pink and moist Neck: jvd (8-9 cm water), supple Respiratory: diminished breath sounds (at bases/B) Cardiovascular: regular rate and rhythm Gastrointestinal: non-tender, soft Musculoskeletal: muscle tone (normal) Extremities: edema (none) Neurological: other (No focal deficits) Results Result Diagram: 01/08/17 0556 01/08/17 0556 Results 24 hrs Laboratory Tests Test 01/07/17 10:55 01/07/17 11:44 01/07/17 17:48 01/07/17 21:14 Hemoglobin 7.0 L Hematocrit 23.0 L Bedside Glucose 220 263 H 186 Test 01/08/17 02:13 01/08/17 05:27 01/08/17 05:56 01/08/17 08:18 Bedside Glucose 124 130 Lab Scanned Report BLOOD TRANSFUSION White Blood Count 17.5 H Red Blood Count 2.71 L Hemoglobin 8.2 L Hematocrit 26.3 L Mean Corpuscular Volume 97.0 Mean Corpuscular Hemoglobin 30.3 Mean Corpuscular Hemoglobin Concent 31.2 L Red Cell Distribution Width 19.3 H Platelet Count 305 Mean Platelet Volume 10.9 H Neutrophils % 80.0 H Lymphocytes % 5.2 L Monocytes % 5.1 Eosinophils % 3.3 Basophils % 0.5 Nucleated Red Blood Cells % 0.3 H Neutrophils # 14.0 H Lymphocytes # 0.9 Monocytes # 0.9 Eosinophils # 0.6 H Basophils # 0.1 Nucleated Red Blood Cells # 0.1 H Sodium Level 144 Potassium Level 4.2 Chloride Level 105 Carbon Dioxide Level 30 Anion Gap 13 Blood Urea Nitrogen 73 H Creatinine 1.69 H Glucose Level 122 Calcium Level 8.2 L Phosphorus Level 3.0 Magnesium Level 2.1 Medications Medications Current Medications Lorazepam (Ativan) 0.5 mg Q6H PRN IV ANXIETY Last administered on 01/04/17 21: 23; Admin Dose 0.5 MG; Start 12/26/16 at 06:00 Ondansetron HCl (Zofran Inj) 4 mg Q6H PRN IV NAUSEA AND/OR VOMITING; Start at 06:00 Aspirin (Aspirin) 81 mg DAILY PO Last administered on 01/08/17 08:23; Admin Dose 81 MG; Start 12/26/16 at 09:00 Acetaminophen (Tylenol Tab) 650 mg Q6H PRN PO PAIN LEVEL 1-3 OR FEVER Last administered on 12/27/16 03:55; Admin Dose 650 MG; Start 12/26/16 at 06:00 Heparin Sodium (Porcine) (Heparin (5000 Units/0.5 ml)) 5,000 unit Q12 SC Last administered on 01/08/17 08:25; Admin Dose 5,000 UNIT; Start 12/26/16 at 09:00 Diagnostic Test (Pha) (Accu-Chek) 1 ea 02 XX Last administered on 01/05/17 02: 00; Admin Dose 1 EA; Start 12/27/16 at 02:00 Insulin Glargine (Lantus) 14 unit DAILY@08 SC Last administered on 01/08/17 08: 30; Admin Dose 14 UNIT; Start 12/26/16 at 08:00 Miscellaneous Information 1 ea NOTE XX ; Start 12/26/16 at 06:00 Glucose (Glutose) 15 gm Q15M PRN PO DECREASED GLUCOSE; Start 12/26/16 at 06:00 Glucose (Glutose) 22.5 gm Q15M PRN PO DECREASED GLUCOSE; Start 12/26/16 at 06: 00 Dextrose (D50w Syringe) 25 ml Q15M PRN IV DECREASED GLUCOSE; Start 12/26/16 at 06:00 Dextrose (D50w Syringe) 50 ml Q15M PRN IV DECREASED GLUCOSE; Start 12/26/16 at 06:00 Glucagon (Glucagen) 1 mg Q15M PRN IM DECREASED GLUCOSE; Start 12/26/16 at 06:00 Glucose (Glutose) 15 gm Q15M PRN BUCCAL DECREASED GLUCOSE; Start 12/26/16 at 06 :00 Miscellaneous Information ([facility]) This patient betancourt... PRN PRN XX WOUND CARE; Start 12/26/16 at 06:30 Metoprolol Tartrate (Lopressor) 25 mg BID PO Last administered on 01/08/17 08: 26; Admin Dose 25 MG; Start 12/26/16 at 21:00 Guaifenesin/ Codeine Phosphate (Robitussin Ac Liquid Cup) 10 ml Q4H PRN PO COUGH Last administered on 12/30/16 16:24; Admin Dose 10 ML; Start 12/26/16 at 20:30 Quetiapine Fumarate (Seroquel) 50 mg BID PO Last administered on 01/08/17 08:24 ; Admin Dose 50 MG; Start 12/26/16 at 22:00 Hydralazine HCl (Apresoline) 10 mg Q6H PRN IV ELEVATED SYSTOLIC BP; Start 12/31 at 23:30 Lorazepam (Ativan) 0.5 mg Q6H PRN IV ANXIETY; Start 12/31/16 at 23:30 Vancomycin HCl (Vanco Iv Per Pharmacy) PER PHARMACY DOSING NOTE XX ; Start 01/01 at 10:30 Metoprolol Tartrate (Lopressor) 5 mg Q4H PRN IV HR>110 Hold SBP<100; Start at 17:00 Trazodone HCl 100 mg 100 mg QHS PRN PO SLEEP; Start 01/03/17 at 21:00 Vancomycin HCl 1.25 gm/Sodium Chloride 250 ml @ 83.333 mls/ hr Q48H IVPB Last administered on 01/06/17 12:40; Admin Dose 83.333 MLS/HR; Start 01/06/17 at 12:00 Cefepime HCl (Maxipime 1gm/50 ml (Pmx)) 50 ml @ 100 mls/hr Q24H IVPB Last administered on 01/08/17 08:23; Admin Dose 100 MLS/HR; Start 01/06/17 at 09:00 Morphine Sulfate 2 mg 2 mg Q4H PRN IV PAIN LEVEL 7-10 Last administered on 00:24; Admin Dose 2 MG; Start 01/05/17 at 14:30 Sodium Chloride (1/2 NS) 1,000 ml @ 75 mls/hr [id number] IV Last administered on 01/07/17 20:00; Admin Dose 75 MLS/HR; Start 01/06/17 at 09:00 Hydralazine HCl (Apresoline) 10 mg Q8 PO Last administered on 01/07/17 21:06; Admin Dose 10 MG; Start 01/07/17 at 14:00 DENG WALLIS Jan 08, 2017 10:51
[2017-01-08] MEDS: VANCOMYCIN 1.25 GM in SOD CHLORIDE 0.9% 250 ML IVPB SCH (11:24)
[2017-01-08] MEDS: SOD CHLORIDE 0.45% 1,000 ML IV SCH (11:41)
--- NOTE | 2017-01-08 13:07 | PN ---
DATE: 01/08/2017 SUBJECTIVE DATA: The patient remains critical, but stable. No other events noted. OBJECTIVE DATA: VITAL SIGNS: Blood pressure 111/53, respirations 19, pulse 69, temperature 98.2. HEENT: Head is normocephalic. NECK: Supple. HEART: Regular rate. LUNGS: Diminished breath sounds at the base. ABDOMEN: Soft, nontender to palpation. No rebound or guarding. EXTREMITIES: Negative for clubbing, cyanosis, no edema. DERMATOLOGIC: No rashes. MUSCULOSKELETAL: No joint effusion. NEUROLOGIC: Unchanged exam. MEDICATIONS: Reviewed. LABORATORY AND DIAGNOSTIC DATA: Sodium 144, potassium 4.2, BUN 73, creatinine 1.69. White count 17.5, hemoglobin 8.2, hematocrit 26.3, platelet count 305. ASSESSMENT AND PLAN: 1. Nonoliguric acute kidney injury on top of chronic kidney disease with unknown baseline creatinine. Etiology secondary to hemodynamics. Renal function has improved with IV fluids. Will continue at the current rate. 2. Hypokalemia, improved. Continue to monitor. 3. Hyponatremia, improving. Continue hypotonic fluid. 4. Chronic kidney disease. Underlying cause is unclear. The patient is currently acute kidney injury as stated above. 5. Anemia. The patient is status post blood transfusion. Will give 1 dose of Epogen and monitor H and H levels. 6. Mineral bone disorder. Monitor calcium and phosphorus levels. 7. History of congestive heart failure. The patient appears euvolemic to hypovolemic. Continue to monitor while on gentle fluids. 8. Acute hypoxemic respiratory failure secondary to pneumonia. Continue current medical management. Nebulizers, antibiotics. 9. Sepsis secondary to pneumonia. Continue current treatment plan. 10. Encephalopathy and dementia. Dictated By: Major Lazo DO /lalitha/katharine /Document#: [id number]
--- NOTE | 2017-01-08 14:07 | CONS ---
Date/Time of Note Date/Time of Note DATE: 01/08/17 TIME: 14:04 Assessment/Plan Assessment/Plan Additional Assessment/Plan Conference with patient's with an professional engineer present. The professional engineer is also patient's and 's caregiver she was very helpful very supportive. We discussed ongoing level of care and hospice care. Patient's has thought about his end-of-life and she was prepared for this conversation. She wants him to go home under hospice care we will assist with those arrangements, they have a hospice of choice that they would like to work with. Consultation Date/Type/Reason Admit Date/Time Dec 26, 2016 at 01:49 Initial Consult Date 01/06/17 Type of Consultation: Palliative care Referring Provider: ANGELA AL Exam/Review of Systems Vital Signs Vitals Vital Signs Date Time Temp Pulse Resp B/P Pulse Ox O2 Delivery O2 Flow Rate FiO2 01/08/17 12:12 73 01/08/17 12:04 98.4 19 119/54 98 01/08/17 10:00 Nasal Cannula 6.0 01/06/17 00:22 40 Intake and Output 01/07/17 01/07/17 01/08/17 15:00 23:00 07:00 Intake Total 1605 ml 1150 ml Output Total 550 ml 600 ml Balance 1055 ml 550 ml Results Result Diagram: 01/08/17 0556 01/08/17 0556 Results 24 hrs Laboratory Tests Test 01/07/17 17:48 01/07/17 21:14 01/08/17 02:13 01/08/17 05:27 Bedside Glucose 263 H 186 124 Lab Scanned Report BLOOD TRANSFUSION Test 01/08/17 05:56 01/08/17 08:18 01/08/17 11:18 White Blood Count 17.5 H Red Blood Count 2.71 L Hemoglobin 8.2 L Hematocrit 26.3 L Mean Corpuscular Volume 97.0 Mean Corpuscular Hemoglobin 30.3 Mean Corpuscular Hemoglobin Concent 31.2 L Red Cell Distribution Width 19.3 H Platelet Count 305 Mean Platelet Volume 10.9 H Neutrophils % 80.0 H Lymphocytes % 5.2 L Monocytes % 5.1 Eosinophils % 3.3 Basophils % 0.5 Nucleated Red Blood Cells % 0.3 H Neutrophils # 14.0 H Lymphocytes # 0.9 Monocytes # 0.9 Eosinophils # 0.6 H Basophils # 0.1 Nucleated Red Blood Cells # 0.1 H Sodium Level 144 Potassium Level 4.2 Chloride Level 105 Carbon Dioxide Level 30 Anion Gap 13 Blood Urea Nitrogen 73 H Creatinine 1.69 H Glucose Level 122 Calcium Level 8.2 L Phosphorus Level 3.0 Magnesium Level 2.1 Bedside Glucose 130 208 Medications Medications Current Medications Lorazepam (Ativan) 0.5 mg Q6H PRN IV ANXIETY Last administered on 01/04/17 21: 23; Admin Dose 0.5 MG; Start 12/26/16 at 06:00 Ondansetron HCl (Zofran Inj) 4 mg Q6H PRN IV NAUSEA AND/OR VOMITING; Start at 06:00 Aspirin (Aspirin) 81 mg DAILY PO Last administered on 01/08/17 08:23; Admin Dose 81 MG; Start 12/26/16 at 09:00 Acetaminophen (Tylenol Tab) 650 mg Q6H PRN PO PAIN LEVEL 1-3 OR FEVER Last administered on 12/27/16 03:55; Admin Dose 650 MG; Start 12/26/16 at 06:00 Heparin Sodium (Porcine) (Heparin (5000 Units/0.5 ml)) 5,000 unit Q12 SC Last administered on 01/08/17 08:25; Admin Dose 5,000 UNIT; Start 12/26/16 at 09:00 Diagnostic Test (Pha) (Accu-Chek) 1 ea 02 XX Last administered on 01/05/17 02: 00; Admin Dose 1 EA; Start 12/27/16 at 02:00 Insulin Glargine (Lantus) 14 unit DAILY@08 SC Last administered on 01/08/17 08: 30; Admin Dose 14 UNIT; Start 12/26/16 at 08:00 Miscellaneous Information 1 ea NOTE XX ; Start 12/26/16 at 06:00 Glucose (Glutose) 15 gm Q15M PRN PO DECREASED GLUCOSE; Start 12/26/16 at 06:00 Glucose (Glutose) 22.5 gm Q15M PRN PO DECREASED GLUCOSE; Start 12/26/16 at 06: 00 Dextrose (D50w Syringe) 25 ml Q15M PRN IV DECREASED GLUCOSE; Start 12/26/16 at 06:00 Dextrose (D50w Syringe) 50 ml Q15M PRN IV DECREASED GLUCOSE; Start 12/26/16 at 06:00 Glucagon (Glucagen) 1 mg Q15M PRN IM DECREASED GLUCOSE; Start 12/26/16 at 06:00 Glucose (Glutose) 15 gm Q15M PRN BUCCAL DECREASED GLUCOSE; Start 12/26/16 at 06 :00 Miscellaneous Information (Pending [facility] Order For Wound Care) This patient betancourt... PRN PRN XX WOUND CARE; Start 12/26/16 at 06:30 Metoprolol Tartrate (Lopressor) 25 mg BID PO Last administered on 01/08/17 08: 26; Admin Dose 25 MG; Start 12/26/16 at 21:00 Guaifenesin/ Codeine Phosphate (Robitussin Ac Liquid Cup) 10 ml Q4H PRN PO COUGH Last administered on 12/30/16 16:24; Admin Dose 10 ML; Start 12/26/16 at 20:30 Quetiapine Fumarate (Seroquel) 50 mg BID PO Last administered on 01/08/17 08:24 ; Admin Dose 50 MG; Start 12/26/16 at 22:00 Hydralazine HCl (Apresoline) 10 mg Q6H PRN IV ELEVATED SYSTOLIC BP; Start 12/31 at 23:30 Lorazepam (Ativan) 0.5 mg Q6H PRN IV ANXIETY; Start 12/31/16 at 23:30 Vancomycin HCl (Vanco Iv Per Pharmacy) PER PHARMACY DOSING NOTE XX ; Start 01/01 at 10:30 Metoprolol Tartrate (Lopressor) 5 mg Q4H PRN IV HR>110 Hold SBP<100; Start at 17:00 Trazodone HCl 100 mg 100 mg QHS PRN PO SLEEP; Start 01/03/17 at 21:00 Vancomycin HCl 1.25 gm/Sodium Chloride 250 ml @ 83.333 mls/ hr Q48H IVPB Last administered on 01/08/17 11:24; Admin Dose 83.333 MLS/HR; Start 01/06/17 at 12:00 Cefepime HCl (Maxipime 1gm/50 ml (Pmx)) 50 ml @ 100 mls/hr Q24H IVPB Last administered on 01/08/17 08:23; Admin Dose 100 MLS/HR; Start 01/06/17 at 09:00 Morphine Sulfate 2 mg 2 mg Q4H PRN IV PAIN LEVEL 7-10 Last administered on 00:24; Admin Dose 2 MG; Start 01/05/17 at 14:30 Sodium Chloride (1/2 NS) 1,000 ml @ 75 mls/hr [id number] IV Last administered on 01/08/17 11:41; Admin Dose 75 MLS/HR; Start 01/06/17 at 09:00 Hydralazine HCl (Apresoline) 10 mg Q8 PO Last administered on 01/07/17 21:06; Admin Dose 10 MG; Start 01/07/17 at 14:00; Status Future Hold JEAN PIERRE WEEMS Jan 08, 2017 14:07
--- NOTE | 2017-01-08 14:16 | PN ---
Date/Time of Note Date/Time of Note DATE: 01/08/17 TIME: 14:14 Assessment/Plan VTE Prophylaxis VTE Prophylaxis Intervention: SCD's Lines/Catheters IV Catheter Type (from Nrs): Saline Lock Urinary Cath still in place: Yes Reason Cath still needed: terminal illness/intractable pain Assessment/Plan Chief Complaint/Hosp Course Assessment/Plan -Dyspnea secondary to CHF exacerbation -off ventimask, on NC. Chest x-ray before showed Extensive bilateral interstitial and airspace disease is stable in distribution and extent with no new opacities are identified. - holding diuretics for now per nephro. - pt is now DNR/DNI . -Acute on CKD: - Nephrology following, on S, improving - Sepsis secondary to UTI and decub ulcers with urine culture showing enterococcus: WBC increased today, ID consulted -Continue current abx - Altered mentation.. Does have underlying dementia, and now with occasional delirium - monitor for now. Aspiration precautions. One-to-one sitter as needed -patient's family states he was conversational before hospitalization - Essential hypertension. Continue antihypertensives and adjust needed - Decubitus ulcers - continue with wound care - Anemia of chronic disease. low today likely 2/2 dilution, patient received fluids for the past 3 days. no signs of bleed, ferritin WNL, likely chronic disease, transfuse 2 units as needed. DISPO: watch white count and finalize ID recs on abx therapy and plan to transfer to [place] in a few days. Problems: Subjective 24 Hr Interval Summary Free Text/Dictation does open eyes to command and move spontaneously, does respond to family in [place]. Exam/Review of Systems Vital Signs Vitals Vital Signs Date Time Temp Pulse Resp B/P Pulse Ox O2 Delivery O2 Flow Rate FiO2 01/08/17 12:12 73 01/08/17 12:04 98.4 19 119/54 98 01/08/17 10:00 Nasal Cannula 6.0 01/06/17 00:22 40 Intake and Output 01/07/17 01/07/17 01/08/17 15:00 23:00 07:00 Intake Total 1605 ml 1150 ml Output Total 550 ml 600 ml Balance 1055 ml 550 ml Exam Physical exam General: Patient is laying in bed, not oriented. On NC Mentation: Patient is alert but not oriented Head: Normocephalic atraumatic Eyes: EOMI, pupils reactive to light Neck: Supple, nontender, midline Respiratory: course to auscultation bilaterally Cardiovascular: regular rate, no obvious murmurs Gastrointestinal: non-tender to palpation, bowel sounds heard. Neurological: Moves all extremities spontaneously Skin: No new skin lesions Results Result Diagram: 01/08/17 0556 01/08/17 0556 Results 24 hrs Laboratory Tests Test 01/07/17 17:48 01/07/17 21:14 01/08/17 02:13 01/08/17 05:27 Bedside Glucose 263 H 186 124 Lab Scanned Report BLOOD TRANSFUSION Test 01/08/17 05:56 01/08/17 08:18 01/08/17 11:18 White Blood Count 17.5 H Red Blood Count 2.71 L Hemoglobin 8.2 L Hematocrit 26.3 L Mean Corpuscular Volume 97.0 Mean Corpuscular Hemoglobin 30.3 Mean Corpuscular Hemoglobin Concent 31.2 L Red Cell Distribution Width 19.3 H Platelet Count 305 Mean Platelet Volume 10.9 H Neutrophils % 80.0 H Lymphocytes % 5.2 L Monocytes % 5.1 Eosinophils % 3.3 Basophils % 0.5 Nucleated Red Blood Cells % 0.3 H Neutrophils # 14.0 H Lymphocytes # 0.9 Monocytes # 0.9 Eosinophils # 0.6 H Basophils # 0.1 Nucleated Red Blood Cells # 0.1 H Sodium Level 144 Potassium Level 4.2 Chloride Level 105 Carbon Dioxide Level 30 Anion Gap 13 Blood Urea Nitrogen 73 H Creatinine 1.69 H Glucose Level 122 Calcium Level 8.2 L Phosphorus Level 3.0 Magnesium Level 2.1 Bedside Glucose 130 208 Medications Medications Current Medications Lorazepam (Ativan) 0.5 mg Q6H PRN IV ANXIETY Last administered on 01/04/17 21: 23; Admin Dose 0.5 MG; Start 12/26/16 at 06:00 Ondansetron HCl (Zofran Inj) 4 mg Q6H PRN IV NAUSEA AND/OR VOMITING; Start at 06:00 Aspirin (Aspirin) 81 mg DAILY PO Last administered on 01/08/17 08:23; Admin Dose 81 MG; Start 12/26/16 at 09:00 Acetaminophen (Tylenol Tab) 650 mg Q6H PRN PO PAIN LEVEL 1-3 OR FEVER Last administered on 7/22/17at 03:55; Admin Dose 650 MG; Start 12/26/16 at 06:00 Heparin Sodium (Porcine) (Heparin (5000 Units/0.5 ml)) 5,000 unit Q12 SC Last administered on 01/08/17 08:25; Admin Dose 5,000 UNIT; Start 12/26/16 at 09:00 Diagnostic Test (Pha) (Accu-Chek) 1 ea 02 XX Last administered on 01/05/17 02: 00; Admin Dose 1 EA; Start 12/27/16 at 02:00 Insulin Glargine (Lantus) 14 unit DAILY@08 SC Last administered on 01/08/17 08: 30; Admin Dose 14 UNIT; Start 12/26/16 at 08:00 Miscellaneous Information 1 ea NOTE XX ; Start 12/26/16 at 06:00 Glucose (Glutose) 15 gm Q15M PRN PO DECREASED GLUCOSE; Start 12/26/16 at 06:00 Glucose (Glutose) 22.5 gm Q15M PRN PO DECREASED GLUCOSE; Start 12/26/16 at 06: 00 Dextrose (D50w Syringe) 25 ml Q15M PRN IV DECREASED GLUCOSE; Start 12/26/16 at 06:00 Dextrose (D50w Syringe) 50 ml Q15M PRN IV DECREASED GLUCOSE; Start 12/26/16 at 06:00 Glucagon (Glucagen) 1 mg Q15M PRN IM DECREASED GLUCOSE; Start 12/26/16 at 06:00 Glucose (Glutose) 15 gm Q15M PRN BUCCAL DECREASED GLUCOSE; Start 12/26/16 at 06 :00 Miscellaneous Information ([facility]) This patient betancourt... PRN PRN XX WOUND CARE; Start 12/26/16 at 06:30 Metoprolol Tartrate (Lopressor) 25 mg BID PO Last administered on 01/08/17 08: 26; Admin Dose 25 MG; Start 12/26/16 at 21:00 Guaifenesin/ Codeine Phosphate (Robitussin Ac Liquid Cup) 10 ml Q4H PRN PO COUGH Last administered on 12/30/16 16:24; Admin Dose 10 ML; Start 12/26/16 at 20:30 Quetiapine Fumarate (Seroquel) 50 mg BID PO Last administered on 01/08/17 08:24 ; Admin Dose 50 MG; Start 12/26/16 at 22:00 Hydralazine HCl (Apresoline) 10 mg Q6H PRN IV ELEVATED SYSTOLIC BP; Start 12/31 at 23:30 Lorazepam (Ativan) 0.5 mg Q6H PRN IV ANXIETY; Start 12/31/16 at 23:30 Vancomycin HCl (Vanco Iv Per Pharmacy) PER PHARMACY DOSING NOTE XX ; Start 01/01 at 10:30 Metoprolol Tartrate (Lopressor) 5 mg Q4H PRN IV HR>110 Hold SBP<100; Start at 17:00 Trazodone HCl 100 mg 100 mg QHS PRN PO SLEEP; Start 01/03/17 at 21:00 Vancomycin HCl 1.25 gm/Sodium Chloride 250 ml @ 83.333 mls/ hr Q48H IVPB Last administered on 01/08/17 11:24; Admin Dose 83.333 MLS/HR; Start 01/06/17 at 12:00 Cefepime HCl (Maxipime 1gm/50 ml (Pmx)) 50 ml @ 100 mls/hr Q24H IVPB Last administered on 01/08/17 08:23; Admin Dose 100 MLS/HR; Start 01/06/17 at 09:00 Morphine Sulfate 2 mg 2 mg Q4H PRN IV PAIN LEVEL 7-10 Last administered on 00:24; Admin Dose 2 MG; Start 01/05/17 at 14:30 Sodium Chloride (1/2 NS) 1,000 ml @ 75 mls/hr [id number] IV Last administered on 01/08/17 11:41; Admin Dose 75 MLS/HR; Start 01/06/17 at 09:00 Hydralazine HCl (Apresoline) 10 mg Q8 PO Last administered on 01/07/17 21:06; Admin Dose 10 MG; Start 01/07/17 at 14:00; Status Future Hold MIKY GOODMAN Jan 08, 2017 14:16
[2017-01-08] MEDS ORDERED: POLYETHYLENE GLYCOL 17 GM PACKET PO PRN (15:00)
--- NOTE | 2017-01-08 21:32 | CONS ---
Date/Time of Note Date/Time of Note DATE: 01/08/17 TIME: 21:25 Assessment/Plan Assessment/Plan Chief Complaint/Hosp Course ID PROGRESS NOTE CURRENT ABX: Vanco IV + Cefepime TOTAL ABX DAY #14 24H INTERVAL SUMMARY * No fevers, WBC still elevated == possibly due to Neupogen? * UA C&S not sent ? * CXR with pulmonary infiltrates / HCAP * IMPRESSION:Calcified atherosclerosis in the aorta. Stable interstitial prominence in both lungs. Interval decrease in right upper lobe infiltrates. Stable patchy bilateral lower lobe infiltrates. Exam General: WN/WD/NAD, AOx comfortable, does not follow commands, lethargic HEENT: AT, NC, anicteric, atraumatic NECK: JVD elevated, no thyromegaly Lymph: no lymphadenopathy HEART: RRR (+)II/ FAUZIA LUNGS: Coarse sounds -> O2 via NC ABD: soft, NT, ND, +BS : Intact Neuro: non focal SKIN: chronic changes EXT: trace edema ID ASSESSMENT 86 yo M w/dementia/psychotic features, HTN, DMT2, admit with: 1. SIRS with persistent leukocytosis due to #2 #3 * Leukocytosis possibly due to Neupogen? 2. Enterococcal UTI * Complicated UTI 2/2 (+)BPH-> ?retention 3. HCAP -> ASP PNA => CXR with bilateral infiltrates 4. Acute CHF exacerbation w/MS-severe by echo 5. Cardiac arrhythmia -> s/p Pacemaker implant 6. Presumptive CKD 7. Anemia of chronic disease. 8. Right heel pressure ulcer. ABX ALLERGY: PCN CURRENT ABX: Vanco IV + Cefepime TOTAL ABX DAY #14 ID RECOMMENDATIONS 1. Continue current ABX 2. Repeat UA, C&S, sputum if able to produce 3. Leukocytosis possibly due to Neupogen? . Problems: Consultation Date/Type/Reason Admit Date/Time Dec 26, 2016 at 01:49 Initial Consult Date 01/06/17 Type of Consultation: ID Referring Provider: ANGELA AL Exam/Review of Systems Vital Signs Vitals Vital Signs Date Time Temp Pulse Resp B/P Pulse Ox O2 Delivery O2 Flow Rate FiO2 01/08/17 20:01 96 01/08/17 19:55 98.2 19 110/61 95 01/08/17 18:56 4.0 01/08/17 14:22 Nasal Cannula 01/06/17 00:22 40 Intake and Output 01/07/17 01/07/17 01/08/17 15:00 23:00 07:00 Intake Total 1605 ml 1150 ml Output Total 550 ml 600 ml Balance 1055 ml 550 ml Results Result Diagram: 01/08/17 0556 01/08/17 0556 Results 24 hrs Laboratory Tests Test 01/08/17 02:13 01/08/17 05:27 01/08/17 05:56 01/08/17 08:18 Bedside Glucose 124 130 Lab Scanned Report BLOOD TRANSFUSION White Blood Count 17.5 H Red Blood Count 2.71 L Hemoglobin 8.2 L Hematocrit 26.3 L Mean Corpuscular Volume 97.0 Mean Corpuscular Hemoglobin 30.3 Mean Corpuscular Hemoglobin Concent 31.2 L Red Cell Distribution Width 19.3 H Platelet Count 305 Mean Platelet Volume 10.9 H Neutrophils % 80.0 H Lymphocytes % 5.2 L Monocytes % 5.1 Eosinophils % 3.3 Basophils % 0.5 Nucleated Red Blood Cells % 0.3 H Neutrophils # 14.0 H Lymphocytes # 0.9 Monocytes # 0.9 Eosinophils # 0.6 H Basophils # 0.1 Nucleated Red Blood Cells # 0.1 H Sodium Level 144 Potassium Level 4.2 Chloride Level 105 Carbon Dioxide Level 30 Anion Gap 13 Blood Urea Nitrogen 73 H Creatinine 1.69 H Glucose Level 122 Calcium Level 8.2 L Phosphorus Level 3.0 Magnesium Level 2.1 Test 01/08/17 11:18 01/08/17 17:46 Bedside Glucose 208 182 Medications Medications Current Medications Lorazepam (Ativan) 0.5 mg Q6H PRN IV ANXIETY Last administered on 01/04/17 21: 23; Admin Dose 0.5 MG; Start 12/26/16 at 06:00 Ondansetron HCl (Zofran Inj) 4 mg Q6H PRN IV NAUSEA AND/OR VOMITING; Start at 06:00 Aspirin (Aspirin) 81 mg DAILY PO Last administered on 01/08/17 08:23; Admin Dose 81 MG; Start 12/26/16 at 09:00 Acetaminophen (Tylenol Tab) 650 mg Q6H PRN PO PAIN LEVEL 1-3 OR FEVER Last administered on 12/27/16 03:55; Admin Dose 650 MG; Start 12/26/16 at 06:00 Heparin Sodium (Porcine) (Heparin (5000 Units/0.5 ml)) 5,000 unit Q12 SC Last administered on 01/08/17 08:25; Admin Dose 5,000 UNIT; Start 12/26/16 at 09:00 Diagnostic Test (Pha) (Accu-Chek) 1 ea 02 XX Last administered on 01/05/17 02: 00; Admin Dose 1 EA; Start 12/27/16 at 02:00 Insulin Glargine (Lantus) 14 unit DAILY@08 SC Last administered on 01/08/17 08: 30; Admin Dose 14 UNIT; Start 12/26/16 at 08:00 Miscellaneous Information 1 ea NOTE XX ; Start 12/26/16 at 06:00 Glucose (Glutose) 15 gm Q15M PRN PO DECREASED GLUCOSE; Start 12/26/16 at 06:00 Glucose (Glutose) 22.5 gm Q15M PRN PO DECREASED GLUCOSE; Start 12/26/16 at 06: 00 Dextrose (D50w Syringe) 25 ml Q15M PRN IV DECREASED GLUCOSE; Start 12/26/16 at 06:00 Dextrose (D50w Syringe) 50 ml Q15M PRN IV DECREASED GLUCOSE; Start 12/26/16 at 06:00 Glucagon (Glucagen) 1 mg Q15M PRN IM DECREASED GLUCOSE; Start 12/26/16 at 06:00 Glucose (Glutose) 15 gm Q15M PRN BUCCAL DECREASED GLUCOSE; Start 12/26/16 at 06 :00 Miscellaneous Information [facility] This patient betancourt... PRN PRN XX WOUND CARE; Start 12/26/16 at 06:30 Metoprolol Tartrate (Lopressor) 25 mg BID PO Last administered on 01/08/17 08: 26; Admin Dose 25 MG; Start 12/26/16 at 21:00 Guaifenesin/ Codeine Phosphate (Robitussin Ac Liquid Cup) 10 ml Q4H PRN PO COUGH Last administered on 12/30/16 16:24; Admin Dose 10 ML; Start 12/26/16 at 20:30 Quetiapine Fumarate (Seroquel) 50 mg BID PO Last administered on 01/08/17 08:24 ; Admin Dose 50 MG; Start 12/26/16 at 22:00 Hydralazine HCl (Apresoline) 10 mg Q6H PRN IV ELEVATED SYSTOLIC BP; Start 12/31 at 23:30 Lorazepam (Ativan) 0.5 mg Q6H PRN IV ANXIETY; Start 12/31/16 at 23:30 Vancomycin HCl (Vanco Iv Per Pharmacy) PER PHARMACY DOSING NOTE XX ; Start 01/01 at 10:30 Metoprolol Tartrate (Lopressor) 5 mg Q4H PRN IV HR>110 Hold SBP<100; Start at 17:00 Trazodone HCl 100 mg 100 mg QHS PRN PO SLEEP; Start 01/03/17 at 21:00 Vancomycin HCl 1.25 gm/Sodium Chloride 250 ml @ 83.333 mls/ hr Q48H IVPB Last administered on 01/08/17 11:24; Admin Dose 83.333 MLS/HR; Start 01/06/17 at 12:00 Cefepime HCl (Maxipime 1gm/50 ml (Pmx)) 50 ml @ 100 mls/hr Q24H IVPB Last administered on 01/08/17 08:23; Admin Dose 100 MLS/HR; Start 01/06/17 at 09:00 Morphine Sulfate 2 mg 2 mg Q4H PRN IV PAIN LEVEL 7-10 Last administered on 00:24; Admin Dose 2 MG; Start 01/05/17 at 14:30 Sodium Chloride (1/2 NS) 1,000 ml @ 75 mls/hr [id number] IV Last administered on 01/08/17 11:41; Admin Dose 75 MLS/HR; Start 01/06/17 at 09:00 Hydralazine HCl (Apresoline) 10 mg Q8 PO Last administered on 01/07/17 21:06; Admin Dose 10 MG; Start 01/07/17 at 14:00; Status Future Hold Polyethylene Glycol (Miralax) 17 gm DAILY PRN PO CONSTIPATION Last administered on 01/08/17 17:45; Admin Dose 17 GM; Start 01/08/17 at 15:00 MERLIN MARCIAL NP Jan 08, 2017 21:32
[2017-01-08] MEDS: morphine 4 MG/ML VIAL IV PRN (23:04)
[2017-01-09] VITALS (14 sets, daily range): BP systolic 93–139; BP diastolic 51–90; PULSE 82–99; RESP 18–20
[2017-01-09] MEDS: ACCU-CHEK XX SCH (02:00)
[2017-01-09] MEDS: SOD CHLORIDE 0.45% 1,000 ML IV SCH (06:09)
[2017-01-09 06:26] LABS: ABNORMAL IP MESSAGE 1; BASOPHIL # 0.1 10^3/ul (0.0-0.1); BASOPHILS % 0.3 % (0.0-2.0); EOSINOPHILS # 0.3 10^3/ul (0.0-0.5); EOSINOPHILS % 1.6 % (0.0-7.0); HEMATOCRIT 26.5 % (42.0-52.0); HEMOGLOBIN 8.2 g/dl (14.0-18.0); LYMPHOCYTES # 0.6 10^3/ul (0.8-2.9); LYMPHOCYTES % 3.2 % (15.0-51.0); MEAN CORPUSCULAR HGB CONC 30.9 g/dl (32.0-37.0); MEAN CORPUSCULAR VOLUME 97.1 fl (82.0-101.0); MEAN PLATELET VOLUME 10.6 fl (7.4-10.4); MONOCYTE # 0.8 10^3/ul (0.3-0.9); MONOCYTES % 4.2 % (0.0-11.0); NEUTROPHIL # 15.9 10^3/ul (1.6-7.5); NEUTROPHILS % 85.7 % (39.0-77.0); NUCLEATED RED BLOOD CELLS% 0.2 /100WBC (0.0-0.0); PLATELET COUNT 274 10^3/UL (140-415); POSITIVE DIFF @See below; RED BLOOD COUNT 2.73 10^6/ul (4.70-6.10); RED CELL DISTRIBUTION WIDTH 19.4 % (11.5-14.5); WHITE BLOOD COUNT 18.5 10^3/ul (4.8-10.8)
[2017-01-09 06:50] LABS: CREATININE 1.52 mg/dl (0.61-1.24); MAGNESIUM 2.2 mg/dl (1.7-2.5); PHOSPHORUS 3.3 mg/dl (2.5-4.9); POTASSIUM 4.3 mmol/L (3.5-5.1)
[2017-01-09] MEDS: CEFEPIME 1GM/50 ML IVPB SCH (08:15)
[2017-01-09] MEDS: METOPROLOL 25 MG TAB PO SCH (08:15)
[2017-01-09] MEDS: QUETIAPINE 25 MG TAB PO SCH (08:15)
[2017-01-09] MEDS: ASPIRIN 81 MG TAB PO SCH (08:16)
[2017-01-09] MEDS: INSULIN ASPART [NOVOLOG] 3 ML PEN SC SCH ×3 (08:16→18:00)
[2017-01-09] MEDS: INSULIN GLARGINE [LANtus] 3 ML PEN SC SCH (08:17)
[2017-01-09] MEDS: HEPARIN 5,000 UNIT/0.5 ML VIAL SC SCH (08:21)
--- NOTE | 2017-01-09 09:48 | PN ---
DATE: 01/09/2017 SUBJECTIVE DATA: The patient is stable. No events overnight. No fevers, chills, nausea, vomiting. OBJECTIVE DATA: VITAL SIGNS: Blood pressure 130/62, respirations 18, pulse 91, temperature 98.0 HEENT: Head is normocephalic. NECK: Supple. HEART: Regular rate. LUNGS: Diminished breath sounds at the base. ABDOMEN: Soft, nontender to palpation. No rebound or guarding. EXTREMITIES: Negative for clubbing, cyanosis. No edema. DERMATOLOGIC: No rashes. MUSCULOSKELETAL: No joint effusion. NEUROLOGIC: No change in exam. MEDICATIONS: Reviewed. LABORATORY DATA: Sodium 144, potassium 4.3, BUN , creatinine 1.52. White count 18.5, hemoglobin 8.2, hematocrit 26.5, platelet count is 274. ASSESSMENT AND PLAN: 1. Nonoliguric acute kidney injury on top of chronic kidney disease with unknown baseline creatinine. Etiology of acute kidney injury secondary to hemodynamics and recent diuretic therapy. Renal function has been improving with gentle IV hydration. Will continue IV fluids for another 24 hours, then discontinue. 2. Hypokalemia, improved. 3. Hypernatremia, improving. Continue gentle hydration. 4. Chronic kidney disease, etiology is unclear. The patient is currently acute injury as stated above. 5. Anemia. Monitor H and H levels. The patient is status post blood transfusion. Patient status post Epogen. 6. Mineral bone disorder. Will continue to monitor calcium and phosphorus levels. 7. History of congestive heart failure. The patient appears to be euvolemic. Diuretic therapy is on hold while patient is given gentle IV fluids. Monitor volume status closely. 8. Acute hypoxemic respiratory failure secondary to pneumonia. Continue current medical management. The patient is currently on nasal cannula. 9. Sepsis secondary to pneumonia. Continue current treatment plan. 10. Acute encephalopathy on dementia. Continue to monitor. Dictated By: Major Lazo DO /lalitha/jade /Document#: [id number]
--- NOTE | 2017-01-09 09:53 | CONS ---
Date/Time of Note Date/Time of Note DATE: 01/09/17 TIME: 09:50 Assessment/Plan Assessment/Plan Additional Assessment/Plan wants to take him home with Hospice care only..suggest no further hospital care.... Consultation Date/Type/Reason Admit Date/Time Dec 26, 2016 at 01:49 Initial Consult Date 01/06/17 Referring Provider: ANGELA AL Exam/Review of Systems Vital Signs Vitals Vital Signs Date Time Temp Pulse Resp B/P Pulse Ox O2 Delivery O2 Flow Rate FiO2 01/09/17 08:11 88 01/09/17 07:40 98.0 18 130/62 96 01/09/17 06:12 Nasal Cannula 5.0 01/06/17 00:22 40 Intake and Output 01/08/17 01/08/17 01/09/17 14:59 22:59 06:59 Intake Total 400 ml 1120 ml Output Total 1500 ml 1000 ml Balance -1100 ml 120 ml Results Result Diagram: 01/09/17 0604 01/09/17 0604 Results 24 hrs Laboratory Tests Test 01/08/17 11:18 01/08/17 17:46 01/08/17 21:42 01/09/17 06:04 Bedside Glucose 208 182 171 White Blood Count 18.5 H Red Blood Count 2.73 L Hemoglobin 8.2 L Hematocrit 26.5 L Mean Corpuscular Volume 97.1 Mean Corpuscular Hemoglobin 30.0 Mean Corpuscular Hemoglobin Concent 30.9 L Red Cell Distribution Width 19.4 H Platelet Count 274 Mean Platelet Volume 10.6 H Neutrophils % 85.7 H Lymphocytes % 3.2 L Monocytes % 4.2 Eosinophils % 1.6 Basophils % 0.3 Nucleated Red Blood Cells % 0.2 H Neutrophils # 15.9 H Lymphocytes # 0.6 L Monocytes # 0.8 Eosinophils # 0.3 Basophils # 0.1 Nucleated Red Blood Cells # 0.0 Sodium Level 144 Potassium Level 4.3 Chloride Level 107 Carbon Dioxide Level 26 Anion Gap 15 Blood Urea Nitrogen 60 H Creatinine 1.52 H Glucose Level 173 Calcium Level 8.0 L Phosphorus Level 3.3 Magnesium Level 2.2 Test 01/09/17 08:12 Bedside Glucose 178 Medications Medications Current Medications Lorazepam (Ativan) 0.5 mg Q6H PRN IV ANXIETY Last administered on 01/04/17 21: 23; Admin Dose 0.5 MG; Start 12/26/16 at 06:00 Ondansetron HCl (Zofran Inj) 4 mg Q6H PRN IV NAUSEA AND/OR VOMITING; Start at 06:00 Aspirin (Aspirin) 81 mg DAILY PO Last administered on 01/09/17 08:16; Admin Dose 81 MG; Start 12/26/16 at 09:00 Acetaminophen (Tylenol Tab) 650 mg Q6H PRN PO PAIN LEVEL 1-3 OR FEVER Last administered on 12/27/16 03:55; Admin Dose 650 MG; Start 12/26/16 at 06:00 Heparin Sodium (Porcine) (Heparin (5000 Units/0.5 ml)) 5,000 unit Q12 SC Last administered on 01/09/17 08:21; Admin Dose 5,000 UNIT; Start 12/26/16 at 09:00 Diagnostic Test (Pha) (Accu-Chek) 1 ea 02 XX Last administered on 01/05/17 02: 00; Admin Dose 1 EA; Start 12/27/16 at 02:00 Insulin Glargine (Lantus) 14 unit DAILY@08 SC Last administered on 01/09/17 08: 17; Admin Dose 14 UNIT; Start 12/26/16 at 08:00 Miscellaneous Information 1 ea NOTE XX ; Start 12/26/16 at 06:00 Glucose (Glutose) 15 gm Q15M PRN PO DECREASED GLUCOSE; Start 12/26/16 at 06:00 Glucose (Glutose) 22.5 gm Q15M PRN PO DECREASED GLUCOSE; Start 12/26/16 at 06: 00 Dextrose (D50w Syringe) 25 ml Q15M PRN IV DECREASED GLUCOSE; Start 12/26/16 at 06:00 Dextrose (D50w Syringe) 50 ml Q15M PRN IV DECREASED GLUCOSE; Start 12/26/16 at 06:00 Glucagon (Glucagen) 1 mg Q15M PRN IM DECREASED GLUCOSE; Start 12/26/16 at 06:00 Glucose (Glutose) 15 gm Q15M PRN BUCCAL DECREASED GLUCOSE; Start 12/26/16 at 06 :00 [facility]iscellaneous [facility] This patient betancourt... PRN PRN XX WOUND CARE; Start 12/26/16 at 06:30 Metoprolol Tartrate (Lopressor) 25 mg BID PO Last administered on 01/09/17 08: 15; Admin Dose 25 MG; Start 12/26/16 at 21:00 Guaifenesin/ Codeine Phosphate (Robitussin Ac Liquid Cup) 10 ml Q4H PRN PO COUGH Last administered on 12/30/16 16:24; Admin Dose 10 ML; Start 12/26/16 at 20:30 Quetiapine Fumarate (Seroquel) 50 mg BID PO Last administered on 01/09/17 08:15 ; Admin Dose 50 MG; Start 12/26/16 at 22:00 Hydralazine HCl (Apresoline) 10 mg Q6H PRN IV ELEVATED SYSTOLIC BP; Start 12/31 at 23:30 Lorazepam (Ativan) 0.5 mg Q6H PRN IV ANXIETY; Start 12/31/16 at 23:30 Vancomycin HCl (Vanco Iv Per Pharmacy) PER PHARMACY DOSING NOTE XX ; Start 01/01 at 10:30 Metoprolol Tartrate (Lopressor) 5 mg Q4H PRN IV HR>110 Hold SBP<100; Start at 17:00 Trazodone HCl 100 mg 100 mg QHS PRN PO SLEEP; Start 01/03/17 at 21:00 Vancomycin HCl 1.25 gm/Sodium Chloride 250 ml @ 83.333 mls/ hr Q48H IVPB Last administered on 01/08/17 11:24; Admin Dose 83.333 MLS/HR; Start 01/06/17 at 12:00 Cefepime HCl (Maxipime 1gm/50 ml (Pmx)) 50 ml @ 100 mls/hr Q24H IVPB Last administered on 01/09/17 08:15; Admin Dose 100 MLS/HR; Start 01/06/17 at 09:00 Morphine Sulfate 2 mg 2 mg Q4H PRN IV PAIN LEVEL 7-10 Last administered on 23:04; Admin Dose 2 MG; Start 01/05/17 at 14:30 Sodium Chloride (1/2 NS) 1,000 ml @ 50 mls/hr Q20H IV Last administered on 01/09 06:09; Admin Dose 75 MLS/HR; Start 01/06/17 at 09:00 Hydralazine HCl (Apresoline) 10 mg Q8 PO Last administered on 01/07/17 21:06; Admin Dose 10 MG; Start 01/07/17 at 14:00; Status Future Hold Polyethylene Glycol (Miralax) 17 gm DAILY PRN PO CONSTIPATION Last administered on 01/08/17 17:45; Admin Dose 17 GM; Start 01/08/17 at 15:00 JEAN PIERRE WEEMS Jan 09, 2017 09:53 administered on 01/08/17 17:45; Admin Dose 17 GM; Start 01/08/17 at 15:00 JEAN PIERRE WEEMS Jan 09, 2017 09:53
--- NOTE | 2017-01-09 11:45 | CONS ---
Date/Time of Note Date/Time of Note DATE: 01/09/17 TIME: 11:43 Assessment/Plan Assessment/Plan Chief Complaint/Hosp Course IMP: 1.CHF-diastolic acute on chronic. Trop negative x 3. reasonable volume status by exam 2.MS-severe by echo 3.abnl ecg 4.Psych d/o 5.REnal failure 6. UTI 7.AMS 8. Resp distress-improved currently 9. DNR status 10. Hotn-currently improved Recc: -tele -Continue to hold hydralazine with overall improved BP at this time -IVP PRN BB -Continue bronchodilators/follow resp status closely -Continue abx's and f/u cx data -Follow volume status closely with lasix held per renal Problems: Consultation Date/Type/Reason Admit Date/Time Dec 26, 2016 at 01:49 Initial Consult Date 12/26/2016 Type of Consultation: Cardiology Reason for Consultation CHF Referring Provider: ANGELA AL Exam/Review of Systems Vital Signs Vitals Vital Signs Date Time Temp Pulse Resp B/P Pulse Ox O2 Delivery O2 Flow Rate FiO2 01/09/17 11:39 98.4 90 19 137/90 95 01/09/17 08:00 Nasal Cannula 5.0 01/06/17 00:22 40 Intake and Output 01/08/17 01/08/17 01/09/17 15:00 23:00 07:00 Intake Total 400 ml 1120 ml Output Total 1500 ml 1000 ml Balance -1100 ml 120 ml Exam Review of Systems: CONSTITUTIONAL: No fevers, chills. PULMONARY: No sob CARDIOVASCULAR: No chest pain/palpitations GASTROINTESTINAL: No nausea/vomiting. GENITOURINARY: No hematuria/dysuria. MUSCULOSKELETAL: No myagias/arthalgias. PSYCHIATRIC: The patient denies depression. NEUROLOGIC: encephalopathic Constitutional: other (encephalopathic) Psych: no complaints Head: normocephalic ENMT: mucosa pink and moist Neck: jvd (9 cm water), supple Respiratory: diminished breath sounds (at bases/B) Cardiovascular: regular rate and rhythm Gastrointestinal: non-tender, soft Musculoskeletal: muscle weakness (generalized) Extremities: edema (none) Results Result Diagram: 01/09/17 0604 01/09/17 0604 Results 24 hrs Laboratory Tests Test 01/08/17 17:46 01/08/17 21:42 01/09/17 06:04 01/09/17 08:12 Bedside Glucose 182 171 178 White Blood Count 18.5 H Red Blood Count 2.73 L Hemoglobin 8.2 L Hematocrit 26.5 L Mean Corpuscular Volume 97.1 Mean Corpuscular Hemoglobin 30.0 Mean Corpuscular Hemoglobin Concent 30.9 L Red Cell Distribution Width 19.4 H Platelet Count 274 Mean Platelet Volume 10.6 H Neutrophils % 85.7 H Lymphocytes % 3.2 L Monocytes % 4.2 Eosinophils % 1.6 Basophils % 0.3 Nucleated Red Blood Cells % 0.2 H Neutrophils # 15.9 H Lymphocytes # 0.6 L Monocytes # 0.8 Eosinophils # 0.3 Basophils # 0.1 Nucleated Red Blood Cells # 0.0 Sodium Level 144 Potassium Level 4.3 Chloride Level 107 Carbon Dioxide Level 26 Anion Gap 15 Blood Urea Nitrogen 60 H Creatinine 1.52 H Glucose Level 173 Calcium Level 8.0 L Phosphorus Level 3.3 Magnesium Level 2.2 Medications Medications Current Medications Lorazepam (Ativan) 0.5 mg Q6H PRN IV ANXIETY Last administered on 01/04/17 21: 23; Admin Dose 0.5 MG; Start 12/26/16 at 06:00 Ondansetron HCl (Zofran Inj) 4 mg Q6H PRN IV NAUSEA AND/OR VOMITING; Start at 06:00 Aspirin (Aspirin) 81 mg DAILY PO Last administered on 01/09/17 08:16; Admin Dose 81 MG; Start 12/26/16 at 09:00 Acetaminophen (Tylenol Tab) 650 mg Q6H PRN PO PAIN LEVEL 1-3 OR FEVER Last administered on 12/27/16 03:55; Admin Dose 650 MG; Start 12/26/16 at 06:00 Heparin Sodium (Porcine) (Heparin (5000 Units/0.5 ml)) 5,000 unit Q12 SC Last administered on 01/09/17 08:21; Admin Dose 5,000 UNIT; Start 12/26/16 at 09:00 Diagnostic Test (Pha) (Accu-Chek) 1 ea 02 XX Last administered on 01/05/17 02: 00; Admin Dose 1 EA; Start 12/27/16 at 02:00 Insulin Glargine (Lantus) 14 unit DAILY@08 SC Last administered on 01/09/17 08: 17; Admin Dose 14 UNIT; Start 12/26/16 at 08:00 Miscellaneous Information 1 ea NOTE XX ; Start 12/26/16 at 06:00 Glucose (Glutose) 15 gm Q15M PRN PO DECREASED GLUCOSE; Start 12/26/16 at 06:00 Glucose (Glutose) 22.5 gm Q15M PRN PO DECREASED GLUCOSE; Start 12/26/16 at 06: 00 Dextrose (D50w Syringe) 25 ml Q15M PRN IV DECREASED GLUCOSE; Start 12/26/16 at 06:00 Dextrose (D50w Syringe) 50 ml Q15M PRN IV DECREASED GLUCOSE; Start 12/26/16 at 06:00 Glucagon (Glucagen) 1 mg Q15M PRN IM DECREASED GLUCOSE; Start 12/26/16 at 06:00 Glucose (Glutose) 15 gm Q15M PRN BUCCAL DECREASED GLUCOSE; Start 12/26/16 at 06 :00 [facility] This patient betancourt... PRN PRN XX WOUND CARE; Start 12/26/16 at 06:30 Metoprolol Tartrate (Lopressor) 25 mg BID PO Last administered on 01/09/17 08: 15; Admin Dose 25 MG; Start 12/26/16 at 21:00 Guaifenesin/ Codeine Phosphate (Robitussin Ac Liquid Cup) 10 ml Q4H PRN PO COUGH Last administered on 12/30/16 16:24; Admin Dose 10 ML; Start 12/26/16 at 20:30 Quetiapine Fumarate (Seroquel) 50 mg BID PO Last administered on 01/09/17 08:15 ; Admin Dose 50 MG; Start 12/26/16 at 22:00 Hydralazine HCl (Apresoline) 10 mg Q6H PRN IV ELEVATED SYSTOLIC BP; Start 12/31 at 23:30 Lorazepam (Ativan) 0.5 mg Q6H PRN IV ANXIETY; Start 12/31/16 at 23:30 Vancomycin HCl (Vanco Iv Per Pharmacy) PER PHARMACY DOSING NOTE XX ; Start 01/01 at 10:30 Metoprolol Tartrate (Lopressor) 5 mg Q4H PRN IV HR>110 Hold SBP<100; Start at 17:00 Trazodone HCl 100 mg 100 mg QHS PRN PO SLEEP; Start 01/03/17 at 21:00 Vancomycin HCl 1.25 gm/Sodium Chloride 250 ml @ 83.333 mls/ hr Q48H IVPB Last administered on 01/08/17 11:24; Admin Dose 83.333 MLS/HR; Start 01/06/17 at 12:00 Cefepime HCl (Maxipime 1gm/50 ml (Pmx)) 50 ml @ 100 mls/hr Q24H IVPB Last administered on 01/09/17 08:15; Admin Dose 100 MLS/HR; Start 01/06/17 at 09:00 Morphine Sulfate 2 mg 2 mg Q4H PRN IV PAIN LEVEL 7-10 Last administered on 23:04; Admin Dose 2 MG; Start 01/05/17 at 14:30 Sodium Chloride (1/2 NS) 1,000 ml @ 50 mls/hr Q20H IV Last administered on 01/09 06:09; Admin Dose 75 MLS/HR; Start 01/06/17 at 09:00 Hydralazine HCl (Apresoline) 10 mg Q8 PO Last administered on 01/07/17 21:06; Admin Dose 10 MG; Start 01/07/17 at 14:00; Status Future Hold Polyethylene Glycol (Miralax) 17 gm DAILY PRN PO CONSTIPATION Last administered on 01/08/17 17:45; Admin Dose 17 GM; Start 01/08/17 at 15:00 DENG WALLIS Jan 09, 2017 11:45
--- NOTE | 2017-01-09 15:08 | PDOCDIS ---
Discharge Instructions CONDITION Patient Condition: Stable HOME CARE INSTRUCTIONS: Special Diet: PUREED FOLLOW UP/APPOINTMENTS Follow-up Plan follow up with home hospice physician. MKIY GOODMAN Jan 09, 2017 15:08
--- NOTE | 2017-01-09 15:12 | DS ---
Date/Time of Note Date/Time of Note DATE: 01/09/17 TIME: 15:11 Discharge Summary Admission/Discharge Info Admit Date/Time Dec 26, 2016 at 01:49 Discharge Date/Time Patient Condition: Stable Hx of Present Illness This is on 86-year-old male with a history of type I diabetes, pacemaker, hypertension, BPH, unknown underlying psych issue based on the home medication and the likely dementia who presented to the emergency department for shortness of breath. Patient is not able to give any history in the such information is gathered from chart review and from the ER physician. Patient only at times states a few words in Czech and that is about it. According to notes from the ER, his stated that he looked very lethargic and fatigued for about 3 hours prior to presentation to the ER. She also reported that he has been "sick " for a while. When EMS arrived, reportedly oxygen saturation was as low as 68% . He was placed on nonrebreather mask which increased his oxygen saturation to about 95%. In the ER, chest x-ray shows patchy airspace opacities of the left and right chest likely due to pulmonary edema. Pneumonia cannot be excluded. Labs show a creatinine of 1.47, glucose 224, WBC 12.4 and hemoglobin of about 9.3. Initially his heart rate was 104 and temperature was 99.9. Patient was given Lasix, ceftriaxone while he was in the ER. Hospital Course Discharge diagnoses Shortness of breath Acute on chronic systolic heart failure exacerbation Acute on chronic kidney disease Sepsis Altered mental status Dementia Hypertension Decubitus ulcers Anemia chronic disease Pneumonia Electrolyte derangement excellent Patient is an 86-year-old male with past medical history significant for type 1 diabetes, CHF with pacemaker, hypertension and BPH and underlying psych issues and dementia who presented to the emergency department for shortness of breath. Patient had a prolonged stay at the hospital due to his multiple comorbidities and was treated for CHF exacerbation as well as acute kidney disease on top of his chronic kidney disease. Patient stabilized however was still on oxygen and extremely altered. It was eventually decided by patient's that she would prefer home hospice at this time. Palliative care has been following this entire time and agrees with this assessment, patient will be sent home on home hospice. Home Meds Reported Medications Quetiapine Fumarate* (Quetiapine Fumarate*) 50 Mg Tablet, 50 MG PO BID, TAB 12/26/16 Insulin Aspart* (Novolog Insulin Pen*) 100 Unit/Ml Soln, 0 SC .SLIDING SCALE AC , EA 12/26/16 Insulin Detemir (Levemir) 100 Unit/1 Ml Vial, SC, VIAL 12/26/16 Trazodone Hcl* (Desyrel*) 100 Mg Tab, 100 MG PO BID, #60 TAB 12/26/16 Omeprazole* (Omeprazole*) 40 Mg Capsule.dr, 40 MG PO DAILY, #30 CAP 12/26/16 Atorvastatin Calcium (Atorvastatin Calcium) 10 Mg Tablet, 10 MG PO QHS, #30 TAB 12/26/16 Tamsulosin Hcl* (Tamsulosin Hcl*) 0.4 Mg Cap.er.24h, 0.4 MG PO DAILY, CAP 12/26/16 Amlodipine Besylate* (Amlodipine Besylate*) 10 Mg Tablet, 10 MG PO DAILY, #30 TAB 12/26/16 Metoprolol Succinate* (Toprol XL*) 50 Mg Tab.er.24h, 50 MG PO DAILY, #30 TAB 12/26/16 Buspirone Hcl* (Buspirone Hcl*) 15 Mg Tablet, 15 MG PO BID, TAB 12/26/16 Primary Care Provider Not On Staff Doctor Time spent on discharge: > 30 minutes Pending Labs Laboratory Tests Test 01/08/17 17:46 01/08/17 21:42 01/09/17 06:04 01/09/17 08:12 Bedside Glucose 182mg/dL (70-220) 171mg/dL (70-220) 178mg/dL (70-220) White Blood Count 18.510^3/ul (4.8-10.8) Red Blood Count 2.7310^6/ul (4.70-6.10) Hemoglobin 8.2g/dl (14.0-18.0) Hematocrit 26.5% (42.0-52.0) Mean Corpuscular Volume 97.1fl (82.0-101.0) Mean Corpuscular Hemoglobin 30.0pg (29.0-33.0) Mean Corpuscular Hemoglobin Concent 30.9g/dl (32.0-37.0) Red Cell Distribution Width 19.4% (11.5-14.5) Platelet Count 88156^3/UL (140-415) Mean Platelet Volume 10.6fl (7.4-10.4) Neutrophils % 85.7% (39.0-77.0) Lymphocytes % 3.2% (15.0-51.0) Monocytes % 4.2% (0.0-11.0) Eosinophils % 1.6% (0.0-7.0) Basophils % 0.3% (0.0-2.0) Nucleated Red Blood Cells % 0.2/100WBC (0.0-0.0) Neutrophils # 15.910^3/ul (1.6-7.5) Lymphocytes # 0.610^3/ul (0.8-2.9) Monocytes # 0.810^3/ul (0.3-0.9) Eosinophils # 0.310^3/ul (0.0-0.5) Basophils # 0.110^3/ul (0.0-0.1) Nucleated Red Blood Cells # 0.010^3/ul (0.0-0.0) Sodium Level 144mmol/L (135-144) Potassium Level 4.3mmol/L (3.5-5.1) Chloride Level 107mmol/L (97-110) Carbon Dioxide Level 26mmol/L (21-31) Anion Gap 15 (8-16) Blood Urea Nitrogen 60mg/dl (7-20) Creatinine 1.52mg/dl (0.61-1.24) Glucose Level 173mg/dl (70-220) Calcium Level 8.0mg/dl (8.4-10.2) Phosphorus Level 3.3mg/dl (2.5-4.9) Magnesium Level 2.2mg/dl (1.7-2.5) Test 01/09/17 12:10 Bedside Glucose 169mg/dL (70-220) MIKY GOODMAN Jan 09, 2017 15:12
--- NOTE | 2017-01-09 15:36 | CONS ---
Date/Time of Note Date/Time of Note DATE: 01/09/17 TIME: 15:33 Assessment/Plan Assessment/Plan Chief Complaint/Hosp Course ID PROGRESS NOTE CURRENT ABX: DAY # 3 => Vanco IV + Cefepime TOTAL ABX DAY #15 24H INTERVAL SUMMARY * Nonresponsive to verbal stimuli, withdraws to tactile stimuli, obtunded, O2 via face mask * No fevers, WBC still elevated == possibly due to Neupogen? * UA C&S not sent ? * CXR with pulmonary infiltrates / HCAP * IMPRESSION:Calcified atherosclerosis in the aorta. Stable interstitial prominence in both lungs. Interval decrease in right upper lobe infiltrates. Stable patchy bilateral lower lobe infiltrates. Exam General: WN/WD/NAD, AOx comfortable, does not follow commands, lethargic HEENT: AT, NC, anicteric, atraumatic NECK: , no thyromegaly Lymph: no lymphadenopathy HEART: RRR (+)II/ FAUZIA LUNGS: Coarse sounds -> O2 via NC ABD: soft, NT, ND, +BS : Intact Neuro: non focal SKIN: chronic changes EXT: trace edema ID ASSESSMENT 86 yo M w/dementia/psychotic features, HTN, DMT2, admit with: 1. SIRS with persistent leukocytosis due to #2 #3 * Leukocytosis possibly due to Neupogen? 2. Enterococcal UTI * Complicated UTI 2/2 (+)BPH-> ?retention 3. HCAP -> ASP PNA => CXR with bilateral infiltrates 4. Acute CHF exacerbation w/MS-severe by echo 5. Cardiac arrhythmia -> s/p Pacemaker implant 6. Presumptive CKD 7. Anemia of chronic disease. 8. Right heel pressure ulcer. ABX ALLERGY: PCN CURRENT ABX: DAY # 3 => Vanco IV + Cefepime TOTAL ABX DAY #15 ID RECOMMENDATIONS 1. Continue current ABX 2. Repeat UA, C&S, sputum if able to produce 3. Leukocytosis ==> Suspect due to Neupogen . Problems: Consultation Date/Type/Reason Admit Date/Time Dec 26, 2016 at 01:49 Initial Consult Date 01/06/17 Type of Consultation: ID Referring Provider: ANGELA AL Exam/Review of Systems Vital Signs Vitals Vital Signs Date Time Temp Pulse Resp B/P Pulse Ox O2 Delivery O2 Flow Rate FiO2 01/09/17 15:22 98.3 83 18 119/64 95 01/09/17 13:45 5.0 01/09/17 08:00 Nasal Cannula 01/06/17 00:22 40 Intake and Output 01/08/17 01/08/17 01/09/17 15:00 23:00 07:00 Intake Total 400 ml 1120 ml Output Total 1500 ml 1000 ml Balance -1100 ml 120 ml Results Result Diagram: 01/09/17 0604 01/09/17 0604 Results 24 hrs Laboratory Tests Test 01/08/17 17:46 01/08/17 21:42 01/09/17 06:04 01/09/17 08:12 Bedside Glucose 182 171 178 White Blood Count 18.5 H Red Blood Count 2.73 L Hemoglobin 8.2 L Hematocrit 26.5 L Mean Corpuscular Volume 97.1 Mean Corpuscular Hemoglobin 30.0 Mean Corpuscular Hemoglobin Concent 30.9 L Red Cell Distribution Width 19.4 H Platelet Count 274 Mean Platelet Volume 10.6 H Neutrophils % 85.7 H Lymphocytes % 3.2 L Monocytes % 4.2 Eosinophils % 1.6 Basophils % 0.3 Nucleated Red Blood Cells % 0.2 H Neutrophils # 15.9 H Lymphocytes # 0.6 L Monocytes # 0.8 Eosinophils # 0.3 Basophils # 0.1 Nucleated Red Blood Cells # 0.0 Sodium Level 144 Potassium Level 4.3 Chloride Level 107 Carbon Dioxide Level 26 Anion Gap 15 Blood Urea Nitrogen 60 H Creatinine 1.52 H Glucose Level 173 Calcium Level 8.0 L Phosphorus Level 3.3 Magnesium Level 2.2 Test 01/09/17 12:10 Bedside Glucose 169 Medications Medications Current Medications Lorazepam (Ativan) 0.5 mg Q6H PRN IV ANXIETY Last administered on 01/04/17 21: 23; Admin Dose 0.5 MG; Start 12/26/16 at 06:00 Ondansetron HCl (Zofran Inj) 4 mg Q6H PRN IV NAUSEA AND/OR VOMITING; Start at 06:00 Aspirin (Aspirin) 81 mg DAILY PO Last administered on 01/09/17 08:16; Admin Dose 81 MG; Start 12/26/16 at 09:00 Acetaminophen (Tylenol Tab) 650 mg Q6H PRN PO PAIN LEVEL 1-3 OR FEVER Last administered on 12/27/16 03:55; Admin Dose 650 MG; Start 12/26/16 at 06:00 Heparin Sodium (Porcine) (Heparin (5000 Units/0.5 ml)) 5,000 unit Q12 SC Last administered on 01/09/17 08:21; Admin Dose 5,000 UNIT; Start 12/26/16 at 09:00 Diagnostic Test (Pha) (Accu-Chek) 1 ea 02 XX Last administered on 01/05/17 02: 00; Admin Dose 1 EA; Start 12/27/16 at 02:00 Insulin Glargine (Lantus) 14 unit DAILY@08 SC Last administered on 01/09/17 08: 17; Admin Dose 14 UNIT; Start 12/26/16 at 08:00 Miscellaneous Information 1 ea NOTE XX ; Start 12/26/16 at 06:00 Glucose (Glutose) 15 gm Q15M PRN PO DECREASED GLUCOSE; Start 12/26/16 at 06:00 Glucose (Glutose) 22.5 gm Q15M PRN PO DECREASED GLUCOSE; Start 12/26/16 at 06: 00 Dextrose (D50w Syringe) 25 ml Q15M PRN IV DECREASED GLUCOSE; Start 12/26/16 at 06:00 Dextrose (D50w Syringe) 50 ml Q15M PRN IV DECREASED GLUCOSE; Start 12/26/16 at 06:00 Glucagon (Glucagen) 1 mg Q15M PRN IM DECREASED GLUCOSE; Start 12/26/16 at 06:00 Glucose (Glutose) 15 gm Q15M PRN BUCCAL DECREASED GLUCOSE; Start 12/26/16 at 06 :00 Miscellaneous Information (Pending [facility] Order For Wound Care) This patient betancourt... PRN PRN XX WOUND CARE; Start 12/26/16 at 06:30 Metoprolol Tartrate (Lopressor) 25 mg BID PO Last administered on 01/09/17 08: 15; Admin Dose 25 MG; Start 12/26/16 at 21:00 Guaifenesin/ Codeine Phosphate (Robitussin Ac Liquid Cup) 10 ml Q4H PRN PO COUGH Last administered on 12/30/16 16:24; Admin Dose 10 ML; Start 12/26/16 at 20:30 Quetiapine Fumarate (Seroquel) 50 mg BID PO Last administered on 01/09/17 08:15 ; Admin Dose 50 MG; Start 12/26/16 at 22:00 Hydralazine HCl (Apresoline) 10 mg Q6H PRN IV ELEVATED SYSTOLIC BP; Start 12/31 at 23:30 Lorazepam (Ativan) 0.5 mg Q6H PRN IV ANXIETY; Start 12/31/16 at 23:30 Vancomycin HCl (Vanco Iv Per Pharmacy) PER PHARMACY DOSING NOTE XX ; Start 01/01 at 10:30 Metoprolol Tartrate (Lopressor) 5 mg Q4H PRN IV HR>110 Hold SBP<100; Start at 17:00 Trazodone HCl 100 mg 100 mg QHS PRN PO SLEEP; Start 01/03/17 at 21:00 Vancomycin HCl 1.25 gm/Sodium Chloride 250 ml @ 83.333 mls/ hr Q48H IVPB Last administered on 01/08/17 11:24; Admin Dose 83.333 MLS/HR; Start 01/06/17 at 12:00 Cefepime HCl (Maxipime 1gm/50 ml (Pmx)) 50 ml @ 100 mls/hr Q24H IVPB Last administered on 01/09/17 08:15; Admin Dose 100 MLS/HR; Start 01/06/17 at 09:00 Morphine Sulfate 2 mg 2 mg Q4H PRN IV PAIN LEVEL 7-10 Last administered on 23:04; Admin Dose 2 MG; Start 01/05/17 at 14:30 Sodium Chloride (1/2 NS) 1,000 ml @ 50 mls/hr Q20H IV Last administered on 01/09 06:09; Admin Dose 75 MLS/HR; Start 01/06/17 at 09:00 Hydralazine HCl (Apresoline) 10 mg Q8 PO Last administered on 01/07/17 21:06; Admin Dose 10 MG; Start 01/07/17 at 14:00; Status Future Hold Polyethylene Glycol (Miralax) 17 gm DAILY PRN PO CONSTIPATION Last administered on 01/08/17 17:45; Admin Dose 17 GM; Start 01/08/17 at 15:00 Miscellaneous Information (*Rx Drug Level Order Reminder*) VANCOMYCIN TROUGH AT 1,100 ON 01/10 ONCE ONCE XX ; Start 01/10/17 at 11:00; Stop 01/10/17 at 11:01 MERLIN MARCIAL NP Jan 09, 2017 15:36
== END 2017-01-09 18:13 | DRG 871 ==
LOC: E/R 22:30 → MS4 12-26 01:49 → E/R 12-26 04:33 → TEL 12-29 06:15
PROVIDERS: ADMIT Internal Medicine; ATTEND Internal Medicine
PROC: 4A133R1 Monitoring of Arterial Saturation, Peripheral, Percutaneous Approach (ICD-10-PCS; principal; 2016-12-26)
PROC: 30233N1 Transfusion of Nonautologous Red Blood Cells into Peripheral Vein, Percutaneous Approach (ICD-10-PCS; 2017-01-07)
DX: A41.9 Sepsis, unspecified organism (principal); I50.33 Acute on chronic diastolic (congestive) heart failure; J96.91 Respiratory failure, unspecified with hypoxia; N17.9 Acute kidney failure, unspecified; G92 Toxic encephalopathy; J18.9 Pneumonia, unspecified organism; E10.22 Type 1 diabetes mellitus with diabetic chronic kidney disease; I13.0 Hypertensive heart and chronic kidney disease with heart failure and stage 1 through stage 4 chronic kidney disease, or unspecified chronic kidney disease; F03.90 Unspecified dementia, unspecified severity, without behavioral disturbance, psychotic disturbance, mood disturbance, and anxiety; N39.0 Urinary tract infection, site not specified; N18.9 Chronic kidney disease, unspecified; L89.619 Pressure ulcer of right heel, unspecified stage; D63.8 Anemia in other chronic diseases classified elsewhere; I27.2 Other secondary pulmonary hypertension; Z66 Do not resuscitate; Z78.1 Physical restraint status; Z51.5 Encounter for palliative care; I08.0 Rheumatic disorders of both mitral and aortic valves; N40.0 Benign prostatic hyperplasia without lower urinary tract symptoms; R33.9 Retention of urine, unspecified; B95.2 Enterococcus as the cause of diseases classified elsewhere; Z79.4 Long term (current) use of insulin; Z95.0 Presence of cardiac pacemaker; Z88.0 Allergy status to penicillin
CPT/HCPCS: 36415; 36430; 36600; 71010; 76775; 80048; 80053; 80061; 80202; 81001; 81003; 82043; 82550; 82553; 82728; 82803; 82962; 83036; 83540; 83605; 83735; 83880; 84100; 84155; 84300; 84443; 84484; 85014; 85018; 85025; 85610; 85730; 86850; 86900; 86901; 86920; 87040; 87086; 93005; 93306; 94640; 94660; 94664; 96372; 96374; 96375; 97110; 97162; 97530; J1940; J0360; J0692; J0696; J0744; J0885; J1630; J1644; J1815; J2060; J2270; J3370; J3480; J7030; J7040; J7050; J7070; P9016; Q4081